=== PATIENT | female | born 1985 | race Caucasian/White ===

== ENCOUNTER → 2017-11-03 09:57 | Outpatient (CLI) | payer OTHER, SELFPAY ==
--- NOTE | 2017-11-03 09:59 | NM_ITS ---
CLINICAL: 32-year-old female with reported history of clinical hyperparathyroidism. 99m Tc SESTAMIBI DUAL PHASE PARATHYROID SCINTIGRAPHY COMPARISON: None available FINDINGS: Following the intravenous administration of 26.7 mCi of 99m Tc sestamibi, image acquisitions of the anterior neck at approximately 15 minutes and 2.0 hours post radiopharmaceutical provision reveal: 1. Immediate static blood pool acquisitions demonstrate distribution of the radiopharmaceutical in the right-left thyroid colloid. 2. Delayed images depict near complete washout of the radiotracer from the previously defined right-left thyroid parenchyma without evidence of focal retained radiopharmaceutical identified. NM/Parathyroid Scan IMPRESSION: 1. NEGATIVE 99m Tc SESTAMIBI PARATHYROID IMAGING DUAL PHASE EXAMINATION. 2. There is no current typical scintigraphic evidence of parathyroid adenoma on the present evaluation. Electronically Signed: Hitesh Garcia DO at 10:27 EST Tel , Service support ,
== END ==
PROVIDERS: Family Provider Nurse Practitioner; PCP Nurse Practitioner; Visit Provider Nurse Practitioner
DX: E34.9 Endocrine disorder, unspecified (principal); J45.909 Unspecified asthma, uncomplicated
CPT/HCPCS: 78070; A9500

== ENCOUNTER → 2017-11-16 16:00 | Outpatient (CLI) | payer OTHER, SELFPAY ==
[2017-11-19 14:28] LABS: HPV Reflexed? NOT INDICATED
== END ==
PROVIDERS: Family Provider Nurse Practitioner; PCP Nurse Practitioner; Visit Provider Obstetrics & Gynecology
DX: Z12.4 Encounter for screening for malignant neoplasm of cervix (principal)
CPT/HCPCS: 88175; G0145

== ENCOUNTER → 2017-11-19 14:38 | Outpatient (CLI) | payer OTHER, SELFPAY ==
[2017-11-22 18:44] LABS: Bacteria 0 SEEN /hpf (None Seen); Mucous, Urine 0 SEEN /hpf (<or=2+); Red Blood Cells-Urine 0 SEEN /hpf (0-5); Squamous Epithelial Cells - UA 0 SEEN /hpf (5-10); White Blood Cells 0 SEEN /hpf (0-5)
[2017-11-22 19:34] LABS: Color, Urine Straw (Yellow); Glucose, Dipstick Normal (Normal); Ketone-Dipstick Negative (Negative); Leukocyte Esterase-Dipstick Negative /ul (Negative); Nitrite-Dipstick Negative (Negative); Occult Blood-Urine 10 /ul (Negative); Protein-Dipstick Negative (Negative); Urine Bilirubin Dipstick Negative (Negative); Urine Clarity Clear (Clear); Urine Urobilinogen Normal (Normal)
== END ==
PROVIDERS: Family Provider Nurse Practitioner; PCP Nurse Practitioner; Visit Provider Physician Assistant Surgical
DX: R39.15 Urgency of urination (principal)
CPT/HCPCS: 81001; 87086; 87088

== ENCOUNTER → 2017-12-10 13:45 | Outpatient (CLI) | payer OTHER, SELFPAY ==
[2017-12-10 13:53] LABS: Mucous, Urine 0 SEEN /hpf (<or=2+)
[2017-12-10 14:26] LABS: Color, Urine Yellow (Yellow); Glucose, Dipstick Normal (Normal); Ketone-Dipstick Negative (Negative); Leukocyte Esterase-Dipstick Negative /ul (Negative); Nitrite-Dipstick Negative (Negative); Occult Blood-Urine 10 /ul (Negative); Protein-Dipstick Negative (Negative); Specific Gravity, Urine 1.015 (1.002-1.030); Urine Bilirubin Dipstick Negative (Negative); Urine Clarity Clear (Clear); Urine Urobilinogen Normal (Normal); Urine pH 6.5 (5.0 - 8.0)
[2017-12-10 14:32] LABS: Bacteria 1+ /hpf (None Seen); Red Blood Cells-Urine 0-5 SEEN /hpf (0-5); Squamous Epithelial Cells - UA 0-5 SEEN /hpf (5-10); White Blood Cells 0-5 SEEN /hpf (0-5)
== END ==
PROVIDERS: Family Provider Nurse Practitioner; PCP Nurse Practitioner; Visit Provider Nurse Practitioner
DX: N39.0 Urinary tract infection, site not specified (principal)
CPT/HCPCS: 81001

== ENCOUNTER → 2017-12-28 07:08 | Outpatient (CLI) | payer OTHER, SELFPAY ==
[2017-12-28 08:03] LABS: ALB/GLOB Ratio 0.9 RATIO (0.9-2.4); AST(SGOT) 15 U/L (15-37); Alanine Aminotransfer ALT/SGPT 19 U/L (13-56); Albumin, Serum 3.4 g/dL (3.2-5.0); Alkaline Phosphatase 59 U/L (45-117); Anion Gap 7 (5-15); BUN 10 mg/dL (7-18); BUN/Creat Ratio 12.2 RATIO (10-20); Chloride 107 mmol/L (98-107); Cholesterol 180 mg/dL (200); Creatinine, Serum 0.82 mg/dL (0.55-1.02); EST Glomerular Filtration Rate 87 mL/min (>60); Est Glom Filt Rate - Afr Amer 105 mL/min (>60); Globulin 3.8 g/dL (2.2-4.2); Glucose 88 mg/dL (74-106); High Density Lipoprotein 44 mg/dL; Protein, Total 7.2 g/dL (6.4-8.2); Sodium Level 141 mmol/L (136-145); Triglycerides 273 mg/dL; Very Low Density Lipoprotein 55 mg/dL (5-40)
== END ==
PROVIDERS: Family Provider Nurse Practitioner; PCP Nurse Practitioner; Visit Provider Nurse Practitioner
DX: L70.9 Acne, unspecified (principal); E78.5 Hyperlipidemia, unspecified
CPT/HCPCS: 36415; 80053; 80061

== ENCOUNTER 2018-03-03 10:56 | Emergency (ER) | payer OTHER, SELFPAY ==
[2018-03-03 10:57] VITALS: BP 131/95; PULSE 82; RESP 18; TEMP 36; O2SAT 96; BMI 36.7
--- NOTE | 2018-03-03 11:17 | CT_ITS ---
STUDY: CT ABDOMEN AND PELVIS WITHOUT CONTRAST REASON FOR EXAM: Female, 32 years old. Right flank pain. History of kidney stones. RADIATION DOSAGE (If Supplied By Facility): CTDIvol = ( 21.88 ) mGy, DLP = ( 1126.13 ) mGycm TECHNIQUE: Transaxial images were obtained from the dome of the diaphragm to the symphysis pubis without oral contrast, and without intravenous contrast. Sagittal and coronal images were reconstructed. Individualized dose optimization techniques were used for this CT. COMPARISON: Comparison is made with prior study dated May 07, 2017. FINDINGS: Mild degree of increased markings at the lung bases suggestive of bibasilar atelectasis. The visualized portions of the heart are within normal limits. Normal liver. Normal gallbladder and extrahepatic biliary system. Normal spleen. Normal pancreas. Normal bilateral adrenal glands. 2 mm calculus in the upper pole of the right kidney. 2 mm calculus in the lower pole of the left kidney. Normal visualized stomach. Normal small intestine. Normal colon. The appendix is visualized and appears normal. Normal abdominal aorta. Normal inferior vena cava. Normal retroperitoneum. Mildly enlarged lymph nodes in the right lower quadrant suggestive of a possible mesenteric adenitis. Normal urinary bladder. I suspect a 5.3 cm x 3.5 cm cyst in the right ovary. Normal abdominal wall. Normal osseous structures. CT/Abdomen/Pelvis without Cont IMPRESSION: Findings suggestive of a right ovarian cyst. Enlarged lymph nodes in the right lower quadrant suggestive of mesenteric adenitis. Nonobstructive bilateral nephrolithiasis. Electronically Signed: Nicho Diaz MD at 12:57 EDT Tel [phone], Service support ,
[2018-03-03 11:38] LABS: Color, Urine Yellow (Yellow); Glucose, Dipstick Normal (Normal); Ketone-Dipstick Negative (Negative); Leukocyte Esterase-Dipstick 25 /ul (Negative); Nitrite-Dipstick Negative (Negative); Occult Blood-Urine 150 /ul (Negative); Protein-Dipstick 30 mg/dl (Negative); Urine Bilirubin Dipstick Negative (Negative); Urine Clarity Sl. Cloudy (Clear); Urine Urobilinogen Normal (Normal)
[2018-03-03 11:39] LABS: Absolute Lymphocyte Count 1.26 X10^3/ul (0.83-4.51); Absolute Neutrophil Count 4.4 X10^3/uL (2.0-7.7); Basophil# 0.01 X10^3/uL; Basophil% 0.2 % (0-1); Eosinophil# 0.12 X10^3/uL; Hematocrit 44.2 % (37-47); Hemoglobin 14.9 g/dl (12.0-15.0); Lymphocyte # 1.26 X10^3/ul (4.0); Lymphocyte % 20.6 % (19-41); Mean Corp Hgb Conc 33.7 g/gl (32-36); Mean Corpuscular Hgb 29.7 pg (27.0-32.0); Mean Corpuscular Volume 88.2 fL (81-99); Mean Platelet Vol. 9.8 fl (6.2-12.0); Monocyte# 0.34 X10^3/uL; Monocyte% 5.5 % (0-10); Neutrophil % 71.7 % (47-70); Platelet Count 194 K/mm3 (150-450); RBC Distribution Width CV 13.6 % (11.6-14.6); RBC Distribution Width SD 43.7 fl (35.1-43.9); Red Blood Count 5.01 M/mm3 (4.2-5.4); White Blood Count 6.1 K/mm3 (4.4-11.0)
[2018-03-03 11:40] LABS: POSITIVE COUNT NO; POSITIVE DIFFERENTIAL NO; POSITIVE MORPHOLOGY NO
[2018-03-03] MEDS: 0.9% Normal Saline 1,000 ML 125 ML IV (11:40)
[2018-03-03 11:45] LABS: Bacteria 1+ /hpf (None Seen); Mucous, Urine 2+ /hpf (<or=2+); Red Blood Cells-Urine 5-10 SEEN /hpf (0-5); Squamous Epithelial Cells - UA 0-5 SEEN /hpf (5-10); White Blood Cells 0-5 SEEN /hpf (0-5)
[2018-03-03 11:51] LABS: Anion Gap 6 (5-15); BUN 11 mg/dL (7-18); BUN/Creat Ratio 12.2 RATIO (10-20); Calcium,Total 9.4 mg/dL (8.5-10.1); Chloride 105 mmol/L (98-107); EST Glomerular Filtration Rate 78 mL/min (>60); Est Glom Filt Rate - Afr Amer 94 mL/min (>60); Estimated Creatinine Clearance 85.56 ml/min; Glucose 95 mg/dL (74-106); Potassium 3.8 mmol/L (3.5-5.1); Sodium Level 137 mmol/L (136-145)
[2018-03-03 12:00] LABS: Pregnancy, Serum, hCG Quali. NEGATIVE Negative (0-9 Nonpreg)
--- NOTE | 2018-03-03 13:03 | ED.VISSUMM ---
- ER Visit Summary Date of Service: 03/03/18 Chief Complaint: [Right-sided flank pain] History of Present Illness: The patient is a 32 F [presents the emergency department with right-sided flank pain ?2 days. Patient has had intermittent pain over the last 2 days well and has a history of kidney stones. Patient states that the pain was more severe around 3:30 AM today and then began to improve however around 9:30 AM she again had increasing in the amount of pain and took a [place] at home. Patient denies urinary symptoms. Patient denies any fever. Her last menstrual period was about a month ago. Patient does not believe that she is and she is on control. Currently her pain is a 3 out of 10.] Physical Examination: [HEENT-PERRLA, EOMI. Cranial nerves II through XII grossly intact. TMs clear. Mucous membranes moist. No adenopathy. Cardiovascular-regular rate and rhythm without murmur or ectopy Lungs-clear to auscultation, chest wall stable without crepitus or subcu emphysema Abdomen-normoactive bowel sounds, soft. Patient has some mild right lower quadrant tenderness on palpation and some mild CVA tenderness on the right. There is no rebound, rigidity, or perineal signs. Extremities-intact ?4, normal range of motion, normal pulses, atraumatic] Test Results: [CBC with differential obtained showed a normal white count of 6.1, hemoglobin 15, hematocrit 44, platelets 194. Chemistries unremarkable. Urinalysis showed 5-10 RBCs without signs of infection. HCG was negative. CT flank showed a right ovarian cyst and some increased lymph nodes in the right lower quadrant consistent with mesenteric adenitis.] Emergency Department Course and Treatment: [Patient refused pain medication in the emergency department.] Treatment Plan: [At this time patient is relatively pain-free. Patient advised to follow-up with her CARBONATING STONE CLEANER within next 3-5 days. Patient advised to use ibuprofen and then the [place] that she has for breakthrough pain. At this point I do not feel patient's history and exam consistent with torsion. Disposition: Discharged to home in stable condition Impression: [Abdominal pain Ovarian cyst Mesenteric adenitis] This note was generated with Earthmillation software. It may contain incorrect words, spelling, and punctuation that were not noted in review of the chart prior to signing ED Disposition - Plan for ED Patient: Chief Complaint: Flank Pain Referrals: Socorro Hernandez [Primary Care Provider] -
--- NOTE | 2018-03-03 13:07 | ED.DCSUM_ITS ---
- ER Visit Summary Date of Service: 03/03/18 Chief Complaint: [Right-sided flank pain] History of Present Illness: The patient is a 32 F [presents the emergency department with right-sided flank pain ?2 days. Patient has had intermittent pain over the last 2 days well and has a history of kidney stones. Patient states that the pain was more severe around 3:30 AM today and then began to improve however around 9:30 AM she again had increasing in the amount of pain and took a [place] at home. Patient denies urinary symptoms. Patient denies any fever. Her last menstrual period was about a month ago. Patient does not believe that she is and she is on control. Currently her pain is a 3 out of 10.] Physical Examination: [HEENT-PERRLA, EOMI. Cranial nerves II through XII grossly intact. TMs clear. Mucous membranes moist. No adenopathy. Cardiovascular-regular rate and rhythm without murmur or ectopy Lungs-clear to auscultation, chest wall stable without crepitus or subcu emphysema Abdomen-normoactive bowel sounds, soft. Patient has some mild right lower quadrant tenderness on palpation and some mild CVA tenderness on the right. There is no rebound, rigidity, or perineal signs. Extremities-intact ?4, normal range of motion, normal pulses, atraumatic] Test Results: [CBC with differential obtained showed a normal white count of 6.1 , hemoglobin 15, hematocrit 44, platelets 194. Chemistries unremarkable. Urinalysis showed 5-10 RBCs without signs of infection. HCG was negative. CT flank showed a right ovarian cyst and some increased lymph nodes in the right lower quadrant consistent with mesenteric adenitis.] Emergency Department Course and Treatment: [Patient refused pain medication in the emergency department.] Treatment Plan: [At this time patient is relatively pain-free. Patient advised to follow-up with her MANUFACTURING PLANT CONTROLLER within next 3-5 days. Patient advised to use ibuprofen and then the [place] that she has for breakthrough pain. At this point I do not feel patient's history and exam consistent with torsion. Disposition: Discharged to home in stable condition Impression: [Abdominal pain Ovarian cyst Mesenteric adenitis] This note was generated with Ed4Uation software. It may contain incorrect words, spelling, and punctuation that were not noted in review of the chart prior to signing ED Disposition - Plan for ED Patient: Chief Complaint: Flank Pain Referrals: Socorro Hernandez [Primary Care Provider] -
--- NOTE | 2018-03-03 13:08 | ED.DEP ---
ED Disposition - Plan for ED Patient: Chief Complaint: Flank Pain Instructions: ED Cyst Ovarian, ED Adenitis Mesenteric Prescriptions: Naproxen [Naprosyn] 500 mg PO BID PRN #20 tab Referrals: Socorro Hernandez [Primary Care Provider] - Jack Donohue MD [STAFF PHYSICIAN] - 3-5 Days
[2018-03-03 13:19] VITALS: BP 119/83; PULSE 72; RESP 16; O2SAT 96
== END 2018-03-03 13:21 | disposition home or self-care (01) ==
LOC: ED 11:40
PROVIDERS: Emergency Provider Emergency Medicine; Family Provider Nurse Practitioner; PCP Nurse Practitioner
DX: N83.201 Unspecified ovarian cyst, right side (principal); I88.0 Nonspecific mesenteric lymphadenitis; E78.00 Pure hypercholesterolemia, unspecified; Z79.899 Other long term (current) drug therapy
CPT/HCPCS: 74176; 80048; 81001; 84703; 85025; 96360; 96361; 99283; J7030

== ENCOUNTER → 2018-03-22 10:51 | Outpatient (CLI) | payer OTHER, SELFPAY ==
--- NOTE | 2018-03-22 14:32 | PFTCOMP ---
COMPLETE PULMONARY FUNCTION TEST INTERPRETATION Brief HPI: Patient is a 32 year old female, currently under the care of Socorro David, who presents to [facility] for complete pulmonary function tests secondary to diagnosis of dyspnea. Respiratory therapist reports good effort and reproducible results. Interpretation: Forced expiration spirometry shows no large airways obstructive ventilatory defect with an FEV1 of 103% predicted. There is no significant bronchodilator response by ATS criteria. Spirograms are of good quality and plateau normally. The respiratory flow volume loop shows a normal pattern. Lung volumes by body plethysmography show a normal total lung capacity at 5.86 L, 106% predicted. All other lung volumes are within normal limits. Diffusion capacity by carbon monoxide is normal at 86% predicted. The airway resistance is normal. Compared to previous pulmonary function tests from 04/08/2017, there has been normalization of DLCO. Impression: These pulmonary function tests are within normal limits and show significant improvement compared to previous.
== END ==
PROVIDERS: Family Provider Nurse Practitioner; PCP Nurse Practitioner; Visit Provider Nurse Practitioner
DX: E34.9 Endocrine disorder, unspecified (principal); J45.909 Unspecified asthma, uncomplicated
CPT/HCPCS: 94060; 94726; 94729

== ENCOUNTER 2018-03-26 12:00 | Observation (INO) | payer OTHER, SELFPAY ==
[2018-03-26 12:01] VITALS: BP 145/68; PULSE 84; RESP 16; TEMP 37.2; O2SAT 96; BMI 36.7
--- NOTE | 2018-03-26 12:15 | US_ITS ---
STUDY: ULTRASOUND OF THE FEMALE PELVIS REASON FOR EXAM: Female, 32 years old. Right pelvic pain LMP: March 01, 2018. TECHNIQUE: Transvaginal. TECHNICAL QUALITY: Adequate. COMPARISON: CT March 03, 2018.. FINDINGS: The uterus is anteverted and is in a midline position. The uterus measures 8.1 x 5.3 x 3.9 cm. There is a Nabothian cyst of the cervix. The endometrium measures 7 mm in thickness, and is hyperechoic. There is no demonstrated endometrial mass. There is no demonstrated myometrial mass. I.U.D. - The patient does not have an I.U.D. The right ovary is visualized. The right ovary measures 7.2 x 6.7 x 4.8 cm. There is no right ovarian cyst or ovarian mass. There is no visualized right adnexal mass or complex lesion. There is normal arterial and normal venous vascularity. The left ovary is visualized. The left ovary measures 3.3 x 2.7 x 1.8 cm. There are multiple follicles of the left ovary without a dominant cyst. There is no visualized left adnexal mass or complex lesion. There is normal arterial and normal venous vascularity. There is minimal fluid in the cul-de-sac. The volume of the bladder was 22 ml. US/Pelvic (Non ) IMPRESSION: Enlarged right ovary. No dominant mass seen. Mild free fluid. Electronically Signed: Ravin Lopez MD at 14:45 EDT , Service support ,
--- NOTE | 2018-03-26 12:27 | ED.RN ---
PT refused Dilaudid for now, we will hold dose. New order for toradol received from Dr. Valladares. Pt provided urine sample.
[2018-03-26] MEDS: Ketorolac 30 MG/ML Syringe IV (12:45)
[2018-03-26] MEDS: 0.9% Normal Saline 1,000 ML 125 ML IV (12:45)
[2018-03-26 12:46] LABS: Color, Urine Yellow (Yellow); Glucose, Dipstick Normal (Normal); Ketone-Dipstick Negative (Negative); Leukocyte Esterase-Dipstick Negative /ul (Negative); Nitrite-Dipstick Negative (Negative); Occult Blood-Urine 25 /ul (Negative); Protein-Dipstick Negative (Negative); Urine Bilirubin Dipstick Negative (Negative); Urine Clarity Sl. Cloudy (Clear); Urine Urobilinogen Normal (Normal)
[2018-03-26 12:57] LABS: Bacteria 2+ /hpf (None Seen); Mucous, Urine RARE /hpf (<or=2+); Red Blood Cells-Urine 0-5 SEEN /hpf (0-5); Squamous Epithelial Cells - UA 0-5 SEEN /hpf (5-10); White Blood Cells 0-5 SEEN /hpf (0-5)
[2018-03-26 13:03] LABS: Absolute Lymphocyte Count 1.87 X10^3/ul (0.83-4.51); Absolute Neutrophil Count 4.9 X10^3/uL (2.0-7.7); Basophil# 0.02 X10^3/uL; Basophil% 0.3 % (0-1); Eosinophil# 0.25 X10^3/uL; Eosinophils% 3.3 % (0-5); Hematocrit 41.9 % (37-47); Hemoglobin 14.4 g/dl (12.0-15.0); Lymphocyte # 1.87 X10^3/ul (4.0); Lymphocyte % 24.8 % (19-41); Mean Corp Hgb Conc 34.4 g/gl (32-36); Mean Corpuscular Hgb 30.3 pg (27.0-32.0); Mean Platelet Vol. 9.8 fl (6.2-12.0); Monocyte# 0.52 X10^3/uL; Monocyte% 6.9 % (0-10); Neutrophil # 4.88 X10^3/uL (2.7-7.7); Neutrophil % 64.7 % (47-70); POSITIVE COUNT NO; POSITIVE DIFFERENTIAL NO; POSITIVE MORPHOLOGY NO; Platelet Count 220 K/mm3 (150-450); RBC Distribution Width CV 13.7 % (11.6-14.6); RBC Distribution Width SD 44.1 fl (35.1-43.9); Red Blood Count 4.76 M/mm3 (4.2-5.4); White Blood Count 7.5 K/mm3 (4.4-11.0)
[2018-03-26 13:12] LABS: Anion Gap 9 (5-15); BUN 7 mg/dL (7-18); BUN/Creat Ratio 8.4 RATIO (10-20); Calcium,Total 9.2 mg/dL (8.5-10.1); Chloride 109 mmol/L (98-107); Creatinine, Serum 0.83 mg/dL (0.55-1.02); EST Glomerular Filtration Rate 85 mL/min (>60); Est Glom Filt Rate - Afr Amer 103 mL/min (>60); Estimated Creatinine Clearance 92.78 ml/min; Glucose 97 mg/dL (74-106); Potassium 3.9 mmol/L (3.5-5.1); Sodium Level 141 mmol/L (136-145)
[2018-03-26 13:22] LABS: Pregnancy, Serum, hCG Quali. NEGATIVE Negative (0-9 Nonpreg)
[2018-03-26] MEDS: HYDROmorphone 1 MG/ML Syringe IV ×4 (14:08→22:12)
[2018-03-26 14:28] VITALS: BP 132/78; PULSE 79; RESP 16; O2SAT 98
--- NOTE | 2018-03-26 15:09 | ED.VISSUMM ---
- ER Visit Summary Date of Service: 03/26/18 Chief Complaint: [Pelvic pain] History of Present Illness: The patient is a 32 F [presents to the emergency department with complaint of right lower pelvic pain. Patient states that the pain started this morning around 10:15 AM. Patient describes the pain as severe. Patient had a similar episode earlier in the week that only lasted about 15 minutes then resolved. Patient states that she was in the emergency department about a month ago for the same type pain and at that time had a workup that included a CAT scan of her abdomen and pelvis that showed possibly a right ovarian cyst and some enlarged lymph nodes in the right lower quadrant. Patient subsequently followed up with her COMIC ILLUSTRATOR and had an ultrasound that showed what patient states they felt was an endometrioma however they cannot rule out intermittent torsion as the etiology of her pain as well. Patient was advised that if her pain return either to go see her COMIC ILLUSTRATOR in the office or come to the emergency department. Patient has not had any fevers. Denies any blood in her urine or urinary symptoms. Last menstrual period was 3 weeks ago.] Physical Examination: [HEENT-PERRLA, EOMI. Cranial nerves II through XII grossly intact. TMs clear. Mucous membranes moist. No adenopathy. Cardiovascular-regular rate and rhythm without murmur or ectopy Lungs-clear to auscultation, chest wall stable without crepitus or subcu emphysema Abdomen-normoactive bowel sounds, soft. Patient has tenderness to palpation over the right pelvic abdomen. No rebound, rigidity, or perineal signs. No significant CVA tenderness. Extremities-intact ?4, normal range of motion, normal pulses, atraumatic] Test Results: CBC with differential obtained showed a white count of 7.5, hemoglobin 14, hematocrit 42, platelets 220. Chemistries unremarkable. Urinalysis unremarkable. HCG was negative. Ultrasound of the pelvis was obtained which showed enlarged right ovary no dominant mass seen. The right ovary measured 7.2 x 6.7 x 4.8 cm. Minimal free fluid in the cul-de-sac. [] Emergency Department Course and Treatment: [Patient was medicated with Dilaudid and Zofran as well as Toradol. Patient's pain returned and she had to be remedicated with Dilaudid. Patient continues to be very painful. I discussed case with Dr. Eileen Ramon who was covering for Dr. Donohue and will admit patient for pain control. Patient will likely require diagnostic laparoscopy at some point.] Treatment Plan: [Admit for pain control] Disposition: [Admit] Impression: [Intractable pelvic pain Enlarged right ovary] This note was generated with lensgen dictation software. It may contain incorrect words, spelling, and punctuation that were not noted in review of the chart prior to signing ED Disposition - Plan for ED Patient: Chief Complaint: Abd Pain Referrals: Socorro Hernandez [Primary Care Provider] -
--- NOTE | 2018-03-26 15:13 | ED.DCSUM_ITS ---
- ER Visit Summary Date of Service: 03/26/18 Chief Complaint: [Pelvic pain] History of Present Illness: The patient is a 32 F [presents to the emergency department with complaint of right lower pelvic pain. Patient states that the pain started this morning around 10:15 AM. Patient describes the pain as severe. Patient had a similar episode earlier in the week that only lasted about 15 minutes then resolved. Patient states that she was in the emergency department about a month ago for the same type pain and at that time had a workup that included a CAT scan of her abdomen and pelvis that showed possibly a right ovarian cyst and some enlarged lymph nodes in the right lower quadrant. Patient subsequently followed up with her CEO NA and had an ultrasound that showed what patient states they felt was an endometrioma however they cannot rule out intermittent torsion as the etiology of her pain as well. Patient was advised that if her pain return either to go see her CEO NA in the office or come to the emergency department. Patient has not had any fevers. Denies any blood in her urine or urinary symptoms. Last menstrual period was 3 weeks ago.] Physical Examination: [HEENT-PERRLA, EOMI. Cranial nerves II through XII grossly intact. TMs clear. Mucous membranes moist. No adenopathy. Cardiovascular-regular rate and rhythm without murmur or ectopy Lungs-clear to auscultation, chest wall stable without crepitus or subcu emphysema Abdomen-normoactive bowel sounds, soft. Patient has tenderness to palpation over the right pelvic abdomen. No rebound, rigidity, or perineal signs. No significant CVA tenderness. Extremities-intact ?4, normal range of motion, normal pulses, atraumatic] Test Results: CBC with differential obtained showed a white count of 7.5, hemoglobin 14, hematocrit 42, platelets 220. Chemistries unremarkable. Urinalysis unremarkable. HCG was negative. Ultrasound of the pelvis was obtained which showed enlarged right ovary no dominant mass seen. The right ovary measured 7.2 x 6.7 x 4.8 cm. Minimal free fluid in the cul-de-sac. [] Emergency Department Course and Treatment: [Patient was medicated with Dilaudid and Zofran as well as Toradol. Patient's pain returned and she had to be remedicated with Dilaudid. Patient continues to be very painful. I discussed case with Dr. Eileen Ramon who was covering for Dr. Donohue and will admit patient for pain control. Patient will likely require diagnostic laparoscopy at some point.] Treatment Plan: [Admit for pain control] Disposition: [Admit] Impression: [Intractable pelvic pain Enlarged right ovary] This note was generated with Chrysallis dictation software. It may contain incorrect words, spelling, and punctuation that were not noted in review of the chart prior to signing ED Disposition - Plan for ED Patient: Chief Complaint: Abd Pain Referrals: Socorro Hernandez [Primary Care Provider] -
[2018-03-26 15:19] VITALS: BP 132/78; PULSE 84; RESP 16; TEMP 36.4; O2SAT 100
[2018-03-26 15:55] VITALS: BMI 36.7; BMI 36.8
[2018-03-26 16:21] VITALS: BP 147/97; PULSE 67; RESP 18; TEMP 36.4; O2SAT 97
--- NOTE | 2018-03-26 16:28 | NURSING ---
Dr Ramon talking to pt now in pt's room.
--- NOTE | 2018-03-26 17:03 | PCM.HPOB.BLA ---
History and Physical Date of Admission: 03/26/18 HISTORY OF PRESENT ILLNESS: Steffen Ulloa, a 32 year old female 1 0 1 0 1, presented for: Steffen presents to [facility] Emergency Dept with h/o severe RLQ pain. States a h/o pain intermittently starting on 03/01/18 at the R flank and RLQ. She has h/o kidney stones and had prior ESWL procedure. This pain is different. She went to the ED then and had a CT scan 03-03-18 and found a 5.6 x 3.5 right ovarian cyst as well as two small, nonobstructing stones. She was given Naproxen for pain, and her pain has continued intermittently since then. She had an ultrasound in our office on 03/09/18 which showed: Uterus 9 x 4.5 x 3.5 cm with Endometrial stripe of 3 mm R ovary 6.9 x 5.7 x c cm and complex appearing L ovary 5 x 2.8 x 2.3 cm with multiple small follicles (dx of PCOS prior) She reports she had a 20 minute episode of pain 03/21/18 but the pain went away. 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 Pelvic sono at [facility] today: Uterus 8.1 x 5.3 x 3.9 cm with Endometrial stripe of 7 mm R ovary 7.2 x 6.7 x 4.8 cm with normal arterial and venous blood flow L ovary 3.3 x 2.7 x 1.8 cm Minimal fluid in cul de sac. Reviewed all finding with Steffen and her S.O. Advised will likely need to have laparoscopy to remove the enlarged right ovary due to pain , possible intermittent torsion. Her pain is currently a little better after Toradol and several doses of Dilaudid. But she is now nauseated after the pain medication. ALLERGIES: Morphine, Rash, Demerol, Rash, Biaxin, Rash, Cipro, Rash, Bactrim, Rash, MEDICATIONS HISTORY: Current medications prescribed by our practice are: 1. Tri-Previfem (28) 0.18 mg(7)/0.215 mg(7)/0.25 mg(7)-35 mcg tablet, One pill by mouth once a day Patient is also takin. Relpax 40 mg tablet, As Directed 2. Crestor 5 mg tablet, One pill by mouth once a day 3. naproxen 500 mg tablet, bid as needed REVIEW OF SYSTEMS: GENERAL - Denies fever, or chills SKIN - Denies skin changes EYES - Denies visual changes EARS - Denies difficulty hearing NOSE - Denies nasal congestion or bleeding MOUTH - Denies sore throat or difficulty swallowing NECK - Denies pain or swelling RESPIRATORY - Denies shortness of breath or wheezing CARDIOVASCULAR - Denies palpitations or chest pain GASTROINTESTINAL - Denies nausea, vomiting, diarrhea, constipation GENITOURINARY - Denies dysuria, frequency of urination, incontinence of urine. 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 Lithotripsy June 2017 2. Dx Lap @ 17 yrs of age 3. 05/06/2015 Suction D jennifer C Jack Donohue M.D. 4. 05/[address] Rodríguez MENSTRUAL HISTORY: LMP Known?- Yes Amount/Duration - 3 days, Regularity - Regular, Frequency - monthly days, LMP - 03/04/18, Age Onset Menarche - 14 PAST PREGNANCIES: Total Pregnancies - 2; Full Term Pregnancies - 1; Premature - 0; Abortions, Induced - 0; Abortions, Spontaneous - 1; Ectopics - 0; Multiple Births - 0; Living Children - 1 FAMILY HISTORY: Father - FH: Hyperthyroidism; Mother - FH: Hypertension; Mother - Osteoporosis; Maternal Grandparent - FH: Diabetes mellitus type 2; Maternal Grandparent - Cardiac disorder; Paternal Grandparent - FH: Cancer of colon; SOCIAL HISTORY: Alcohol Use - RARELY Smoking - denies smoking Diet - moderate, balanced diet Lifestyle - moderate stress lifestyle and Exercise - minimal Seat Belt Use - always Employer - 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 Illicit Drug Use - denies use of street drugs Sexual Activity - Hours Worked - 36 Spouse-Sig Other Name - Obed Spouse-Sig Other Occupation - Construction Children Name(s) - Elvin Control - Control Pills PHYSICAL EXAMINATION BP- 132/78 Weight- 229.20 lbs Height- 66.00 inch BMI:37.07 CONSTITUTIONAL - NAD, well nourished, and well developed SKIN - No rash, lesions, or ulcers HEENT - Normocephalic, PERRLA, EOMI NECK - No nuchal rigidity EXTREMITIES - No edema or calf tenderness NEUROLOGICAL - Cranial nerves II-XII grossly intact PSYCHIATRIC - A and O to time, place, person, mood and affect LABS: CBC wnl Hgb 14.4 g/dl. WBC normal. Plts normal. BMP WNL. UPT negative. ASSESSMENT: 1. Enlarged Right ovary 2. Abdominal Pain,RLQ PLAN BY DIAGNOSIS: 1. Abdominal Pain,RLQ and Enlarged Right ovary. Intermittent right lower quadrant pain. Enlarged Right ovary, complex appearing. Although Steffen has a history of kidney stones, no obstructing stones at present on CT and no hematuria. UPT negative. Likely pain due to enlarged right ovary with intermittent torsion. Admit for pain management to [facility]. Plan for laparoscopy with possible minilaparotomy to remove the enlarged Right ovary. Surgery TBS depending on persistence vs resolution of symptoms.
--- NOTE | 2018-03-26 17:20 | HP.PCM_ITS ---
History and Physical Date of Admission: 03/26/18 HISTORY OF PRESENT ILLNESS: Steffen Ulloa, a 32 year old female 1 0 1 0 1, presented for: Steffen presents to [facility] Emergency Dept with h/o severe RLQ pain. States a h/o pain intermittently starting on 03/01/18 at the R flank and RLQ. She has h/o kidney stones and had prior ESWL procedure. This pain is different. She went to the ED then and had a CT scan 03-03-18 and found a 5.6 x 3.5 right ovarian cyst as well as two small, nonobstructing stones. She was given Naproxen for pain, and her pain has continued intermittently since then. She had an ultrasound in our office on 03/09/18 which showed: Uterus 9 x 4.5 x 3.5 cm with Endometrial stripe of 3 mm R ovary 6.9 x 5.7 x c cm and complex appearing L ovary 5 x 2.8 x 2.3 cm with multiple small follicles (dx of PCOS prior) She reports she had a 20 minute episode of pain 03/21/18 but the pain went away. 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 Pelvic sono at [facility] today: Uterus 8.1 x 5.3 x 3.9 cm with Endometrial stripe of 7 mm R ovary 7.2 x 6.7 x 4.8 cm with normal arterial and venous blood flow L ovary 3.3 x 2.7 x 1.8 cm Minimal fluid in cul de sac. Reviewed all finding with Steffen and her S.O. Advised will likely need to have laparoscopy to remove the enlarged right ovary due to pain , possible intermittent torsion. Her pain is currently a little better after Toradol and several doses of Dilaudid. But she is now nauseated after the pain medication. ALLERGIES: Morphine, Rash, Demerol, Rash, Biaxin, Rash, Cipro, Rash, Bactrim, Rash, MEDICATIONS HISTORY: Current medications prescribed by our practice are: 1. Tri-Previfem (28) 0.18 mg(7)/0.215 mg(7)/0.25 mg(7)-35 mcg tablet, One pill by mouth once a day Patient is also takin. Relpax 40 mg tablet, As Directed 2. Crestor 5 mg tablet, One pill by mouth once a day 3. naproxen 500 mg tablet, bid as needed REVIEW OF SYSTEMS: GENERAL - Denies fever, or chills SKIN - Denies skin changes EYES - Denies visual changes EARS - Denies difficulty hearing NOSE - Denies nasal congestion or bleeding MOUTH - Denies sore throat or difficulty swallowing NECK - Denies pain or swelling RESPIRATORY - Denies shortness of breath or wheezing CARDIOVASCULAR - Denies palpitations or chest pain GASTROINTESTINAL - Denies nausea, vomiting, diarrhea, constipation GENITOURINARY - Denies dysuria, frequency of urination, incontinence of urine. 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 Lithotripsy June 2017 2. Dx Lap @ 17 yrs of age 3. 05/06/2015 Suction D jennifer C Jack Donohue M.D. 4. 05/[address] Rodríguez MENSTRUAL HISTORY: LMP Known?- Yes Amount/Duration - 3 days, Regularity - Regular, Frequency - monthly days, LMP - 03/04/18, Age Onset Menarche - 14 PAST PREGNANCIES: Total Pregnancies - 2; Full Term Pregnancies - 1; Premature - 0; Abortions, Induced - 0; Abortions, Spontaneous - 1; Ectopics - 0; Multiple Births - 0; Living Children - 1 FAMILY HISTORY: Father - FH: Hyperthyroidism; Mother - FH: Hypertension; Mother - Osteoporosis; Maternal Grandparent - FH: Diabetes mellitus type 2; Maternal Grandparent - Cardiac disorder; Paternal Grandparent - FH: Cancer of colon; SOCIAL HISTORY: Alcohol Use - RARELY Smoking - denies smoking Diet - moderate, balanced diet Lifestyle - moderate stress lifestyle and Exercise - minimal Seat Belt Use - always Employer - 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 Illicit Drug Use - denies use of street drugs Sexual Activity - Hours Worked - 36 Spouse-Sig Other Name - Obed Spouse-Sig Other Occupation - Construction Children Name(s) - Elvin Control - Control Pills PHYSICAL EXAMINATION BP- 132/78 Weight- 229.20 lbs Height- 66.00 inch BMI:37.07 CONSTITUTIONAL - NAD, well nourished, and well developed SKIN - No rash, lesions, or ulcers HEENT - Normocephalic, PERRLA, EOMI NECK - No nuchal rigidity EXTREMITIES - No edema or calf tenderness NEUROLOGICAL - Cranial nerves II-XII grossly intact PSYCHIATRIC - A and O to time, place, person, mood and affect LABS: CBC wnl Hgb 14.4 g/dl. WBC normal. Plts normal. BMP WNL. UPT negative. ASSESSMENT: 1. Enlarged Right ovary 2. Abdominal Pain,RLQ PLAN BY DIAGNOSIS: 1. Abdominal Pain,RLQ and Enlarged Right ovary. Intermittent right lower quadrant pain. Enlarged Right ovary, complex appearing. Although Steffen has a history of kidney stones, no obstructing stones at present on CT and no hematuria. UPT negative. Likely pain due to enlarged right ovary with intermittent torsion. Admit for [facility]. Plan for laparoscopy with possible minilaparotomy to remove the enlarged Right ovary. Surgery TBS depending on persistence vs resolution of symptoms.
[2018-03-26] MEDS: Lactated Ringers 1,000 ML 150 ML IV (17:59)
[2018-03-26] MEDS: 0.9% NaCl Peripheral Flush Adult/Peds IV ×2 (19:14→22:12)
[2018-03-26] MEDS: Ondansetron 4 MG/2 ML Vial IV (19:14)
[2018-03-26 22:10] VITALS: BP 140/91; PULSE 72; RESP 16; TEMP 36.6; O2SAT 100
[2018-03-27] MEDS: Lactated Ringers 1,000 ML 150 ML IV ×4 (00:13→22:22)
[2018-03-27] MEDS: Naproxen 250 MG Tablet 500 MG PO ×2 (00:13→22:22)
[2018-03-27] MEDS: HYDROcodone Bitartrate/Apap 5/325 Tablet PO ×2 (04:16→10:04)
[2018-03-27 04:21] VITALS: BP 126/88; PULSE 85; RESP 16; TEMP 36.6; O2SAT 99
[2018-03-27 05:56] LABS: Absolute Lymphocyte Count 2.07 X10^3/ul (0.83-4.51); Absolute Neutrophil Count 3.5 X10^3/uL (2.0-7.7); Basophil# 0.02 X10^3/uL; Basophil% 0.3 % (0-1); Eosinophils% 3.2 % (0-5); Hematocrit 39.2 % (37-47); Hemoglobin 13.2 g/dl (12.0-15.0); Lymphocyte # 2.07 X10^3/ul (4.0); Mean Corp Hgb Conc 33.7 g/gl (32-36); Mean Corpuscular Hgb 29.8 pg (27.0-32.0); Mean Corpuscular Volume 88.5 fL (81-99); Mean Platelet Vol. 9.7 fl (6.2-12.0); Monocyte# 0.47 X10^3/uL; Monocyte% 7.5 % (0-10); Neutrophil % 55.7 % (47-70); Platelet Count 204 K/mm3 (150-450); RBC Distribution Width CV 13.8 % (11.6-14.6); RBC Distribution Width SD 44.2 fl (35.1-43.9); Red Blood Count 4.43 M/mm3 (4.2-5.4); White Blood Count 6.3 K/mm3 (4.4-11.0)
[2018-03-27 06:01] LABS: POSITIVE COUNT NO; POSITIVE DIFFERENTIAL NO; POSITIVE MORPHOLOGY NO
--- NOTE | 2018-03-27 08:00 | PCM.PROGNOTE ---
Subjective: HD#2 RLQ pain. R adnexal mass, enlarged ovary States pain manageable overnight and hasn't required IV dilaudid since prior to MN. Aleorlin and Ligonier prn for pain and thinks she would be able to manage pain at home ok. Objective: Lying on L side in bed, moves easily to back. - Physical Exam General: Alert, Oriented x3, Cooperative, No apparent distress HEENT: Atraumatic Neck: Supple Neurological: Cranial nerves II-XII grossly intact Psych/Mental Status: Normal Affect Vital Signs Temp Pulse Resp BP Pulse Ox 98 F 85 16 126/88 H 99 03/27/18 04:21 03/27/18 04:21 03/27/18 04:21 03/27/18 04:21 03/27/18 04:21 Oxygen Delivery Method Room Air Weight: 103.3 kg Body Mass Index (BMI) 36.7 Intake and Output for Last 24 Hours 03/25/18 03/26/18 03/27/18 23:59 23:59 23:59 Intake Total 504 / 504 1963 / 1963 Output Total 900 / 900 Balance 504 / 504 1063 / 1063 Laboratory Tests Past 24 Hrs 03/27/18 05:00 WBC 6.3 RBC 4.43 Hgb 13.2 Hct 39.2 MCV 88.5 MCH 29.8 MCHC 33.7 RDW 13.8 RDW Differential 44.2 H Plt Count 204 MPV 9.7 Immature Gran % (Auto) 0.300 Neut % (Auto) 55.7 Lymph % (Auto) 33.0 Esmeralda % (Auto) 7.5 Eos % (Auto) 3.2 Baso % (Auto) 0.3 Absolute Neuts (auto) 3.5 Absolute Lymphs (auto) 2.07 Total Counted Not Reportable Medical Necessity - Tobacco Use Smoking Status: Never smoker Assessment/Plan All Active Problems (Last Updated 11/19/17 @ 17:16 by Rajwinder Irby) Hematuria (Acute) RLQ pain. Enlarged R ovary, complex appearing Possible intermittent torsion Plan home today but to schedule surgery for removal of the R ovary recommend rest at home until surgery. Ligonier prn pain.
--- NOTE | 2018-03-27 08:04 | PCM.DC ---
You will use the following diet at home:: Regular Return to work on:: 04/04/18 Additional Activity Instructions:: rest, off work until after surgery. Then to resume activity per postoperative instructions given. (lifting restrictions and activity will depend on type of incision needed) Call your doctor if you observe: Uncontrolled pain Allergies/Adverse Reactions: Allergies ciprofloxacin [From Cipro] Allergy (Verified 03/26/18 12:03) Hives ciprofloxacin HCl [From Cipro] Allergy (Verified 03/26/18 12:03) Hives clarithromycin [From Biaxin] Allergy (Verified 03/26/18 12:03) Hives meperidine HCl [From Demerol] Allergy (Verified 03/26/18 12:03) Rash morphine Allergy (Verified 03/26/18 12:03) Rash sulfamethoxazole [From Bactrim] Allergy (Verified 03/26/18 12:03) Hives trimethoprim [From Bactrim] Allergy (Verified 03/26/18 12:03) Hives Medications to take at Discharge [place]-3 Fatty Acids/Fish Oil [Fish Oil 1,000 mg Capsule] 1 ea PO DAILY 05/07/17 Rosuvastatin Calcium [Crestor] 5 mg PO DAILY 05/07/17 cholecalciferol (vitamin D3) 1,000 unit capsule 1,000 unit PO DAILY 11/19/17 norgestimate-ethinyl estradiol 0.18 mg/0.215mg/0.25mg-35 mcg(28)tablet 1 tab PO DAILY tab 11/19/17 Hydrocodone/Acetaminophen [Page 5-325 Tablet] 1 each PO Q6H PRN PRN 03/03/18 Naproxen [Naprosyn] 500 mg PO BID PRN #20 tab 03/03/18 Hydrocodone Bitart/Apap 5-325 [Page 5/325] 1 - 2 tablet PO Q6H PRN PRN 3 Days #20 tablet 03/27/18 The following prescriptions were given: Hydrocodone Bitart/Apap 5-325 [Page 5/325] 1 - 2 tablet PO Q6H PRN PRN 3 Days #20 tablet PRN Reason: Mod-Severe Pain (4-10/10) Primary Care Physician: Socorro Hernandez [Primary Care Provider] - Test Results: Test results from this visit will be discussed in further detail at your follow-up appointment, if applicable. Please Follow Up With: Jack Donohue MD - [phone] When: 2 wks for postop appointment Proposed Discharge Date: 03/27/18
--- NOTE | 2018-03-27 08:10 | DCINST_ITS ---
You will use the following diet at home:: Regular Return to work on:: 04/04/18 Additional Activity Instructions:: rest, off work until after surgery. Then to resume activity per postoperative instructions given. (lifting restrictions and activity will depend on type of incision needed) Call your doctor if you observe: Uncontrolled pain Allergies/Adverse Reactions: Allergies ciprofloxacin [From Cipro] Allergy (Verified 03/26/18 12:03) Hives ciprofloxacin HCl [From Cipro] Allergy (Verified 03/26/18 12:03) Hives clarithromycin [From Biaxin] Allergy (Verified 03/26/18 12:03) Hives meperidine HCl [From Demerol] Allergy (Verified 03/26/18 12:03) Rash morphine Allergy (Verified 03/26/18 12:03) Rash sulfamethoxazole [From Bactrim] Allergy (Verified 03/26/18 12:03) Hives trimethoprim [From Bactrim] Allergy (Verified 03/26/18 12:03) Hives Medications to take at Discharge [place]-3 Fatty Acids/Fish Oil [Fish Oil 1,000 mg Capsule] 1 ea PO DAILY 05/07/17 Rosuvastatin Calcium [Crestor] 5 mg PO DAILY 05/07/17 cholecalciferol (vitamin D3) 1,000 unit capsule 1,000 unit PO DAILY 11/19/17 norgestimate-ethinyl estradiol 0.18 mg/0.215mg/0.25mg-35 mcg(28)tablet 1 tab PO DAILY tab 11/19/17 Hydrocodone/Acetaminophen [[place] 5-325 Tablet] 1 each PO Q6H PRN PRN 03/03/18 Naproxen [Naprosyn] 500 mg PO BID PRN #20 tab 03/03/18 Hydrocodone Bitart/Apap 5-325 [[place] 5/325] 1 - 2 tablet PO Q6H PRN PRN 3 Days # 20 tablet 03/27/18 The following prescriptions were given: Hydrocodone Bitart/Apap 5-325 [[place] 5/325] 1 - 2 tablet PO Q6H PRN PRN 3 Days # 20 tablet PRN Reason: Mod-Severe Pain (4-10/10) Primary Care Physician: Socorro Hernandez [Primary Care Provider] - Test Results: Test results from this visit will be discussed in further detail at your follow- up appointment, if applicable. Please Follow Up With: Jack Donohue MD - [phone] When: 2 wks for postop appointment Proposed Discharge Date: 03/27/18
[2018-03-27 08:55] VITALS: BP 133/95; PULSE 82; RESP 16; TEMP 36.7; O2SAT 97
[2018-03-27 14:45] VITALS: BP 139/91; PULSE 79; RESP 18; TEMP 36.8; O2SAT 95
[2018-03-27] MEDS: HYDROmorphone 1 MG/ML Syringe IV ×3 (14:46→23:34)
[2018-03-27] MEDS: Ondansetron 4 MG/2 ML Vial IV ×2 (14:46→23:35)
[2018-03-27] MEDS: 0.9% NaCl Peripheral Flush Adult/Peds IV ×2 (14:53→23:34)
[2018-03-27 20:41] VITALS: BP 129/84; PULSE 72; RESP 16; TEMP 36.6; O2SAT 98
[2018-03-28] VITALS (12 sets, daily range): BP systolic 121–144; BP diastolic 77–87; PULSE 70–102; RESP 16–18; TEMP 36.3–37.2; O2SAT 93–99; BMI 36.7; BMI 36.6
[2018-03-28] MEDS: HYDROmorphone 1 MG/ML Syringe IV ×2 (03:25→08:53)
[2018-03-28] MEDS: 0.9% NaCl Peripheral Flush Adult/Peds IV ×2 (03:25→08:53)
[2018-03-28] MEDS: Lactated Ringers 1,000 ML 150 ML IV ×2 (05:02→20:21)
[2018-03-28] MEDS: Ondansetron 4 MG/2 ML Vial IV (08:53)
--- NOTE | 2018-03-28 11:51 | NURSING ---
Patient transported off unit at this time. Report called to Isabelle in [place]- notified that patient's mother and are waiting in surgical waiting area.
--- NOTE | 2018-03-28 12:25 | OV_PTH ---
PATIENT: DARYN BYRD LOC: MS3 U#:[id number] AGE/SX: 32/F ROOM: [facility] [place]: Dr. Eileen Ramon MD : [id number] BED: 1 DIS: 03/29/2018 SPEC #: [id number] RECD: 03/29/18 10:51 STATUS: ALYSSA VIGNESH #: [id number] SUSAN: 03/28/18 12:[address]: Eileen Ramon DEPT: SURGICAL PATHOLOGY RECD BY: Tan Drake ENTERED: 03/29/18 13:48 SP TYPE: OVARY OTHR DR: Socorro Hernandez, CADD TECHNICIAN-C Tissues: A - Right ovary B - Left fallopian tube Procedures: Surgery Specimen Level IV HEADER OPERATION: Laparoscopic right salpingo-oophorectomy, left salpingectomy PRE-OP DIAGNOSIS: Enlarged right ovary, right lower quadrant pain TISSUE SUBMITTED: A ? Right ovary and fallopian tube, B ? Left fallopian tube MICROSCOPIC DIAGNOSIS A. Right ovary and fallopian tube, salpingo-oophorectomy: Massive ovarian edema. Follicular and corpus luteal cysts. Fallopian tube with no pathologic change. B. Left fallopian tube, salpingectomy: Benign paratubal cysts. AM:yarelis 03/30/18 COMMENT Case has been reviewed in consultation with Dr. Garibay who concurs with the above diagnosis. IDC:RAJ MICROSCOPIC DESCRIPTION Slides are reviewed. GROSS DESCRIPTION A - Received in fixative is one container labeled with the patient's name and designated right ovary and fallopian tube. The specimen consists of a cystic, martinez-abbott ovary measuring 8.5 x 5.8 x 3.2 cm. Adjacent to this is a fallopian tube measuring 6 cm in length and 0.8 cm in average diameter and containing a normal fimbriated end. No tubo-ovarian adhesions are seen. The ovary weighs 90 gm. The external surface of the ovary is inked. The external surface of the ovary does not contain papillary projections or excrescences and has a smooth, shiny appearance. Sections reveal a martinez, edematous appearance with multiple cysts ranging in size from 0.2 to 0.6 cm present at the edge. Sample Color Maker sections are submitted in six cassettes as follows: 1 ? fallopian tube, 2-5 ? ovary. B - Received in fixative is one container labeled with the patient's name and designated left fallopian tube. The specimen consists of a fallopian tube measuring 6 cm in length and 0.5 cm in average diameter. A normal fimbriated end is present. No mass lesions are identified. Sample Color Maker sections are submitted in one cassette. / AM:yarelis 03/29/18 TC:5 CPT: 32311 x2
[2018-03-28 13:35] LABS: Prothrombin Time (Protime)PT. 13.4 SECONDS (11.7-14.9)
[2018-03-28 13:36] LABS: Partial Thromboplast Time 27.7 Seconds (24.1-36.2)
--- NOTE | 2018-03-28 15:20 | PCM.OP.BLANK ---
Operative Report Date of Procedure: 03/28/18 Surgeon: Jack Donohue MD, FACOG Head Waitress: SAMANTHA Jones Anesthesia: Corry Hale CRNA Type of Anesthesia: General Endotracheal Pre-Op Diagnosis: Right Ovarian Cyst and Pain; Desires Permanent Sterilization Postoperative Diagnosis: Right Ovarian Cyst and Pain; Desires Permanent Sterilization; Right Tubo-Ovarian Torsion Procedure: Diagnostic Laparoscopy, Right Salpingoophrectomy, Left Tubal Occlusion with Left Salpingectomy Findings: 8-9 cm uterus with normal appearing left fallopian tube and ovary; 8 cm right ovary in cul-de-sac with blackened and indurated areas suggestive of chronic torsion; right tube black from partial torsion; normal pelvic otherwise; right ureter movement noted after removal of tubes and ovary. Indications: This is a 32 year old patient who has the above diagnosis. She has also considered sterilization for quite some time. She is aware of the permanent nature of the procedure, the failure rate of 1-2%, and the availability of other nonpermanent control options. All questions were answered to consider the patient well-informed. Procedure: The patient was taken to the operating room where after induction of general anesthesia, she was placed in the dorsolithotomy position and prepped and draped in the usual sterile fashion. The bladder was drained of approximately 50 cc of clear yellow urine with a catheter. Anterior cervix was grasped with the tenaculum. Conn cannula was placed and attention was turned toward the laparoscopic portion of the procedure. Approximately 6 cc of half percent ropivacaine was injected subumbilically, suprapubically and midway between. A 5 mm bladeless trocar was placed subumbilically and intraperitoneal placement confirmed. After CO2 insufflation was complete, a 5 mm bladeless trocar was introduced suprapubically. This was eventulally converted to a 10/12 cm trochar. The above findings were noted. An 5 mm bladeless trochar port was then placed midway between these 2 ports. Enseal device was used to divide the infundibulopelvic ligament freeing the torsed right tube and ovary. Enseal device was then used to divide the mesosalpinx of the left fallopian tube to the uterus. The left fallopian tube was removed via the 10/12 mm port and after confirming hemostasis and Endobag was placed through the 10/12 mm port and right fallopian tube and ovary placed in this bag. The 10/12 mm port was removed and fascia extended to allow bringing the right fallopian tube and ovary through the small mini laparotomy incision site. Fascia was closed with running #1 Vicryl suture and subcutaneous tissue was copiously irrigated with saline before closing with running 3-0 Vicryl suture. Abdomen was reinsufflated and irrigated and hemostasis was noted. Laparoscopic instruments with as much CO2 gas as possible was removed and incisions were closed with running 4-0 Monocryl suture. Steri-Strip and OpSite were placed across the incisions. Steri-Strips placed across the incision. Vaginal instruments were removed. Patient tolerated procedure well was taken to recovery room in satisfactory condition sponge instrument and needle counts were all reportedly correct. Estimated blood loss for the case was minimal. Specimens to pathology was bilateral tubes and right ovary.
--- NOTE | 2018-03-28 15:23 | OP.PCM_ITS ---
Operative Report Date of Procedure: 03/28/18 Surgeon: Jack Donohue MD, FACOG [employer] Consultant: SAMANTHA Jones Anesthesia: Corry Hale CRNA Type of Anesthesia: General Endotracheal Pre-Op Diagnosis: Right Ovarian Cyst and Pain; Desires Permanent Sterilization Postoperative Diagnosis: Right Ovarian Cyst and Pain; Desires Permanent Sterilization; Right Tubo-Ovarian Torsion Procedure: Diagnostic Laparoscopy, Right Salpingoophrectomy, Left Tubal Occlusion with Left Salpingectomy Findings: 8-9 cm uterus with normal appearing left fallopian tube and ovary; 8 cm right ovary in cul-de-sac with blackened and indurated areas suggestive of chronic torsion; right tube black from partial torsion; normal pelvic otherwise ; right ureter movement noted after removal of tubes and ovary. Indications: This is a 32 year old patient who has the above diagnosis. She has also considered sterilization for quite some time. She is aware of the permanent nature of the procedure, the failure rate of 1-2%, and the availability of other nonpermanent control options. All questions were answered to consider the patient well-informed. Procedure: The patient was taken to the operating room where after induction of general anesthesia, she was placed in the dorsolithotomy position and prepped and draped in the usual sterile fashion. The bladder was drained of approximately 50 cc of clear yellow urine with a catheter. Anterior cervix was grasped with the tenaculum. Conn cannula was placed and attention was turned toward the laparoscopic portion of the procedure. Approximately 6 cc of half percent ropivacaine was injected subumbilically, suprapubically and midway between. A 5 mm bladeless trocar was placed subumbilically and intraperitoneal placement confirmed. After CO2 insufflation was complete, a 5 mm bladeless trocar was introduced suprapubically. This was eventulally converted to a 10/12 cm trochar. The above findings were noted. An 5 mm bladeless trochar port was then placed midway between these 2 ports. Enseal device was used to divide the infundibulopelvic ligament freeing the torsed right tube and ovary. Enseal device was then used to divide the mesosalpinx of the left fallopian tube to the uterus. The left fallopian tube was removed via the 10/12 mm port and after confirming hemostasis and Endobag was placed through the 10/12 mm port and right fallopian tube and ovary placed in this bag. The 10/12 mm port was removed and fascia extended to allow bringing the right fallopian tube and ovary through the small mini laparotomy incision site. Fascia was closed with running #1 Vicryl suture and subcutaneous tissue was copiously irrigated with saline before closing with running 3-0 Vicryl suture. Abdomen was reinsufflated and irrigated and hemostasis was noted. Laparoscopic instruments with as much CO2 gas as possible was removed and incisions were closed with running 4-0 Monocryl suture. Steri-Strip and OpSite were placed across the incisions. Steri- Strips placed across the incision. Vaginal instruments were removed. Patient tolerated procedure well was taken to recovery room in satisfactory condition sponge instrument and needle counts were all reportedly correct. Estimated blood loss for the case was minimal. Specimens to pathology was bilateral tubes and right ovary.
[2018-03-28] MEDS: Ropivacaine 0.5% 30 ML Vial (16:00)
--- NOTE | 2018-03-28 17:41 | PCM.DC.TUB ---
Discharge Diet: No Restrictions - Increase fluid intake for the next 48 hours. Discharge Activity: Return to Normal Activity, May Drive - when you are no longer taking pain/narcotic medicines., May Shower, May Take a Tub Bath Return to work on:: 04/04/18 May resume sexual activity in: 2 weeks Additional Activity Instructions:: No lifting more than 25 lbs for 2 weeks Call your doctor if your incision/area has: Continuous Slow Oozing, Sudden Increased Bleeding, Increased Pain/ Swelling, Increased Redness, Foul Smelling Discharge Call your doctor if you observe: Fever of 101 or Higher, Inability to urinate, Inability to have a bowel movement, Using more than one pad per hour, Uncontrolled pain Allergies/Adverse Reactions: Allergies ciprofloxacin [From Cipro] Allergy (Verified 03/26/18 12:03) Hives ciprofloxacin HCl [From Cipro] Allergy (Verified 03/26/18 12:03) Hives clarithromycin [From Biaxin] Allergy (Verified 03/26/18 12:03) Hives meperidine HCl [From Demerol] Allergy (Verified 03/26/18 12:03) Rash morphine Allergy (Verified 03/26/18 12:03) Rash sulfamethoxazole [From Bactrim] Allergy (Verified 03/26/18 12:03) Hives trimethoprim [From Bactrim] Allergy (Verified 03/26/18 12:03) Hives Medications to take at Discharge [place]-3 Fatty Acids/Fish Oil [Fish Oil 1,000 mg Capsule] 1 ea PO DAILY 05/07/17 Rosuvastatin Calcium [Crestor] 5 mg PO DAILY 05/07/17 cholecalciferol (vitamin D3) 1,000 unit capsule 1,000 unit PO DAILY 11/19/17 norgestimate-ethinyl estradiol 0.18 mg/0.215mg/0.25mg-35 mcg(28)tablet 1 tab PO DAILY tab 11/19/17 Hydrocodone/Acetaminophen [[place] 5-325 Tablet] 1 each PO Q6H PRN PRN 03/03/18 RX: Naproxen [Naprosyn] 500 mg PO BID PRN #20 tab 03/03/18 RX: Hydrocodone Bitart/Apap 5-325 [[place] 5/325] 1 - 2 tablet PO Q6H PRN PRN 3 Days #20 tablet 03/27/18 The following prescriptions were given: RX: Hydrocodone Bitart/Apap 5-325 [[place] 5/325] 1 - 2 tablet PO Q6H PRN PRN 3 Days #20 tablet PRN Reason: Mod-Severe Pain (-06/22) Primary Care Physician: Socorro Hernandez [Primary Care Provider] - Test Results: Test results from this visit will be discussed in further detail at your follow-up appointment, if applicable. Please Follow Up With: Jack Donohue MD - [phone] When: 2-3 weeks Proposed Discharge Date: 03/27/18
[2018-03-28] MEDS: HYDROcodone Bitartrate/Apap 5/325 Tablet PO (22:06)
--- NOTE | 2018-03-28 22:18 | NURSING ---
Notified Dr. Donohue that pt was not yet discharged. Drowsy after surgery. Pt was given clears and will see if she tolerates diet and pain medication. OK to stay until morning if needed, per Dr. Donohue.
[2018-03-29] MEDS: Lactated Ringers 1,000 ML 150 ML IV (03:03)
[2018-03-29 04:11] VITALS: BP 115/76; PULSE 86; RESP 18; TEMP 36.8; O2SAT 94
--- NOTE | 2018-03-29 07:13 | PCM.PN.OB ---
Subjective: Patient without complaints. Nausea has cleared. Feeling much better than before surgery. - Physical Exam Vital Signs Temp Pulse Resp BP Pulse Ox 98.2 F 86 18 115/76 94 03/29/18 04:11 03/29/18 04:11 03/29/18 04:11 03/29/18 04:11 03/29/18 04:11 Oxygen Flow Rate (L/min) 2 Oxygen Delivery Method Room Air Weight: 227 lb 11.8 oz Body Mass Index (BMI) 36.6 Intake and Output for Last 24 Hours 03/27/18 03/28/18 03/29/18 23:59 23:59 23:59 Intake Total 4730 / 4730 2595 / 2595 2228 / 2228 Output Total 5300 / 5300 2950 / 2950 1200 / 1200 Balance -570 / -570 -355 / -355 1028 / 1028 Laboratory Tests Past 24 Hrs 03/28/18 03/28/18 13:10 13:10 PT 13.4 INR 1.0 APTT 27.7 Blood Type A POSITIVE Antibody Screen NEGATIVE Medical Necessity - Tobacco Use Smoking Status: Never smoker Assessment/Plan All Active Problems (Last Updated 11/19/17 @ 17:16 by Rajwinder Irby) Hematuria (Acute) Doing well postoperative day #1 status post right salpingo-oophorectomy and left salpingectomy for tubal ovarian torsion. Plan release home this morning.
[2018-03-29] MEDS: HYDROcodone Bitartrate/Apap 5/325 Tablet PO (07:56)
[2018-03-29 08:11] VITALS: BP 121/83; PULSE 83; RESP 18; TEMP 37; O2SAT 96
== END 2018-03-29 08:41 | disposition home or self-care (01) ==
LOC: ED 12:21 → MS3 15:35
PROVIDERS: Obstetrics & Gynecology; Admitting Provider Obstetrics & Gynecology; Emergency Provider Emergency Medicine; Family Provider Nurse Practitioner; PCP Nurse Practitioner; Visit Provider Obstetrics & Gynecology
PROC: (CPT 58720; principal; 2018-03-28 12:10)
DX: Z30.2 Encounter for sterilization (principal); N83.11 Corpus luteum cyst of right ovary; N83.8 Other noninflammatory disorders of ovary, fallopian tube and broad ligament; N83.01 Follicular cyst of right ovary; N83.53 Torsion of ovary, ovarian pedicle and fallopian tube; E78.00 Pure hypercholesterolemia, unspecified; Z79.899 Other long term (current) drug therapy; E66.01 Morbid (severe) obesity due to excess calories; Z68.37 Body mass index [BMI] 37.0-37.9, adult; Z71.3 Dietary counseling and surveillance
CPT/HCPCS: 00840; 58661; 36415; 76856; 80048; 81001; 84703; 85025; 85610; 85730; 86850; 86900; 88302; 88305; 96361; 96374; 96375; 96376; 99218; 99282; J7030; J7120; A4216; C1760; G0378; J2405

== ENCOUNTER → 2018-05-30 11:14 | Outpatient (CLI) | payer OTHER, SELFPAY ==
--- NOTE | 2018-05-30 11:18 | US_ITS ---
STUDY: RENAL ULTRASOUND - COMPLETE REASON FOR EXAM: Female, 33 years old. Hematuria. TECHNIQUE: Ultrasound evaluation of the kidneys was performed with real-time and static abarca-scale imaging. COMPARISON: CT dated March 03, 2018 FINDINGS: RIGHT KIDNEY: Normal location of the right kidney, which is normal in size. Right kidney measures 13.0 cm in length. There is a normal cortex of the right kidney. There is no right renal mass or cyst. There are no right renal calculi. There is no right hydronephrosis. DISTAL RIGHT URETER: There is no demonstrated right ureteral jet. LEFT KIDNEY: Normal location of the left kidney, which is normal in size. The left kidney measures 12.8 cm in length. There is a normal cortex of the left kidney. There is no left renal mass or cyst. There is a nonobstructing 3.8 mm calculus. There is no left hydronephrosis. DISTAL LEFT URETER: There is no demonstrated left ureteral jet. BLADDER: The distended urinary bladder has a volume of 44.7 ml. There is a normal wall thickness of the distended urinary bladder. There is no demonstrated mass within the urinary bladder. There are no demonstrated bladder calculi. There is a gallstone incidentally visualized. US/Kidney and Bladder IMPRESSION: Nonobstructing 3.8 mm left renal calculus. Electronically Signed: Marleni Moore MD at 17:08 EDT Tel , Service support ,
[2018-05-30 12:53] LABS: Thyroid Stim Hormone (TSH) 1.21 uIU/mL (0.358-3.74); Vitamin D,25 Hydroxy 26.4 ng/mL (29.95-100.01)
== END ==
PROVIDERS: Family Provider Nurse Practitioner; PCP Nurse Practitioner; Visit Provider Nurse Practitioner
DX: N20.0 Calculus of kidney (principal); E55.9 Vitamin D deficiency, unspecified; E78.1 Pure hyperglyceridemia; E78.5 Hyperlipidemia, unspecified
CPT/HCPCS: 36415; 76770; 82306; 84443

== ENCOUNTER → 2018-08-29 07:58 | Outpatient (CLI) | payer OTHER, SELFPAY ==
[2018-03-28 10:59] VITALS: BMI 36.6
[2018-08-29 09:29] LABS: ALB/GLOB Ratio 1.1 RATIO (0.9-2.4); AST(SGOT) 21 U/L (15-37); Alanine Aminotransfer ALT/SGPT 38 U/L (13-56); Albumin, Serum 3.8 g/dL (3.2-5.0); Alkaline Phosphatase 75 U/L (45-117); Anion Gap 6 (5-15); BUN 11 mg/dL (7-18); BUN/Creat Ratio 14.6 RATIO (10-20); Calcium,Total 9.3 mg/dL (8.5-10.1); Chloride 107 mmol/L (98-107); Creatinine, Serum 0.75 mg/dL (0.55-1.02); EST Glomerular Filtration Rate 95 mL/min (>60); Est Glom Filt Rate - Afr Amer 115 mL/min (>60); Globulin 3.6 g/dL (2.2-4.2); Glucose 82 mg/dL (74-106); Potassium 3.9 mmol/L (3.5-5.1); Protein, Total 7.4 g/dL (6.4-8.2); Sodium Level 141 mmol/L (136-145)
[2018-08-30 09:17] LABS: Cholesterol 190 mg/dL (200); High Density Lipoprotein 41 mg/dL; Triglycerides 235 mg/dL; Very Low Density Lipoprotein 47 mg/dL (5-40)
--- OUTSIDE RECORDS SUMMARY | 2018-11-30 18:17 | XMS RPT_ITS | Continuity of Care Document ---
:1985 Author Organization [facility] Address [address] [facility] [address] [place] [address] Phone Care Team Providers Name Role Phone Socorro Goncalves CNP Unavailable Anne VALENCIA , Dr. Eddi Van Unavailable Anne VALENCIA, Dr. Eddi Van Unavailable Jamar VALENCIA, Risa Heard Unavailable Raúl VALENCIA, Dante Castillo Unavailable Saul VALENCIA, Lyndon Unavailable Kianna VALENCIA, Casey Unavailable Erwin Ferrera Unavailable Mansoor Jones Unavailable Jyotsna Wheeler Unavailable Unavailable Slarb FINISHING MACHINE OPERATOR, Natalie Unavailable Unavailable Long FINISHING MACHINE OPERATOR, Diana Coon Unavailable Unavailable Unavailable Unavailable Problems Name Dates Details Abdominal pain, chronic, left upper quadrant (R10.12, 789.02) Comments: comes and goes, not today tho told to come in if in pain to evaluate at that timehistory of kidney stones Status: Active Abnormal breast exam (N64.59, 611.79) Status: Active Abnormal mammogram (R92.8, 793.80) Status: Active Abnormal Pap smear of cervix (R87.619, 795.00) Status: Active Acne (L70.9, 706.1) Comments: has seen Derm, thinking of accutane vs spirolactone Status: Active Allergic rhinitis (J30.9, 477.9) Status: Active Asthma (J45.909, 493.90) Status: Active BMI 36.0-36.9,adult (Z68.36, V85.36) Status: Active BMI 37.0-37.9, adult (Z68.37, V85.37) Status: Active Breast pain (N64.4, 611.71) Status: Active Calcium kidney stone (N20.0, 592.0) Status: Active Currently (Renamed from Status): Currently Status: Active Dysuria (R30.0, 788.1) Comments: does not feel like UTI more uncomfortable. at this point cannot do pelvic with menses and affrim. willsend culutre, since not like uti just treat with diflucan. 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 history of stones still with hematuria, check renal uS consider referral Status: Active History of kidney stones (Z87.442, V13.01) Status: Active Hives (L50.9, 708.9) Comments: xyzal prn To ER with extreme hives with hand edema this resolved saw Hadoop Application Developer Dr. Hughes tested slight pos for scleroderma then sent to Retail Client Solutions Analyst Status: Active Hyperlipidemia, unspecified (E78.5, 272.4) Comments: know genetic had when young . 10 year CVD risk low. will be aggressive with diet, triglycerides down with Fish oil with D continue repeat in 3 months Status: Active Hypertriglyceridemia (E78.1, 272.1) Comments: on crestor daily, profile good, will try fish oil Status: Active Inflamed skin tag (L91.8, 701.9) Comments: around neck. get caught on necklace. removed 15 Status: Active Kidney stones (N20.0, 592.0) Status: Active Nonsmoker (Z78.9, V49.89) Status: Active Obesity, unspecified (E66.9, 278.00) Comments: talk about lifestyle change. need add exercise tellhow to do and what to expect. long talk about maintenacne too. weight self daily and routine. Status: Active Plantar fasciitis (M72.2, 728.71) Comments: uses orthotics, sees Horn Status: Active Sore throat (J02.9, 462) Comments: family members with strep Status: Active Sore throat (J02.9, 462) Status: Active Sore throat (J02.9, 462) Status: Active Stress reaction (F43.0, 308.9) Comments: life stress going on. not think needs med at this time. ativan prn will use sparingly Status: Active Unspecified Diagnosis Status: Active Unspecified Diagnosis Status: Active UTI (urinary tract infection) (N39.0, 599.0) Status: Active Vaginal Delivery Comments: 02/09/13 Status: Active Vitamin D deficiency (E55.9, 268.9) Status: Active Medications Name Dates Details Crestor 5 MG Oral Tablet 1 (one) Tablet daily for 0 days Quantity: 90 {Tablet} Refills: 3 Ordered:29-Sep-2017 David ALVAREZ Socorro Thor ALVAREZ Socorro Cevallos Start : 29-Sep-2017 Active RELPAX, 40MG (Oral Tablet) 1 (one) Tablet prn for 0 days Quantity: 20 {Tablet} Refills: 0 Ordered:31-May-2015 David ALVAREZ Socorro Thor ALVAREZ Socorro Cevallos Start : 31-May-2015 Active Comments:1 tab po onset of jacobson and then may repeat 2h after if no relief not to exceed 80mg daily. Acyclovir 400 MG Oral Tablet 1 (one) Tablet tid for 5 days Quantity: 15 {QS} Refills: 0 Ordered:05-May-2016 David ALVAREZ, Socorro Mcrae CNP, Socorro Cevallos Start : 05-May-2016 End : 10-May-2016 Inactive Jossy Allergy 180 MG Oral Tablet 1 (one) Tablet qd in evening for 30 days Quantity: 30 {Tablet} Refills: 0 Ordered:19-Apr-2017 David ALVAREZ, Socorro Mcrae CNP, Socorro Cevallos Start : 25-Feb-2017 End : 27-Mar-2017 Inactive Augmentin 875-125 MG Oral Tablet 1 Tablet bid for 14 days Quantity: 28 {Tablet} Refills: 0 Ordered:04-Jan-2017 David ALVAREZ, Socorro Mcrae CNP, Socorro Cevallos Start : 04-Jan-2017 End : 18-Jan-2017 Inactive BACTRIM DS, 800-160MG (Oral Tablet) 1 Tablet bid for 0 days Quantity: 20 {Tablet} Refills: 0 Ordered:03-Jul-2011 Diana Loepz LPN Start : 02-Jan-2011 End : 03-Jul-2011 Inactive Benadryl Allergy 25 MG Oral Capsule 1 (one) Capsule as needed for 0 days Quantity: 30 {Capsule} Refills: 0 Ordered:29-Sep-2017 SlaNatalie mays LPN Start : 20-Jan-2017 End : 29-Sep-2017 Inactive Comments:Medication taken as needed. Clarithromycin 250 MG Oral Tablet 1 (one) Tablet bid for 10 days Quantity: 20 {Tablet} Refills: 0 Ordered:05-May-2016 Socorro Goncalves CNP, CNP, Socorro Cevallos Start : 05-May-2016 End : 15-May-2016 Inactive CLARITIN, 10MG (Oral Tablet) 1 Tablet qd for 3 days Refills: 0 Ordered:13-Jan-2011 Sari Christian DO Start : 02-Jan-2011 End : 05-Jan-2011 Inactive DIFLUCAN, 150MG (Oral Tablet) 1 Tablet daily for 0 days Quantity: 1 {Tablet} Refills: 0 Ordered:10-Jun-2012 Maria Luisa Carreon LPN Start : 31-Mar-2012 End : 10-Jun-2012 Inactive HYDROCHLOROTHIAZIDE, 50MG (Oral Tablet) 1 prn as directed for 0 days Refills: 0 Ordered:24-Jan-2010 Sirl, PattiInactive LIPITOR, 10MG (Oral Tablet) 1 qd for 0 days Refills: 0 Ordered:18-Jun-2009 Risa Roldan MD End : 18-Jun-2009 Inactive MACROBID, 100MG (Oral Capsule) 1 Capsule bid for 0 days Quantity: 14 {Capsule} Refills: 0 Ordered:10-Jun-2012 Lauri OLIVER Maria Luisa Start : 01-Apr-2012 End : 10-Jun-2012 Inactive METFORMIN HCL, 500MG (Oral Tablet) 1 daily (500 MG) Inactive Mobic 15 MG Oral Tablet 1 (one) Tablet Tablet daily for 0 days Quantity: 30 {Tablet} Refills: 0 Ordered:29-Sep-2017 Slarb OLIVER Natalie Start : 08-Jan-2015 End : 29-Sep-2017 Inactive ORTHO TRI-CYCLEN (28), 0.18/0.215/0.25MG-35 MCG (Oral Tablet) uad qd (0.18/0.215/0.25 MG-35 MCG) Inactive Pepcid 20 MG Oral Tablet 1 (one) Tablet bid for 30 days Quantity: 60 {Tablet} Refills: 0 Ordered:25-Feb-2017 Sari Christian DO Start : 25-Feb-2017 End : 27-Mar-2017 Inactive PEPCID AC, 10MG (Oral Tablet) 2 (two) Tablet bid for 5 days Refills: 0 Ordered:13-Jan-2011 Sari Christian DO Start : 02-Jan-2011 End : 07-Jan-2011 Inactive PredniSONE 20 MG Oral Tablet 3 (three) Tablet daily for 5 days Quantity: 15 {Tablet} Refills: 0 Ordered:29-Jan-2017 Socorro Goncalves CNP, CNP, Lillie Start : 20-Jan-2017 End : 25-Jan-2017 Inactive PREDNISONE, 20MG (Oral Tablet) tad Tablet 1 tab bid for 2 days then 1 tab daily for 3 days for 0 days Quantity: 7 {Tablet} Refills: 0 Ordered:03-Jul-2011 Diana Lopez LPN Start : 02-Jan-2011 End : 03-Jul-2011 Inactive MULTIVITAMIN-ULTRA (Oral Tablet) 1 Tablet qd for 30 days Quantity: 30 {Tablet} Refills: 0 Ordered:07-Jun-2013 Sari Christian DO Start : 07-Jun-2013 End : 07-Jul-2013 Inactive PYRIDIUM, 100MG (Oral Tablet) 1 Tablet tid for 2 days Quantity: 6 {Tablet} Refills: 0 Ordered:12-Jun-2010 David ALVAREZ, Socorro Mcrae CNP, Socorro Cevallos Start : 09-Jun-2010 End : 11-Jun-2010 Inactive SPRINTEC 28, 0.25-35MG-MCG (Oral Tablet) 1 Tablet qd for 0 days Quantity: 30 {Tablet} Refills: 11 Ordered:03-Jul-2011 Long FINISHING MACHINE OPERATOR, Diana L End : 03-Jul-2011 Inactive Tri-Sprintec 0.18/0.215/0.25 MG-35 MCG Oral Tablet 1 (one) Tablet qd for 30 days Quantity: 30 {Tablet} Refills: 0 Ordered:19-Apr-2017 Sari Christian DO Start : 25-Feb-2017 End : 27-Mar-2017 Inactive Xyzal 5 MG Oral Tablet 1 (one) Tablet Tablet daily for 0 days Quantity: 30 {Tablet} Refills: 0 Ordered:29-Sep-2017 Slarb Malcolm BOYDa Start : 04-Jan-2017 End : 29-Sep-2017 Inactive Ativan 0.5 MG Oral Tablet 1 (one) Tablet Tablet every 6 hours prn for 0 days Quantity: 20 {Tablet} Refills: 0 Ordered:05-May-2016 Slarb OLIVER, Natalie Start : 29-May-2014 End : 05-May-2016 Discontinued Comments:twenty CIPRO, 500MG (Oral Tablet) 1 Tablet bid for 14 days Quantity: 28 {Tablet} Refills: 0 Ordered:02-Jan-2011 Sari Christian DO Start : 02-Jan-2011 End : 02-Jan-2011 Discontinued Comments:hives Tri-Previfem 0.18/0.215/0.25 MG-35 MCG Oral Tablet 1 (one) Tablet uad for 0 days Quantity: 30 {Tablet} Refills: 0 Ordered:25-May-2018 Jyotsna Wheeler Start : 29-Sep-2017 End : 25-May-2018 Discontinued Allergies and Adverse Reactions Name Dates Details bactrim (Renamed from Benzodiazepines) Status: Active (Allergy) Biaxin (Allergy) Status: Active Comments: rash Cipro *FLUOROQUINOLONES* (Allergy) Reaction: Rash Status: Active Demerol localized redness (Allergy) Status: Active Morphine Derivatives (Allergy) Status: Active Comments: localized redness Trees (Allergy) Status: Active Comments: thinks Issa tree Past Medical History Name Dates Details Acute cystitis (N30.00, 595.0) Status: Inactive as of 22-Jun-2014 Adult general medical exam (Z00.00, V70.9) Status: Inactive as of 22-Jun-2014 BMI 33.0-33.9,adult (Z68.33, V85.33) Status: Inactive as of 29-Sep-2017 BMI 34.0-34.9,adult (Z68.34, V85.34) Status: Inactive as of 29-Sep-2017 Cough (R05, 786.2) Status: Inactive as of 22-Jun-2014 Encounter for pre-employment examination (Z02.1, V70.5) Status: Inactive as of 22-Jun-2014 Flu-like symptoms (R68.89, 780.99) Status: Inactive as of 29-Sep-2017 Headache (R51, 784.0) Status: Inactive as of 29-Sep-2017 Hematuria (R31.9, 599.7) Status: Inactive as of 22-Jun-2014 Hemorrhoids (K64.9, 455.6) Status: Inactive as of 22-Jun-2014 Hive (708.9) Comments: medication side effect Status: Inactive as of 22-Jun-2014 Other specified viral infection, in conditions classified elsewhere and of unspecified site (B97.89, 079.89) Status: Inactive as of 22-Jun-2014 ovarian cyst 236.3 (Renamed from Neoplasm of uncertain behavior of other and unspecified female genital organs) (D49.5, 236.3) Status: Inactive as of 22-Jun-2014 Palpitations (R00.2, 785.1) Comments: with anxiety and work up in past negative saw cardio. . Status: Inactive as of 29-Sep-2017 Pharyngitis, acute (J02.9, 462) Status: Inactive as of 22-Jun-2014 state, incidental (Z33.1, V22.2) Status: Inactive as of 22-Jun-2014 Rash (R21, 782.1) Status: Inactive as of 29-Sep-2017 Tonsillitis (J03.90, 463) Comments: rt tonsilar ? abcess vs tonsil stone on augment x 7 days and was on amoxicillin x 3 days Status: Inactive as of 29-Sep-2017 Unspecified Diagnosis Status: Inactive as of 22-Jun-2014 Urinary tract infection, site not specified (N39.0, 599.0) Status: Inactive as of 22-Jun-2014 Well female exam with routine gynecological exam (Z01.419, V72.31) Status: Inactive as of 22-Jun-2014 Procedures Procedure Dates Details Dilation and Curettage of Uterus Completed Comments: Laproscopic surgery to check for Completed endometriosis approx. 7 years ago was Comments: Dr. Faustin/Sapphire Quinones negative has hx. ovarian cysts Date Value Details 30-May-2018 Kidney and Bladder Result: Comments: See Note; NOTES: [facility] Imaging Services [address] [place] [address] Kidney and Bladder MR#: [id number] Acct: [id number] Name: STEFFEN BYRD Rep #: [id number] : 1985 F 33 From: Marleni Moore MD PCP: Socorro Goncalves NP Status: REG CLI Study: Kidney and Bladder Date of Exam: 05/30/18 Exam# [id number] Ordering Dr: Socorro Goncalves STUDY: RENAL ULTRASOUND - COMPLETE REASON FOR EXAM: Female, 33 years old. Hematuria. TECHNIQUE: Ultrasound evaluation of the kidneys was performed with real-time and static abarca-scale imaging. COMPARISON: CT dated March 03, 2018 FINDINGS: RIGHT KIDNEY: Normal location of the right kidney, which is normal in size. Right kidney measures 13.0 cm in length. There is a normal cortex of the right kidney. There is no right renal mass or cyst. There are no right renal calculi. There is no right hydronephrosis. DISTAL RIGHT URETER: There is no demonstrated right ureteral jet. LEFT KIDNEY: Normal location of the left kidney, which is normal in size. The left kidney measures 12.8 cm in length. There is a normal cortex of the left kidney. There is no left renal mass or cyst. There is a nono bstructing 3.8 mm calculus. There is no left hydronephrosis. DISTAL LEFT URETER: There is no demonstrated left ureteral jet. BLADDER: The distended urinary bladder has a volume of 44.7 ml. There is a normal wall thickness of the distended urinary bladder. There is no demonstrated mass within the urinary bladder. There are no demonstrated bladder calculi. There is a gallstone incidentally visualized . US/Kidney and Bladder IMPRESSION: Nonobstructing 3.8 mm left renal calculus. Electronically Signed: Marleni Moore MD at 17:08 EDT Tel , Service support , CC: Socorro Goncalves NP Looping Machine Operator: Signed 26-Mar-2018 Emergency Department Summary Result: Comments: See Note; NOTES: [facility] Medical Records Department [address] [place] [address] Emergency Department Summary 03/26/18 1509 MR#: [id number] Acct: [id number] Name: STEFFEN BYRD Rep #: [id number] : 1985 32 From: Nick Valladares DO PCP: Socorro Goncalves NP Status: REG ER - ER Visit Summary Date of Service: 03/26/18 Chief Complaint: [Pelvic pain] History o f Present Illness: The patient is a 32 F [presents to the emergency department with complaint of right lower pelvic pain. Patient states that the pain started this morning around 10:15 AM. Patient descr ibes the pain as severe. Patient had a similar episode earlier in the week that only lasted about 15 minutes then resolved. Patient states that she was in the emergency department about a month ago for the same type pain and at that time had a workup that included a CAT scan of her abdomen and pelvis that showed possibly a right ovarian cyst and some enlarged lymph nodes in the right lower quadrant. P atient subsequently followed up with her FORMING PROCESS WORKER and had an ultrasound that showed what patient states they felt was an endometrioma however they cannot rule out intermittent torsion as the etiology of h er pain as well. Patient was advised that if her pain return either to go see her FORMING PROCESS WORKER in the office or come to the emergency department. Patient has not had any fevers. Denies any blood in her urine or urinary symptoms. Last menstrual period was 3 weeks ago.] Physical Examination: [HEENT-PERRLA, EOMI. Cranial nerves II through XII grossly intact. TMs clear. Mucous membranes moist. No adenopathy. Cardiovascular-regular rate and rhythm without murmur or ectopy Lungs-clear to auscultation, chest wall stable without crepitus or subcu emphysema Abdomen- normoactive bowel sounds, soft. Patient has t enderness to palpation over the right pelvic abdomen. No rebound, rigidity, or perineal signs. No significant CVA tenderness. Extremities-intact 4, normal range of motion, normal pulses, atraumatic] T est Results: CBC with differential obtained showed a white count of 7.5, hemoglobin 14, hematocrit 42, platelets 220. Chemistries unremarkable. Urinalysis unremarkable. HCG was negative. Ultrasound of t he pelvis was obtained which showed enlarged right ovary no dominant mass seen. The right ovary measured 7.2 x 6.7 x 4.8 cm. Minimal free fluid in the cul-de-sac. [] Emergency Department Course and Von atment: [Patient was medicated with Dilaudid and Zofran as well as Toradol. Patient's pain returned and she had to be remedicated with Dilaudid. Patient continues to be very painful. I discussed case wi th Dr. Eileen Ramon who was covering for Dr. Donohue and will admit patient for pain control. Patient will likely require diagnostic laparoscopy at some point.] Treatment Plan: [Admit for pain control] Disposition: [Admit] Impression: [Intractable pelvic pain Enlarged right ovary] This note was generated with appAttach dictation software. It may contain incorrect words, spelling, and punctuation t hat were not noted in review of the chart prior to signing ED Disposition - Plan for ED Patient: Chief Complaint: Abd Pain Referrals: Socorro Goncalves [Primary Care Provider] - What to do if you have Pr oblems For any increased pain, shortness of breath, bleeding, nausea or vomiting, chest pain, or any unexpected problems, contact your Primary Care Provider. Call [facility] ([phone]) or rep ort to the closest Emergency Room. Call 911 if necessary. 03/26/18 3263 <Electronically signed by Remus Ungur DO> Date Nick Valladares DO Cosigner Signature (If Indicated): Date CC: Socorro Goncalves NP 26-Mar-2018 Pelvic (Non ) Result: Comments: See Note; NOTES: [facility] Imaging Services [address] [place] [address] Pelvic (Non ) MR#: [id number] Acct: [id number] Name: STEFFEN BYRD Rep #: [id number] : 1985 F 32 From: Ravin Lopez MD PCP: Socorro Goncalves NP Status: REG ER Study: Pelvic (Non ) Date of Exam: 03/26/18 Exam# [id number] Ordering Dr: Nick Valladares DO STUDY: ULTRASO UND OF THE FEMALE PELVIS REASON FOR EXAM: Female, 32 years old. Right pelvic pain LMP: March 01, 2018. TECHNIQUE: Transvaginal. TECHNICAL QUALITY: Adequate. COMPARISON: CT March 03, 2018.. FINDINGS: The uterus is anteverted and is in a midline position. The uterus measures 8.1 x 5.3 x 3.9 cm. There is a Nabothian cyst of the cervix. The endometrium measures 7 mm in thickness, and is hyperechoic. There is no demonstrated endometrial mass. There is no demonstrated myometrial mass. I.U.D. - The patient does not have an I.U.D. The right ovary is visualized. The ri ght ovary measures 7.2 x 6.7 x 4.8 cm. There is no right ovarian cyst or ovarian mass. There is no visualized right adnexal mass or complex lesion. There is normal arterial and normal venous vascularity . The left ovary is visualized. The left ovary measures 3.3 x 2.7 x 1.8 cm. There are multiple follicles of the left ovary without a dominant cyst. There is no visualized left adnexal mass or complex l esion. There is normal arterial and normal venous vascularity. There is minimal fluid in the cul-de-sac. The volume of the bladder was 22 ml. U S/Pelvic (Non ) IMPRESSION: Enlarged right ovary. No dominant mass seen. Mild free fluid. Electronically Signed: Ravin Lopez MD at 14:45 EDT , Service support 1- [phone], CC: Scoorro Goncalves NP; Nick Valladares DO Looping Machine Operator: Signed 22-Mar-2018 Pulmonary Function Report Comp Result: Comments: See Note; NOTES: [facility] Pulmonary Services/Neurology [address] [place] [address] MR#: [id number] Acct: [id number] Name: STEFFEN BYRD Rep #: [id number] DO B: 1985 32 From: Erwin Ferrera MD Referring Dr: oScorro Goncalves NP Status: REG I Ordering Dr: Date: Location: [facility] Sex: F C COMPLETE PULMONARY FUNCTION TEST INTERPRETATION Brief HPI: Patient is a 32 year old female, currently under the care of Socorro Goncalves, who presents to [facility] for complete pulmonary function tests secondary to diagnosis of dyspnea. Respiratory th erapist reports good effort and reproducible results. Interpretation: Forced expiration spirometry shows no large airways obstructive ventilatory defect with an FEV1 of 103% predicted. There is no sig nificant bronchodilator response by ATS criteria. Spirograms are of good quality and plateau normally. The respiratory flow volume loop shows a normal pattern. Lung volumes by body plethysmography show a normal total lung capacity at 5.86 L, 106% predicted. All other lung volumes are within normal limits. Diffusion capacity by carbon monoxide is normal at 86% predicted. The airway resistance is norm al. Compared to previous pulmonary function tests from 04/08/2017, there has been normalization of DLCO. Impression: These pulmonary function tests are within normal limits and show significant improv ement compared to previous. 03/22/18 1434 <Electronically signed by Erwin Ferrera MD> Date Erwin Ferrera MD CC: Socorro Goncalves HORSE DOCTOR; Erwin almanza MD Date Dictated: 03/22/181431 Date Transcribed: 03/22/181431 Looping Machine Operator: ELSA Signed 03-Mar-2018 Discharge Instruction Result: Comments: See Note; NOTES: [facility] Medical Records Department [address] [place] [address] Discharge Instruction 03/03/18 1308 MR#: [id number] Acct: [id number] Name: STEFFEN WAGNER Rep #: [id number] : 1985 32 From: Nick Valladares DO PCP: Socorro Goncalves NP Status: REG ER ED Disposition - Plan for ED Patient: Chief Complaint: Flank Pain Instructions: ED Cyst Ovari an, ED Adenitis Mesenteric Prescriptions: Naproxen [Naprosyn] 500 mg PO BID PRN #20 tab Referrals: Socorro Goncalves [Primary Care Provider] - Jack Donohue MD [STAFF PHYSICIAN] - 3-5 Days What to do if you have Problems For any increased pain, shortness of breath, bleeding, nausea or vomiting, chest pain, or any unexpected problems, contact your Primary Care Provider. Call [facility] ([phone]) or report to the closest Emergency Room. Call 911 if necessary. 03/03/18 1310 <Electronically signed by Nick Valladares DO> Date Nick almanza DO Cosigner Signature (If Indicated): Date CC: Socorro Goncalves NP 03-Mar-2018 Emergency Department Summary Result: Comments: See Note; NOTES: [facility] Medical Records Department [address] [place] [address] Emergency Department Summary 03/03/18 1303 MR#: [id number] Acct: [id number] Name: STEFFEN BYRD Rep #: [id number] : 1985 32 From: Nick Valladares DO PCP: Socorro Goncalves NP Status: REG ER - ER Visit Summary Date of Service: 03/03/18 Chief Complaint: [Right-sided flank pain] History of Present Illness: The patient is a 32 F [presents the emergency department with right-sided flank pain 2 days. Patient has had intermittent pain over the last 2 days well and has a history o f kidney stones. Patient states that the pain was more severe around 3:30 AM today and then began to improve however around 9:30 AM she again had increasing in the amount of pain and took a Viola at [facility]. Patient denies urinary symptoms. Patient denies any fever. Her last menstrual period was about a month ago. Patient does not believe that she is and she is on control. Currently her pa in is a 3 out of 10.] Physical Examination: [HEENT-PERRLA, EOMI. Cranial nerves II through XII grossly intact. TMs clear. Mucous membranes moist. No adenopathy. Cardiovascular-regular rate and rhythm without murmur or ectopy Lungs-clear to auscultation, chest wall stable without crepitus or subcu emphysema Abdomen-normoactive bowel sounds, soft. Patient has some mild right lower quadrant tendernes s on palpation and some mild CVA tenderness on the right. There is no rebound, rigidity, or perineal signs. Extremities-intact 4, normal range of motion, normal pulses, atraumatic] Test Results: [CBC with differential obtained showed a normal white count of 6.1, hemoglobin 15, hematocrit 44, platelets 194. Chemistries unremarkable. Urinalysis showed 5-10 RBCs without signs of infection. HCG was nega tive. CT flank showed a right ovarian cyst and some increased lymph nodes in the right lower quadrant consistent with mesenteric adenitis.] Emergency Department Course and Treatment: [Patient refused p ain medication in the emergency department.] Treatment Plan: [At this time patient is relatively pain-free. 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 Patient advised to use ibu profen and then the Viola that she has for breakthrough pain. At this point I do not feel patient's history and exam consistent with torsion. Disposition: Discharged to home in stable condition Impres madonna: [Abdominal pain Ovarian cyst Mesenteric adenitis] This note was generated with appAttach dictation software. It may contain incorrect words, spelling, and punctuation that were not noted in revi ew of the chart prior to signing ED Disposition - Plan for ED Patient: Chief Complaint: Flank Pain Referrals: Socorro Goncalves [Primary Care Provider] - What to do if you have Problems For any increase d pain, shortness of breath, bleeding, nausea or vomiting, chest pain, or any unexpected problems, contact your Primary Care Provider. Call [facility] ([phone]) or report to the closest [facility] ency Room. Call 911 if necessary. 03/03/18 1307 <Electronically signed by Nick Valladares DO> Date Nick Valladares DO Cosigner Signature (I f Indicated): Date CC: Socorro Goncalves NP 03-Mar-2018 Abdomen/Pelvis without Cont Result: Comments: See Note; NOTES: [facility] Imaging Services [address] [place] [address] Abdomen/Pelvis without Cont MR#: [id number] Acct: [id number] Name: STEFFEN BYRD Rep #: [id number] : 1985 F 32 From: Nicho Diaz MD PCP: Socorro Goncalves NP Status: REG ER Study: Abdomen/Pelvis without Cont Date of Exam: 03/03/18 Exam# [id number] Ordering Dr: Nick Valladares DO STUDY: CT ABDOMEN AND PELVIS WITHOUT CONTRAST REASON FOR EXAM: Female, 32 years old. Right flank pain. History of kidney stones. RADIATION DOSAGE (If Supplied By Facility): CTDIvol = ( 21.88 ) mGy, DLP = ( 1126.13 ) mGycm TECHNIQUE: Transaxial images were obtained from the dome of the diaphragm to the symphysis pubis without oral contrast, and without intravenous contrast. Sagittal and coronal im ages were reconstructed. Individualized dose optimization techniques were used for this CT. COMPARISON: Comparison is made with prior study dated May 07, 2017. FINDINGS: Mild degree of increased markings at the lung bases suggestive of bibasilar atelectasis. The visualized portions of the heart are within normal limits. Normal liver. Normal gallbladder and ex trahepatic biliary system. Normal spleen. Normal pancreas. Normal bilateral adrenal glands. 2 mm calculus in the upper pole of the right kidney. 2 mm calculus in the lower pole of the left kidney. No rmal visualized stomach. Normal small intestine. Normal colon. The appendix is visualized and appears normal. Normal abdominal aorta. Normal inferior vena cava. Normal retroperitoneum. Mildly enlarged lymph nodes in the right lower quadrant suggestive of a possible mesenteric adenitis. Normal urinary bladder. I suspect a 5.3 cm x 3.5 cm cyst in the right ovary. Normal abdominal wall. Normal osseous structures. CT/Abdomen/Pelvis without Cont IMPRESSION: Findings suggestive of a right ovarian cyst. Enlarged lymph nodes in the right lower quad rant suggestive of mesenteric adenitis. Nonobstructive bilateral nephrolithiasis. Electronically Signed: Nicho Diaz MD at 12:57 EDT Tel [phone], Service support , F ax [phone] CC: Socorro Goncalves NP; Nick Valladares DO Looping Machine Operator: Signed 29-Dec-2017 Massage Therapy Evaluation Result: Comments: See Note; NOTES: [facility] [address] [place] [address]. [address] [place] [address] Fax REHABILITATION SERVICES INITIAL EVALUATION MR#: [id number] Acct: [id number] Name: STEFFEN BYRD Rep #: [id number] : 1985 32 From: Brielle Saldaña Referring Dr.: Socorro Goncalves HORSE DOCTOR Status: REG RCR Insurance: [facility] SEL[employer] INSURANCE Massage Therapy Evaluation: Initial Evaluation Date: 12/06/2017 SUBJECTIVE: Steffen is a 32 year old female who was referred to the [facility] facility for a mass otherapy evaluation by Dr. goncalves with the diagnosis of headaches, low back pain and thoracic pain. She presents today with the symptoms of low back pain with muscle tension in her low back and hips. She also complains of tension and pain in her neck shoulders and having headaches. She reports having a medical history of neck and back pain. She reports having minimal limitations during her daily activi ties currently. OBJECTIVE: Upon observation Steffen has poor posture with her head forward and shoulders forward from the neutral position in sitting and standing. After examination and palpation I foun d Steffen to have very high muscle tension and myofascial restrictions in her sub occipitals, trapezius, rhomboids, scalenes, thoracic paraspinals and pectoral muscles. Her hips and lumbar region were al so tight. The first treatment consisted of a one hour massage to her upper body with myofascial release, muscle stripping, trigger point compression techniques, and cervical manual traction. ASSESSMEN T: I feel that Steffen is a good candidate for massotherapy at this time. She had a favorable response to the first treatment with reduction in her muscle aches, pain and tension. She also had improvemen t in her cervical flexibility. Massage has been known to help Steffen in the past. PLAN: The plan of care was reviewed with the patient. The patient is to be seen on as needed basis for a total of ten s essions with the recommendation of once every four weeks for a one hour treatment. <Electronically signed by Brielle Saldaña > 12/29/17 1606 CC: Socorro Goncalves NP DT: SAMEER Signed For Medicare only, by signing this I certify the plan of care. Physicians Signature Date 24-Nov-2017 Urgent Care Visit Report Result: Comments: See Note; NOTES: [facility] [address] [place] [address] [place] [address] OFFICE VISIT Date of Service: 11/19/17 MR#: [id number] Acct: [id number] Name: STEFFEN BYRD Rep #: [id number] : 1985 Provider: Praveen WHATLEY Age/Sex: 32/F Location: [facility] [place] [facility] Status: Signed with Addenda ADDENDUM by Jose A WHATLEY on 11/24/17 at 1531 Addendum entered and electronic ally signed by PHYLICIA Alba 11/24/17 15:31: VM left for pt to return our call; when she calls back please inform pt of updated urine results and that Macrobid was prescribed/ sent to her pharmacy of choice. HPI Details: STEFFEN BYRD, is a 32 F who presents to the office today for 11/24/17 1531 <Electronically signed by Jose A WHATLEY> Date Jose A Carrasco cc: * Signed Intake Vital Signs11/19/17 Height 5 ft 6 in Intake Visit Reasons: Urinary tract infection Is patient in pain?: No Allergies ciprofloxacin [From Cipro] Allergy (Verified 11/19/17 17:14) Hives ciprofloxacin HCl [From Cipro] Allergy (Verified 11/19/17 17:14) Hives clarithromycin [From Biaxin] Allergy (Verified 11/19/17 17:14) Hives meperidine HCl [From Demerol] Allergy (Verified 11/19/17 17:14) Rash morphine Allergy (Verified 11/19/17 17:14) Rash sulfamethoxazole [From Bactrim] Allergy (Verified 11/19/17 17:14) Hives trimethoprim [From Bactrim] Allergy (Verified 11/19/17 17:14) Hives Medications Aurora-3 Fatty Acids/Fish Oil [Fish Oil 1,000 mg Capsule] 1 ea PO DAILY 05/07/17 [History Confirmed 11/19/17] Rosuvastatin Calcium [Crestor] 5 mg PO QODAY 05/07/17 [History Confirmed 11/19/17] cholecalciferol (vitamin D3) 1,000 unit capsule 1,000 unit PO ONCE 11/19/17 [History Confirmed 11/19/17] norgestimate-ethinyl estradiol 0.18 mg/0.215mg/0.25m g-35 mcg(28)tablet 1 tab PO DAILY tab 11/19/17 [History Confirmed 11/19/17] PFSH Medical History Asthma (Acute) Surgical History D AND C (Acute) H/O cystoscopy (Acute) Family History Father Thy roid disorder Mother Hypertension Osteoarthritis Social History Smoking Status: Never smoker alcohol intake: never HPI HPI Details: STEFFEN BYRD, is a 32 F who presents to the office today for pelvic pressure. Patient does report a history of both UTIs as well as nephrolithiasis. She states that approximately 6 months ago she had a lithotripsy for ongoing nephrolithiasis. She states that the feeling is similar to when she typically gets a stone however wanted to make sure she did not have a UTI. She denies any dysuria, hematuria or increased urinary frequency. No fever, chills, sweats. No nausea, vomiting, diarrhea. No other associated symptoms or alleviating/aggravating factors. ROS Const Constitutional: No chills, fever(s), fatigue or abnormal sleep pattern Resp Respiratory: No sh ortness of breath or chest congestion Cardio Cardiology: No chest pain at rest, chest pain with exertion or shortness of breath Gastro GI: No vomiting, nausea/dyspepsia or diarrhea Genitourinary-Fema le: Positive for suprapubic fullness and pelvic pain; no difficulty urinating, burning urination, painful urination, urinary frequency, blood in urine, side pain, painful periods or painful intercourse Skin Skin: No wounds or lesions Neuro Neurology: No behavioral changes or confusion Psych Psychiatric: No behavioral changes, No confusion, No abnormal sleep pattern Endo Endocrine: No fatigue Exam Co nst General: cooperative, healthy appearing [facility] Head: normocephalic, atraumatic Ears: hearing grossly normal bilaterally Nose: external nose normal Face and sinus: face symmetric, normal facial exam M outh: oral mucosae normal Throat: posterior oropharynx normal Eyes General: appearance normal, both eyes and all related structures Pupils: PERRL Resp Effort AND Inspection: normal respiratory effort Au scultation: Bilateral: Clear to Auscultation Cardio Palpation: normal PMI Rate: regular rate Rhythm: regular rhythm GI Inspection: normal to inspection Auscultation: normal bowel sounds Percussion: norm al to percussion Palpation: soft, no hepatosplenomegaly General: bimanual renal exam normal bilaterally, No CVA tenderness Skin General: no rashes or lesions noted Neuro General: alert, CN's II-XI in tact bilaterally Psych Appearance: grossly normal Mental Status: mental status grossly normal Results [facility] Office Urine Color Yellow Last Edit by Rajwinder Irby on 11/19/17 17:24 Office Urine Cla rity Clear Last Edit by Rajwinder Irby on 11/19/17 17:24 [facility] Office , Urine Negative Last Edit by Rajwinder Irby on 11/19/17 17:25 Assessment AND Plan 1. 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 Advised to follow-up with her urologist should her symptoms not improve the nex t 5-7 days. Advised of potential red flags when appropriate report to the ED. Patient verbalized understanding of all the above. This note was generated with appAttach dictation software. It may contain i ncorrect words, spelling, and punctuation that were not noted in checking the note before signing. Plan Detail Other Orders Orders: Other Medications Discontinued: hydrocodone-acetaminophen 5-325 mg D isco1 - 2 ea PO Q6H PRN PRN Pain Rajwinder Irby ntinued Reason: Pt no longer taking Coding Level of Care Code Off vis,new,level 3 Diagnoses Benign essential microscopic hematuria R31.1 Hematuria t ype: benign essential microscopic 11/19/17 1750 <Electronically signed by Praveen WHATLEY> Date Praveen WHATLEY [facility] Signature: Date (if applicable) CC: 19-Nov-2017 Urgent Care Visit Report Result: Comments: See Note; NOTES: [facility] [address] [place] [address] OFFICE VISIT Date of Service: 11/19/17 MR#: [id number] Acct: [id number] Name: STEFFEN BYRD Rep #: [id number] : 1985 Provider: Praveen WHATLEY Age/Sex: 32/F Location: [facility] [place] Status: Signed Intake Vital Signs11/19/17 Height 5 ft 6 in Intake Visit Reasons: Urinary tract infection Is patient in pain?: No Allergies ciprofloxacin [From Cipro] Allergy (Verified 11/19/17 17:14) Hives ciprofloxacin HCl [From Cipro] Allergy (Verified 11/19/17 17:14) Hives clarithromycin [From Biaxin] Al lergy (Verified 11/19/17 17:14) Hives meperidine HCl [From Demerol] Allergy (Verified 11/19/17 17:14) Rash morphine Allergy (Verified 11/19/17 17:14) Rash sulfamethoxazole [From Bactrim] Allergy (Verifi ed 11/19/17 17:14) Hives trimethoprim [From Bactrim] Allergy (Verified 11/19/17 17:14) Hives Medications Aurora-3 Fatty Acids/Fish Oil [Fish Oil 1,000 mg Capsule] 1 ea PO DAILY 05/07/17 [History Confi rmed 11/19/17] Rosuvastatin Calcium [Crestor] 5 mg PO QODAY 05/07/17 [History Confirmed 11/19/17] cholecalciferol (vitamin D3) 1,000 unit capsule 1,000 unit PO ONCE 11/19/17 [History Confirmed 11/19/17] norgestimate-ethinyl estradiol 0.18 mg/0.215mg/0.25mg-35 mcg(28)tablet 1 tab PO DAILY tab 11/19/17 [History Confirmed 11/19/17] PFSH Medical History Asthma (Acute) Surgical History D AND C (Acut e) H/O cystoscopy (Acute) Family History Father Thyroid disorder Mother Hypertension Osteoarthritis Social History Smoking Status: Never smoker alcohol intake: never HPI HPI Details: STEFFEN MACIAS, is a 32 F who presents to the office today for pelvic pressure. Patient does report a history of both UTIs as well as nephrolithiasis. She states that approximately 6 months ago she had a lith otripsy for ongoing nephrolithiasis. She states that the feeling is similar to when she typically gets a stone however wanted to make sure she did not have a UTI. She denies any dysuria, hematuria or in creased urinary frequency. No fever, chills, sweats. No nausea, vomiting, diarrhea. No other associated symptoms or alleviating/aggravating factors. ROS Const Constitutional: No chills, fever(s), fati dionicio or abnormal sleep pattern Resp Respiratory: No shortness of breath or chest congestion Cardio Cardiology: No chest pain at rest, chest pain with exertion or shortness of breath Gastro GI: No vomitin g, nausea/dyspepsia or diarrhea Genitourinary-Female: Positive for suprapubic fullness and pelvic pain; no difficulty urinating, burning urination, painful urination, urinary frequency, blood in urin e, side pain, painful periods or painful intercourse Skin Skin: No wounds or lesions Neuro Neurology: No behavioral changes or confusion Psych Psychiatric: No behavioral changes, No confusion, No abnorm al sleep pattern Endo Endocrine: No fatigue Exam Const General: cooperative, healthy appearing [facility] Head: normocephalic, atraumatic Ears: hearing grossly normal bilaterally Nose: external nose normal Face and sinus: face symmetric, normal facial exam Mouth: oral mucosae normal Throat: posterior oropharynx normal Eyes General: appearance normal, both eyes and all related structures Pupils: PERRL Res p Effort AND Inspection: normal respiratory effort Auscultation: Bilateral: Clear to Auscultation Cardio Palpation: normal PMI Rate: regular rate Rhythm: regular rhythm GI Inspection: normal to inspecti on Auscultation: normal bowel sounds Percussion: normal to percussion Palpation: soft, no hepatosplenomegaly General: bimanual renal exam normal bilaterally, No CVA tenderness Skin General: no rashes or lesions noted Neuro General: alert, CN's II-XI intact bilaterally Psych Appearance: grossly normal Mental Status: mental status grossly normal Results [facility] Office Urine Color Yellow Last Edit by Rajwinder Irby on 11/19/17 17:24 Office Urine Clarity Clear Last Edit by Rajwinder Irby on 11/19/17 17:24 [facility] Office , Urine Negative Last Edit by Rajwinder Irby on 11/19/17 1 7:25 Assessment AND Plan 1. 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 Advised to follow-up with her urologist should her symptoms not improve the next 5-7 days. Advised of potential red flags when appropriate report to the ED. Patient verbalized understanding of all the above. This note was gener ated with appAttach dictation software. It may contain incorrect words, spelling, and punctuation that were not noted in checking the note before signing. Plan Detail Other Orders Orders: Other Medicatio ns Discontinued: hydrocodone-acetaminophen 5-325 mg Disco1 - 2 ea PO Q6H PRN PRN Pain Rajwinder Irby ntinued Reason: Pt no longer taking Coding Level of Care Code Off vis,new,level 3 Diagnoses Tyree ign essential microscopic hematuria R31.1 Hematuria type: benign essential microscopic 11/19/17 1750 <Electronically signed by Praveen WHATLEY> Date Praveen WHATLEY Cosigner Signature: Date (if applicable) CC: 03-Nov-2017 Parathyroid Scan Result: Comments: See Note; NOTES: [facility] Imaging Services [address] [place] [address] Parathyroid Scan MR#: [id number] Acct: [id number] Name: STEFFEN BYRD Rep #: [id number] : 1985 F 32 From: Hitesh Garcia DO PCP: Socorro Goncalves NP Status: REG CLI Study: Parathyroid Scan Date of Exam: 11/03/17 Exam# [id number] Ordering Dr: Socorro Goncalves CLINICAL: 32-year-old female with reported history of clinical hyperparathyroidism. 99m Tc SESTAMIBI DUAL PHASE PARATHYROID SCINTIGRAPHY COMPARISON: None available FINDINGS: Following the intravenous administration of 26.7 mCi of 99m Tc sestamibi, image acquisitions of the anterior neck at approximately 15 minutes and 2.0 hours post radiopharmaceutical provision reveal: 1. Immediate static blood pool acquisitions demonstrate distribution of the radiopharmaceutical in the right-left thyroid colloid. 2. Delayed images depict near complete washout of the radiotracer from the previously defined right-left thyroid parenchyma wi thout evidence of focal retained radiopharmaceutical identified. 0006 NM/Parathyroid Scan IMPRESSION: 1. NEGATIVE 99m Tc SESTAMIBI PARATHYROID IMAGING DUAL PHASE EXAMINATION. 2. There i s no current typical scintigraphic evidence of parathyroid adenoma on the present evaluation. Electronically Signed: Hitesh Garcia DO at 10:27 EST Tel , Service support [phone], CC: Socorro Goncalves NP Looping Machine Operator: Signed 10-Sep-2017 Discharge Summary Result: Comments: See Note; NOTES: [facility] Medical Records Department [address] [place] [address] Discharge Summary 09/10/17 1452 MR#: [id number] Acct: [id number] Name: STEFFEN BYRD Rep #: [id number] : 1985 32 From: Brielle Saldaña PCP: Socorro Goncalves NP Status: REG RCR Y Location: [facility] Discharge Summary: This patient was seen for massotherapy eval uation on: 11/12/16 Diagnosis: Back and Neck Pain The patient had 4 sessions of massotherapy. The goals for treatment were met as she reported massage helped manage her neck and back pain. Last DOS: 1 At this time I am discharging the patient from our care at the [facility]. Brielle Saldaña, LISSETTT 09/10/17 1506 <Electronically signed by Brielle Saldaña > Irwin e Brielle Saldaña Cosigner Signature (if applicable): Date CC: Brielle Saldaña; Socorro Goncalves HORSE DOCTOR Signed 23-Jun-2017 Operative Report Result: Comments: See Note; NOTES: [facility] Medical Records Department [address] [place] [address] Operative Report 06/23/17 1024 MR#: [id number] Acct: [id number] Name: CARSONRehan MARCIO Rep #: [id number] : 1985 32 From: Eddi Rodríguez MD PCP: Socorro Goncalves Status: REG [facility] Y Location: [place] [address] Operative Report Date of Procedure: 06/23/17 23 June 2017 ESWL bilateral I ndication 5-year-old female has had recent obstruction ureteroscopy with laser. She has been found to have a stones in both kidneys and is brought this time for surgical correction, ESWL His previous a ntibiotics had SCUDs in place was taken to the operative she was placed on the table. She was positioned over the 3 stones in the right reason visible in estimate was performed patient had a total of 30 00 shocks to the right kidney and the stones were absent at this point attention was turned to the left and is only 1 or 2 small stone and subsequent study was performed to those for a total of thousand shocks melanosis of room level 5 patient tolerated procedure well there is no arrhythmias. She is awake and comes stable condition is on this dictation This note was generated with [employer]. It may contain incorrect words, spelling, and punctuation that were not noted in checking the note before signing. 06/23/17 1026 <Electronically signed by Eddi Rodríguez MD> D ate Eddi Rodríguez MD CC: Socorro Goncalves; Eddi Rodríguez MD Signed 23-Jun-2017 Discharge Instruction Result: Comments: See Note; NOTES: [facility] Medical Records Department [address] [place] [address] Instructions for Home/Discharge Instructions 06/23/17 1014 MR#: [id number] Acct: [id number] Name: STEFFEN BYRD Rep #: [id number] : 1985 32 From: Eddi Rodríguez MD PCP: Socorro Goncalves Status: REG [facility] Discharge Diet: No Restrictions - ENCOURAGE FLUIDS Discharge Activity: Re turn to Normal Activity, May Not Drive - UNTIL TOMORROW, May Shower, - - EXPECT BLOOD IN URINE Return to work on:: 06/26/17 Additional Activity Instructions:: EXPECT BLOOD IN URINE Call your doctor if y ou observe: Fever of 101 or Higher, Inability to urinate Allergies/Adverse Reactions: Allergies ciprofloxacin [From Cipro] Allergy (Verified 05/07/17 10:11) Hives ciprofloxacin HCl [From Cipro] Allergy (Verified 05/07/17 10:11) Hives clarithromycin [From Biaxin] Allergy (Verified 05/07/17 10:11) Hives meperidine HCl [From Demerol] Allergy (Verified 05/07/17 10:11) Rash morphine Allergy (Verified 04/14 01/27 10:11) Rash sulfamethoxazole [From Bactrim] Allergy (Verified 05/07/17 10:11) Hives trimethoprim [From Bactrim] Allergy (Verified 05/07/17 10:11) Hives Medications to take at Discharge Norgestim ate-Ethinyl Estradiol [Tri-Previfem Tablet] 1 each PO DAILY 10/04/15 Aurora-3 Fatty Acids/Fish Oil [Fish Oil 1,000 mg Capsule] 1 each PO DAILY 05/07/17 Rosuvastatin Calcium [Crestor] 5 mg PO QODAY Hydrocodone/Acetaminophen [Viola 5-325 Tablet] 1 - 2 each PO Q6H PRN PRN #10 tablet 06/23/17 The following prescriptions were given: Hydrocodone/Acetaminophen [Viola 5-325 Tablet] 1 - 2 each PO Q6H PRN PRN #10 tablet PRN Reason: Pain Primary Care Physician: Socorro Goncalves [Primary Care Provider] - Please Follow Up With: Eddi Rodríguez - [phone] When: CALL SOON FOR AN APPT IN FEW WEEKS 06/23 1021 <Electronically signed by Eddi Rodríguez MD> Date Eddi Rodríguez MD CC: Socorro David 07-Jun-2017 Abdomen Single View Result: Comments: See Note; NOTES: [facility] Imaging Services [address] [place] [address] Abdomen Single View MR#: [id number] Acct: [id number] Name: STEFFEN BYRD Rep #: [id number] : 1985 F 32 From: Nicho Diaz MD PCP: Socorro Goncalves Status: REG CLI Study: Abdomen Single View Date of Exam: 06/07/17 Exam# [id number] Ordering Dr: Sophie Tang HORSE DOCTOR-C STUDY: X-RA Y - ABDOMEN/PELVIS REASON FOR EXAM: Female, 32 years old. History of bilateral renal calculi. TECHNIQUE: Two AP supine views of the abdomen and pelvis. COMPARISON: None. FINDINGS: There is a moderate amount of colonic fecal material. There are several small right intrarenal calculi. The largest is in the mid pole and measures 3.8 mm. A tiny calculus is seen in the upper midportion of the left kidney. Normal soft tissue structures. Normal visualized osseous structures. RAD/Abdomen Single View IMPRESSIO N: Bilateral intrarenal calculi slightly more prominent on the right side. Electronically Signed: Nicho Diaz MD at 10:02 EDT Tel [phone], Service support , Fax CC: ANTONIO Tang; Socorro Goncalves Looping Machine Operator: Signed 21-May-2017 Operative Report Result: Comments: See Note; NOTES: [facility] Medical Records Department [address] [place] [address] Operative Report 05/21/17 1207 MR#: [id number] Acct: [id number] Name: Rehan BYRD Rep #: [id number] : 1985 32 From: Eddi Rodríguez MD PCP: Socorro Goncalves Status: REG ORC Y Location: [place] [address] Operative Report Date of Procedure: 05/21/17 This is a 32-year-old female has been struggling trying to pass a left ureteral stone for almost 2 weeks. It is in the distal left ureterovesical junction. She is brought this time for surgical removal. She is known to have some stone s in the upper tract on the right about 3. Procedure patient had SCUDs in place and was preloaded with antibiotics. She is taken the operative she is placed under general anesthesia per LMA by Dr. Ricci anthony and Meir boogie. Placed lithotomy position prepped with sterile technique. Cystoscopic exam was performed showing a moderate cystocele and the rest the bladder is unremarkable except for the stone visible at the ureterovesical junction. Attempts to remove this in the biopsy forceps (unsuccessful. Subsequently using a Noble Grimes basket 15 mm was able to encounter the first pass and removed en tirely. On fluoroscopy document there is no swelling ureters and the bladder. Cava size and vascular attempts to remove this with a biopsy forceps performed. However upon removed from the bladder was lo st the stone. Extensive look inside the bladder amenable to visualize a stone check the perineal area the bed the drapes drainage system floor etc. all this was unable to find the stone since patient wa s waking up the lens was placed and visually was able to see the stone inside the bladder at that time. At this point will have patient strain urine to catch the stone. His weight comes stable condition This note was generated with [employer]oe[employer]Meation software. It may contain incorrect words, spelling, and punctuation that were not noted in checking the note before signing. 05/21/17 1209 <Denisa ctronically signed by Eddi Rodríguez MD> Date Eddi Rodríguez MD CC: Socorro Goncalves; Eddi Rodríguez MD Signed 21-May-2017 Discharge Instruction Result: Comments: See Note; NOTES: [facility] Medical Records Department [address] [place] [address] Instructions for Home/Discharge Instructions 05/21/17 1204 MR#: [id number] Acct: [id number] Name: STEFFEN BYRD Rep #: [id number] : 1985 32 From: Eddi Rodríguez MD PCP: Socorro Goncalves Status: REG SDC Discharge Diet: No Restrictions Discharge Activity: Return to Normal Acti vity, May Not Drive - UNTIL TOMORROW, May Shower, - - STRAIN URINE FOR STONE Return to work on:: 05/24/17 Additional Activity Instructions:: EXPECT SOME BLOOD IN URINE Call your doctor if you observe: F ever of 101 or Higher, Inability to urinate, Uncontrolled pain Allergies/Adverse Reactions: Allergies ciprofloxacin [From Cipro] Allergy (Verified 05/07/17 10:11) Hives ciprofloxacin HCl [From Cipro] A llergy (Verified 05/07/17 10:11) Hives clarithromycin [From Biaxin] Allergy (Verified 05/07/17 10:11) Hives meperidine HCl [From Demerol] Allergy (Verified 05/07/17 10:11) Rash morphine Allergy (Verifie d 05/07/17 10:11) Rash sulfamethoxazole [From Bactrim] Allergy (Verified 05/07/17 10:11) Hives trimethoprim [From Bactrim] Allergy (Verified 05/07/17 10:11) Hives Medications to take at Discharge Nor gestimate-Ethinyl Estradiol [Tri-Previfem Tablet] 1 each PO DAILY 10/04/15 Hydrocodone Bitart/Apap 5-325 [Viola 5/325] 1 tablet PO Q4H PRN PRN #12 tablet 05/07/17 Aurora-3 Fatty Acids/Fish Oil [Fish Oil 1,000 mg Capsule] 1 each PO DAILY 05/07/17 Ondansetron [Zofran Odt] 4 mg PO Q8H PRN PRN #10 tablet 05/07/17 Rosuvastatin Calcium [Crestor] 5 mg PO QODAY 05/07/17 Primary Care Physician: Socorro Goncalves [[facility] Care Provider] - Please Follow Up With: Eddi Rodríguez - [phone] When: CALL SOON FOR AN APPT IN FEW WKS 05/21/17 1207 <Electronically signed by Eddi Rodríguez MD> Date _ Eddi Rodríguez MD CC: Socorro Goncalves 07-May-2017 Emergency Department Summary Result: Comments: See Note; NOTES: [facility] Medical Records Department [address] [place] [address] Emergency Department Summary 05/07/17 1017 MR#: [id number] Acct: [id number] Name: STEFFEN BYRD Rep #: [id number] : 1985 31 From: Mansoor Seals MD PCP: Socorro Goncalves Status: DEP ER - ER Visit Summary Date of Service: 05/07/17 Chief Complaint: Left flank pain History o f Present Illness: The patient is a 31 F who presents to the emergency department with acute left-sided flank pain. Patient has a history of kidney stone. She has had multiple stones since the age of 17 . She states at approximately 845 this morning, she had sudden onset sharp stabbing pain in her left flank with nausea. The pain was migratory in her left lower quadrant. Patient states she was diaphore tic and nauseated. She denies any urinary symptoms. By the time the patient got here, her pain has completely abated. She has never required lithotripsy or stenting. She has no history of prior abdomina l surgery. Physical Examination: Exam relatively unremarkable. Mild left CVA tenderness. Skin intact. Abdomen benign. Test Results: Urine does show evidence of blood consistent with stone. CT shows 7 mm stone at the UPJ on the left. Emergency Department Course and Treatment: Patient initially declined any analgesics that she was resting comfortably. However, pain returned. She was given Toradol wit h only minimal improvement. The patient did agree for CT. CT does show a distal obstructing stone at the UPJ of 7 mm. Patient was then given Nubain and had complete resolution of her pain. She is restin g comfortably. At this time, I do for the patient is safe for outpatient therapy. I will give her urology follow-up. She will be placed on analgesics and Flomax. She is counseled on concerning symptoms and will be discharged home. Treatment Plan: [] Disposition: Discharge Impression: 1. 7 mm left sided urolithiasis at the UPJ ED Disposition - Plan for ED Patient: Disposition: Home or Assisted Rissa miranda Chief Complaint: Flank Pain Instructions: ED Stone Renal W Colic Prescriptions: Hydrocodone Bitart/Apap 5-325 [Viola 5/325] 1 tablet PO Q4H PRN PRN #12 tablet PRN Reason: Pain Ondansetron [Zofran O dt] 4 mg PO Q8H PRN PRN #10 tablet PRN Reason: Nausea Tamsulosin HCl [Flomax] 0.4 mg PO DAILY 14 Days Referrals: Eddi Rodríguez MD [STAFF PHYSICIAN] - What to do if you have Problems For any increa sed pain, shortness of breath, bleeding, nausea or vomiting, chest pain, or any unexpected problems, contact your Primary Care Provider. Call [facility] ([phone]) or report to the closest [facility] Room. Call 911 if necessary. 05/07/17 1329 <Electronically signed by Mansoor Seals MD> Date Mansoor Ramiresigner Sign ature (If Indicated): Date CC: Socorro Goncalves 07-May-2017 Abdomen/Pelvis without Cont Result: Comments: See Note; NOTES: [facility] Imaging Services [address] [place] [address] Abdomen/Pelvis without Cont MR#: [id number] Acct: [id number] Name: STEFFEN BYRD Rep # : [id number] : 1985 F 31 From: Cory Waite DO PCP: Socorro Goncalves Status: REG ER Study: Abdomen/Pelvis without Cont Date of Exam: 05/07/17 Exam# [id number] Ordering Dr: Mansoor Seals MD STUDY: CT ABDOMEN AND PELVIS WITHOUT CONTRAST REASON FOR EXAM: Female, 31 years old. Left flank pain RADIATION DOSAGE (If Supplied By Facility): CTDIvol = ( 19.22 ) mGy, DLP = ( 1022.89 ) mGycm TECHNIQUE: T ransaxial images were obtained from the dome of the diaphragm to the symphysis pubis without oral contrast, and without intravenous contrast. Sagittal and coronal images were reconstructed. [place]d dose optimization techniques were used for this CT. COMPARISON: None. FINDINGS: The visualized lung bases are unremarkable. The visualized portions of the heart are within normal limits. Normal liver. Normal gallbladder and extrahepatic biliary system. Normal spleen. Normal pancreas. Normal bilateral adrenal glands. Mild left perinephric fat straining edema with mild to moderate left hydronephrosis and left-sided ureter. There is a stone in the distal left ureter measuring 7 mm. Bilateral nephrolithiasis is also noted. Normal visualized stomach. Normal s mall intestine. Normal colon. The appendix is visualized and appears normal. Normal abdominal aorta. Normal inferior vena cava. Normal retroperitoneum. Normal urinary bladder. Normal visualized uterus . Normal abdominal wall. Normal osseous structures. CT/Abdomen/Pelvis without Cont IMPRESSION: Bilateral nephrolithiasis. Left hydronephrosis an d hydroureter with a large stone in the distal left ureter as above Electronically Signed: Cory Waite DO at 12:04 EDT Tel , Service support , CC: Socorro Goncalves; Mansoor Seals MD Looping Machine Operator: Signed 08-Apr-2017 Echocardiogram Complete Result: Comments: See Note; NOTES: [facility] Cardiovascular Services [address] [place] [address] Echo Complete 04/08/17 1107 MR#: [id number] Acct: [id number] Name: SAUNDRA BYRD Rep #: [id number] : 1985 31 From: Meir Ortega MD Attending Dr: Sudheer Juarez Status: REG CLI Ordering Dr: Sudheer Juarez Date: 04/08/17 Location: [facility] Sex: F C Admitted: Reason For Study: SO B Procedure This was a 2D Doppler, Color Flow transthoracic echocardiogram. Exam performed in department. Left Ventricle Normal size and thickness. The estimated ejection fraction is 65 %. Normal jean tology for age. No regional wall motion abnormalities noted. Right Ventricle Normal size and thickness. Normal systolic function. Atria Normal left atrium. Normal right atrium. Normal atrial septum. Mitral Valve The mitral valve is structurally normal. No prolapse or stenosis seen. Tricuspid Valve Normal tricuspid valve. Trivial tricuspid valve insufficiency. Right ventricular systolic pressure es timated to be 17 mmHg. Aortic Valve Trisinus/trileaflet aortic valve. Normal aortic valve. Pulmonic Valve Normal pulmonic valve. Trivial pulmonic valve insufficiency. Great Vessels Normal aortic root. Normal arch. Normal inferior vena cava. Inferior vena cava collapse with sniff. Pericardium/Pleural No pericardial effusion. MMode/2D Measurements AND Calculations LVIDd: 5.1 cm IVSd: 1.1 cm Ao root diam: 3.3 cm LVIDs: 3.1 cm LVPWd: 1.1 cm LA dimension: 3.0 cm FS: 38.4 % LAV(MOD-bp): 45.6 ml LA A4 area: 17.4 cm2 LAV(M OD-bp) Indexed: 21.9 ml/m2 LAV(MOD-sp2): 36.3 ml LAV(MOD-sp4): 49.1 ml Doppler Measurements AND Calculations MV E max mari: 73.8 cm/sec Lat Peak E' Mari: 11.7 cm/sec Med Peak E' Mari: 7.6 cm/sec MV A max mari: 53.1 cm/sec E/E' lat: 6.3 E/E' med: 9.8 MV E/A: 1.4 PA V2 max: 96.1 cm/sec PI end-d mari: 114.6 cm/sec TR max mari: 1 72.4 cm/sec TR max P.9 mmHg Interpretation Summary The estimated ejection fraction is 65 %. Normal diastology for age. Right ventricular systolic pressure estimated to be 17 mmHg. Compared to echo report dated 07/10/2011, no appreciable changes noted. Ordering Physician: Sudheer Juarez Physician: Socorro Goncalves Performed By: Andria Bills RDCS, RVT 04/08/17 1646 Date _ Meir Ortega MD CC: Socorro Goncalves; Sudheer Juarez Date Dictated: 04/08/17 1107 Date Transcribed: 04/08/17 1646 Looping Machine Operator: Signed 08-Apr-2017 Pulmonary Function Report Comp Result: Comments: See Note; NOTES: [facility] Pulmonary Services/Neurology [address] [address] Pulmonary Function Report Comp MR#: [id number] Acct: [id number] Name: STEFFEN SOUZA Rep #: [id number] : 1985 31 From: Erwin Ferrera MD PCP: Socorro Goncalves DOS: 04/08/17 Pulmonary Function Report Comp Pulmonary Function Report Comp: COMPLETE PULMONARY FUNCTION TEST INT ERPRETATION Brief HPI: Patient is a 31 year old female, currently under the care of Dr. Juarez, who presents to [facility] for complete pulmonary function tests secondary to d iagnosis of shortness of breath. Respiratory therapist reports good effort and reproducible results. Interpretation: Forced expiration spirometry shows no large airways obstructive ventilatory defect with an FEV1 of 97 % predicted. There is no significant bronchodilator response by ATS criteria. Spirograms are of good quality and plateau normally. The respiratory flow volume loop shows a normal pia rita. Lung volumes by body plethysmography show a normal total lung capacity at 6.35 L, 115 % predicted. All other lung volumes are within normal limits. Diffusion capacity by carbon monoxide is normal , but at the lower limit at 74 % predicted. The airway resistance is normal. No previous pulmonary function tests were available for review. Impression: These pulmonary function tests are grossly at the lower limit of normal. Early pulmonary vascular disorder cannot be excluded as DLCO is at the lower limit of normal. Clinical correlation is advised. There is no findings suggestive of restrictive l zahraa disease on this testing. 04/08/17 1335 <Electronically signed by Erwin Ferrera MD> Date Erwin Ferrera MD Outcome assessment reviewed. Exercise plan approved as documented. Treatment plan and goals support patient needs/abilities. Continue with current plan. I certify the patient demonstrates improvement and remains willing and capab le of participation. the patient continues to benefit from cardiac rehab services/training. The patient may continue at current intensity, endurance and modality and progress per protocol. Keylasonia Margaret ignature: Date CC: Socorro Goncalves; Erwin Ferrera MD Signed 04-Mar-2017 Breast Limited Unilateral Result: Comments: See Note; NOTES: [facility] Imaging Services [address] [place] [address] Verdana 4d Breast Limited Unilateral MR#: [id number] Acct: [id number] Name: ISAURA BYRD Rep #: [id number] : 1985 F 31 From: Nicho Diaz MD PCP: Socorro Goncalves Status: REG CLI Study: Breast Limited Unilateral Date of Exam: 03/04/17 Exam# [id number] Ordering Dr: Shanell Christian DO STUDY: ULTRASOUND BREAST - RIGHT REASON FOR EXAM: Female, 31 years old. Pain in the right breast. TECHNIQUE: Axial and longitudinal images of the RIGHT breast were performed with a high resol ution ultrasound transducer. COMPARISON: Comparison is made with prior mammogram done earlier in the day. FINDINGS: RIGHT Breast: The entire medial half of the rig ht breast was examined by ultrasound. No sonographic abnormality is seen. US/Breast Limited Unilateral IMPRESSION: Unremarkable examination. ____ ASSESSMENT CATEGORY: BIRADS Category 1: Negative. A letter regarding these results will be sent to the patient by the facility within 30 days. Electronically Signed: Jonathon Diaz MD at 10:01 EDT Tel [phone], Service support , CC: Socorro Goncalves; Sari Christian DO Looping Machine Operator: Signed 04-Mar-2017 DIAG MAMM W/CAD, BILAT Result: Comments: See Note; NOTES: [facility] Imaging Services [address] [address] Verdana 4d DIAG MAMM W/CAD, BILAT MR#: [id number] Acct: [id number] Name: STEFFEN BYRD Rep #: [id number] : 1985 F 31 From: Nicho Diaz MD PCP: Socorro Goncalves Status: REG CLI Study: DIAG MAMM W/CAD, BILAT Date of Exam: 03/04/17 Exam# [id number] Ordering Dr: Sari Christian DO MAMMOGRAPHY - BILATERAL DIAGNOSTIC REASON FOR EXAM: Female, 31 years old. 1 1/2 week history of right breast pain. PERTINENT HISTORY: TECHNIQUE: Digital bilateral breast karel (3D mammographic acqu isition) in the CC and MLO projections. 2-D mediolateral oblique (MLO) and craniocaudad (CC) views of both breasts were obtained. CAD: Full Field Digital Mammography with Computer Added Detection was pe rformed. COMPARISON: None. Baseline examination. FINDINGS: Breast Composition: There are scattered areas of fibroglandular density. There are no dominant masses or suspicious calcifications. No other significant abnormalities are identified. HPBI/DIAG MAMM W/CAD, BILAT IMPRESSION: Negative diagnostic mammo gram. With the patient's history of right breast pain, correlation with breast ultrasound is recommended. ASSESSMENT CATEGORY: BIRADS Category 0: Incomplete. Need a dditional imaging evaluation. A letter regarding these results will be sent to the patient by the facility within 30 days. Approximately 10% of breast cancers are not detected by mammography. A normal mammogram should not delay biopsy of a clinically suspicious abnormality. Electronically Signed: Nicho Diaz MD at 10:25 EDT Tel [phone], Service support , Fax CC: Socorro Goncalves; Sari Christian DO Looping Machine Operator: Signed 03-Mar-2017 Chest PA and Lateral Result: Comments: See Note; NOTES: [facility] Imaging Services [address] [place] [address] Verdana 4d Chest PA and Lateral MR#: [id number] Acct: [id number] Name: STEFFEN BYRD #: [id number] : 1985 F 31 From: Brielle Adam MD PCP: Socorro Goncalves Status: REG CLI Study: Chest PA and Lateral Date of Exam: 03/03/17 Exam# [id number] Ordering Dr: Sudheer Juarez STUDY: X-RA Y CHEST REASON FOR EXAM: Female, 31 years old. Cough TECHNIQUE: Frontal and lateral views of the chest. COMPARISON: None. FINDINGS: The lungs are clear and expan ded. There is no demonstrated pleural abnormality. Normal size heart. Normal mediastinum and josh. Normal visualized pulmonary arteries. Normal visualized aortic arch and descending thoracic aorta. No rmal visualized thoracic spine. Normal visualized ribs, clavicles, and shoulders. There is no demonstrated abnormality of the visualized soft tissue structures of the upper abdomen. RAD/Chest PA and Lateral IMPRESSION: No evidence of focal consolidation or effusion. Electronically Signed: Brilele Adam MD at 18:21 EDT Tel [phone], Service support , CC: Socorro Goncalves; Sudheer Juarez Looping Machine Operator: Signed 22-Jan-2017 Emergency Department Summary Result: Comments: See Note; NOTES: [facility] Medical Records Department [address] [place] [address] Emergency Department Summary MR#: [id number] Acct: [id number] Name: Rehan BYRD Rep #: [id number] : 1985 31 From: Mansoor Cedillo MD PCP: Socorro Goncalves Status: DEP ER DATE OF SERVICE: 01/18/2017 METHOD OF ARRIVAL: By private car. CHIEF COMPLAINT: Hives. PRIMARY CARE: Félix Goncalves. DAILEY HISTORY: A 31-year-old female with history of high cholesterol, kidney stones. The patient comes in with hives that started today about 8:00 p.m. She states basically her skin was red an d rash with hives and itchy. She did take an antihistamine that was prescribed to her and this was about 8:10 tonight. She states the hives do seem to be a little bit better. She also complains of some hand swelling, which made her more concerned and she came in. She denies feeling short of breath or any airway edema or difficulty swallowing. She does not feel short of breath. She has been having a hi ve type rashes over the last 3-1/2 weeks, is unaware of any new exposures. The only thing she seems to have in common was that she has had strawberries what sounds like with each occasion. However, she has had history of eating strawberries in her past with no prior problems until about the last 3-1/2 weeks. PHYSICAL EXAMINATION: VITAL SIGNS: Stable. Afebrile. She is not hypoxic. HEENT: Unremarkable, no airway edema. NECK: Supple. HEART: Regular. LUNGS: Clear with no wheezing. ABDOMEN: Soft, nontender. SKIN: She does have some slight edema to her hands. There is some redness with some pink hives as well with the remainder of the exam unremarkable. EMERGENCY DEPARTMENT COURSE: The patient has no signs of systemic response. She was given IV steroids, Benadryl and Pepcid and observed here. On repea t evaluation, she is feeling much better. Her symptoms have ____ completely resolved. She wishes to go home. We will recommend continuing steroids, Benadryl and Pepcid at home. I am recommending that sh e may need to see an industrial designer for testing. CLINICAL IMPRESSION: Allergic reaction. DISPOSITION: Home. Please note, I did recommend she not eat strawberries. Mansoor Cedillo MD C C: Socorro Norahmichel T: NTS JOB: [id number] 01/22/17 0833 <Electronically signed by Mansoor Cedillo MD> Date Mansoor Cedillo MD Cosigner Signature (If Indicated): Date _ CC: Socorro Goncalves Date Dictated: 01/18/172320 Date Transcribed: 01/18/172320 Looping Machine Operator: Signed 18-Jan-2017 Discharge Instruction Result: Comments: See Note; NOTES: [facility] Medical Records Department [address] [place] [address] Discharge Instruction 01/18/172316 MR#: [id number] Acct: [id number] Name: STEFFEN WAGNER Rep #: [id number] : 1985 31 From: Mansoor Cedillo MD PCP: Socorro Goncalves Status: REG ER ED Disposition - Plan for ED Patient: Disposition: Home or Assisted Living Chief Complaint: Allerg ic Reaction Instructions: ED Allergic Reaction General Other Prescriptions: PredniSONE 60 mg PO DAILY #15 tablet Referrals: Socorro Goncalves [Primary Care Provider] - 3-5 Days Additional Instructions: follow up with your doctor office. recommend taking benadryl and pepcid or zantac for allergy symptoms. return with problems. recommend avoiding strawberries What to do if you have Problems For any increas ed pain, shortness of breath, bleeding, nausea or vomiting, chest pain, or any unexpected problems, contact your Primary Care Provider. Call [facility] ([phone]) or report to the closest [facility] Room. Call 911 if necessary. 01/18/172318 <Electronically signed by Mansoor Cedillo MD> Date Mansoor Ramiresignsharon Signature ( If Indicated): Date CC: Socorro Goncalves 17-Nov-2016 Inital Evaluation - PT Result: Comments: See Note; NOTES: [facility] Physical Therapy [facility] [address] [place], [place] [id number] Fax REHABILITATION SERVICES INITIAL EVALUATION MR#: [id number] Acct: [id number] Name: STEFFEN BYRD Rep #: [id number] : 1985 31 From: Brielle Saldaña Referring Dr.: Socorro Goncalves Status: REG RCR Insurance: [facility] Eval Date: DATE OF SERVICE: 11/12/2016 REFERRING PHYSICIAN: Dr. Goncalves. 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 She was referred to the [facility] facility for massotherapy evaluation by Dr. Goncalves with a diagnosis of having back pain. She presents today with the symptoms of having back pa in due to moving and pulling on the patients throughout her workday as well as her regular neck and shoulder pain that causes headaches occasionally. She reports that the headaches have been under contr ol, but have been flaring up frequently in the last 2 weeks, but massage is the only thing that helps. OBJECTIVE: The first treatment consisted of a 1-hour massage to the upper body using deep pressure . Upon observation, I found that she had high tension to her neck and shoulder area including her upper trapezius muscles that had knots in the medial borders of her scapulas and also had knots within b ilaterally. Her cervical through lumbar paraspinals were very tight and ropey. ASSESSMENT: The patient easily relaxed and tolerated the deep pressure. I feel that she is a good candidate for massothera py at this time due to the fact that massage has helped her greatly in the past. PLAN: The plan of care is reviewed with the patient. The patient is to be seen on an as needed basis throughout the year 2016 for a total of 10 one-hour sessions. Brielle Saldaña LMT T: ANIBAL JOB: [id number] <Electronically signed by Brielle Saldaña > 11/17/16 0854 CC: Signed For Medicare only, by signing this I certify the plan of care. Physicians Signature Date 15-Sep-2016 PT Discharge Summary Result: Comments: See Note; NOTES: [facility] Physical Therapy [address] [place] [address] Fax REHABILITATION SERVICES DISCHAR GE SUMMARY MR#: [id number] Acct: [id number] Name: STEFFEN BYRD Rep #: [id number] : 1985 31 From: Brielle Saldaña Referring Dr.: Socorro Goncalves Status: DIS RCR Eval Date: Discharge Date: 09/04/16 DATE OF SERVICE: 09/11/2016 REFERRING PHYSICIAN: Dr. Socorro Goncalves. The patient was seen for massotherapy evaluation on July 06, 2016 with a diagnosis of having back pain. The patient was t reated with 3 sessions of massage consisting of 1-hour treatment to the upper body focusing on the low back and neck area. She reports that massage helped her greatly and at this time, I am discharging the patient from our care at the [facility] facility. Brielle Saldaña LMT T: ANIBAL JOB: [id number] <Electronically signed by Brielle Saldaña > 09/15/16 0643 CC: Socorro Goncalves Signed 10-Sep-2016 Inital Evaluation - PT Result: Comments: See Note; NOTES: [facility] Physical Therapy [address] [place], [place] [id number] Fax REHABILITATION SERVICES INITIA L EVALUATION MR#: [id number] Acct: [id number] Name: STEFFEN BYRD Rep #: [id number] : 1985 31 From: Brielle Saldaña Referring DrMelissa: Socorro Goncalves Status: REG RCR Insurance: [facility] Eval Date: DATE OF SERVICE: 07/06/2016 REFERRING PHYSICIAN: Dr. 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 Goncalves with a diagnosis of having back pain. She reports that the pain has been commenced due to helping her grandmother who h as a broken hip and transferring her. She also reports that she gets headaches constantly, but massage has helped her greatly in the past. OBJECTIVE: The first treatment consisted of a 1-hour massage t o the upper body using moderate to deep pressure. Upon observation, I found that she had high tension throughout her cervical through lumbar paraspinals. I found that she had tension throughout her uppe r trapezius, middle trapezius, rhomboid muscles, scalene muscles and levator scapula muscles. ASSESSMENT: The patient easily relaxed and was able to tolerate deep pressure when needed. I feel that she is a good candidate for massotherapy at this time due to the fact that massage helped her greatly in the past. PLAN: The plan of care is reviewed with the patient. The patient is to be seen on an as ne eded basis throughout the 2015 for a total of 10 one-hour sessions. Brielle Saldaña LMT T: ANIBAL JOB: [id number] <Electronically signed by Brielle Saldaña > 09/10/16 1658 C C: Signed For Medicare only, by signing this I certify the plan of care. Physicians Signature Date 04-Jun-2016 Wrist min 3 Views Result: Comments: See Note; NOTES: [facility] Imaging Services [address] [place] [address] Verdana 4d Wrist min 3 Views MR#: [id number] Acct: [id number] Name: STEFFEN BYRD Rep #: [id number] : 1985 F 31 From: Nicho Diaz MD PCP: Socorro Goncalves Status: REG CLI Study: Wrist min 3 Views Date of Exam: 06/04/16 Exam# [id number] Ordering Dr: Mansoor Jones DO STUDY: X -RAY - RIGHT WRIST REASON FOR EXAM: Female, 31 years old. Pain. No known injury. TECHNIQUE: 3 view(s) of the wrist were obtained. COMPARISON: None. FINDINGS: Norm al visualized distal radius and ulna. Normal radiocarpal articulation. Normal distal radioulnar articulation. Normal carpal bones. Normal carpal articulations. Normal carpometacarpal articulation of th e thumb. Normal second through fifth carpometacarpal articulations. Normal visualized metacarpal bones. The soft tissue structures are unremarkable. ORDER #: [id number] RAD/Wrist min 3 Views IMPRESSION: Normal x-ray examination of the wrist. Electronically Signed: Nicho Diaz MD at 13:32 EDT Tel [phone], Service support [phone], Fax CC: Socorro Goncalves; Mansoor Jones Looping Machine Operator: Signed 15-Oct-2015 Emergency Department Summary Result: Comments: See Note; NOTES: [facility] Medical Records Department [address] [place] [address] Emergency Department Summary MR#: [id number] Acct: [id number] Name: STEFFEN BYRD Rep #: [id number] : 1985 30 From: Mansoor Cedillo MD PCP: Risa Roldan MD Status: REG REF DATE OF SERVICE: 10/04/2015 METHOD OF ARRIVAL: By private car. CHIEF COMPLAINT : Needle stick. PRIMARY CARE: Dr. Roldan DAILEY HISTORY: A 30-year-old female with history of high cholesterol, kidney stones. The patient comes in with needlestick. This occurred just 20 minutes prior to arrival. 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 At the hospital was given a Lovenox injection on the patient and after using it she had a small stick to her right index finger. Her shots are up-to-date including she believes hepatitis, tetanus, etc. The patient is here for protocol. She denies any other complaints. PHYSICAL EXAMINATION: VITAL SIGNS: Stable. Afebrile. EXTREMITIES: Dailey physical e xam right hand, the patient does have an appearance with small needle stick superficial to the side of the index finger at the PIP joint area. There are no signs of infection, no foreign body with rem ainder of her exam unremarkable. EMERGENCY DEPARTMENT COURSE: The patient declined prophylactic medication. I did discuss with her that the risk would be low for transmission. She will have the bloo d drawn and plan will be to home. CLINICAL IMPRESSION: Needle stick, right index finger. DISPOSITION: Home. Mansoor Cedillo MD C C: [facility] Risa Roldan MD T: NTS JOB: [id number] 10/15/15 0729 <Electronically signed by Mansoor Cedillo MD> Date Mansoor Cedillo MD Cosigner Signature (If Indicated): Date ___ CC: Risa Roldan MD Date Dictated: 10/04/155 Date Transcribed: 10/04/151034 Looping Machine Operator: Signed 04-Oct-2015 Discharge Instruction Result: Comments: See Note; NOTES: [facility] Medical Records Department [address] [place] [address] Discharge Instruction 10/04/15 103 MR#: [id number] Acct: [id number] Name: STEFFEN BYRD Rep #: [id number] : 1985 30 From: Mansoor Cedillo MD PCP: Risa Roldan MD Status: PRE ER ED Disposition - Plan for ED Patient: Disposition: Home or Assisted Ciaran simon Chief Complaint: Occup Expose Instructions: ED NEEDLE STICK, 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 Call [facility] ([phone]) or report to the closest Emergency Room. Call 911 if necessary. 10/04/15 1034 <Electronically signed by Mansoor Cedillo MD> Date Mansoor Cedillo MD Cosigner Signature (If Indicated): Date CC: Risa Rodlan MD 06-Jun-2015 PT Discharge Summary Result: Comments: See Note; NOTES: [facility] Physical Therapy [address] [place] [address] Fax REHABILITATION SERVICES DISCHARGE SUMMARY MR#: [id number] Acct: [id number] Name: STEFFEN BYRD Rep #: [id number] : 1985 30 From: Leandro Albright Referring DrMelissa: Yennifer Gomez DPM Status: DIS RCR Eval Date: D ischarge Date: 05/29/15 DATE OF SERVICE: REFERRING PHYSICIAN: Dr. Gomez. This patient by the name of Steffen Maysdonn, who was born on 1985, was referred to physical therapy with diagnosis of plantar fasciitis of the left foot. The patient received her fabricator orthotics, full length, SPF with a heel cushion. Also recommended the patient to get new shoes order as well. Nitin sesay made sure that orthotics fits the patient appropriately. She did have a little bit more tension in the midfoot of her arch on the left foot. At this time, the patient is discharged from my care a fter the patient was provided with orthotics. Once again, thank you for this referral. Leandro Albright, PT T: ANIBAL JOB: [id number] <Electronically signed by Leandro Albright > 1906 CC: Risa Roldan MD Signed 06-May-2015 Operative Report Result: Comments: See Note; NOTES: [facility] Medical Records Department [address] [place] [address] Operative Report MR#: [id number] Acct: [id number] Name: STEFFEN BYRD Rep #: [id number] : 1985 From: Jack Donohue MD PCP: Risa Roldan MD Status: DEP [facility] DATE OF SERVICE: 05/06/2015 DATE OF SERVICE: May 06, 2015 SURGEON: Jack Donohue M.D., FACOG ANESTHESIA: [place] Dumont CRNA TYPE OF ANESTHESIA: MAC local. PREOPERATIVE DIAGNOSIS: Blighted ovum. POSTOPERATIVE DIAGNOSIS: Blighted ovum. PROCEDURE: Suction D and E. FINDINGS: An 8 cm endometrial cavity with products of conception present. INDICATIONS: This is a 29-year-old white female, 2, para 1, who was noted last week to have a blighted ovum on ultrasound. This w as repeated and confirmed. The patient desired that we proceed with the above surgery. She has been counseled regarding the risks and indications of this procedure including the possibility of bleedin g, infection, and injury to surrounding structures such as bowel and bladder and desired that we proceed. All questions were answered. DESCRIPTION OF PROCEDURE: The patient was taken to the operati ng room where after induction of IV sedation, she was prepped and draped in the usual sterile fashion. The cervix was noted to protrude to within about 1 cm of the vaginal introitus. It was dilated to about 8-9 mm, and an 8-mm suction curette was placed in the uterus and virtually all contents were removed. Uterus was then gently curetted removing remaining contents with a possible 1 cm submucous fibroid noted at the patient's right anterior portion of the uterus. Suction curette was again placed in the uterus and remaining contents were removed. Tenaculum was removed. The patient tolerated t he procedure well and was taken to recovery room in satisfactory condition. Sponge, instrument, and needle counts were all reported correct. Estimated blood loss for the case was minimal. There were n o apparent complications of the surgery. SPECIMENS TO PATHOLOGY: Products of conception. Jack Donohue MD, FACOG T: NTS JOB: [id number] 05/06/15 2153 <Electronically signed by Jack rios MD> Date Jack Donohue MD Cosigner Signature (If Indicated): Date CC: Risa george MD; Jack Donohue MD Date Dictated: 05/06/151107 Date Transcribed: 05/06/151107 Looping Machine Operator: Signed 06-May-2015 Discharge Instruction Result: Comments: See Note; NOTES: [facility] Medical Records Department [address] [place] [address] Instructions for Home/Discharge Instructions 05/06/15 1050 MR#: [id number] ct: [id number] Name: STEFFEN BYRD Rep #: [id number] : 1985 From: Jack Donohue MD PCP: Risa Roldan MD Status: REG [facility] Discharge Diet: No Restrictions Discharge Activity: Return to Normal Activity, May Shower, May Take a Tub Bath Call your doctor if you observe: Fever of 101 or Higher, Inability to urinate, Inability to have a bowel movement Allergies/Adverse Reactions: Al lergies ciprofloxacin [From Cipro] Allergy (Verified 05/06/15 09:53) Hives ciprofloxacin HCl [From Cipro] Allergy (Verified 05/06/15 09:53) Hives clarithromycin [From Biaxin] Allergy (Verified 09:53) Hives meperidine HCl [From Demerol] Allergy (Verified 05/06/15 09:53) Rash morphine Allergy (Verified 05/06/15 09:53) Rash sulfamethoxazole [From Bactrim] Allergy (Verified 05/06/15 0 9:53) Hives trimethoprim [From Bactrim] Allergy (Verified 05/06/15 09:53) Hives Medications to take at Discharge Vit No.124/Iron/FA [ Vitamin Tablet] 1 each PO DAILY 05/03/15 H ydrocodone Bitart/Apap 5-325 [Viola 5MG-325MG] 1 - 2 tablet PO Q4H PRN PRN #10 tablet 05/06/15 The following prescriptions were given: Hydrocodone Bitart/Apap 5-325 [Viola 5MG-325MG] 1 - 2 tablet PO Q4H PRN PRN #10 tablet PRN Reason: Pain Please Follow Up With: Jack Donohue When: 2-3 weeks 05/06/15 1051 <Electronically signed by Jack Donohue MD> Date Jack Donohue MD CC: Risa Roldan MD 25-Apr-2015 Init OB < 14Wks US Result: Comments: See Note; NOTES: [facility] Imaging Services [address] [place] [address] Ultrasound Report MR#: [id number] Acct: [id number] Name: STEFFEN BYRD Rep #: [id number] : 1985 F 29 From: Dmitriy Arguelles MD PCP: Risa Roldan MD Status: REG CLI Study: Init OB < 14Wks US Date of Exam: 04/25/15 Exam# [id number] Ordering Dr: Jack Donohue MD STUDY: FIRST TRIMESTER OBSTETRICAL ULTRASOUND REASON FOR EXAM: Female, 29 years old. Unsure dating. LMP: Approximately 02/20/15. TECHNIQUE: Transvaginal PRIOR ULTRASOUND: None. FINDINGS: There is visualization of a gestational sac in a normal intrauterine position. The mean sac diameter (MSD) measures 2.19 cm, indicating an estimated gestational age ( EGA) of 7 weeks, 2 days. The gestational sac shape is within normal limits. There is a small subchorionic hemorrhage inferior to the gestational sac. There is also a 7.3 mm cystic structure inferior to the gestational sac, of uncertain significance and possibly representing a twin gestation. There is no demonstrated yolk sac. . The placenta is non- visualized. There is no demonstrated embryo (f etal pole). The estimated gestation age (EGA) by LMP is 9 weeks, 1 days. The estimated date of delivery (HETAL) by LMP is 11/27/15.. The estimated gestation age (EGA) by US is 7 weeks, 2 days. The est imated date of delivery (HETAL) by US is 12/10/15. The uterus measures 9.4 x 6.5 x 5.3 cm. There is no demonstrated uterine fibroid. The cervix is closed. The right ovary measures 3.3 x 2.9 x 2.2 cm. There is a 1.9 cm hypoechoic solid nodule with a small central cyst and with increased surrounding vascular flow, consistent with a corpus luteum. The left ovary measures 4.5 x 2.3 x 1.8 cm. There is no left ovarian cyst. There is no visualized left adnexal mass or complex lesion. There is no fluid in the cul de sac. IMPRESSION: Intrauterine gestational sac of 2.19 cm, corresponding in size with gestational age of 7 weeks, 2 days. There is no visualized yolk sac or pole, which is very atypical for gestational sac of this size. Findings are hig hly suspicious for blighted ovum. Followup is advised. 7.3 mm cystic structure adjacent to the above gestational sac is of uncertain significance, possibly representing a nonviable twin gestation. S mall subchorionic hemorrhage. Electronically Signed: Dmitriy Arguelles MD at 7:24 EDT , Service support [phone], CC: Risa Roldan MD; Parisa Donohue MD Looping Machine Operator: Signed 05-Apr-2015 Inital Evaluation - PT Result: Comments: See Note; NOTES: [facility] Physical Therapy [facility] [address] [place], [place] [address] Fax REHABILITATION SERVICES INITIAL EVALUATION MR#: [id number] Acct: [id number] Name: STEFFEN BYRD Rep #: [id number] : 1985 29 From: Leandro Albright Referring Dr.: Yennifer Gomez DPM Status: REG RCR Insurance: [facility] [employer] Eval Date: DATE OF SERVICE: SUBJECTIVE: This 29-year-old female by the name of Steffen Byrd who was born on 1985, was referred to physical therapy w ith diagnosis of plantar fasciitis, left foot. This patient has complained of plantar fasciitis for almost about a year, which affected her left side. 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 She states that now she wears some type of shoe throughout the day when she is at home as well as in the morning it is worse as well. She was not given any medication. She has been doing some stret ches. Her symptoms today are about 2/10 on pain scale. She had x-rays today, which seen by Dr. Yennifer Gomez. PAST MEDICAL HISTORY: Her goals are to have less pain when she wears the orthotics. PAST MEDICAL HISTORY: She has good health otherwise elevated cholesterol, kidneys. SOCIAL HISTORY: . 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 OBJECTIVE: OBSERVA TION OF POSTURE: Frontal plane mechanics, this patient does have mild pes planus with a slight valgus of the ankle, varus valgus of the great toe slightly. GAIT ASSESSMENT: The patient ambulates with toes out. Normal bird. Proprioception intact. RANGE OF MOTION: Symmetrically dorsiflexion 10 degrees, plantar flexion 75, inversion 40, eversion 10 degrees. STRENGTH: Ankle stabilizers 5/5, anter ior tibialis, posterior tibialis, gastroc soleus flexibility with functional limits. Pretests are not appropriate. ASSESSMENT: This patient has left plantar fasciitis will benefit from fabricated or thotics. PROBLEM LIST: 1. Decreased orthotics. 2. Increased heel pain. GOALS: 1. The patient will be provided orthotics. 2. The patient to ensure proper fitting of orthotics to decrease heel michele n by at least 80% to 100%. PLAN: Plan of care was reviewed with the patient. We discussed with the patient benefits from the orthotics. Discussed with the patient frontal plane mechanics of her fee t. We discussed with the patient stretching exercises, utilization of ice massage, etc. Today, we made our fabricated orthotics using multiple reinforcement with heel cushion, we recommend this to be sent out to [employer]. Today, we made imprints, which will be sent out to [employer] and when the orthotics return we will ensure the patient to have proper fitting for followup visit. Rehan Albright PT T: NTS JOB: [id number] <Electronically signed by Leandro Albright > 04/05/15 1654 CC: Signed For Medicare only, by signing this I certify the plan of care. Physicians Signature Date 03-Apr-2015 Foot 2 Views Result: Comments: See Note; NOTES: [facility] Imaging Services [address] [place] [address] Radiology Report MR#: [id number] Acct: [id number] Name: STEFFEN BYRD Rep #: [id number] : 1985 F 29 From: Shon Vazquez DO PCP: Risa Roldan MD Status: REG CLI Study: Foot 2 Views Date of Exam: 04/03/15 Exam# [id number] Ordering Dr: Yennifer Gomez STUDY: X-RAY - LEFT F OOT CLINICAL: Female, 29 years old. Plantar fibromatosis. Heel pain. TECHNIQUE: 2 weight-bearing view(s) of the foot. COMPARISON: None. FINDINGS: Normal uyen us and tarsal bones. There is a minimal plantar spur on the under side but otherwise normal calcaneus. Normal visualized subtalar, talonavicular, calcaneocuboid, tarsal and tarsometatarsal articulat ions.. Mild flattening of the normal plantar arch. There is a fracture through the base of the fifth metatarsal which appears old and suggests nonunion. The remainder of the metatarsals are unremark able. Normal metatarsophalangeal joint of the great toe. Normal tibial and fibular sesamoid bones. Normal interphalangeal joint of the great toe. Normal phalanges of the great toe. Normal second t hrough fifth metatarsophalangeal joints. Normal interphalangeal joints and phalanges of the lesser toes. The soft tissue structures are unremarkable. IMPRESSION : 1. Small plantar spur. 2. 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 Electronically Signed: Shon Vazquez DO at 13:02 EDT Tel [phone], Service support , RAD/Foot 2 Views IMPRESSION: 1. Small plantar spur. 2. 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 Electronically Signed: Shon augustin DO at 13:02 EDT Tel [phone], Service support [phone], CC: Risa Roldan MD; Yennifer Gomez DPM Looping Machine Operator: Signed 29-Aug-2014 Emergency Department Summary Result: Comments: See Note; NOTES: [facility] Medical Records Department [address] [place] [address] Emergency Department Summary MR#: [id number] Acct: [id number] Name: STEFFEN ANTONIO Rep #: [id number] : 1985 29 From: Leandro Enrique MD PCP: Risa Roldan MD Status: [facility] DATE OF SERVICE: 08/26/2014 CHIEF COMPLAINT: Rash. HISTORY OF PRESENT ILLNESS: The p atcorey has hives across her chest, back and face and a little bit of eyelid swelling for the last 2 days and little bit the night before. Occasionally, she has had trouble like this. She cannot think of anything other than a [place] tree that is new in the house, but she will try to think of anything she is allergic to. She tried some Benadryl today, only helped slightly. PHYSICAL EXAMINATI ON: VITAL SIGNS: Stable. HEENT: She has a bilateral upper eyelid pink swelling, worse this morning. She said getting better. Sclerae are without injection or drainage. Nasal, oral passages clear. No uvula or lip edema. NECK: Supple. No adenopathy. CHEST: Clear. HEART: Regular S1, S2. ABDOMEN: Soft. No pain on palpation. EXTREMITIES: Without cyanosis or edema. SKIN: She does have blotchy re d, slightly raised areas, some are just flat plaque-like areas across her chest, abdomen, upper extremities, by history lower extremities and face. NEUROLOGIC: She is alert and oriented x3. TREATM ENT: The patient had Solu-Medrol 120 mg IV with Benadryl 25 mg IV, Pepcid 20 mg IV piggyback and was checked about an hour or so later and she started to defervesce, feels better. She wants go home . I gave her a 7-day prednisone taper. She will follow up in 3 days if not better with Dr. Roldan or the Emergency Room. Try to think of anything she is allergic to, avoid hot showers or baths and s he can still use an antihistamine either nondrowsy types or Benadryl, but watch for drowsiness. DIAGNOSIS: Acute urticaria. Leandro Enrique MD C C: Risa Roldan MD T: [facility] JOB: [id number] 0911 <Electronically signed by Leandro Enrique MD> Date Leandro Enrique MD CC: Risa Roldan MD Date Dictated: 12/14/14 1355 Date Transcribed: 08/26/141354 Looping Machine Operator: Signed 26-Aug-2014 Discharge Instruction Result: Comments: See Note; NOTES: [facility] Medical Records Department [address] [place] [address] Discharge Instruction 08/26/14 1138 MR#: [id number] Acct: [id number] Name: STEFFEN BYRD Rep #: [id number] : 1985 29 From: Leandro Enrique MD PCP: Risa Roldan MD Status: REG ER ED Disposition - Plan for ED Patient: Chief Complaint: Rash Instructions: ED Hi ves (Adult) Prescriptions: PredniSONE 10 mg PO DAILY #48 tablet Referrals: Risa Roldan MD [Primary Care Provider] - 3-5 Days if not improving What to do if you have Problems For any increase d pain, shortness of breath, bleeding, nausea or vomiting, chest pain, or any unexpected problems, contact your doctor. Call [facility] ( [phone]) or report to the closest Emergency Room. [facility] 91 if necessary. 08/26/14 1139 <Electronically signed by Leandro Enrique MD> Date Leandro Enrique MD Cosigner Signature (If Jada cated): Date CC: Risa Roldan MD 02-Sep-2013 PT Discharge Summary Result: Comments: See Note; NOTES: [facility] [place] [address] [place] [address] Fax REHABILITATION SERVICES DISCHARGE SUMMARY MR#: [id number] Acct: [id number] Name: STEFFEN BYRD Rep #: [id number] : 1985 28 From: Brielle Powell Referring Dr.: Risa Roldan MD Status: PRE RCR Eval Date: Discharge Date: DATE OF SERVICE: 09/01/2013 CLINICAL COURSE: The patient was seen for a massotherapy evaluation on October 12, 2012 with a diagnosis of having headaches and being . T he patient was treated 4 sessions of massage consisting of 1 hour treatments to the upper body. Her goals of treatment were met. She actually reported that massage helped her greatly with the deliv sandeep of her baby and to decrease her neck tension that was causing headaches. At this time, I am discharging the patient from our care at the [facility]. 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 Status: Active No Drug Use Status: Active Tobacco Use Comments: remote quit Status: Active Vital Signs Date Test Result Details :39 Temperature 98.2 f Comments: Method: Temporal Pulse 83 /min Comments: Pattern: Regular Respiration Rate 16 /min Comments: Pattern: Unlabored O2 SAT 97 % Comments: Room air BP Systolic 110 mm[Hg] Comments: Patient Position: Sitting; Cuff Location: Left Arm; Cuff Size: Standard BP Diastolic 78 mm[Hg] Comments: Patient Position: Sitting; Cuff Location: Left Arm; Cuff Size: Standard Weight 227.5 lb Height 66 in Body Mass Index Calculated 36.72 kg/m2 Body Surface Area Calculated 2.11 m2 [id number] Temperature 98.6 f Pulse 85 /min Comments: Pattern: Regular Respiration Rate 17 /min Comments: Pattern: Unlabored O2 SAT 98 % Comments: Room air BP Systolic 124 mm[Hg] Comments: Patient Position: Sitting; Cuff Location: Left Arm; Cuff Size: Standard BP Diastolic 76 mm[Hg] Comments: Patient Position: Sitting; Cuff Location: Left Arm; Cuff Size: Standard Weight 234 lb Height 66 in Body Mass Index Calculated 37.77 kg/m2 Body Surface Area Calculated 2.14 m2 :59 Temperature 98.8 f Comments: Method: Tympanic Pulse 95 /min Comments: Pattern: Regular Respiration Rate 18 /min Comments: Pattern: Unlabored O2 SAT 98 % Comments: Room air BP Systolic 124 mm[Hg] Comments: Patient Position: Sitting; Cuff Location: Left Arm; Cuff Size: Standard BP Diastolic 76 mm[Hg] Comments: Patient Position: Sitting; Cuff Location: Left Arm; Cuff Size: Standard Weight 214.375 lb Height 66 in Body Mass Index Calculated 34.6 kg/m2 Body Surface Area Calculated 2.06 m2 :45 Temperature 98.2 f Pulse 86 /min Comments: Pattern: Regular Respiration Rate 16 /min Comments: Pattern: Unlabored O2 SAT 98 % Comments: Room air BP Systolic 124 mm[Hg] Comments: Patient Position: Sitting; Cuff Location: Left Arm; Cuff Size: Standard BP Diastolic 82 mm[Hg] Comments: Patient Position: Sitting; Cuff Location: Left Arm; Cuff Size: Standard Weight 214.375 lb Height 66 in Body Mass Index Calculated 34.6 kg/m2 Body Surface Area Calculated 2.06 m2 :39 Temperature 98.5 f Pulse 105 /min Comments: Pattern: Regular Respiration Rate 17 /min Comments: Pattern: Unlabored O2 SAT 98 % Comments: Room air BP Systolic 124 mm[Hg] Comments: Patient Position: Sitting; Cuff Location: Left Arm; Cuff Size: Standard BP Diastolic 82 mm[Hg] Comments: Patient Position: Sitting; Cuff Location: Left Arm; Cuff Size: Standard Weight 213.25 lb Height 66 in Body Mass Index Calculated 34.42 kg/m2 Body Surface Area Calculated 2.06 m2 :27 Temperature 97.4 f Pulse 106 /min Comments: Pattern: Regular Respiration Rate 16 /min Comments: Pattern: Unlabored O2 SAT 97 % Comments: Room air BP Systolic 122 mm[Hg] Comments: Patient Position: Sitting; Cuff Location: Left Arm; Cuff Size: Standard BP Diastolic 78 mm[Hg] Comments: Patient Position: Sitting; Cuff Location: Left Arm; Cuff Size: Standard Weight 206.25 lb Height 66 in Body Mass Index Calculated 33.29 kg/m2 Body Surface Area Calculated 2.03 m2 :24 Temperature 98 f Pulse 86 /min Comments: Pattern: Regular Respiration Rate 17 /min Comments: Pattern: Unlabored O2 SAT 98 % Comments: Room air BP Systolic 120 mm[Hg] Comments: Patient Position: Sitting; Cuff Location: Left Arm; Cuff Size: Standard BP Diastolic 80 mm[Hg] Comments: Patient Position: Sitting; Cuff Location: Left Arm; Cuff Size: Standard Weight 218.375 lb Height 66 in Body Mass Index Calculated 35.25 kg/m2 Body Surface Area Calculated 2.08 m2 :11 Temperature 98.3 f Pulse 81 /min Comments: Pattern: Regular Respiration Rate 17 /min Comments: Pattern: Unlabored O2 SAT 97 % Comments: Room air BP Systolic 118 mm[Hg] Comments: Patient Position: Sitting; Cuff Location: Left Arm; Cuff Size: Standard BP Diastolic 72 mm[Hg] Comments: Patient Position: Sitting; Cuff Location: Left Arm; Cuff Size: Standard Weight 219 lb Height 66 in Body Mass Index Calculated 35.35 kg/m2 Body Surface Area Calculated 2.08 m2 :35 Temperature 98.4 f Pulse 120 /min Comments: Pattern: Regular Respiration Rate 18 /min Comments: Pattern: Unlabored O2 SAT 97 % Comments: Room air BP Systolic 130 mm[Hg] Comments: Patient Position: Sitting; Cuff Location: Left Arm; Cuff Size: Standard BP Diastolic 72 mm[Hg] Comments: Patient Position: Sitting; Cuff Location: Left Arm; Cuff Size: Standard Weight 217.5 lb Height 66 in Body Mass Index Calculated 35.11 kg/m2 Body Surface Area Calculated 2.07 m2 :17 Temperature 97.5 f Pulse 86 /min Comments: Pattern: Regular Respiration Rate 17 /min Comments: Pattern: Unlabored O2 SAT 98 % Comments: Room air BP Systolic 122 mm[Hg] Comments: Patient Position: Sitting; Cuff Location: Left Arm; Cuff Size: Standard BP Diastolic 76 mm[Hg] Comments: Patient Position: Sitting; Cuff Location: Left Arm; Cuff Size: Standard Weight 212 lb Height 66 in Body Mass Index Calculated 34.22 kg/m2 Body Surface Area Calculated 2.05 m2 :52 Temperature 97.7 f Comments: Method: Temporal Pulse 67 /min Comments: Pattern: Regular Respiration Rate 18 /min Comments: Pattern: Unlabored O2 SAT 98 % Comments: Room air BP Systolic 120 mm[Hg] Comments: Patient Position: Sitting; Cuff Location: Left Arm; Cuff Size: Standard BP Diastolic 62 mm[Hg] Comments: Patient Position: Sitting; Cuff Location: Left Arm; Cuff Size: Standard Weight 218 lb Height 66 in Body Mass Index Calculated 35.19 kg/m2 Body Surface Area Calculated 2.07 m2 :24 Temperature 97.5 f Comments: Method: Temporal Pulse 82 /min Comments: Pattern: Regular Respiration Rate 17 /min Comments: Pattern: Unlabored O2 SAT 97 % Comments: Room air BP Systolic 130 mm[Hg] Comments: Patient Position: Sitting; Cuff Location: Left Arm; Cuff Size: Standard BP Diastolic 72 mm[Hg] Comments: Patient Position: Sitting; Cuff Location: Left Arm; Cuff Size: Standard Weight 218 lb Height 66 in Body Mass Index Calculated 35.19 kg/m2 Body Surface Area Calculated 2.07 m2 :49 Temperature 97.6 f Comments: Method: Oral Pulse 76 /min Comments: Pattern: Regular Respiration Rate 20 /min Comments: Pattern: Unlabored BP Systolic 122 mm[Hg] Comments: Patient Position: Sitting; Cuff Location: Left Arm; Cuff Size: Large BP Diastolic 76 mm[Hg] Comments: Patient Position: Sitting; Cuff Location: Left Arm; Cuff Size: Large Weight 218 lb Height 66 in Body Mass Index Calculated 35.19 kg/m2 Body Surface Area Calculated 2.07 m2 :58 Temperature 98.1 f Comments: Method: Temporal Pulse 86 /min Comments: Pattern: Regular Respiration Rate 17 /min Comments: Pattern: Unlabored O2 SAT 98 % Comments: Room air BP Systolic 122 mm[Hg] Comments: Patient Position: Sitting; Cuff Location: Left Arm; Cuff Size: Standard BP Diastolic 76 mm[Hg] Comments: Patient Position: Sitting; Cuff Location: Left Arm; Cuff Size: Standard Weight 218.125 lb Height 66 in Body Mass Index Calculated 35.21 kg/m2 Body Surface Area Calculated 2.08 m2 :26 Temperature 98.6 f Comments: Method: Oral Pulse 82 /min Comments: Pattern: Regular Respiration Rate 20 /min Comments: Pattern: Unlabored O2 SAT 98 % Comments: Room air BP Systolic 122 mm[Hg] Comments: Patient Position: Sitting; Cuff Location: Left Arm; Cuff Size: Large BP Diastolic 80 mm[Hg] Comments: Patient Position: Sitting; Cuff Location: Left Arm; Cuff Size: Large Weight 199.125 lb Height 66 in Body Mass Index Calculated 32.14 kg/m2 Body Surface Area Calculated 2 m2 :06 Temperature 97.8 f Comments: Method: Oral Pulse 84 /min Comments: Pattern: Regular Respiration Rate 18 /min BP Systolic 122 mm[Hg] Comments: Patient Position: Sitting; Cuff Location: Left Arm; Cuff Size: Standard BP Diastolic 70 mm[Hg] Comments: Patient Position: Sitting; Cuff Location: Left Arm; Cuff Size: Standard Weight 208.1875 lb Height 66 in Body Mass Index Calculated 33.6 kg/m2 Body Surface Area Calculated 2.03 m2 :04 Temperature 98.6 f Comments: Method: Oral Pulse 89 /min Comments: Pattern: Regular O2 SAT 98 % Comments: Room air BP Systolic 120 mm[Hg] Comments: Patient Position: Sitting; Cuff Location: Left Arm; Cuff Size: Standard BP Diastolic 78 mm[Hg] Comments: Patient Position: Sitting; Cuff Location: Left Arm; Cuff Size: Standard Weight 208.1875 lb Height 66 in Body Mass Index Calculated 33.6 kg/m2 Body Surface Area Calculated 2.03 m2 :43 Temperature 98 f Comments: Method: Oral Pulse 74 /min Comments: Pattern: Regular Respiration Rate 20 /min Comments: Pattern: Unlabored BP Systolic 118 mm[Hg] Comments: Patient Position: Sitting; Cuff Location: Left Arm; Cuff Size: Standard BP Diastolic 78 mm[Hg] Comments: Patient Position: Sitting; Cuff Location: Left Arm; Cuff Size: Standard Weight 214 lb Height 67 in Body Mass Index Calculated 33.52 kg/m2 Body Surface Area Calculated 2.08 m2 :54 Temperature 98.2 f Comments: Method: Oral Pulse 90 /min Comments: Pattern: Regular O2 SAT 97 % Comments: Room air BP Systolic 126 mm[Hg] Comments: Patient Position: Sitting; Cuff Location: Left Arm; Cuff Size: Standard BP Diastolic 78 mm[Hg] Comments: Patient Position: Sitting; Cuff Location: Left Arm; Cuff Size: Standard Weight 210 lb Height 67 in Body Mass Index Calculated 32.89 kg/m2 Body Surface Area Calculated 2.06 m2 :56 Temperature 98 f Comments: Method: Oral Pulse 74 /min Comments: Pattern: Regular Respiration Rate 18 /min Comments: Pattern: Unlabored BP Systolic 118 mm[Hg] Comments: Patient Position: Sitting; Cuff Location: Left Arm; Cuff Size: Large BP Diastolic 78 mm[Hg] Comments: Patient Position: Sitting; Cuff Location: Left Arm; Cuff Size: Large Weight 191 lb Height 67 in Body Mass Index Calculated 29.91 kg/m2 Body Surface Area Calculated 1.98 m2 :55 Pulse 80 /min Comments: Pattern: Regular Respiration Rate 20 /min Comments: Pattern: Unlabored BP Systolic 122 mm[Hg] Comments: Patient Position: Sitting; Cuff Location: Left Arm; Cuff Size: Standard BP Diastolic 82 mm[Hg] Comments: Patient Position: Sitting; Cuff Location: Left Arm; Cuff Size: Standard Weight 191 lb :09 Pulse 100 /min Comments: Pattern: Regular Respiration Rate 20 /min Comments: Pattern: Unlabored BP Systolic 122 mm[Hg] Comments: Patient Position: Sitting; Cuff Location: Left Arm; Cuff Size: Large BP Diastolic 78 mm[Hg] Comments: Patient Position: Sitting; Cuff Location: Left Arm; Cuff Size: Large Weight 191 lb :20 Temperature 97.7 f Comments: Method: Oral Pulse 74 /min Comments: Pattern: Regular BP Systolic 112 mm[Hg] Comments: Patient Position: Sitting; Cuff Location: Left Arm; Cuff Size: Standard BP Diastolic 74 mm[Hg] Comments: Patient Position: Sitting; Cuff Location: Left Arm; Cuff Size: Standard Weight 191 lb :30 Temperature 98.2 f Comments: Method: Oral Pulse 70 /min Comments: Pattern: Regular Respiration Rate 18 /min Comments: Pattern: Unlabored BP Systolic 110 mm[Hg] Comments: Patient Position: Sitting; Cuff Location: Left Arm; Cuff Size: Standard BP Diastolic 70 mm[Hg] Comments: Patient Position: Sitting; Cuff Location: Left Arm; Cuff Size: Standard :21 Pulse 64 /min Comments: Pattern: Regular Respiration Rate 16 /min Comments: Pattern: Unlabored BP Systolic 112 mm[Hg] Comments: Patient Position: Sitting; Cuff Location: Left Arm; Cuff Size: Standard BP Diastolic 70 mm[Hg] Comments: Patient Position: Sitting; Cuff Location: Left Arm; Cuff Size: Standard Weight 191 lb :40 Pulse 74 /min Comments: Pattern: Regular Respiration Rate 16 /min Comments: Pattern: Unlabored BP Systolic 110 mm[Hg] Comments: Patient Position: Sitting; Cuff Location: Left Arm; Cuff Size: Standard BP Diastolic 74 mm[Hg] Comments: Patient Position: Sitting; Cuff Location: Left Arm; Cuff Size: Standard Weight 0 lb Height 0 in Head Circumference 0.00 cm :45 Pulse 74 /min Comments: Pattern: Regular Respiration Rate 16 /min Comments: Pattern: Unlabored BP Systolic 118 mm[Hg] Comments: Patient Position: Sitting; Cuff Location: Left Arm; Cuff Size: Standard BP Diastolic 74 mm[Hg] Comments: Patient Position: Sitting; Cuff Location: Left Arm; Cuff Size: Standard Weight 196 lb Height 0 in Head Circumference 0.00 cm :56 Pulse 72 /min Comments: Pattern: Regular Respiration Rate 16 /min Comments: Pattern: Unlabored BP Systolic 114 mm[Hg] Comments: Patient Position: Sitting; Cuff Location: Left Arm; Cuff Size: Standard BP Diastolic 70 mm[Hg] Comments: Patient Position: Sitting; Cuff Location: Left Arm; Cuff Size: Standard Weight 193.0125 lb Height 67 in Body Mass Index Calculated 30.23 kg/m2 Body Surface Area Calculated 1.99 m2 Head Circumference 0.00 cm Results Date Description Value Details :05 Comprehensive Metabolic Profil Comments: [facility] [id number] [place] [place], [address] GAP 6 (Normal) Range: 5-15 CO2 28.0 mmol/L (Normal) Range: 21.0-32.0 CL 107 mmol/L (Normal) Range: 98-107 K 3.9 mmol/L (Normal) Range: 3.5-5.1 NA 141 mmol/L (Normal) Range: 136-145 T BILI 0.30 mg/dL (Normal) Range: 0.20-1.00 ALT 38 U/L (Normal) Range: 13-56 ALK P 75 U/L (Normal) Range: 45-117 AST 21 U/L (Normal) Range: 15-37 CA 9.3 mg/dL (Normal) Range: 8.5-10.1 A/G 1.1 {RATIO} (Normal) Range: 0.9-2.4 GLOB 3.6 g/dL (Normal) Range: 2.2-4.2 ALB 3.8 g/dL (Normal) Range: 3.2-5.0 T PROT 7.4 g/dL (Normal) Range: 6.4-8.2 BUN/CRE 14.6 {RATIO} (Normal) Range: 10-20 EST GFR - AA 115 mL/min (Normal) Comments: GFR Calc EST GFR 95 mL/min (Normal) Comments: Non- GFR Calc CREAT,SERUM 0.75 mg/dL (Normal) Range: 0.55-1.02 Comments: The validity of the calculated GFR AND GFRAA in patients over70 years has not been determined. Clinical correlation isessential. BUN 11 mg/dL (Normal) Range: 7-18 GLU 82 mg/dL (Normal) Range: 74-106 Comments: Please note revised GLUCOSE reference range [id number]/02/2018. [id number] Thyroid Stim Hormone (TSH) Comments: [facility] [address] [place], [place], [id number] TSH 1.21 {uIU/mL} (Normal) Range: 0.358-3.74 [id number] Vitamin D,25 Hydroxy Comments: [facility] [id number] [place], [id number] Vitamin D 25-OH 26.4 ng/mL (Abnormal) Range: 29.95-100.01 Comments: Vitamin D 25(OH) Status Range Deficiency <20 ng/mL (50nmol/L) Insuffciency 20 - 30 ng/mL (50 - 75 nmol/L) Sufficiency 30 - 100 ng/mL (75 - 250 nmol/L) Toxicity >100 ng/mL (>250 nmol/L) [id number] CBC, Employee Comments: [facility] [address] [place], [id number] Absolute Lymph 2.88 {X10_3/ul} (Normal) Range: 0.83-4.51 Absolute Neut 4.7 {X10_3/uL} (Normal) Range: 2.0-7.7 BASO% 0.2 % (Normal) Range: 0-1 EO% 3.8 % (Normal) Range: 0-5 MONO% 6.8 % (Normal) Range: 0-10 LY% 33.9 % (Normal) Range: 19-41 NEUT% 55.1 % (Normal) Range: 47-70 MPV 10.6 fL (Normal) Range: 6.2-12.0 PLT 285 K/mm3 (Normal) Range: 150-450 RDW SD 45.6 fL (Abnormal) Range: 35.1-43.9 RDW CV 14.1 % (Normal) Range: 11.6-14.6 MCHC 33.3 {g/gl} (Normal) Range: 32-36 MCH 29.6 pg (Normal) Range: 27.0-32.0 MCV 89.1 fL (Normal) Range: 81-99 HCT 42.7 % (Normal) Range: 37-47 HGB 14.2 g/dL (Normal) Range: 12.0-15.0 RBC 4.79 {M/mm3} (Normal) Range: 4.2-5.4 WBC 8.5 K/mm3 (Normal) Range: 4.4-11.0 [id number] Employee Profile Comments: [facility] [id number] [place], [place], [id number] LDH 178 U/L (Normal) Range: 84-246 VLDL 78 mg/dL (Abnormal) Range: 5-40 LDL 60 mg/dL (Normal) Range: 0-130 CHOL:HDL 4.40 (Normal) HDL 41 mg/dL (Normal) Comments: The drugs N-Acetylcysteine and Metamizole may falselydepress this assay. Reference Range HDL <40 mg/dL Low HDL Cholesterol HDL >or= 60 mg/dL High HDL Cholesterol GAP 11 (Normal) Range: 5-15 CO2 25.0 mmol/L (Normal) Range: 21.0-32.0 CL 106 mmol/L (Normal) Range: 98-107 K 4.0 mmol/L (Normal) Range: 3.5-5.1 NA 142 mmol/L (Normal) Range: 136-145 TRIG 391 mg/dL (Abnormal) Comments: The drugs N-Acetylcysteine and Metamizole may falselydepress this assay.Serum Triglycerides Reference Interval Normal <150 mg/dL Borderline high 150 - 199 mg/dL High 200 - 499 mg/dL Very High > or = 500 mg/dL CHOL 179 mg/dL (Normal) Comments: <200 mg/dL Desirable 200-240 mg/dL Borderline >240 mg/dL High Risk D BILI 0.07 mg/dL (Normal) Range: 0.00-0.30 T BILI 0.20 mg/dL (Normal) Range: 0.20-1.00 ALT 39 U/L (Normal) Range: 13-56 ALK P 77 U/L (Normal) Range: 45-117 AST 17 U/L (Normal) Range: 15-37 PHOS 3.2 mg/dL (Normal) Range: 2.5-4.9 CA 9.1 mg/dL (Normal) Range: 8.5-10.1 A/G 1.0 {RATIO} (Normal) Range: 0.9-2.4 GLOB 3.7 g/dL (Normal) Range: 2.2-4.2 ALB 3.6 g/dL (Normal) Range: 3.2-5.0 T PROT 7.3 g/dL (Normal) Range: 6.4-8.2 URIC 4.0 mg/dL (Normal) Range: 2.6-6.0 Comments: The drugs N-Acetylcysteine and Metamizole may falselydepress this assay. BUN/CRE 13.2 {RATIO} (Normal) Range: 10-20 EST GFR - AA 114 mL/min (Normal) Comments: GFR Calc EST GFR 94 mL/min (Normal) Comments: Non- GFR Calc CREAT,SERUM 0.76 mg/dL (Normal) Range: 0.55-1.02 Comments: The validity of the calculated GFR AND GFRAA in patients over70 years has not been determined. Clinical correlation isessential. BUN 10 mg/dL (Normal) Range: 7-18 GLU 89 mg/dL (Normal) Range: 74-106 Comments: Please note revised GLUCOSE reference range [id number]/02/2018. [id number] Nicotine Urine Drug Screen Comments: [facility] [id number] [place], [address] COT DRG SCREEN Negative (Normal) Comments: Cotinine is the first-stage metabolite of Nicotine. TO BE CONFIRMED (Normal) Comments: CONFIRMATORY TESTING FOR ALL POSITIVE URINE DRUG SCREENRESULTS WILL ONLY BE SENT OUT UPON PHYSICIAN ORDER.The results of Urine Drug Screen methods provide onlypreliminary analytical test results. A more specificalternate chemical method must be used in order to obtain aconfirmed analytical result. Gas chromatography/massspectrometery (GC/MS) is the preferred confirmatory method.Clinical consideration and professional judgement should beapplied to any drug of abuse test result, particularly whenpreliminary positive results are used. [id number] Urinalysis, Employee Comments: [facility] [address] [facility] [place], [place], [id number] LEUK ESTERASE Negative /ul (Normal) OCCULT BLOOD-UR 10 /ul (Abnormal) NITRITE UR Negative (Normal) UROBILI Normal mg/dL (Normal) PROT DIPSTX Negative mg/dL (Normal) pH UR 6.0 (Normal) Range: 5.0 - 8.0 SP.GR. DIPSTX 1.020 (Normal) Range: 1.002-1.030 KETONE UR Negative mg/dL (Normal) BILIRUBIN URINE Negative mg/dL (Normal) GLUCOSE, UR Normal mg/dL (Normal) CLARITY Clear (Normal) COLOR Yellow (Normal) [id number] Urinalysis, Complete Comments: Order Date: 03/26/18How was Urine Obtained? CLEAN [facility] [id number] [facility] [place], [place], [id number] MUCUS, URINE RARE {/hpf} (Normal) BACTERIA 2+ {/hpf} (Normal) SQUAM EPI 0-5 SEEN {/hpf} (Normal) Range: 5-10 RBC-UA 0-5 SEEN {/hpf} (Normal) Range: 0-5 WBC 0-5 SEEN {/hpf} (Normal) Range: 0-5 LEUK ESTERASE Negative /ul (Normal) OCCULT BLOOD-UR 25 /ul (Abnormal) NITRITE UR Negative (Normal) UROBILI Normal mg/dL (Normal) PROT DIPSTX Negative mg/dL (Normal) pH UR 7.0 (Normal) Range: 5.0 - 8.0 SP.GR. DIPSTX 1.010 (Normal) Range: 1.002-1.030 KETONE UR Negative mg/dL (Normal) BILIRUBIN URINE Negative mg/dL (Normal) GLUCOSE, UR Normal mg/dL (Normal) CLARITY Sl. Cloudy (Normal) COLOR Yellow (Normal) [id number] Basic Metabolic Profile (BMP) Comments: [facility] [address] [place], [place], [id number] GAP 9 (Normal) Range: 5-15 CO2 23.0 mmol/L (Normal) Range: 21.0-32.0 CL 109 mmol/L (Abnormal) Range: 98-107 K 3.9 mmol/L (Normal) Range: 3.5-5.1 NA 141 mmol/L (Normal) Range: 136-145 CA 9.2 mg/dL (Normal) Range: 8.5-10.1 BUN/CRE 8.4 {RATIO} (Abnormal) Range: 10-20 Estimated CRCL 92.78 ml/min (Normal) EST GFR - AA 103 mL/min (Normal) Comments: GFR Calc EST GFR 85 mL/min (Normal) Comments: Non- GFR Calc CREAT,SERUM 0.83 mg/dL (Normal) Range: 0.55-1.02 Comments: The validity of the calculated GFR AND GFRAA in patients over70 years has not been determined. Clinical correlation isessential. BUN 7 mg/dL (Normal) Range: 7-18 GLU 97 mg/dL (Normal) Range: 74-106 Comments: Please note revised GLUCOSE reference range [id number]/02/2018. [id number] CBC W/Diff, Automated Comments: [facility] [id number] [place], [place], [id number] Absolute Lymph 1.87 {X10_3/ul} (Normal) Range: 0.83-4.51 Absolute Neut 4.9 {X10_3/uL} (Normal) Range: 2.0-7.7 IM GRAN % 0.000 % (Normal) Range: 0.0-0.9 Comments: IG% - Immature Granulocytes (promyelocytes, myelocytes andmetamyelocytes) > 1% indicates that a LEFT SHIFT is Present. BASO% 0.3 % (Normal) Range: 0-1 EO% 3.3 % (Normal) Range: 0-5 MONO% 6.9 % (Normal) Range: 0-10 LY% 24.8 % (Normal) Range: 19-41 NEUT% 64.7 % (Normal) Range: 47-70 MPV 9.8 fL (Normal) Range: 6.2-12.0 PLT 220 K/mm3 (Normal) Range: 150-450 RDW SD 44.1 fL (Abnormal) Range: 35.1-43.9 RDW CV 13.7 % (Normal) Range: 11.6-14.6 MCHC 34.4 {g/gl} (Normal) Range: 32-36 MCH 30.3 pg (Normal) Range: 27.0-32.0 MCV 88.0 fL (Normal) Range: 81-99 HCT 41.9 % (Normal) Range: 37-47 HGB 14.4 g/dL (Normal) Range: 12.0-15.0 RBC 4.76 {M/mm3} (Normal) Range: 4.2-5.4 WBC 7.5 K/mm3 (Normal) Range: 4.4-11.0 [id number] ,Serum,hCG Quali. Comments: [facility] [address] [facility]. [place], [place], [id number] HCGSQUAL NEGATIVE {Negative} (Normal) Range: 0-9 Nonpreg HCG Qual triggr < 1 m[iU]/mL (Normal) [id number] Basic Metabolic Profile (BMP) Comments: [facility] [address] [facility]. [place], [place], [address] GAP 6 (Normal) Range: 5-15 CO2 26.0 mmol/L (Normal) Range: 21.0-32.0 CL 105 mmol/L (Normal) Range: 98-107 K 3.8 mmol/L (Normal) Range: 3.5-5.1 NA 137 mmol/L (Normal) Range: 136-145 CA 9.4 mg/dL (Normal) Range: 8.5-10.1 BUN/CRE 12.2 {RATIO} (Normal) Range: 10-20 Estimated CRCL 85.56 ml/min (Normal) EST GFR - AA 94 mL/min (Normal) Comments: GFR Calc EST GFR 78 mL/min (Normal) Comments: Non- GFR Calc CREAT,SERUM 0.90 mg/dL (Normal) Range: 0.55-1.02 Comments: The validity of the calculated GFR AND GFRAA in patients over70 years has not been determined. Clinical correlation isessential. BUN 11 mg/dL (Normal) Range: 7-18 GLU 95 mg/dL (Normal) Range: 74-106 Comments: Please note revised GLUCOSE reference range /02/2018. [id number] CBC W/Diff, Automated Comments: [facility] [address] [place], [address] Absolute Lymph 1.26 {X10_3/ul} (Normal) Range: 0.83-4.51 Absolute Neut 4.4 {X10_3/uL} (Normal) Range: 2.0-7.7 IM GRAN % 0.000 % (Normal) Range: 0.0-0.9 Comments: IG% - Immature Granulocytes (promyelocytes, myelocytes andmetamyelocytes) > 1% indicates that a LEFT SHIFT is Present. BASO% 0.2 % (Normal) Range: 0-1 EO% 2.0 % (Normal) Range: 0-5 MONO% 5.5 % (Normal) Range: 0-10 LY% 20.6 % (Normal) Range: 19-41 NEUT% 71.7 % (Abnormal) Range: 47-70 MPV 9.8 fL (Normal) Range: 6.2-12.0 PLT 194 K/mm3 (Normal) Range: 150-450 RDW SD 43.7 fL (Normal) Range: 35.1-43.9 RDW CV 13.6 % (Normal) Range: 11.6-14.6 MCHC 33.7 {g/gl} (Normal) Range: 32-36 MCH 29.7 pg (Normal) Range: 27.0-32.0 MCV 88.2 fL (Normal) Range: 81-99 HCT 44.2 % (Normal) Range: 37-47 HGB 14.9 g/dL (Normal) Range: 12.0-15.0 RBC 5.01 {M/mm3} (Normal) Range: 4.2-5.4 WBC 6.1 K/mm3 (Normal) Range: 4.4-11.0 [id number] ,Serum,hCG Quali. Comments: [facility] [address] [place], [address] HCGSQUAL NEGATIVE {Negative} (Normal) Range: 0-9 Nonpreg HCG Qual triggr < 1 m[iU]/mL (Normal) [id number] Urinalysis, Complete Comments: [facility] [id number] [place], [address] MUCUS, URINE 2+ {/hpf} (Normal) BACTERIA 1+ {/hpf} (Normal) SQUAM EPI 0-5 SEEN {/hpf} (Normal) Range: 5-10 RBC-UA 5-10 SEEN {/hpf} (Normal) Range: 0-5 WBC 0-5 SEEN {/hpf} (Normal) Range: 0-5 LEUK ESTERASE 25 /ul (Abnormal) OCCULT BLOOD-UR 150 /ul (Abnormal) NITRITE UR Negative (Normal) UROBILI Normal mg/dL (Normal) PROT DIPSTX 30 mg/dL (Abnormal) pH UR 6.0 (Normal) Range: 5.0 - 8.0 SP.GR. DIPSTX 1.020 (Normal) Range: 1.002-1.030 KETONE UR Negative mg/dL (Normal) BILIRUBIN URINE Negative mg/dL (Normal) GLUCOSE, UR Normal mg/dL (Normal) CLARITY Sl. Cloudy (Normal) COLOR Yellow (Normal) :12 Comprehensive Metabolic Profil Comments: [facility] [address] [place], [id number] GAP 7 (Normal) Range: 5-15 CO2 27.0 mmol/L (Normal) Range: 21.0-32.0 CL 107 mmol/L (Normal) Range: 98-107 K 4.0 mmol/L (Normal) Range: 3.5-5.1 NA 141 mmol/L (Normal) Range: 136-145 T BILI 0.10 mg/dL (Abnormal) Range: 0.20-1.00 ALT 19 U/L (Normal) Range: 13-56 ALK P 59 U/L (Normal) Range: 45-117 AST 15 U/L (Normal) Range: 15-37 CA 9.0 mg/dL (Normal) Range: 8.5-10.1 A/G 0.9 {RATIO} (Normal) Range: 0.9-2.4 GLOB 3.8 g/dL (Normal) Range: 2.2-4.2 ALB 3.4 g/dL (Normal) Range: 3.2-5.0 T PROT 7.2 g/dL (Normal) Range: 6.4-8.2 BUN/CRE 12.2 {RATIO} (Normal) Range: 10-20 EST GFR - AA 105 mL/min (Normal) Comments: GFR Calc EST GFR 87 mL/min (Normal) Comments: Non- GFR Calc CREAT,SERUM 0.82 mg/dL (Normal) Range: 0.55-1.02 Comments: The validity of the calculated GFR AND GFRAA in patients over70 years has not been determined. Clinical correlation isessential. BUN 10 mg/dL (Normal) Range: 7-18 GLU 88 mg/dL (Normal) Range: 74-106 Comments: Please note revised GLUCOSE reference range okcdtjdhj85/02/2018. [id number]:12 Lipid Profile Comments: [facility] [address] [facility] [place], [place], [id number] VLDL 55 mg/dL (Abnormal) Range: 5-40 LDL 81 mg/dL (Normal) Range: 0-130 HDL 44 mg/dL (Normal) Comments: The drugs N-Acetylcysteine and Metamizole may falselydepress this assay. Reference Range HDL <40 mg/dL Low HDL Cholesterol HDL >or= 60 mg/dL High HDL Cholesterol TRIG 273 mg/dL (Abnormal) Comments: The drugs N-Acetylcysteine and Metamizole may falselydepress this assay.Serum Triglycerides Reference Interval Normal <150 mg/dL Borderline high 150 - 199 mg/dL High 200 - 499 mg/dL Very High > or = 500 mg/dL CHOL 180 mg/dL (Normal) Comments: <200 mg/dL Desirable 200-240 mg/dL Borderline >240 mg/dL High Risk [id number] Urinalysis, Complete Comments: How was Urine Obtained? CLEAN [facility] [address] [facility] [address] [place], [place], [id number] MUCUS, URINE 0 SEEN {/hpf} (Normal) BACTERIA 1+ {/hpf} (Normal) SQUAM EPI 0-5 SEEN {/hpf} (Normal) Range: 5-10 RBC-UA 0-5 SEEN {/hpf} (Normal) Range: 0-5 WBC 0-5 SEEN {/hpf} (Normal) Range: 0-5 LEUK ESTERASE Negative /ul (Normal) OCCULT BLOOD-UR 10 /ul (Abnormal) NITRITE UR Negative (Normal) UROBILI Normal mg/dL (Normal) PROT DIPSTX Negative mg/dL (Normal) pH UR 6.5 (Normal) Range: 5.0 - 8.0 SP.GR. DIPSTX 1.015 (Normal) Range: 1.002-1.030 KETONE UR Negative mg/dL (Normal) BILIRUBIN URINE Negative mg/dL (Normal) GLUCOSE, UR Normal mg/dL (Normal) CLARITY Clear (Normal) COLOR Yellow (Normal) [id number] Culture, Urine Comments: [facility] [address] [place], [address] CUUR See Note (Normal) Comments: Urine CultureBelow infection level. ORGANISM 1: GPC Poss Enterococcus spColony Count <1000 [id number] Urinalysis, Complete Comments: How was Urine Obtained? CLEAN [facility] [address] [place], [address] MUCUS, URINE 0 SEEN {/hpf} (Normal) BACTERIA 0 SEEN {/hpf} (Normal) SQUAM EPI 0 SEEN {/hpf} (Normal) Range: 5-10 RBC-UA 0 SEEN {/hpf} (Normal) Range: 0-5 WBC 0 SEEN {/hpf} (Normal) Range: 0-5 LEUK ESTERASE Negative /ul (Normal) OCCULT BLOOD-UR 10 /ul (Abnormal) NITRITE UR Negative (Normal) UROBILI Normal mg/dL (Normal) PROT DIPSTX Negative mg/dL (Normal) pH UR 7.0 (Normal) Range: 5.0 - 8.0 SP.GR. DIPSTX 1.010 (Normal) Range: 1.002-1.030 KETONE UR Negative mg/dL (Normal) BILIRUBIN URINE Negative mg/dL (Normal) GLUCOSE, UR Normal mg/dL (Normal) CLARITY Clear (Normal) COLOR Straw (Normal) [id number]:00 PAP IG w/Reflex HR HPV Comments: CYTOLOGY INFORMATION:- CLINICAL INFORMATION:- DATE LMP/MENOPAUSE: 11/12/17 LMP- COLLECTION VIAL: Thin Prep Vial- HEALTH INFORMATICS SPECIALIST SOURCE: CERVICAL/ENDOCERVICAL- COLLECTION TECHNIQUE: BRUSH/SPATULASpecimen Comment: CO Aptima -[id number] Comment: No. of containers..01 [facility]ialLab[facility] (refer to report for specific site)refer to report for address and phone number HPV RFLX Comment (Normal) Comments: The HPV DNA reflex criteria were not met with this specimenresult therefore, no HPV testing was performed.Performed at: [address] [id number] Director: Shaylee Benítez MD, Phone: [phone] PAPSMR Comment (Normal) Comments: The Pap smear is a screening test designed to aid in thedetection of premalignant and malignant conditions of theuterine cervix. It is not a diagnostic procedure andshould not be used as the sole means of detecting cervicalcancer. Both false-positive and false-negative reports dooccur. COMM . (Normal) TEST METHOD Comment (Normal) Comments: This liquid based ThinPrep(R) pap test was screened withthe use of an image guided system. PERFORM Comment (Normal) Comments: Tatyana Davis, Finishing Range Operator (ASCP) ADEQ Comment (Normal) Comments: Satisfactory for evaluation. Endocervical and/or squamous metaplasticcells (endocervical component) are present. DIAGN Comment (Normal) Comments: NEGATIVE FOR INTRAEPITHELIAL LESION AND MALIGNANCY. 16-Sep-20176:44 Comprehensive Metabolic Profil Comments: [facility] [address] [place], [place], [address] GAP 9 (Normal) Range: 5-15 CO2 23.0 mmol/L (Normal) Range: 21.0-32.0 CL 107 mmol/L (Normal) Range: 98-107 K 3.9 mmol/L (Normal) Range: 3.5-5.1 NA 139 mmol/L (Normal) Range: 136-145 T BILI 0.20 mg/dL (Normal) Range: 0.20-1.00 ALT 28 U/L (Normal) Range: 12-78 ALK P 62 U/L (Normal) Range: 45-117 AST 19 U/L (Normal) Range: 15-37 CA 8.9 mg/dL (Normal) Range: 8.5-10.1 A/G 0.9 {RATIO} (Normal) Range: 0.9-2.4 GLOB 3.9 g/dL (Normal) Range: 2.2-4.2 ALB 3.5 g/dL (Normal) Range: 3.4-5.0 Comments: Please note revised Albumin AND Globulin reference rangeeffective 2017. T PROT 7.4 g/dL (Normal) Range: 6.4-8.2 BUN/CRE 13.2 {RATIO} (Normal) Range: 10-20 EST GFR - AA 115 mL/min (Normal) Comments: GFR Calc EST GFR 95 mL/min (Normal) Comments: Non- GFR Calc CREAT,SERUM 0.76 mg/dL (Normal) Range: 0.55-1.02 Comments: The validity of the calculated GFR AND GFRAA in patients over70 years has not been determined. Clinical correlation isessential. BUN 10 mg/dL (Normal) Range: 7-18 GLU 79 mg/dL (Normal) Range: 70-110 :44 Lipid Profile Comments: [facility] [address] [place], [address] VLDL 39 mg/dL (Normal) Range: 5-40 LDL 134 mg/dL (Abnormal) Range: 0-130 HDL 45 mg/dL (Normal) Comments: The drugs N-Acetylcysteine and Metamizole may falselydepress this assay. Reference Range HDL <40 mg/dL Low HDL Cholesterol HDL >or= 60 mg/dL High HDL Cholesterol TRIG 193 mg/dL (Normal) Comments: The drugs N-Acetylcysteine and Metamizole may falselydepress this assay.Serum Triglycerides Reference Interval Normal <150 mg/dL Borderline high 150 - 199 mg/dL High 200 - 499 mg/dL Very High > or = 500 mg/dL CHOL 218 mg/dL (Abnormal) Comments: <200 mg/dL Desirable 200-240 mg/dL Borderline >240 mg/dL High Risk :44 PTHIN 88.3 pg/mL (Abnormal) Comments: [facility] [address] [place], [id number] Range: 18.4-80.1 Comments: Please Note: PTH INTACT METHOD AND REFERENCE RANGE CHANGEEffective 09/01/2017. :44 Thyroid Stim Hormone (TSH) Comments: [facility] [address] [place], [id number] TSH 2.58 {uIU/mL} (Normal) Range: 0.358-3.74 :44 Vitamin D,25 Hydroxy Comments: [facility] [address] [place], [id number] Vitamin D 25-OH 14.8 ng/mL (Normal) Comments: Vitamin D 25(OH) Status Range Deficiency <20 ng/mL (50nmol/L) Insuffciency 20 - 30 ng/mL (50 - 75 nmol/L) Sufficiency 30 - 100 ng/mL (75 - 250 nmol/L) Toxicity >100 ng/mL (>250 nmol/L) :57 ,Urine Comments: [facility] [address] [place], [id number] HCGUQUAL Negative {Negative} (Normal) Comments: Very dilute urine specimens, as indicated by a low specificgravity, may not contain brand representative levels of hCG.If is still suspected, a first morning urinespecimen should be collected 48 hours later and tested. [id number]-Qud-[id number]:20 ,Urine Comments: [facility] [address] [place], [address] HCGUQUAL Negative {Negative} (Normal) Comments: Very dilute urine specimens, as indicated by a low specificgravity, may not contain brand representative levels of hCG.If is still suspected, a first morning urinespecimen should be collected 48 hours later and tested. :30 ,Urine Comments: [facility]: [facility] [address] [place], [address] HCGUQUAL Negative {Negative} (Normal) Comments: Very dilute urine specimens, as indicated by a low specificgravity, may not contain brand representative levels of hCG.If is still suspected, a first morning urinespecimen should be collected 48 hours later and tested. 72-Lot-[id number]:30 Urinalysis, Complete Comments: Order Date: 05/07/17How was Urine Obtained? [facility] [address] [place], [address] MUCUS, URINE 0 SEEN {/hpf} (Normal) BACTERIA 1+ {/hpf} (Normal) SQUAM EPI 0-5 SEEN {/hpf} (Normal) Range: 5-10 RBC-UA 25-50 SEEN {/hpf} (Normal) Range: 0-5 WBC 0-5 SEEN {/hpf} (Normal) Range: 0-5 LEUK ESTERASE 25 /ul (Abnormal) OCCULT BLOOD-UR 250 /ul (Abnormal) NITRITE UR Negative (Normal) UROBILI Normal mg/dL (Normal) PROT DIPSTX 30 mg/dL (Abnormal) pH UR 6.0 (Normal) Range: 5.0 - 8.0 SP.GR. DIPSTX 1.020 (Normal) Range: 1.002-1.030 KETONE UR Negative mg/dL (Normal) BILIRUBIN URINE Negative mg/dL (Normal) GLUCOSE, UR Normal mg/dL (Normal) CLARITY Sl. Cloudy (Normal) COLOR Yellow (Normal) 23-Cid-80895:47 KAREY w/ Reflex Mult Confirm Comments: [facility] (refer to report for specific site)refer to report for address and phone number COMMENT Comment Comments: Autoantibody Disease Association Condition Frequency ----- ---- (Normal) ---------Antinuclear Antibody, SLE, mixed connectiveDirect (KAREY-D) tissue diseases ---------dsDNA SLE 40 - 60% ---------Chromatin Drug induced SLE 90% SLE 48 - 97% ---------SSA (Ro) SLE 25 - 35% Sjogren's Syndrome 40 - 70% Lupus 100% ---------SSB (La) SLE 10% Sjogr en's Syndrome 30% ---------Sm (anti-Molina) SLE 15 - 30% - --------BIBLICAL STUDIES PROFESSOR Mixed Connective Tissue Disease 95%(U1 nRNP, SLE 30 - 50%anti-ribonucleoprotein) P olymyositis and/or Dermatomyositis 20% ---------Scl-70 (antiDNA Scleroderma (diffuse) 20 - 35%cruz isomerase) Crest 13% ---------Parisa-1 Polymyositis and/or Dermatomyositis 20 - 40% ---------Centromere B Scleroderma - Crest variant 80%Performed at: [facility] [id number] Director: Tyler Galarza PhD, Phone: [phone] ANTI-DREA <0.2 Range: 0.0-0.9 T B {AI} (Normal) MOLINA Ab <0.2 Range: 0.0-0.9 {AI} (Normal) BIBLICAL STUDIES PROFESSOR Ab 0.2 {AI} Range: 0.0-0.9 (Normal) ANTISCLE 1.2 {AI} Range: 0.0-0.9 R (Abnormal ) ANTI-PARISA <0.2 Range: 0.0-0.9 {AI} (Normal) ANTICHRO <0.2 Range: 0.0-0.9 HENNY {AI} (Normal) Anti-SS- < 0.2 Range: 0.0-0.9 B {AI} (Normal) Anti-SS- < 0.2 Range: 0.0-0.9 A {AI} (Normal) dsDNA AB <1 Range: 0-9 {IU/mL} Comments: Negative <5 Equivocal 5 - 9 Positive >9 (Normal) KAREY-DIRE Positive CT (Abnormal ) :47 CBC-Complete Blood Cnt No Diff Comments: [facility] [address] [place], [address] ; another doc MPV 9.8 fL (Normal) Range: 6.2-12.0 PLT 216 K/mm3 (Normal) Range: 150-450 RDW SD 46.5 fL (Abnormal) Range: 35.1-43.9 RDW CV 14.5 % (Normal) Range: 11.6-14.6 MCHC 33.2 {g/gl} (Normal) Range: 32-36 MCH 29.5 pg (Normal) Range: 27.0-32.0 MCV 89.0 fL (Normal) Range: 81-99 HCT 42.2 % (Normal) Range: 37-47 HGB 14.0 g/dL (Normal) Range: 12.0-15.0 RBC 4.74 {M/mm3} (Normal) Range: 4.2-5.4 WBC 9.5 K/mm3 (Normal) Range: 4.4-11.0 51-Blz-55220:47 Comprehensive Metabolic Profil Comments: [facility] [address] [place], [place], [address] GAP 8 (Normal) Range: 5-15 CO2 27.0 mmol/L (Normal) Range: 21.0-32.0 CL 103 mmol/L (Normal) Range: 98-107 K 3.9 mmol/L (Normal) Range: 3.5-5.1 NA 138 mmol/L (Normal) Range: 136-145 T BILI 0.20 mg/dL (Normal) Range: 0.20-1.00 ALT 15 U/L (Normal) Range: 12-78 ALK P 48 U/L (Normal) Range: 45-117 AST 9 U/L (Abnormal) Range: 15-37 CA 8.8 mg/dL (Normal) Range: 8.5-10.1 A/G 0.8 {RATIO} (Abnormal) Range: 0.9-2.4 GLOB 3.9 g/dL (Abnormal) Range: 2.3-3.5 ALB 3.2 g/dL (Abnormal) Range: 3.4-5.0 T PROT 7.1 g/dL (Normal) Range: 6.4-8.2 BUN/CRE 14.2 {RATIO} (Normal) Range: 10-20 EST GFR - AA 102 mL/min (Normal) Comments: GFR Calc EST GFR 84 mL/min (Normal) Comments: Non- GFR Calc CREAT,SERUM 0.85 mg/dL (Normal) Range: 0.55-1.02 Comments: The validity of the calculated GFR AND GFRAA in patients over70 years has not been determined. Clinical correlation isessential. BUN 12 mg/dL (Normal) Range: 7-18 GLU 84 mg/dL (Normal) Range: 70-110 :47 Protein Electroph, S Comments: [facility] (refer to report for specific site)refer to report for address and phone number; another doc NOTE: Comment (Normal) Comments: The SPE pattern appears essentially unremarkable. Evidenceof monoclonal protein is not apparent. INTERPRETATION Comment (Normal) Comments: Protein electrophoresis scan will follow via computer,mail, or global president delivery. A/G RATIO 1.3 (Normal) Range: 0.7-1.7 GLOBULIN, TOTAL 2.8 g/dL (Normal) Range: 2.2-3.9 M-SPIKE g/dL (Normal) Comments: Not Observed GAMMA GLOBULIN 0.9 g/dL (Normal) Range: 0.4-1.8 BETA GLOBULIN 1.0 g/dL (Normal) Range: 0.7-1.3 ALPHA-2 GLOBUL 0.6 g/dL (Normal) Range: 0.4-1.0 ALPHA-1 GLOBUL 0.3 g/dL (Normal) Range: 0.0-0.4 ALBUMIN 3.6 g/dL (Normal) Range: 2.9-4.4 PROTEIN,TOTAL 6.4 g/dL (Normal) Range: 6.0-8.5 :47 Thyroid Stim Hormone (TSH) Comments: [facility] [address] [place], [address] TSH 1.40 {uIU/mL} (Normal) Range: 0.358-3.74 :47 Tryptase Comments: [facility] (refer to report for specific site)refer to report for address and phone number TRYPTASE 3.4 ug/L (Normal) Range: 2.2-13.2 Comments: Performed at: [facility] [address] [id number] Director: Tyler Galarza PhD, Phone: [phone] at: [facility] [place] [id number] Director: Dante Hatfield MD, Phone: [phone] [id number]:46 Allergen, Rast Food [facility]er [facility] for specific [facility]refer to report for address and phone number RAST COMMENT Comment (Normal) Comments: Levels of Specific IgE Class Description of Class ----- < 0.10 0 Negative 0.10 - 0.31 0/I Equivocal/Low 0.32 - 0.55 I Low 0.56 - 1.40 II Moderate 1.41 - 3.90 III High 3.91 - 19.00 IV Very High 19.01 - 100.00 V Very High >100.00 Very High FISH/SHELL MIX Negative (Normal) Comments: Allergens in this mix are: Blue mussel Fish [place] Shrimp Tuna EGG, WHOLE <0.10 kU/L (Normal) CHOCOLATE <0.10 kU/L (Normal) Comments: Performed at: [address] [id number] Director: Dante Hatfield MD, Phone: [phone] BEEF <0.10 kU/L (Normal) PORK <0.10 kU/L (Normal) SOYBEAN <0.10 kU/L (Normal) PEANUT <0.10 kU/L (Normal) CORN <0.10 kU/L (Normal) WHEAT <0.10 kU/L (Normal) MILK (COW) 0.18 kU/L (Abnormal) :10 PEREZ CULTURE-OTHER ([id number]) Comments: PATIENT NOT FASTINGPERFORMED BY: [facility] [id number] [facility] [id number] Information: SRC: Result 1 RRF (Normal) Comments: Routine respiratory richard Upper Respiratory Culture Final report (Normal) 22-Dbk-[id number]:40 Lipid Profile Comments: [facility] [address] [place], [address] VLDL 50 mg/dL (Abnormal) Range: 5-40 LDL 95 mg/dL (Normal) Range: 0-130 HDL 48 mg/dL (Normal) Comments: The drugs N-Acetylcysteine and Metamizole may falsely deressthis assay. Reference Range HDL <40 mg/dL Low HDL Cholesterol HDL >or= 60 mg/dL High HDL Cholesterol TRIG 250 mg/dL (Abnormal) Comments: The drugs N-Acetylcysteine and Metamizole may falsely deressthis assay.Serum Triglycerides Reference Interval Normal <150 mg/dL Borderline high 150 - 199 mg/dL High 200 - 499 mg/dL Very High > or = 500 mg/dL CHOL 193 mg/dL (Normal) Comments: <200 mg/dL Desirable 200-240 mg/dL Borderline >240 mg/dL High Risk 77-Bmo-92842:40 Liver Profile Comments: [facility] [address] [place], [place], [id number] D BILI < 0.05 mg/dL (Normal) Range: 0.00-0.30 T BILI 0.40 mg/dL (Normal) Range: 0.20-1.00 ALT 20 U/L (Normal) Range: 12-78 ALK P 56 U/L (Normal) Range: 45-117 AST 13 U/L (Abnormal) Range: 15-37 Comments: ADDENDA: ov next week GLOB 4.2 g/dL (Abnormal) Range: 2.3-3.5 ALB 3.4 g/dL (Normal) Range: 3.4-5.0 T PROT 7.6 g/dL (Normal) Range: 6.4-8.2 13-Gan-59620:45 Lipid Profile Comments: [facility] [address] [place], [place], [id number] VLDL 52 mg/dL (Abnormal) Range: 5-40 LDL 94 mg/dL (Normal) Range: 0-130 HDL 41 mg/dL (Normal) Comments: The drugs N-Acetylcysteine and Metamizole may falsely deressthis assay. Reference Range HDL <40 mg/dL Low HDL Cholesterol HDL >or= 60 mg/dL High HDL Cholesterol TRIG 259 mg/dL (Abnormal) Comments: The drugs N-Acetylcysteine and Metamizole may falsely deressthis assay.Serum Triglycerides Reference Interval Normal <150 mg/dL Borderline high 150 - 199 mg/dL High 200 - 499 mg/dL Very High > or = 500 mg/dL CHOL 187 mg/dL (Normal) Comments: <200 mg/dL Desirable 200-240 mg/dL Borderline >240 mg/dL High Risk :33 CBC, Employee Comments: [facility] [address] [place], [address] Absolute Lymph 2.45 {X10_3/ul} (Normal) Range: 0.83-4.51 Absolute Neut 4.3 {X10_3/uL} (Normal) Range: 2.0-7.7 BASO% 0.3 % (Normal) Range: 0-1 EO% 3.3 % (Normal) Range: 0-5 MONO% 5.9 % (Normal) Range: 0-10 LY% 32.6 % (Normal) Range: 19-41 NEUT% 57.6 % (Normal) Range: 47-70 MPV 10.1 fL (Normal) Range: 6.2-12.0 PLT 229 K/mm3 (Normal) Range: 150-450 RDW SD 46.2 fL (Abnormal) Range: 35.1-43.9 RDW CV 14.2 % (Normal) Range: 11.6-14.6 MCHC 32.8 {g/gl} (Normal) Range: 32-36 MCH 29.3 pg (Normal) Range: 27.0-32.0 MCV 89.3 fL (Normal) Range: 81-99 HCT 42.4 % (Normal) Range: 37-47 HGB 13.9 g/dL (Normal) Range: 12.0-15.0 RBC 4.75 {M/mm3} (Normal) Range: 4.2-5.4 WBC 7.5 K/mm3 (Normal) Range: 4.4-11.0 :33 Employee Profile Comments: [facility] [address] [place], [address] LDH 145 U/L (Normal) Range: 84-246 VLDL 58 mg/dL (Abnormal) Range: 5-40 LDL 151 mg/dL (Abnormal) Range: 0-130 CHOL:HDL 5.40 (Normal) HDL 48 mg/dL (Normal) Comments: The drugs N-Acetylcysteine and Metamizole may falsely deressthis assay. Reference Range HDL <40 mg/dL Low HDL Cholesterol HDL >or= 60 mg/dL High HDL Cholesterol GAP 7 (Normal) Range: 5-15 CO2 27.0 mmol/L (Normal) Range: 21.0-32.0 CL 103 mmol/L (Normal) Range: 98-107 K 4.0 mmol/L (Normal) Range: 3.5-5.1 NA 137 mmol/L (Normal) Range: 136-145 TRIG 289 mg/dL (Abnormal) Comments: The drugs N-Acetylcysteine and Metamizole may falsely deressthis assay.Serum Triglycerides Reference Interval Normal <150 mg/dL Borderline high 150 - 199 mg/dL High 200 - 499 mg/dL Very High > or = 500 mg/dL CHOL 257 mg/dL (Abnormal) Comments: <200 mg/dL Desirable 200-240 mg/dL Borderline >240 mg/dL High Risk D BILI 0.08 mg/dL (Normal) Range: 0.00-0.30 T BILI 0.30 mg/dL (Normal) Range: 0.20-1.00 ALT 16 U/L (Normal) Range: 12-78 ALK P 50 U/L (Normal) Range: 50-136 AST 13 U/L (Abnormal) Range: 15-37 PHOS 2.7 mg/dL (Normal) Range: 2.5-4.9 CA 8.8 mg/dL (Normal) Range: 8.5-10.1 A/G 0.9 {RATIO} (Normal) Range: 0.9-2.4 GLOB 4.0 g/dL (Abnormal) Range: 2.3-3.5 ALB 3.5 g/dL (Normal) Range: 3.4-5.0 T PROT 7.5 g/dL (Normal) Range: 6.4-8.2 URIC 4.0 mg/dL (Normal) Range: 2.6-6.0 Comments: The drugs N-Acetylcysteine and Metamizole may falsely deressthis assay. BUN/CRE 13.0 {RATIO} (Normal) Range: 10-20 EST GFR - AA 129 mL/min (Normal) Comments: GFR Calc EST GFR 106 mL/min (Normal) Comments: Non- GFR Calc CREAT,SERUM 0.69 mg/dL (Normal) Range: 0.55-1.20 Comments: The validity of the calculated GFR AND GFRAA in patients over70 years has not been determined. Clinical correlation isessential. BUN 9 mg/dL (Normal) Range: 7-18 GLU 89 mg/dL (Normal) Range: 70-110 :33 Nicotine Urine Drug Screen Comments: [facility] [address] [place], [place], [id number] COT DRG SCREEN Negative (Normal) Comments: Cotinine is the first-stage metabolite of Nicotine. TO BE CONFIRMED (Normal) Comments: CONFIRMATORY TESTING FOR ALL POSITIVE URINE DRUG SCREENRESULTS WILL ONLY BE SENT OUT UPON PHYSICIAN ORDER.The results of Urine Drug Screen methods provide onlypreliminary analytical test results. A more specificalternate chemical method must be used in order to obtain aconfirmed analytical result. Gas chromatography/massspectrometery (GC/MS) is the preferred confirmatory method.Clinical consideration and professional judgement should beapplied to any drug of abuse test result, particularly whenpreliminary positive results are used. :33 Urinalysis, Employee Comments: How was Urine Obtained? CLEAN [facility] [address] [facility] [place], [place], [id number] LEUK ESTERASE Negative /ul (Normal) OCCULT BLOOD-UR 25 /ul (Abnormal) NITRITE UR Negative (Normal) UROBILI Normal mg/dL (Normal) PROT DIPSTX 15 mg/dL (Abnormal) pH UR 6.0 (Normal) Range: 5.0 - 8.0 SP.GR. DIPSTX 1.020 (Normal) Range: 1.002-1.030 KETONE UR Negative mg/dL (Normal) BILIRUBIN URINE Negative mg/dL (Normal) GLUCOSE, UR Normal mg/dL (Normal) CLARITY Clear (Normal) COLOR Yellow (Normal) 47-Dng-373931:38 PEREZ CULTURE-OTHER (55368) Comments: PATIENT NOT FASTINGPERFORMED BY: [facility] [id number] [facility] [id number] Information: SRC:THRT [id number] Result 1 RRF (Normal) Comments: Routine respiratory richard Upper Respiratory Culture Final report (Normal) [id number]:13 Rapid Strep Test, Office (10505) Rapid Strep Test, Office Negative (Normal) :49 Hepatitis C Antibodies Comments: [facility] (refer to report for specific site)refer to report for address and phone number HEP C AB <0.1 {s/co_ratio} (Normal) Range: 0.0-0.9 Comments: Negative: < 0.8 Indeterminate: 0.8 - 0.9 Positive: > 0.9 The CDC recommends that a positive HCV antibody result be followed up with a HCV Nucleic Acid Amplification test (334476).Performed at: [address] [id number] Director: Tyler Galarza PhD, Phone: [phone] :[phone] HIV Screen 4TH GEN W/Confirm Comments: [facility] (refer to report for specific site)refer to report for address and phone number HIV1/0/2 SCREEN Non Reactive (Normal) 33-[id number]:15 Hepatitis C Antibodies Comments: [facility] (refer to report for specific site)refer to report for address and phone number HEP C AB <0.1 {s/co_ratio} (Normal) Range: 0.0-0.9 Comments: Negative: < 0.8 Indeterminate: 0.8 - 0.9 Positive: > 0.9 The CDC recommends that a positive HCV antibody result be followed up with a HCV Nucleic Acid Amplification test (458700).Performed at: [address] [id number] Director: Tyler Galarza PhD, Phone: [phone] [id number]-[id number]:15 HIV Screen 4TH GEN W/Confirm Comments: [facility] (refer to report for specific site)refer to report for address and phone number HIV1/0/2 SCREEN Non Reactive (Normal) :34 Rapid Flu (23708 x 2) Influenza A Ag negative a/b (Normal) :34 Rapid Strep Test, Office (28789) Rapid Strep Test, Office Positive (Normal) [id number] PAP I-G HPV Hi Risk Comments: CYTOLOGY INFORMATION:- CLINICAL INFORMATION:- DATE LMP/MENOPAUSE: [id number]- COLLECTION VIAL: Thin Prep Vial- HEALTH INFORMATICS SPECIALIST SOURCE: CERVICAL/ENDOCERVICAL- COLLECTION TECHNIQUE: BRUSH/SPATULASpecimen Comment: CO-CW [id number] Comment: No. of containers..01 [facility] (refer to report for specific site)refer to report for address and phone number HPV HC,HGH RISK Negative Comments: This high-risk HPV test detects thirteen high-risk types(16/18/31/33/35/39/45/51/52/56/58/59/68) withoutdifferentiation.Performed at: [facility] [id number] (Normal) b Director: Shaylee Benítez MD, Phone: [phone] at: =G - [facility] [address] [id number] Director: Shaylee Benítez MD, Phone: [phone] PAPSMR Comment Comments: The Pap smear is a screening test designed to aid in thedetection of premalignant and malignant conditions of theuterine cervix. It is not a diagnostic procedure andshould not be used as the sole means (Normal) of detecting cervicalcancer. Both false-positive and false-negative reports dooccur. COMM . (Normal) TEST METHOD Comment Comments: This liquid based ThinPrep(R) pap test was screened withthe use of an image guided system. (Normal) QC REV Comment Comments: Arabella Lazo, Supervisory Finishing Range Operator (ASCP) (Normal) PERFORM Comment Comments: Kayleigh Tee, Finishing Range Operator (ASCP) (Normal) ADEQ Comment Comments: Satisfactory for evaluation. Endocervical and/or squamous metaplasticcells (endocervical component) are present. (Normal) DIAGN Comment Comments: NEGATIVE FOR INTRAEPITHELIAL LESION AND MALIGNANCY.THIS SPECIMEN WAS RESCREENED PART OF OUR RESTAURANT EXPEDITOR PROGRAM. (Normal) 26-Pcm-706112:05 Hep B Surface Antibodies EMP Comments: [facility] (refer to report for specific site)refer to report for address and phone number Hep B Adiel AB Reactive (Normal) Comments: Non Reactive: Inconsistent with immunity, less than 10 mIU/mL Reactive: Consistent with immunity, greater than 9.9 mIU/mL 87-Nbl-272501:05 Hepatitis B Surface Ag Comments: [facility] (refer to report for specific site)refer to report for address and phone number HB SURF AG Negative (Normal) Comments: Performed at: - [facility] [id number] Director: Tyler Galarza PhD, Phone: [phone] 18-Tnc-450564:05 Hepatitis C Antibodies Comments: [facility] (refer to report for specific site)refer to report for address and phone number HEP C AB <0.1 {s/co_ratio} (Normal) Range: 0.0-0.9 Comments: Negative: < 0.8 Indeterminate: 0.8 - 0.9 Positive: > 0.9 The CDC recommends that a positive HCV antibody result be followed up with a HCV Nucleic Acid Amplification test (787313). 15-Kjt-159296:05 HIV 1/O/2 EXP w/ Conf Comments: [facility] (refer to report for specific site)refer to report for address and phone number HIV1/0/2Ab Qual Non Reactive (Normal) HIV Ab INDEX V < 1.00 (Normal) Comments: Index Value: Specimen reactivity relative to the negativecutoff. [id number]-[id number]: PRODUCTS OF CONCEPTION See Note (Normal) Comments: Test performed at:[facility] [address] [place], [place] [address] 55 Comments: Patient: STEFFEN BYRD : 1985 (29/F) Acct Num: [id number] Phys: Charanjit VALENCIA,Jack Unit Num: [id number] Loc: [facility] Specimen: [id number] Received: 05/06/15 1135 Spec Type: AZ OD CONC TISSUES TISSUES: GROSS DESCRIPTION Received is one container labeled with the patient name and designated productsof conception. The specimen consists of multiple pieces of hemorrhagic soft tissue measuring in aggregate 6 x 6 x 2 cm. tissue is not identified. Quality Improvement Coordinator (Rn) tissue is submitted in two cassettes. / Erik 05/06/15 TC:5 CPT: 16832 HEADER OPER ATION: D AND C, suction PRE-OP DIAGNOSIS: Blighted ovum TISSUE SUBMITTED: Products of conception MICROSCOPIC DESCRIPTION Slides are reviewed. MICROSCOPIC DIAGNOSIS Products of concep tion: [place], gestational endometrium and immature chorionic villi (products of conception). RAJ:theresa 05/07/15 Signed Armani Garibay 05/07/15 <signature on file> 29-Twx-63590:40 CBC-Complete Blood Cnt No Diff Comments: Test performed at:[facility] [address] [place] [address] MPV 9.9 fL (Normal) Range: 6.2-12.0 PLT 230 K/mm3 (Normal) Range: 150-450 RDW SD 46.3 fL (Abnormal) Range: 35.1-43.9 RDW CV 14.0 % (Normal) Range: 11.6-14.6 MCHC 33.3 {g/gl} (Normal) Range: 32-36 MCH 29.8 pg (Normal) Range: 27.0-32.0 MCV 89.5 fL (Normal) Range: 81-99 HCT 41.1 % (Normal) Range: 37-47 HGB 13.7 g/dL (Normal) Range: 12.0-15.0 RBC 4.59 {M/mm3} (Normal) Range: 4.2-5.4 WBC 7.4 K/mm3 (Normal) Range: 4.4-11.0 78-Tml-18222:40 Type AND Screen Comments: Has pt arrived? YReason for Type AND Screen/Red Cells: SURGERYType of Surgery: D AND CTest performed at:[facility] [address] [place] [address] Antibody Screen NEGATIVE (Normal) BLOOD TYPE GEL A POSITIVE (Normal) 67-Ley-295059:20 CT/NG WCH BY PCR Comments: Test performed at:[facility] [address] [place] [address] NG by PCR Negative (Normal) Chlam Trac PCR Negative (Normal) 16-Apr-20157:15 CBC, Employee Comments: Test performed at:[facility] [address] [place] [address] Absolute Lymph 2.11 {X10_3/ul} (Normal) Range: 0.83-4.51 Absolute Neut 3.9 {X10_3/uL} (Normal) Range: 2.0-7.7 BASO% 0.5 % (Normal) Range: 0-1 EO% 2.4 % (Normal) Range: 0-5 MONO% 6.2 % (Normal) Range: 0-10 LY% 31.9 % (Normal) Range: 19-41 NEUT% 58.8 % (Normal) Range: 47-70 MPV 10.5 fL (Normal) Range: 6.2-12.0 PLT 205 K/mm3 (Normal) Range: 150-450 RDW SD 46.5 fL (Abnormal) Range: 35.1-43.9 RDW CV 14.4 % (Normal) Range: 11.6-14.6 MCHC 34.6 {g/gl} (Normal) Range: 32-36 MCH 30.9 pg (Normal) Range: 27.0-32.0 MCV 89.1 fL (Normal) Range: 81-99 HCT 43.3 % (Normal) Range: 37-47 HGB 15.0 g/dL (Normal) Range: 12.0-15.0 RBC 4.86 {M/mm3} (Normal) Range: 4.2-5.4 WBC 6.6 K/mm3 (Normal) Range: 4.4-11.0 16-Apr-20157:15 Employee Profile Comments: Test performed at:[facility] [address] [place], [place] [address] LDH 171 U/L (Normal) Range: 84-246 VLDL 29 mg/dL (Normal) Range: 5-40 LDL 130 mg/dL (Normal) Range: 0-130 HDLEMP 54 mg/dL (Normal) Comments: Reference Range HDL <40 mg/dL Low HDL Cholesterol HDL >or= 60 mg/dL High HDL Cholesterol HDL 54 mg/dL (Normal) Comments: Reference Range HDL <40 mg/dL Low HDL Cholesterol HDL >or= 60 mg/dL High HDL Cholesterol GAP 8 (Normal) Range: 5-15 CO2 23.0 mmol/L (Normal) Range: 21.0-32.0 CL 103 mmol/L (Normal) Range: 98-107 K 3.7 mmol/L (Normal) Range: 3.5-5.1 NA 134 mmol/L (Abnormal) Range: 136-145 TRIG 143 mg/dL (Normal) Comments: Serum Triglycerides Reference Interval Normal <150 mg/dL Borderline high 150 - 199 mg/dL High 200 - 499 mg/dL Very High > or = 500 mg/dL CHOL 213 mg/dL (Abnormal) Comments: <200 mg/dL Desirable 200-240 mg/dL Borderline >240 mg/dL High Risk D BILI 0.06 mg/dL (Normal) Range: 0.00-0.30 T BILI 0.30 mg/dL (Normal) Range: 0.20-1.00 ALT 20 U/L (Normal) Range: 12-78 ALK P 59 U/L (Normal) Range: 50-136 AST 14 U/L (Abnormal) Range: 15-37 PHOS 2.7 mg/dL (Normal) Range: 2.5-4.9 CA 8.8 mg/dL (Normal) Range: 8.5-10.1 A/G 1.1 {RATIO} (Normal) Range: 0.9-2.4 GLOB 3.6 g/dL (Abnormal) Range: 2.3-3.5 ALB 3.9 g/dL (Normal) Range: 3.4-5.0 T PROT 7.5 g/dL (Normal) Range: 6.4-8.2 URIC 3.7 mg/dL (Normal) Range: 2.6-6.0 BUN/CRE 7.5 {RATIO} (Abnormal) Range: 10-20 EST GFR - AA 136 mL/min (Normal) EST GFR 112 mL/min (Normal) CREAT,SERUM 0.67 mg/dL (Normal) Range: 0.55-1.20 Comments: Please note revised CREATININE reference range vpgrywqes89/22/2015. BUN 5 mg/dL (Abnormal) Range: 7-18 GLU 82 mg/dL (Normal) Range: 70-110 16-Apr-20157:15 Urinalysis, Employee Comments: Test performed at:[facility] [address] [place] [address] LEUK ESTERASE Negative /ul (Normal) OCCULT BLOOD-UR 10 /ul (Abnormal) NITRITE UR Negative (Normal) UROBILI Normal mg/dL (Normal) PROT DIPSTX 15 mg/dL (Abnormal) pH UR 6.0 (Normal) Range: 5.0 - 8.0 SP.GR. DIPSTX 1.025 (Normal) Range: 1.002-1.030 KETONE UR Negative mg/dL (Normal) BILIRUBIN URINE Negative mg/dL (Normal) GLUCOSE, UR Normal mg/dL (Normal) CLARITY Sl. Cloudy (Normal) COLOR Yellow (Normal) :14 hCG Titer Quant., Serum Comments: Test performed at:[facility] [address] [place] [address] HCG QUANT. 11946 m[iU]/mL (Abnormal) 13-Ngd-75124:41 Lipid Profile Comments: Test performed at:[facility] [address] [place] [address] VLDL 44 mg/dL (Abnormal) Range: 5-40 LDL 187 mg/dL (Abnormal) Range: 0-130 HDL 44 mg/dL (Normal) Comments: Reference Range HDL <40 mg/dL Low HDL Cholesterol HDL >or= 60 mg/dL High HDL Cholesterol TRIG 219 mg/dL (Abnormal) Range: 0-199 Comments: Serum Triglycerides Reference Interval Normal <150 mg/dL Borderline high 150 - 199 mg/dL High 200 - 499 mg/dL Very High > or = 500 mg/dL CHOL 275 mg/dL (Abnormal) Comments: <200 mg/dL Desirable 200-240 mg/dL Borderline >240 mg/dL High Risk 2-Llt-047563:30 PAP I-G HPV Hi Risk Comments: CYTOLOGY INFORMATION:- CLINICAL INFORMATION: 09/03/14- DATE LMP/MENOPAUSE: LMP- COLLECTION VIAL: Thin Prep Vial- HEALTH INFORMATICS SPECIALIST SOURCE: CERVICAL/ENDOCERVICAL- COLLECTION TECHNIQUE: BRUSH/SPATULASpecimen Comment: [id number] Comment: No. of containers..01 CYTYC Thin Prep VialTest performed at:[facility] [address] [place] [address] HPV HC,HGH RISK Negative Comments: This high-risk HPV test detects thirteen high-risk types(16/18/31/33/35/39/45/51/52/56/58/59/68) withoutdifferentiation.Performed at: - [facility] [address] [facility], [place] [id number] (Normal) b Director: Michel Castaneda MD, Phone: [phone] at: =G - [facility] [address] [facility] [place], [place] [id number] Director: Mick Castaneda MD, Phone: [phone] PAPSMR Comment Comments: The Pap smear is a screening test designed to aid in thedetection of premalignant and malignant conditions of theuterine cervix. It is not a diagnostic procedure andshould not be used as the sole means (Normal) of detecting cervicalcancer. Both false-positive and false-negative reports dooccur. COMM . (Normal) TEST METHOD Comment Comments: This liquid based ThinPrep(R) pap test was screened withthe use of an image guided system. (Normal) PERFORM Comment Comments: Milvia Jimenez, Finishing Range Operator (ASCP) (Normal) ADEQ Comment Comments: Satisfactory for evaluation. Endocervical and/or squamous metaplasticcells (endocervical component) are present. (Normal) DIAGN Comment Comments: NEGATIVE FOR INTRAEPITHELIAL LESION AND MALIGNANCY. (Normal) 17-May-20146:37 CBCEM ALC 2.28 {X10_3/ul} (Normal) Range: 0.83-4.51 ANC 3.4 {X10_3/uL} (Normal) Range: 2.0-7.7 tB% 0.5 % (Normal) Range: 0-1 tE% 3.6 % (Normal) Range: 0-5 tM% 7.1 % (Normal) Range: 0-10 tL% 35.9 % (Normal) Range: 19-41 tN% 52.7 % (Normal) Range: 47-70 MPV 10.8 fL (Normal) Range: 6.2-12.0 PLT 243 K/mm3 (Normal) Range: 150-450 RDWSD 43.4 fL (Normal) Range: 35.1-43.9 RDWCV 13.6 % (Normal) Range: 11.6-14.6 MCHC 33.4 {g/gl} (Normal) Range: 32-36 MCH 29.4 pg (Normal) Range: 27.0-32.0 MCV 87.9 fL (Normal) Range: 81-99 HCT 42.8 % (Normal) Range: 37-47 HGB 14.3 g/dL (Normal) Range: 12.0-15.0 RBC 4.87 {M/mm3} (Normal) Range: 4.2-5.4 WBC 6.4 K/mm3 (Normal) Range: 4.4-11.0 :37 EMP LDH 182 U/L (Normal) Range: 87-241 VLDL 46 mg/dL (Abnormal) Range: 5-40 LDL 194 mg/dL (Abnormal) Range: 0-130 HDLEMP 41 mg/dL (Normal) Comments: Reference RangeHDL <40 mg/dL Low HDL CholesterolHDL >or= 60 mg/dL High HDL Cholesterol HDL 41 mg/dL (Normal) Comments: Reference RangeHDL <40 mg/dL Low HDL CholesterolHDL >or= 60 mg/dL High HDL Cholesterol GAP 7 (Normal) Range: 5-15 CO2 25.0 mmol/L (Normal) Range: 21.0-32.0 CL 105 mmol/L (Normal) Range: 98-107 K 4.1 mmol/L (Normal) Range: 3.5-5.1 NA 137 mmol/L (Normal) Range: 136-145 CHOL 281 mg/dL (Abnormal) Comments: <200 mg/dL Msbazzxob468-057 mg/dL Borderline>240 mg/dL High Risk TRIG 229 mg/dL (Abnormal) Range: 0-199 Comments: Serum Triglycerides Reference IntervalNormal <150 mg/dLBorderline high 150 - 199 mg/dLHigh 200 - 499 mg/ dLVery High > or = 500 mg/dL BID 0.05 mg/dL (Normal) Range: 0.00-0.30 BIT 0.20 mg/dL (Normal) Range: 0.00-1.00 ALT 32 U/L (Normal) Range: 12-78 ALK 62 U/L (Normal) Range: 45-117 AST 18 U/L (Normal) Range: 15-37 PHOS 2.5 mg/dL (Normal) Range: 2.5-4.9 CA 8.9 mg/dL (Normal) Range: 8.5-10.1 AG 0.9 {RATIO} (Normal) Range: 0.9-2.4 GLOB 3.9 g/dL (Normal) Range: 2.7-4.2 ALB 3.7 g/dL (Normal) Range: 3.4-5.0 TPROT 7.6 g/dL (Normal) Range: 6.4-8.2 URIC 3.8 mg/dL (Normal) Range: 2.6-6.0 BC 13.8 {RATIO} (Normal) Range: 10-20 GFRAA 110 mL/min (Normal) GFR 91 mL/min (Normal) CREAT 0.8 mg/dL (Normal) Range: 0.6-1.0 BUN 11 mg/dL (Normal) Range: 7-18 GLU 81 mg/dL (Normal) Range: 70-110 17-May-20146:37 UAEM Comments: COLOR OF URINE MAY AFFECT DIPSTICK RESULTS. MARTINEZ 25 /ul (Abnormal) UOB 250 /ul (Abnormal) ANUP Negative (Normal) UROBU Normal mg/dL (Normal) BLANCA 6.0 (Normal) Range: 5.0 - 8.0 uPROTU 30 mg/dL (Abnormal) KETU Negative mg/dL (Normal) SGU 1.015 (Normal) Range: 1.002-1.030 BILIU Negative mg/dL (Normal) GLUR Normal mg/dL (Normal) UCLAR Sl. Cloudy (Normal) UCOL Vivian (Normal) 60-Zbe-308672:08 URINE PEREZ CULTURE-KIMBERLEY COL Comments: PATIENT NOT FASTINGPERFORMED BY: [facility] [id number] [facility] [id number] Information: SRC:UR [id number] COUNT (11216) Result 1 ECV (Normal) Comments: Escherichia coli, identified by an automated biochemical system.Greater than 100,000 colony forming units per mL S = Susceptible; I = Intermediate; R = Resistant P = Posi tive; N = Negative MICS are expressed in micrograms per mL Antibiotic RSLT#1 RSLT#2 RSLT#3 RSLT#4Amoxicillin/Clavulanic Acid SAmpicillin SCef azolin SCefepime SCeftriaxone SCefuroxime SCephalothin SCiprofloxacin SESBL NErtapenem SGentamicin SImipenem SLevofloxacin SNitrofurantoin SPiperacillin STetracycline STobramycin STrimethoprim/Sulfa S Urine Final report (Normal) Culture,Comprehensiv e 91-Fpi-858154:43 Urinalysis, Office (80614) UA - BILIRUBIN Negative (Normal) UA - BLOOD Hemolyzed Moderate (Normal) UA - GLUCOSE Negative (Normal) UA - KETONES Negative mg/dL (Normal) UA - LEUKOCYTE ESTERASE Small (Normal) UA - NITRITE Negative (Normal) UA - PH 7.0 (Normal) UA - PROTEIN Negative mg/dL (Normal) UA - SPECIFIC GRAVITY 1.015 (Normal) URINE UROBILINGN KIMBERLEY TIMED 2 mg/dL (Normal) 58-Jfp-901480:30 Rapid Strep Test, Office (64102) Comments: done km Rapid Strep Test, Office Negative (Normal) 90-Npj-115593:37 PEREZ CULTURE-OTHER (76069) Comments: PATIENT NOT FASTINGPERFORMED BY: [facility] [id number] [facility] [id number] Information: SRC:THRT [id number] Result 1 BETAGC (Normal) Comments: Beta hemolytic Streptococcus, group CHeavy growthPenicillin and ampicillin are drugs of choice for treatment ofbeta- hemolytic streptococcal infections. Susceptibility testing ofpenicillins and other bet a-lactam agents approved by the FDA fortreatment of beta-hemolytic streptococcal infections need not beperformed routinely because nonsusceptible isolates are extremelyrare in any beta-hemolytic strepto coccus and have not been reportedfor Streptococcus pyogenes (group A). (CLSI 2010) Upper Respiratory Culture Final report (Normal) 05-Fsl-054488:50 CBCD,SMEAR DIFF RED CELL MORPH SeeNote {NORMAL} (Normal) Comments: Result: NORM C+C PLT EST SeeNote (Normal) Comments: Result: ADEQUATE EOS 1 % (Normal) Range: 0-5 MONOCYTE 9 % (Normal) Range: 0-10 LYMPH 22 % (Normal) Range: 19-41 SEGS 68 % (Normal) Range: 47-70 CELLS COUNTED 100 (Normal) ABSOLUTE NEUT 5.3 3/uL (Normal) Range: 2.0-7.7 PLT 244 K/mm3 (Normal) Range: 150-450 RDW 13.5 % (Normal) Range: 11.6-14.6 MCHC 34.5 g/dL (Normal) Range: 32-36 MCH 30.9 pg (Normal) Range: 27.0-32.0 MCV 89.4 fL (Normal) Range: 81-99 HCT 39.8 % (Normal) Range: 37-47 HGB 13.7 g/dL (Normal) Range: 12.0-16.0 RBC 4.45 {M/mm3} (Normal) Range: 4.2-5.4 WBC 8.3 K/mm3 (Normal) Range: 4.4-11.0 :50 COMP METABOLIC GAP 10 (Normal) Range: 5-15 CO2 26.0 mmol/L (Normal) Range: 21.0-32.0 CL 103 mmol/L (Normal) Range: 98-107 K 3.7 mmol/L (Normal) Range: 3.5-5.1 NA 139 mmol/L (Normal) Range: 136-145 T BILI 0.20 mg/dL (Normal) Range: 0.00-1.00 ALT 48 U/L (Normal) Range: 12-78 ALK P 54 U/L (Normal) Range: 50-136 AST 27 U/L (Normal) Range: 15-37 CA 8.9 mg/dL (Normal) Range: 8.5-10.1 A/G 1.0 {RATIO} (Normal) Range: 0.9-2.4 GLOB 3.9 g/dL (Normal) Range: 2.7-4.2 ALB 3.9 g/dL (Normal) Range: 3.4-5.0 T PROT 7.8 g/dL (Normal) Range: 6.4-8.2 BUN/CRE 10.0 {RATIO} (Normal) Range: 10-20 EST GFR - AA 99 mL/min (Normal) EST GFR 82 mL/min (Normal) CREAT,SERUM 0.9 mg/dL (Normal) Range: 0.6-1.0 BUN 9 mg/dL (Normal) Range: 7-18 GLU 92 mg/dL (Normal) Range: 70-110 :50 D-DIMER QUANT 0.27 {FEUug/mL} (Normal) Range: 0.22-0.48 Comments: NORMAL D-Dimer level indicates no DVT or PE. :50 ,SERUM HCGSQUAL SeeNote {Negative} (Normal) Range: 0-9 Nonpreg Comments: Result: NEGATIVE :50 T4 THYROXIN 7.7 ug/dL (Normal) Range: 4.8-13.9 :50 TSH 1.83 {uIU/mL} (Normal) Range: 0.358-3.74 33-Dol-337099:40 ABDOMEN/PELVIS WITHOUT CONT Radiology Report See Note (Normal) Comments: CLINICAL:Female, 25 years old. The patient presents with a history of frequentUTIsand hematuria. CT ABDOMEN AND PELVIS WITHOUT CONTRAST TECHNIQUE:Transaxial images were obtained from the dome of the di aphragm to thesymphysis pubis without oral contrast, and without intravenous contrast.Multiplanar coronal and sagittal images were reformatted. COMPARISON:None. FINDINGS:There is a minimal degree of at electasis at the left base. Normal unenhanced liver. Normal gallbladder and extrahepatic biliarysystem. Normal unenhanced spleen. Normal pancreas. Normal bilateral adrenal glands. Normal size of the right kidney. There is no right renal mass. Therearetwo tiny right intrarenal calculi. There is no right hydronephrosis.Normal visualized right ureter. Normal size of the left kidney. There is no le ft renal mass. There are2-4 tiny left renal calculi. There is no left hydronephrosis. Normalvisualized left ureter. Normal visualized stomach. Normal small intestine. Normal colon. Theappendix is visualized and appears normal. There is no demonstrated peritoneal fluid. Normal abdominal aorta. Normal inferior vena cava. Normalretroperitoneum. Normal urinary bladder. There is no pelvic mass les ion orlymphadenopathy.There is no pelvic fluid. Normal abdominal wall. Normal osseous structures. IMPRESSION:Tiny bilateral renal stones.There is no evidence of urinary tract obstruction. Dictated o n 12/25/10 1055 by Andrew Diaz MDranscribed on 12/25/10 120 by ITS IMPORTSign by Nicho Diaz MD on 12/25/101204 Sign by: Nicho Diaz MD 31-Ylg-298023:08 Urine Test, Office (57297) Urine Test, Office Negative (Normal) 42-Xgv-104079:53 URINE PEREZ CULTURE (KIMBERLEY Comments: PATIENT NOT FASTINGPERFORMED BY: BJORN [facility] [id number] [facility] [id number] Information: SRC:URC COL COUNT) (06643) Result 1 STASAP (Normal) Comments: Staphylococcus saprophyticusGreater than 100,000 colony forming units per mLThe CLSI does not advise routine susceptibility testing of urinarytract isolates of Staphylococcus saprophyticus, because acut e,uncomplicated urinary tract infections caused by this organism respondto concentrations achieved in urine of antimicrobial agents commonlyused to treat these infections, such as nitrofurantoin, afluor oquinolone, or trimethoprim with or without sulfamethoxazole.CLSI, H317-H83, 2005. Urine Final report (Normal) Culture,Comprehensive :11 Urinalysis, Office (38640) UA - BILIRUBIN Negative (Normal) UA - BLOOD Non Hemolyzed Moderate (Normal) UA - GLUCOSE Negative (Normal) UA - KETONES Negative mg/dL (Normal) UA - LEUKOCYTE ESTERASE Small (Normal) UA - NITRITE Positive (Normal) UA - PH 5.0 (Normal) UA - PROTEIN Negative mg/dL (Normal) UA - SPECIFIC GRAVITY 1.005 (Normal) URINE UROBILINGN KIMBERLEY TIMED Normal mg/dL (Normal) :00 CULTURE, URINE URINE CULTURE See Note {CFU/mL} (Normal) Comments: COLONY COUNT 25,000-50,000 ORGANISM 1: MIXED GRAM POSITIVE ORGANISMS :00 ROUTINE UA LEUK ESTERASE TRACE (Abnormal) NITRITE UR SeeNote (Abnormal) Comments: Result: POSITIVE OCCULT BLOOD-UR SeeNote (Normal) Comments: Result: NEGATIVE pH UR 6.0 (Normal) Range: 5.0-8.0 PROT DIPSTX SeeNote (Normal) Comments: Result: NEGATIVE UROBILI 0.2 EU/dl (Normal) Range: 0.2 - 1.0 KETONE UR SeeNote mg/dL (Normal) Comments: Result: NEGATIVE SP.GR. DIPSTX <=1.005 (Normal) Range: 1.002-1.030 BILIRUBIN URINE SeeNote (Normal) Comments: Result: NEGATIVE GLUCOSE, UR SeeNote (Normal) Comments: Result: NEGATIVE CLARITY CLEAR (Normal) COLOR YELLOW (Normal) 5-Rpj-280755:58 Urinalysis, Office (70551) UA - LEUKOCYTE ESTERASE Negative (Normal) UA - NITRITE Negative (Normal) URINE UROBILINGN KIMBERLEY TIMED Normal mg/dL (Normal) UA - PROTEIN Negative mg/dL (Normal) UA - PH 6.0 (Normal) UA - BLOOD Negative (Normal) UA - SPECIFIC GRAVITY 1.025 (Normal) UA - KETONES Negative mg/dL (Normal) UA - BILIRUBIN Negative (Normal) UA - GLUCOSE Negative (Normal) Comments: color--concentrated/dark yellow 65-Myc-907488:04 URINE PEREZ CULTURE-KIMBERLEY COL Comments: PATIENT NOT FASTINGPERFORMED BY: [facility] [address]pf[address] Vegas RoadDuECU Health Medical Center [id number] Information: SRC:UR [id number] COUNT (34264) Result 1 ECV (Normal) Comments: Escherichia coli, identified by an automated biochemical system.2,000 Colonies/mL S = Susceptible; I = Intermediate; R = Resistant P = Positive; N = NegativeMICS are expressed in micrograms pe r mLAntibiotic RSLT#1 RSLT#2 RSLT#3 RSLT#4Amoxicillin/Clavulanic Acid SAmpicillin SCefepime SCeftriaxone SCefurox dougie SCephalothin SCiprofloxacin SESBL NGentamicin SImipenem SLevofloxacin SNitrofurantoin SPiperacillin/Tazobactam STetracycline STobramycin STrimethoprim/Sulfa S Urine Final report (Normal) Culture,Comprehensiv e 68-Vmu-000398:16 Urinalysis, Office (17763) UA - LEUKOCYTE ESTERASE Trace (Normal) UA - NITRITE Positive (Normal) URINE UROBILINGN KIMBERLEY TIMED 2 mg/dL (Normal) UA - PROTEIN Negative mg/dL (Normal) UA - PH 6.0 (Normal) UA - BLOOD Negative (Normal) UA - SPECIFIC GRAVITY 1.005 (Normal) UA - KETONES Negative mg/dL (Normal) UA - BILIRUBIN Negative (Normal) UA - GLUCOSE Negative (Normal) 8-Kkz-144015:30 Urinalysis, Office (41281) UA - LEUKOCYTE Trace (Normal) ESTERASE UA - NITRITE Negative (Normal) URINE UROBILINGN KIMBERLEY 2 mg/dL (Normal) TIMED UA - PROTEIN Negative mg/dL (Normal) UA - PH 7.0 (Normal) UA - BLOOD Hemolyzed Trace (Normal) UA - SPECIFIC GRAVITY 1.015 (Normal) UA - KETONES Negative mg/dL (Normal) UA - BILIRUBIN Negative (Normal) UA - GLUCOSE Negative (Normal) HPV ASR Positive (Abnormal) Comments: Source.............Cervical;EndocervicalLMP / Prev Treat...VZY=[id number]. of containers..01 CYTYC Thin Prep VialPATIENT NOT FASTINGPERFORMED BY: [address] [id number] 4:55 Comments: This test detects fourteen high-risk HPV types (16/18/31/33/35/39/45/51/52/56/58/59/66/68) without differentiation. .This test was dev eloped and its performance characteristics determinedby [facility]. It has not been cleared or approved by the U.S. Food andDrug Administration. .The FDA has determined that such clearance or approval is notnecessary. This test is used for clinical purposes. It should not beregarded as investigational or for research. 52-Owt-827504:55 Thin prep Pap Comments: Source.............Cervical;EndocervicalLMP / Prev Treat...KLE=[id number]. of containers..01 CYTYC Thin Prep VialPATIENT NOT FASTINGClinical Information: [id number] PERFORMED BY: [facility] ([address]) (no STD rp [address] [id number] testing) . . (Normal) DIAGNOSIS: SPRCS (Abnormal) Comments: EPITHELIAL CELL ABNORMALITY.ATYPICAL SQUAMOUS CELLS OF UNDETERMINED SIGNIFICANCE.Satisfactory for evaluation. Endocervical and/or squamous metaplasticcells (endocervical component) are pres ent.V70.0 ; [facility] [place], Finishing Range Operator (ASCP)Elif Faustin MD, Pathologist Pathologist provided ICD9: SPRCS (Normal) Comments: 795.01The Pap smear is a screening test designed to aid in the detection ofpremalignant and malignant conditions of the uterine cervix. It is not adiagnostic procedure and should not be used as the samira e means of detectingcervical cancer. Both false-positive and false-negative reports do occur. .See below for HPV DNA testing results. . :38 CBCD ABSOLUTE NEUT 4.6 3/uL (Normal) Range: 2.0-7.7 BASO% 0.4 % (Normal) Range: 0-1 EO% 2.3 % (Normal) Range: 0-5 HCT 39.0 % (Normal) Range: 37-47 HGB 13.5 g/dL (Normal) Range: 12.0-16.0 LY% 27.4 % (Normal) Range: 19-41 MCH 29.5 pg (Normal) Range: 27.0-32.0 MCHC 34.6 g/dL (Normal) Range: 32-36 MCV 85.1 fL (Normal) Range: 81-99 MONO% 6.8 % (Normal) Range: 0-10 MPV 8.5 fL (Normal) Range: 6.5-12.0 NEUT% 63.1 % (Normal) Range: 47-70 PLT 230 K/mm3 (Normal) Range: 150-450 RBC 4.59 {M/mm3} (Normal) Range: 4.2-5.4 RDW 14.3 % (Normal) Range: 11.6-14.6 WBC 7.3 K/mm3 (Normal) Range: 4.4-11.0 :38 COMP METABOLIC A/G 0.9 {RATIO} (Normal) Range: 0.9-2.4 ALB 3.5 g/dL (Normal) Range: 3.4-5.0 ALK P 60 U/L (Normal) Range: 50-136 ALT 22 U/L (Abnormal) Range: 30-65 AST 13 U/L (Abnormal) Range: 15-37 BUN 11 mg/dL (Normal) Range: 7-18 BUN/CRE 13.8 {RATIO} (Normal) Range: 10-20 CA 8.8 mg/dL (Normal) Range: 8.5-10.1 CL 107 mmol/L (Normal) Range: 98-107 CO2 27.0 mmol/L (Normal) Range: 21.0-32.0 CREAT,SERUM 0.8 mg/dL (Normal) Range: 0.6-1.0 EST GFR 95 mL/min (Normal) EST GFR - AA 115 mL/min (Normal) GAP 6 (Normal) Range: 5-15 GLOB 4.0 g/dL (Normal) Range: 2.7-4.2 GLU 84 mg/dL (Normal) Range: 70-110 K 3.9 mmol/L (Normal) Range: 3.5-5.1 NA 140 mmol/L (Normal) Range: 136-145 T BILI 0.30 mg/dL (Normal) Range: 0.00-1.00 T PROT 7.5 g/dL (Normal) Range: 6.4-8.2 41-Dsv-696079:38 LIPID CHOL 217 mg/dL (Abnormal) Comments: <200 mg/dL Desirable 200-240 mg/dL Borderline >240 mg/dL High Risk HDL 48 mg/dL (Normal) Comments: Reference Range HDL <40 mg/dL Low HDL Cholesterol HDL >or= 60 mg/dL High HDL Cholesterol LDL 135 mg/dL (Abnormal) Range: 0-130 TRIG 171 mg/dL (Normal) Comments: Serum Triglycerides Reference Interval Normal <150 mg/dL Borderline high 150 - 199 mg/dL High 200 - 499 mg/dL Very High > or = 500 mg/dL VLDL 34 mg/dL (Normal) Range: 5-40 Plan of Care Name Dates Details Instructions BMI 36.0-36.9,adult : Follow up if no improvement or if symptoms worsen Indication: BMI 36.0-36.9,adult Nonsmoker : Eprescribed prescriptions (G8553) Indication: Nonsmoker Hives : Follow up in 6 months Indication: Hives Hyperlipidemia, unspecified : Eprescribed prescriptions (G8553) Indication: Hyperlipidemia, unspecified Abnormal breast exam : Eprescribed prescriptions (G8553) Indication: Abnormal breast exam Nonsmoker : Follow up if no improvement or if symptoms worsen Indication: Nonsmoker Hives : Eprescribed prescriptions (G8553) Indication: Hives BMI 34.0-34.9,adult : Follow up if no improvement or if symptoms worsen Indication: BMI 34.0-34.9,adult Sore throat : Eprescribed prescriptions (G8553) Indication: Sore throat Abdominal pain, chronic, left upper quadrant : Reviewed Diagnostic Tests Indication: Abdominal pain, chronic, left upper quadrant Hyperlipidemia, unspecified : Reviewed Lab Indication: Hyperlipidemia, unspecified Nonsmoker : Follow up in 6 months Indication: Nonsmoker Hyperlipidemia, unspecified : Triglycerides: fat Indication: Hyperlipidemia, unspecified Hyperlipidemia, unspecified : Metabolic Syndrome: trigylcerides Indication: Hyperlipidemia, unspecified Hyperlipidemia, unspecified : Eprescribed prescriptions (G8553) Indication: Hyperlipidemia, unspecified Ganglion, left hand : Follow up if no improvement or if symptoms worsen Indication: Ganglion, left hand Tonsillitis : Follow up if no improvement or if symptoms worsen Indication: Tonsillitis Tonsillitis : *URI Treatment Indication: Tonsillitis Tonsillitis : Sore throat: diagnosis and treatment Indication: Tonsillitis Sore throat : Eprescribed prescriptions (G8553) Indication: Sore throat Flu-like symptoms : Follow up if no improvement or if symptoms worsen Indication: Flu-like symptoms Sore throat : *Antibiotic Usage Education - Female Indication: Sore throat Encounter for pre-employment examination : Follow up if no improvement or if symptoms worsen Indication: Encounter for pre-employment examination Plantar fasciitis : Plantar Fasciitis *: heel pain Indication: Plantar fasciitis Plantar fasciitis : Eprescribed prescriptions (G8553) Indication: Plantar fasciitis Asthma : Eprescribed prescriptions (G8553) Indication: Asthma Inflamed skin tag : Skin Tags Indication: Inflamed skin tag Hyperlipidemia, unspecified : Eprescribed prescriptions (G8553) Indication: Hyperlipidemia, unspecified Adult general medical exam : Reviewed Lab Indication: Adult general medical exam state, incidental : Follow up if no improvement or if symptoms worsen Indication: state, incidental Other specified viral infection, in conditions classified elsewhere and of unspecified site : *URI Symptoms Indication: Other specified viral infection, in conditions classified elsewhere and of unspecified site Other specified viral infection, in conditions classified elsewhere and of unspecified site : *URI Treatment Indication: Other specified viral infection, in conditions classified elsewhere and of unspecified site Other specified viral infection, in conditions classified elsewhere and of unspecified site : *URI Symptoms Indication: Other specified viral infection, in conditions classified elsewhere and of unspecified site Other specified viral infection, in conditions classified elsewhere and of unspecified site : *URI Treatment Indication: Other specified viral infection, in conditions classified elsewhere and of unspecified site Palpitations : *palpitation discusssion Indication: Palpitations Dysuria : follow up for recheck urine 1 week after complete antibiotic Indication: Dysuria Urinary tract infection, site not specified : *UTI treatment Indication: Urinary tract infection, site not specified Urinary tract infection, site not specified : Water in diet, brief version Indication: Urinary tract infection, site not specified Inflamed skin tag : Cryotherapy Indication: Inflamed skin tag Well female exam with routine gynecological exam : Self Breast Exam Education Indication: Well female exam with routine gynecological exam Well female exam with routine gynecological exam : Well Female Maintenance ([facility]) Indication: Well female exam with routine gynecological exam Well female exam with routine gynecological exam : Pap/Pelvic/Bimanual/Breast Exam was done. Indication: Well female exam with routine gynecological exam Planned Observations LIPID PANEL ([id number])Indication: Hypertriglyceridemia On: 17-Qjz-337478:19 Request Metabolic Panel, Comprehensive (06083)Indication: Hyperlipidemia, unspecified On: 15-Aug-2018 Request TSH (THYROID STIMULATING HORMONE) ([id number])Indication: Hypertriglyceridemia On: 01-Csv-362841:46 Request CALCIFEDIOL (26655)Indication: Vitamin D deficiency On: 03-Uqx-204632:44 Request URINALYSIS, W/ MICRO (44091)Indication: UTI (urinary tract infection) On: 85-Ovf-355510:35 Request URINE PEREZ CULTURE-IDENTIFICATN ([id number])Indication: Dysuria On: 8-Oxj-083529:42 Request URINALYSIS ([id number])Indication: Dysuria On: 7-Iqz-736310:42 Request METABOLIC PANEL, COMPREHENSIVE ([id number])Indication: Elevated parathyroid hormone On: 64-Byu-44364:35 Request PARATHORMONE (16784)Indication: Kidney stones On: 8-Ftg-756304:01 Request TSH ([id number])Indication: Kidney stones On: 1-Nvx-509412:00 Request LIPID PANEL (90747)Indication: Hyperlipidemia, unspecified On: 6-Nko-375429:00 Request METABOLIC PANEL, COMPREHENSIVE ([id number])Indication: Hyperlipidemia, unspecified On: 8-Pug-775301:00 Request CALCIFEDIOL (50274)Indication: Vitamin D deficiency On: 0-Jtm-317706:00 Request Food Allergy Profile (10326)Indication: Hives On: 62-Apg-116257:28 Request Rapid Strep Test, Office (38361)Indication: Sore throat On: 40-Mrv-072290:38 Request LIPID PANEL ([id number])Indication: Hyperlipidemia, unspecified On: 63-Qeu-907354:53 Request LIPID PANEL (27215)Indication: Hyperlipidemia, unspecified On: 93-Lst-848786:19 Request LIPID PANEL ([id number])Indication: Hyperlipidemia, unspecified On: 89-Fwh-613601:11 Request LIPID PANEL ([id number])Indication: Hyperlipidemia, unspecified On: 62-Fxm-662529:34 Request URINE PEREZ CULTURE (KIMBERLEY COL COUNT) ([id number])Indication: Abnormal Pap smear of cervix On: 29-Nvu-660218:04 Request HCG (HUMAN CHORIONIC GONADOTROPIN) ([id number])Indication: Palpitations On: 68-Fkj-267609:12 Request D-Dimer (81043)Indication: Palpitations On: :11 Request T4, TOTAL (29631)Indication: Palpitations On: 36-Dom-025861:11 Request METABOLIC PANEL, COMPREHENSIVE (12737)Indication: Palpitations On: :03 Request CBC WITH MANUAL DIFF ([id number])Indication: Palpitations On: 40-Dap-066975:03 Request TSH ([id number])Indication: Palpitations On: 39-Sdm-567948:03 Request URINE PEREZ CULTURE-IDENTIFICATN ([id number])Indication: Dysuria On: :15 Request URINALYSIS ([id number])Indication: Dysuria On: :15 Request CBC (Auto) ([id number])Indication: Hyperlipidemia, unspecified On: 7-Kqp-346105:18 Request Lipid Panel ([id number])Indication: Hyperlipidemia, unspecified On: 2-Rwb-192712:18 Request Metabolic Panel, Comprehensive ([id number])Indication: Calcium kidney stone On: 1-Lyf-047444:18 Request Planned Encounters Medical; 3 Month FU - On: 31-Aug-2018 11:15 [facility] Socorro Goncalves CNP, CNP, Mary E Planned Procedures Ultrasound - RenalBy: David ALVAREZ, On: 25-May-2018 Intent Socorro Christine CNP PFT - CompleteBy: Socorro Goncalves CNP On: 29-Sep-2017 Intent Socorro Phelps CNP Comments: March 2018 PARATHYROID SCAN ([id number])By: David On: 29-Sep-2017 Intent Socorro ALVAREZ CNP, Mary E Comments: history of kidney stones and elevated intact PTH looking for hyperparathyroid MAMMOGRAM BREAST BILATERAL On: 04-Mar-2017 Intent DIAGNOSTIC ([id number])By: Socorro Goncalves CNP, CNP, Mary E DIAGNOSTIC BILATERAL MAMMOGRAM On: 02-Mar-2017 Intent ([id number])By: Sari Christian DO ULTRASOUND, RIGHT BREAST On: 25-Feb-2017 Intent ([id number])By: Sari Christian DO Echo CompleteBy: Risa Roldan MD On: 03-Jul-2011 Intent M Holter Moniter ([id number])By: On: 03-Jul-2011 Intent Risa Roldan MD Eprescribed prescriptions On: 02-Jan-2011 Intent (G8553)By: Sari Christian DO CT - Abdomen & Pelvis Stone On: 25-Dec-2010 Intent ProtocolBy: Sari Christian DO Instructions Name Dates Details Nonsmoker : How to access health information online Indication: Nonsmoker Nonsmoker : How to access health information online - Detail Indication: Nonsmoker Nonsmoker : Patient Instructions Indication: Nonsmoker Hyperlipidemia, unspecified : How to access health information online Indication: Hyperlipidemia, unspecified Hyperlipidemia, unspecified : How to access health information online - Detail Indication: Hyperlipidemia, unspecified Hyperlipidemia, unspecified : Patient Instructions Indication: Hyperlipidemia, unspecified Hyperlipidemia, unspecified : DISCONTINUED - HEPATIC FUNCTION PANEL (57434) Indication: Hyperlipidemia, unspecified Hyperlipidemia, unspecified : DISCONTINUED - LIPID PANEL (53032) Indication: Hyperlipidemia, unspecified Dysuria : DISCONTINUED - URINE PEREZ CULTURE-IDENTIFICATN ([id number]) Indication: Dysuria Abnormal breast exam : How to access health information online Indication: Abnormal breast exam Abnormal breast exam : How to access health information online - Detail Indication: Abnormal breast exam Abnormal breast exam : Patient Instructions Indication: Abnormal breast exam Hives : How to access health information online Indication: Hives Hives : How to access health information online - Detail Indication: Hives Hives : Patient Instructions Indication: Hives Sore throat : How to access health information online Indication: Sore throat Sore throat : How to access health information online - Detail Indication: Sore throat Sore throat : Patient Instructions Indication: Sore throat Hyperlipidemia, unspecified : How to access health information online Indication: Hyperlipidemia, unspecified Hyperlipidemia, unspecified : How to access health information online - Detail Indication: Hyperlipidemia, unspecified Hyperlipidemia, unspecified : Patient Instructions Indication: Hyperlipidemia, unspecified Encounter for routine adult medical exam with abnormal findings (Renamed from Encounter for routine adult physical exam with abnormal findings) : Patient Instructions Indication: Encounter for routine adult medical exam with abnormal findings (Renamed from Encounter for routine adult physical exam with abnormal findings) Sore throat : How to access health information online Indication: Sore throat Sore throat : How to access health information online - Detail Indication: Sore throat Sore throat : Patient Instructions Indication: Sore throat Plantar fasciitis : How to access health information online Indication: Plantar fasciitis Plantar fasciitis : How to access health information online - Detail Indication: Plantar fasciitis Plantar fasciitis : Patient Instructions Indication: Plantar fasciitis Asthma : How to access health information online Indication: Asthma Asthma : How to access health information online - Detail Indication: Asthma Asthma : Patient Instructions Indication: Asthma Hyperlipidemia, unspecified : How to access health information online Indication: Hyperlipidemia, unspecified Hyperlipidemia, unspecified : How to access health information online - Detail Indication: Hyperlipidemia, unspecified Hyperlipidemia, unspecified : Patient Instructions Indication: Hyperlipidemia, unspecified Encounters Office Visit On: 29-Aug-2018 16:18 Encounter Diagnosis: Hypertriglyceridemia End: 29-Aug-2018 16:20 [facility] Annotation/Addendum On: 30-May-2018 12:59 Encounter Diagnosis: Vitamin D deficiency End: 30-May-2018 13:08 [facility] Office Visit On: 25-May-2018 11:38 Encounter Reason: Physical female examEncounter Diagnosis: Nonsmoker, BMI 36.0-36.9,adult, Hypertriglyceridemia, Vitamin D deficiency, Hematuria, Encounter for routine adult medical exam with abnormal findings (Renamed from Encounter for routine a End: 25-May-2018 12:53 dult physical exam with abnormal findings) [facility] Annotation/Addendum On: 07-Dec-2017 13:32 Encounter Diagnosis: UTI (urinary tract infection) End: 07-Dec-2017 13:36 [facility] Lab Order On: 19-Nov-2017 14:41 Encounter Diagnosis: Dysuria (788.1) End: 19-Nov-2017 14:43 [facility] Annotation/Addendum On: 08-Nov-2017 9:34 Encounter Diagnosis: Elevated parathyroid hormone End: 08-Nov-2017 9:36 [facility] Office Visit On: 29-Sep-2017 15:23 Encounter Reason: Follow up tests, [ADDITIONAL REASON] Follow up for chronic medical issues - The patient feels well with no complaints, has decreased energy level and is sleeping well. Patient has been compliant with instructions. Curr End: 29-Sep-2017 16:28 ent medication use: no side effects. Patient sleeps 6 hours per night. The medical issues the patient is following up for include All identified problems below. Encounter Diagnosis: Nonsmoker, BMI 37.0-37.9, adult, Hyperlipidemia, unspecified, Elevated parathyroid hormone, History of kidney stones, Acne, Asthma, Elevated antinuclear antibody (KAREY) level, Hives [facility] Phone Encounter On: 14-Sep-2017 15:55 Encounter Diagnosis: Kidney stones, Hyperlipidemia, unspecified, Vitamin D deficiency End: 14-Sep-2017 16:21 [facility] Annotation/Addendum On: 19-May-2017 12:01 Encounter Diagnosis: Kidney stones End: 19-May-2017 12:02 [facility] Annotation/Addendum On: 19-May-2017 11:27 Encounter Diagnosis: History of kidney stones, Dysuria (788.1), Hyperlipidemia, unspecified End: 19-May-2017 11:29 [facility] Annotation/Addendum On: 07-May-2017 7:12 Encounter Diagnosis: Unspecified Diagnosis End: 07-May-2017 7:42 [facility] Phone Encounter On: 04-Mar-2017 8:36 Encounter Diagnosis: Breast pain End: 04-Mar-2017 8:43 [facility] Annotation/Addendum On: 02-Mar-2017 11:29 Encounter Diagnosis: Abnormal mammogram End: 02-Mar-2017 11:30 [facility] Office Visit On: 25-Feb-2017 11:52 Encounter Reason: Breast pain - The onset of the breast pain has been sudden and has been occurring for hours. The course has been increasing. The breast pain is described as mild. The location of the pain is in the righ End: 25-Feb-2017 12:17 t [place] and right upper inner quadrant. The pain is described as shooting.Encounter Diagnosis: Nonsmoker, BMI 34.0-34.9,adult, Abnormal breast exam [facility] Phone Encounter On: 03-Feb-2017 9:10 Encounter Diagnosis: Elevated antinuclear antibody (KAREY) level End: 03-Feb-2017 9:15 [facility] Office Visit On: 20-Jan-2017 10:41 Encounter Reason: Follow up ER - Reason for hospitalization note: (hvies). Patient has been compliant with instructions. Note for Follow up ER: third time with hives at Easter then WednesdayJanuary 18 started to itch , star End: 20-Jan-2017 11:33 lauryn hives left size took xyzal and showered cold, with hives everywhere, with hand swelling. Got IV solumedrol, 20mg pepcid and benadryl IV. Encounter Diagnosis: Hives, BMI 34.0-34.9,adult, Nonsmoker [facility] Office Visit On: 04-Jan-2017 14:35 Encounter Reason: Rash - Symptoms include pain and skin redness. The skin rash is located on the left truncal area and right truncal area. Onset was 1 day(s) ago. The patient describes this as unchanged. Previous present End: 04-Jan-2017 15:06 ation included rash and redness. Note for Rash: Last Wednesday with hives, face stomach arms legs then gone after 48 hrs, then last night, again fine red flat painful rash. , [ADDITIONAL REASON] Sore Throat - Symptoms include sore throat and chills. Presenting symptoms included sore throat and chills. Encounter Diagnosis: Sore throat, Rash, Nonsmoker, BMI 34.0-34.9,adult [facility] Office Visit On: 15-Dec-2016 10:14 Encounter Reason: Follow up for chronic medical issues - The patient feels well with minor complaints (LUQ sharp pains off and on) and is sleeping well. Patient has been compliant with instructions. Current medication End: 15-Dec-2016 10:56 e: no side effects. Patient sleeps 6 hours per night. The medical issues the patient is following up for include All identified problems below., [ADDITIONAL REASON] Follow up tests - Diagnostic tests include other (labs). Date: (12/09/16). Note f or Discuss procedure results: abdominal pain on left on and off History of hypertriglycerides, labs repeated remains on crestor Encounter Diagnosis: BMI 33.0-33.9,adult, Nonsmoker, Hyperlipidemia, unspecified, Obesity, unspecified, History of kidney stones, Plantar fasciitis, Abdominal pain, chronic, left upper quadrant [facility] Lab Order On: 04-Sep-2016 13:53 Encounter Diagnosis: Hyperlipidemia, unspecified End: 04-Sep-2016 13:54 [facility] Lab Order On: 11-Aug-2016 12:19 Encounter Diagnosis: Hyperlipidemia, unspecified End: 11-Aug-2016 12:20 [facility] Office Visit On: 27-May-2016 7:42 Encounter Reason: Physical female exam - Last seen between 3-6 months ago. General health: feels well with minor complaints, has good energy level and is sleeping well. The patient's appetite is normal. Nutrition: normal End: 27-May-2016 12:01 /adequate. Exercises 4 days per week. Sleeps on average 6 hours per night. Normal bowel and bladder habits. Safety measures include appropriate use of safety belts, appropriate use of helmets and home s moke detectors , but do not include counseling regarding safe sex/HIV or counseling regarding substance abuse. Current emotional problems include anxiety. screening, Pap smear (2014).Encounter Diagnosis: Encounter for routine adult medical exam with abnormal findings (Renamed from Encounter for routine adult physical exam with abnormal findings), Hyperlipidemia, unspecified, Ganglion, left hand [facility] Annotation/Addendum On: 05-May-2016 10:54 Encounter Diagnosis: Unspecified Diagnosis End: 05-May-2016 10:59 [facility] Office Visit On: 05-May-2016 9:34 Encounter Reason: Sore Throat - Symptoms include sore throat and dysphagia. The symptoms are symmetrical. There is no radiation. The patient describes the pain as sharp. Onset was 3 day(s) ago. The symptoms occur constan End: 05-May-2016 10:52 tly. The patient describes this as unchanged. Symptoms are exacerbated by swallowing liquids and swallowing solids. Presenting symptoms included sore throat and dysphagia. Note for Sore throat: mild fatigueEncounter Diagnosis: Sore throat, Tonsillitis [facility] Office Visit On: 19-Nov-2015 13:32 Encounter Reason: Sore Throat - Symptoms include sore throat and chills. The symptoms are symmetrical. There is no radiation. The patient describes the pain as sharp. Presenting symptoms included sore throat, headache and chills.Encounter Diagnosis: End: 19-Nov-2015 13:58 Sore throat, Flu-like symptoms [facility] Office Visit On: 31-May-2015 7:32 Encounter Reason: Physical female exam - Last seen between 3-6 months ago. General health: feels well with minor complaints, has good energy level and is sleeping well. The patient's appetite is normal. Nutrition: normal End: 31-May-2015 11:40 /adequate. Exercises 4 days per week. Sleeps on average 6 hours per night. Normal bowel and bladder habits. Safety measures include appropriate use of safety belts, appropriate use of helmets and home s moke detectors , but do not include counseling regarding safe sex/HIV or counseling regarding substance abuse. Current emotional problems include anxiety. screening, Pap smear (2014).Encounter Diagnosis: Work Physical (V70.5) [facility] Office Visit On: 08-Jan-2015 11:52 Encounter Reason: Foot Problem - The injury involved the left foot (heel).Encounter Diagnosis: Plantar fasciitis End: 08-Jan-2015 13:21 [facility] Office Visit On: 27-Nov-2014 10:21 Encounter Reason: Follow up for chronic medical issues - The patient feels well with no complaints. Current medication use: no side effects. Patient sleeps 6 hours per night. The medical issues the patient is following u End: 27-Nov-2014 11:13 p for include All identified problems below.Encounter Diagnosis: Asthma (493.11), Palpitations (785.1), Hyperlipidemia, Unspecified (272.4), Obesity,unspecified (278.00) [facility] Office Visit On: 22-Jun-2014 10:49 Encounter Diagnosis: Skin Tag, Irritated (701.9) End: 22-Jun-2014 14:55 [facility] Office Visit On: 29-May-2014 15:58 Encounter Reason: Physical female exam - General health: feels well with no complaints, has good energy level and is sleeping well. The patient's appetite is normal. Nutrition: eating a variety of foods. Sleeps on averag End: 29-May-2014 17:05 e 6 hours per night. Normal bowel and bladder habits. Safety measures include appropriate use of safety belts and home smoke detectors. There are no current emotional problems. Note for Physical female exam: i was on lipitor in past but now Encounter Diagnosis: Hyperlipidemia, Unspecified (272.4), Well Female (Younger Female) (V72.31), Stress Reaction (308.4) [facility] Office Visit On: 07-Jun-2013 14:26 Encounter Diagnosis: Adult general medical exam (V70.9) End: 07-Jun-2013 15:19 [facility] Office Visit On: 19-Aug-2012 15:02 Encounter Reason: Sinusitis/ - The duration of the symptoms are 1 week The course has been increasing. The sinusitis/ has no relieving factors. Associated features include The symptoms have been associated with cough, na End: 19-Aug-2012 15:33 mihir discharge/stuffy nose and sinus pain. No previous evaluations were reported.Encounter Diagnosis: Viral infection, unspecified (079.99), state, incidental (V22.2) [facility] Office Visit On: 10-Jun-2012 9:54 Encounter Reason: Physical female exam - General health: feels well with no complaints, has good energy level and is sleeping well. The patient's appetite is normal. Nutrition: eating a variety of foods. Sleeps on averag End: 10-Jun-2012 10:34 e 6 hours per night. Normal bowel and bladder habits. Safety measures include appropriate use of safety belts and home smoke detectors. There are no current emotional problems. Note for Physical female exam: i was on lipitor in past but now Encounter Diagnosis: Work Physical (V70.5), Well Female (Younger Female) (V72.31) [facility] Phone Encounter On: 01-Apr-2012 16:22 Encounter Diagnosis: Kidney stone (592.0) End: 01-Apr-2012 16:23 [facility] Phone Encounter On: 31-Mar-2012 12:03 Encounter Diagnosis: Abnormal Pap smear (795.00) End: 31-Mar-2012 12:05 [facility] Office Visit On: 31-Mar-2012 11:31 Encounter Diagnosis: Dysuria (788.1) End: 31-Mar-2012 12:02 [facility] Office Visit On: 10-Feb-2012 14:45 Encounter Reason: Cough - The onset of the cough has been sudden. The cough is characterized as dry. The amount of sputum produced is scanty. The cough occurs all the time. The symptoms have been associated with fever a End: 10-Feb-2012 15:57 nd sore throat (resolved?), while the symptoms have not been associated with headache, hoarseness, runny nose or wheezing.Encounter Diagnosis: Cough (786.2), Viral infection, unspecified (079.99), ACUTE PHARYNGITIS (462.) [facility] Office Visit On: 17-Jul-2011 7:55 Encounter Reason: Follow up tests - Diagnostic tests include ECHO and other (holter monitor). Date: (). Current symptoms include other (intermittent palpatations ).[facility] End: 17-Jul-2011 8:13 Office Visit On: 03-Jul-2011 14:45 Encounter Reason: Palpitations - Presentation included a forceful heartbeat and a rapid heartbeat. Symptoms include forceful heartbeat and rapid heartbeat (assoc with nausea and SOB). Onset was sudden.Encounter Diagnosis: Palpitations (785.1) End: 03-Jul-2011 15:16 [facility] Historical Summary On: 02-Jan-2011 9:31 [facility] End: 02-Jan-2011 9:31 Office Visit On: 02-Jan-2011 7:53 Encounter Reason: Rash - The onset of the rash has been sudden and has been occurring in a persistent pattern for 1 day. The course has been constant. The rash is characterized as red and raised above the skin. The rash End: 02-Jan-2011 8:08 was first seen on the upper extremity. It spread to the entire body. There has been associated itching.Encounter Diagnosis: Hive (708.9), Kidney stone (592.0), Acute cystitis (595.0) [facility] Office Visit On: 25-Dec-2010 9:07 Encounter Reason: UTI - The urinary symptoms are described as painful urination, frequency, urgency and burning. The symptoms have been occurring for 1 day and have been constant. The urine is described as clear. The sy End: 25-Dec-2010 11:19 mptoms have been associated with abdominal pain and low back pain, while the symptoms have not been associated with nausea or vomiting. There is a medical history of kidney stones and recurrent urinary tract infections, while there is no history of diabetes or current . The patient has been using oral contraceptives, while the patient denies the use of antibiotics, hormone replacement therapy or pyridium/uristat.Encounter Diagnosis: Dysuria (788.1), Acute cystitis (595.0), Hematuria (599.7) [facility] Phone Encounter On: 13-Nov-2010 7:14 Encounter Diagnosis: Dysuria (788.1) End: 13-Nov-2010 7:24 [facility] Office Visit On: 18-Jun-2010 11:57 Encounter Diagnosis: Urinary tract infection, site not specified (599.0) End: 18-Jun-2010 12:18 [facility] Office Visit On: 09-Jun-2010 15:15 Encounter Reason: Dysuria - The onset of the dysuria has been sudden and has been occurring in a persistent pattern for 1 days. The course has been constant. The dysuria is described as moderate. The quality of the pain End: 09-Jun-2010 15:44 is described as a burning sensation The dysuria radiates to the left flank and right flank. The symptoms have been associated with flank pain ,frequency ,history of passing a stone and past history of u rinary tract infections, while the symptoms have not been associated with diabetes ,fever ,hematuria ,incontinence ,nocturia or urgency. Encounter Diagnosis: Dysuria (788.1) [facility] Office Visit On: 18-Feb-2010 12:29 Encounter Reason: UTI - The urinary symptoms are described as painful urination ,frequency and burning. The symptoms have been occurring for 5 days and have been constant. Encounter Diagnosis: Dysuria (788.1), End: 18-Feb-2010 12:40 Urinary tract infection, site not specified (599.0) [facility] Office Visit On: 24-Jan-2010 14:10 Encounter Reason: Skin lesion - The skin lesion appeared gradually and has been occurring for months (unknown a long time). It has been unchanging in size. The skin lesion is characterized as raised above the skin (skin End: 24-Jan-2010 14:56 tags). The skin lesion is located on the neck (front left side). Encounter Diagnosis: Abnormal Pap smear (795.00), Skin Tag, Irritated (701.9) [facility] Office Visit On: 02-Aug-2009 13:39 Encounter Reason: Follow up, Diagnostic Procedure Results - Diagnostic tests include other (pap). Date: (07-09-09 ). Encounter Diagnosis: Abnormal Pap smear (795.00) End: 02-Aug-2009 14:03 [facility] Office Visit On: 09-Jul-2009 13:45 Encounter Reason: Well Women Exam - The patient feels well with no complaints ,has good energy level and is sleeping well. Pap smear: date of last pap: (2007). Contraceptive history: The current method of contraception i End: 09-Jul-2009 14:04 s oral contraceptives. Patient does not exercise. The patient's libido is normal. The patient reports that she performs monthly self breast exam. Calcium intake includes 1 serving milk daily. The patien t has been using oral contraceptives. Menstruation: Last menstrual period date: (06-11-09). Encounter Diagnosis: Hyperlipidemia, Unspecified (272.4), Well Female (Younger Female) (V72.31) [facility] Office Visit On: 18-Jun-2009 14:56 Encounter Reason: new patient female physical - Last seen between 6-12 months ago. General health: feels well with no complaints ,has good energy level and is sleeping well. The patient's appetite is normal. Nutrition: n End: 18-Jun-2009 15:23 ormal/adequate. Exercises 0 days per week. Sleeps on average 7 hours per night. Normal bowel and bladder habits. Safety measures include appropriate use of safety belts and home smoke detectors. There a re no current emotional problems. screening, Pap smear () and screening, visual acuity (April 2009 wears contacts and or glasses ). 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
--- OUTSIDE RECORDS SUMMARY | 2018-11-30 18:18 | XMS RPT_ITS ---
:1985 Author Organization [facility] Support Name Relationship Address Phone GUERA ULLOA [address] + [place] [address] TIERRAMARANDA ANN Mother [address] + [place] [address] [facility] Unknown [address] + [place] [address] GUERA ULLOA [address] + [place] [address] TIERRA, MARANDA Mother [address] + [place] [address] [facility] Unknown [address] + [place] [address] GUERA ULLOA [address] + [place] [address] TIERRA, MARANDA Mother [address] + [place] [address] [facility] Unknown [address] + [place] [address] GUERA ULLOA [address] + [place] [address] TIERRA, MARANDA Mother [address] + [place] [address] [facility] Unknown [address] + [place] [address] GUERA ULLOA [address] + [place] [address] TIERRA, MARANDA Mother [address] + [place] [address] [facility] Unknown [address] + [place] [address] KIRALUGGGRETCHEN, GUERA [address] + [place] [address] TIERRA, MARANDA Mother [address] + [place] [address] [facility] Unknown [address] + [place] [address] KIRALUGGGRETCHEN, GUERA [address] + [place] [address] TIERRA, MARANDA Mother [address] + [place] [address] [facility] Unknown [address] + [place] [address] KIRALUGGGRETCHEN, GUERA [address] + [place] [address] TIERRA, MARANDA Mother [address] + [place] [address] [facility] Unknown [address] + [place] [address] MCCLUGGGRETCHEN, GUERA [address] + [place] [address] TIERRA, MARANDA Mother [address] + [place] [address] [facility] Unknown [address] + [place] [address] MCCLUGGGRETCHEN, GUERA [address] + [place] [address] TIERRA, MARANDA Mother [address] + [place] [address] [facility] Unknown [address] + [place] [address] MCCLUGGAGE, GUERA [address] + [place] [address] TIERRA, MARANDA Mother [address] + [place] [address] [facility] Unknown [address] + [place] [address] MCCLUGGGRETCHEN, GUERA [address] + [place] [address] TIERRA, MARANDA Mother [address] + [facility] [place] [place] [address] [facility] Unknown [address] + [place] [address] GUERA ULLOA Unknown [address] + [facility] [place] [address] MCCBRITNEY, GUERA Spouse [address] [place] [address] NOT GIVEN Unknown Unavailable Unavailable CARSON, GUERA [address] + [facility] [place] [address] TIERRA, MARANDA Mother [address] + [facility] [place] [address] [facility] Unknown [address] + [place] [address] CARSON, GUERA [address] + [facility] [place] [address] TIERRA, MARANDA Mother [address] + [facility] [place] [address] [facility] Unknown [address] + [place] [address] CARSON, GUERA [address] + [facility] [place] [address] TIERRA, MARANDA Mother [address] + [facility] [place] [address] [facility] Unknown [address] + [place] [address] MCCLUGGGRETCHEN, GUERA [address] + [place] [address] TIERRA, MARANDA Mother [address] + [facility] [place] [address] [facility] Unknown [address] + [place] [address] ZULMAGGGRETCHEN, GUERA [address] + [place] [address] TIERRA, MARANDA Mother [address] + [facility] [place] [facility] [place] [address] [facility] Unknown [address] + [place] [address] Care Team Providers Name Role Phone RICHIEMichel SOCORRO PATIENT ACCOUNT ANALYST Admitting Unavailable CIJENNIFERSOCORRO PATIENT ACCOUNT ANALYST Attending Unavailable CISOCORRO RODRIGUEZ PATIENT ACCOUNT ANALYST Primary Care Unavailable CISOCORRO RODRIGUEZ PATIENT ACCOUNT ANALYST Consulting Unavailable PROVIDER, UNKNOWN Consulting Unavailable PROVIDER, UNKNOWN Consulting Unavailable Cimca, Socorro Attending Unavailable Risa Roldan MD Referring Unavailable Ciesa, Socorro Consulting Unavailable Ciesa, Socorro Attending Unavailable Ciesa, Socorro Referring Unavailable Ciesa, Socorro Primary Care Unavailable Ciesa, Socorro Attending Unavailable Ciesa, Socorro Primary Care Unavailable Ciesa, Socorro Attending Unavailable Ciesa, Socorro Primary Care Unavailable Erwin Ferrera Attending Unavailable Ciesa, Socorro Referring Unavailable Ciesa, Socorro Attending Unavailable Ciesa, Socorro Referring Unavailable Ciesa, Socorro Primary Care Unavailable ASSESSMENT, HEALTH RISK Attending Unavailable ASSESSMENT, HEALTH RISK Referring Unavailable Ciesa, Socorro Primary Care Unavailable Ciesa, Socorro Primary Care Unavailable Eileen Ramon Admitting Unavailable Eileen Ramon Attending Unavailable MarileeesaSocorro Attending Unavailable Ciesa, Socorro Referring Unavailable Ciesa, Socorro Primary Care Unavailable Ciesa, Socorro Primary Care Unavailable Nick Valladares Attending Unavailable Sophie Tang Attending Unavailable Sophie Tang Referring Unavailable Ciesa, Socorro Primary Care Unavailable Ciesa, Socorro Attending Unavailable Ciesa, Socorro Referring Unavailable Ciesa, Socorro Primary Care Unavailable Ciesa, Socorro Attending Unavailable Ciesa, Socorro Primary Care Unavailable Praveen Moser Attending Unavailable Praveen Moser Referring Unavailable Ciesa, Socorro Primary Care Unavailable Jack Donohue Attending Unavailable Jack Donohue Referring Unavailable Ciesa, Socorro Primary Care Unavailable Ciesa, Socorro Attending Unavailable Ciesa, Socorro Primary Care Unavailable Ciesa, Socorro Attending Unavailable Ciesa, Socorro Referring Unavailable Ciesa, Socorro Primary Care Unavailable Praveen Moser Attending Unavailable Ciesa, Socorro Referring Unavailable Ciesa, Socorro Primary Care Unavailable Purpose Purpose PROBLEMS PROBLEMS DATE TYPE CONDITION / CODE ATTENDING STATUS SOURCE 09/08/2018 Unknown M54.2 - Cervicalgia CiesSocorro carreno Active [place] / M54.2(ICD-10) [facility] Rep[facility] 08/29/2018 Unknown E78.5 - Ciesa, Socorro Active [place] Hyperlipidemia, Community unspecified / Hospital E78.5(ICD-10) Repository 03/29/2018 Unknown G89.18 - Other acute Eileen Ramon Active [place] postprocedural pain Community / G89.18(ICD-10) Hospital Repository 04/21/2018 Unknown J45.909 - IbanErwin calabrese Active [place] Unspecified asthma, Community uncomplicated / Hospital J45.909(ICD-10) Repository 03/02/2018 Unknown N20.0 - Calculus of ClydeSophie Active [place] kidney / M Community N20.0(ICD-10) Hospital Repository 12/28/2017 Unknown L70.9 - Acne, Socorro [place] Active [place] unspecified / Community L70.9(ICD-10) Hospital Repository 12/10/2017 Unknown N39.0 - Urinary Socorro [place] Active [place] tract infection, Community site not specified / Hospital N39.0(ICD-10) Repository 11/23/2017 Unknown R39.15 - Urgency of Praveen Moser Active [place] urination / Community R39.15(ICD-10) Hospital Repository 11/17/2017 Unknown Z12.4 - Encounter Jack Donohue Active [place] for screening for [facility] malignant neoplasm [facility] / Repository Z12.4(ICD-10) PROCEDURES PROCEDURES No Procedure Records FoundVITAL SIGNS VITAL SIGNS No Vital Signs Records FoundRESULTS RESULTS DISCHARGE SUMMARY Observed: 09/02/2018 Status: F Source: [place] 3:43 PM [facility] [place] [facility] Medical Records Department [address] [place] [address] Discharge Summary 09/02/18 1536 MR#: [id number] Acct: [id number] Name: STEFFEN ULLOA E Rep #: [id number] : 1985 33 From: Brielle Saldaña PCP: [place] NP Status: REG RCR Y Location: [facility] Discharge Summary: Discharge Date: 09/02/2018 Steffen was seen for a massotherapy evaluation on 12/06/2017 with the diagnosis of neck and back pain. She was treated with nine sessions of massage therapy consisting of moderate pressure soft tissue techniques, myofascial release and trigger point compression to her cervical, thoracic, and low back. Steffen responded well to the therapy by reporting decreased tension and pain throughout her neck, shoulders, and back. Her goals for therapy were met throughout her massage treatment. At this time this patient is being discharged from our care at [facility] facility. 09/02/18 1543 <Electronically signed by Brielle Saldaña > Date Brielle Saldaña Cosigner Signature (if applicable): Date CC: Brielle Saldaña; Socorro Hernandez PATIENT ACCOUNT ANALYST Signed COMPREHENSIVE METABOLIC Collected: 08/29/2018 Status: F Source: [facility] 8:05 AM [facility] [place] [facility] Order Comment: ADD ON LIPID TYPE CODE TESTS RESULT OUT OF RANGE REFERENCE UNITS LAB L501.0100 74-106 mg/dL Normal GLU 82 Result Comment: Please note revised GLUCOSE reference range effective 2017. LAB L501.1000 7-18 mg/dL Normal BUN 11 LAB L501.1100 0.55-1.02 mg/dL Normal CREAT,SERUM 0.75 Result Comment: The validity of the calculated GFR AND GFRAA in patients over 70 years has not been determined. Clinical correlation is essential. LAB L501.1110 >60 mL/min Normal EST GFR 95 Result Comment: Non- GFR Calc LAB L501.1115 >60 mL/min Normal EST GFR - AA 115 Result Comment: GFR Calc LAB L501.1300 10-20 RATIO Normal BUN/CRE 14.6 LAB L501.1500 6.4-8.2 g/dL T Normal PROT 7.4 LAB L501.1800 3.2-5.0 g/dL Normal ALB 3.8 LAB L501.1950 2.2-4.2 g/dL Normal GLOB 3.6 LAB L501.2000 0.9-2.4 RATIO Normal A/G 1.1 LAB L501.2200 8.5-10.1 mg/dL CA Normal 9.3 LAB L501.4100 15-37 U/L Normal AST 21 LAB L501.4305 45-117 U/L Normal ALK P 75 LAB L501.4405 13-56 U/L Normal ALT 38 LAB L501.4600 0.20-1.00 mg/dL T Normal BILI 0.30 LAB L501.5300 136-145 mmol/L NA Normal 141 LAB L501.5600 3.5-5.1 mmol/L K Normal 3.9 LAB L501.5900 98-107 mmol/L CL Normal 107 LAB L501.6100 21.0-32.0 mmol/L Normal CO2 28.0 LAB L501.6200 5-15 Normal GAP 6 Performed By: #### L500.4050, L500.4100 #### [facility] [address] [facility]. [place], [place], [address] LIPID PROFILE Collected: 08/29/2018 Status: F Source: [place] 8:05 AM [facility] [place] [facility] Order Comment: ADD ON LIPID TYPE CODE TESTS RESULT OUT OF RANGE REFERENCE UNITS LAB L501.4900 200 mg/dL Normal CHOL 190 Result Comment: <200 mg/dL Desirable 200-240 mg/dL Borderline >240 mg/dL High Risk LAB L501.5000 mg/dL High TRIG 235 Result Comment: The drugs N-Acetylcysteine and Metamizole may falsely depress this assay. Serum Triglycerides Reference Interval Normal <150 mg/dL Borderline high 150 - 199 mg/dL High 200 - 499 mg/dL Very High > or = 500 mg/dL LAB L501.6400 mg/dL Normal HDL 41 Result Comment: The drugs N-Acetylcysteine and Metamizole may falsely depress this assay. Reference Range HDL <40 mg/dL Low HDL Cholesterol HDL >or= 60 mg/dL High HDL Cholesterol LAB L501.6500 0-130 mg/dL Normal LDL 102 LAB L501.6600 5-40 mg/dL High VLDL 47 Performed By: #### L500.4050, L500.4100 #### [facility] [address] [place], [place], [address] VITAMIN D,25 HYDROXY Collected: 05/30/2018 Status: F Source: [place] 11:57 AM [facility] [place] [facility] TYPE CODE TESTS RESULT OUT OF REFERENCE UNITS RANGE LAB L506.1000 29.95-100.01 ng/mL Low Vitamin D 26.4 25-OH Result Comment: Vitamin D 25(OH) Status Range Deficiency <20 ng/mL (50nmol/L) Insuffciency 20 - 30 ng/mL (50 - 75 nmol/L) Sufficiency 30 - 100 ng/mL (75 - 250 nmol/L) Toxicity >100 ng/mL (>250 nmol/L) Performed By: #### L506.1000 #### [facility] [address] [place], [address] THYROID STIM HORMONE Collected: 05/30/2018 Status: F Source: [place] ([facility]) 11:57 AM [facility] [place] [facility] TYPE CODE TESTS RESULT OUT OF RANGE REFERENCE UNITS LAB L501.9520 0.358-3.74 uIU/mL Normal TSH 1.21 Performed By: #### L501.9520 #### [facility] [address] [place], [address] KIDNEY AND BLADDER Observed: 05/30/2018 Status: F Source: [place] 11:18 AM [facility] [place] [facility] Imaging Services [address] [place] [address] Kidney and Bladder MR#: [id number] Acct: [id number] Name: STEFFEN ULLOA Rep #: [id number] : 1985 F 33 From: Marleni Moore MD PCP: Socorro Hernandez NP Status: REG CLI Study: Kidney and Bladder Date of Exam: 05/30/18 Exam# [id number] Ordering Dr: Socorro Hernandez STUDY: RENAL ULTRASOUND - COMPLETE REASON FOR [...] renal mass or cyst. There is a nonobstructing 3.8 mm calculus. There is no left hydronephrosis. DISTAL LEFT URETER: There is no demonstrated left ureteral jet. BLADDER: The distended urinary bladder has a volume of 44.7 ml. There is a normal wall thickness of the distended urinary bladder. There is no demonstrated mass within the urinary bladder. There are no demonstrated bladder calculi. There is a gallstone incidentally visualized. US/Kidney and Bladder IMPRESSION: Nonobstructing 3.8 mm left renal calculus. Electronically Signed: Marleni Moore MD at 17:08 EDT Tel , Service support , CC: Socorro Hernandez NP Procedures Tech: Signed CBC, EMPLOYEE Collected: 05/13/2018 Status: F Source: [place] 6:29 AM [facility] [place] [facility] TYPE CODE TESTS RESULT OUT OF RANGE REFERENCE UNITS LAB L100.1000 4.4-11.0 K/mm3 Normal WBC 8.5 LAB L100.1200 4.2-5.4 M/mm3 Normal RBC 4.79 LAB L100.1300 12.0-15.0 g/dl Normal HGB 14.2 LAB L100.1400 37-47 % Normal HCT 42.7 LAB L100.1500 81-99 fL Normal MCV 89.1 LAB L100.1600 27.0-32.0 pg Normal MCH 29.6 LAB L100.1700 32-36 g/gl Normal MCHC 33.3 LAB L100.1810 11.6-14.6 % Normal RDW CV 14.1 LAB L100.1820 35.1-43.9 fl High RDW SD 45.6 LAB L100.1900 150-450 K/mm3 Normal PLT 285 LAB L100.2000 6.2-12.0 fl Normal MPV 10.6 LAB L100.2110 47-70 % Normal NEUT% 55.1 LAB L100.2210 19-41 % Normal LY% 33.9 LAB L100.2310 0-10 % Normal MONO% 6.8 LAB L100.2410 0-5 % Normal EO% 3.8 LAB L100.2510 0-1 % Normal BASO% 0.2 LAB L100.2620 2.0-7.7 X10 3/uL Normal Absolute Neut 4.7 LAB L100.2720 0.83-4.51 X10 3/ul Normal Absolute Lymph 2.88 Performed By: #### L100.0200 #### [facility] [address] [facility]. [place], [place], [address] NICOTINE URINE DRUG Collected: 05/13/2018 Status: F Source: [place] SCREEN 6:29 AM [facility] [place] [facility] TYPE CODE TESTS RESULT OUT OF RANGE REFERENCE UNITS LAB L505.6250 TO BE Normal CONFIRMED Result Comment: CONFIRMATORY TESTING FOR ALL POSITIVE URINE DRUG SCREEN RESULTS WILL ONLY BE SENT OUT UPON PHYSICIAN ORDER. The results of Urine Drug Screen methods provide only preliminary analytical test results. A more specific alternate chemical method must be used in order to obtain a confirmed analytical result. Gas chromatography/mass spectrometery (GC/MS) is the preferred confirmatory method. Clinical consideration and professional judgement should be applied to any drug of abuse test result, particularly when preliminary positive results are used. LAB L505.6270 <200 ng/mL Normal COT DRG Negative SCREEN Result Comment: Cotinine is the first-stage metabolite of Nicotine. Performed By: #### L505.6240 #### [facility] [address] [facility]. [place], [place], [address] EMPLOYEE PROFILE Collected: 05/13/2018 Status: F Source: [place] 6:29 AM [facility] [place] [facility] TYPE CODE TESTS RESULT OUT OF RANGE REFERENCE UNITS LAB L501.0100 74-106 mg/dL Normal GLU 89 Result Comment: Please note revised GLUCOSE reference range effective 2017. LAB L501.1000 7-18 mg/dL Normal BUN 10 LAB L501.1100 0.55-1.02 mg/dL Normal CREAT,SERUM 0.76 Result Comment: The validity of the calculated GFR AND GFRAA in patients over 70 years has not been determined. Clinical correlation is essential. LAB L501.1110 >60 mL/min Normal EST GFR 94 Result Comment: Non- GFR Calc LAB L501.1115 >60 mL/min Normal EST GFR - AA 114 Result Comment: GFR Calc LAB L501.1300 10-20 RATIO Normal BUN/CRE 13.2 LAB L501.1400 2.6-6.0 mg/dL Normal URIC 4.0 Result Comment: The drugs N-Acetylcysteine and Metamizole may falsely depress this assay. LAB L501.1500 6.4-8.2 g/dL Normal T PROT 7.3 LAB L501.1800 3.2-5.0 g/dL Normal ALB 3.6 LAB L501.1950 2.2-4.2 g/dL Normal GLOB 3.7 LAB L501.2000 0.9-2.4 RATIO Normal A/G 1.0 LAB L501.2200 8.5-10.1 mg/dL Normal CA 9.1 LAB L501.2300 2.5-4.9 mg/dL Normal PHOS 3.2 LAB L501.4100 15-37 U/L Normal AST 17 LAB L501.4305 45-117 U/L Normal ALK P 77 LAB L501.4405 13-56 U/L Normal ALT 39 LAB L501.4600 0.20-1.00 mg/dL Normal T BILI 0.20 LAB L501.4700 0.00-0.30 mg/dL Normal D BILI 0.07 LAB L501.4900 200 mg/dL Normal CHOL 179 Result Comment: <200 mg/dL Desirable 200-240 mg/dL Borderline >240 mg/dL High Risk LAB L501.5000 mg/dL High TRIG 391 Result Comment: The drugs N-Acetylcysteine and Metamizole may falsely depress this assay. Serum Triglycerides Reference Interval Normal <150 mg/dL Borderline high 150 - 199 mg/dL High 200 - 499 mg/dL Very High > or = 500 mg/dL LAB L501.5300 136-145 mmol/L Normal NA 142 LAB L501.5600 3.5-5.1 mmol/L Normal K 4.0 LAB L501.5900 98-107 mmol/L Normal CL 106 LAB L501.6100 21.0-32.0 mmol/L Normal CO2 25.0 LAB L501.6200 5-15 Normal GAP 11 LAB L501.6400 mg/dL Normal HDL 41 Result Comment: The drugs N-Acetylcysteine and Metamizole may falsely depress this assay. Reference Range HDL <40 mg/dL Low HDL Cholesterol HDL >or= 60 mg/dL High HDL Cholesterol LAB L501.6475 Normal CHOL:HDL 4.40 LAB L501.6500 0-130 mg/dL Normal LDL 60 LAB L501.6600 5-40 mg/dL High VLDL 78 LAB L504.2610 84-246 U/L Normal LDH 178 Performed By: #### L500.2900 #### [facility] [address] [facility] [place], [address] URINALYSIS, EMPLOYEE Collected: 05/13/2018 Status: F Source: [place] 6:29 AM [facility] [place] [facility] TYPE CODE TESTS RESULT OUT OF RANGE REFERENCE UNITS LAB L400.3000 Yellow COLOR Normal Yellow LAB L400.3050 Clear Normal CLARITY Clear LAB L400.3200 Normal mg/dl Normal GLUCOSE, UR Normal LAB L400.3300 Negative mg/dL Normal BILIRUBIN URINE Negative LAB L400.3400 Negative mg/dl Normal KETONE UR Negative LAB L400.3465 1.002-1.030 Normal SP.GR. DIPSTX 1.020 LAB L400.3550 5.0 - 8.0 pH UR Normal 6.0 LAB L400.3600 Negative mg/dl PROT Normal DIPSTX Negative LAB L400.3700 Normal mg/dl Normal UROBILI Normal LAB L400.3750 Negative Normal NITRITE UR Negative LAB L400.3780 Negative /ul High 10 OCCULT BLOOD-UR LAB L400.3800 Negative /ul LEUK Normal ESTERASE Negative Performed By: #### L400.0100 #### [facility] [address] [facility] [place], [address] DISCHARGE INSTRUCTION Observed: 03/28/2018 Status: F Source: [place] 5:48 PM [facility] [place] [facility] Medical Records Department [address] [place] [address] [place] [address] Instructions for Home/Discharge Instructions 03/28/18 1741 MR#: [id number] Acct: [id number] Name: STEFFEN ULLOA Rep #: [id number] : 1985 32 From: Jack Donohue MD PCP: Socorro Hernandez NP Status: ADM NAHUN Discharge Diet: No Restrictions - Increase fluid intake for the next 48 hours. Discharge Activity: Return to Normal Activity, May Drive - when you are no longer taking pain/narcotic medicines., May Shower, May Take a Tub Bath Return to work on:: 04/04/18 May resume sexual activity in: 2 weeks Additional Activity Instructions:: No lifting more than 25 lbs for 2 weeks Call your doctor if your incision/area has: Continuous Slow Oozing, Sudden Increased Bleeding, Increased Pain/ Swelling, Increased Redness, Foul Smelling Discharge Call your doctor if you observe: Fever of 101 or Higher, Inability to urinate, Inability to have a bowel movement, Using more than one pad per hour, Uncontrolled pain Allergies/Adverse Reactions: Allergies ciprofloxacin [From Cipro] Allergy (Verified 03/26/18 12:03) Hives ciprofloxacin HCl [From Cipro] Allergy (Verified 03/26/18 12:03) Hives clarithromycin [From Biaxin] Allergy (Verified 03/26/18 12:03) Hives meperidine HCl [From Demerol] Allergy (Verified 03/26/18 12:03) Rash morphine Allergy (Verified 03/26/18 12:03) Rash sulfamethoxazole [From Bactrim] Allergy (Verified 03/26/18 12:03) Hives trimethoprim [From Bactrim] Allergy (Verified 03/26/18 12:03) Hives Medications to take at Discharge Elsie-3 Fatty Acids/Fish Oil [Fish Oil 1,000 mg Capsule] 1 ea PO DAILY 05/07/17 Rosuvastatin Calcium [Crestor] 5 mg PO DAILY 05/07/17 cholecalciferol (vitamin D3) 1,000 unit capsule 1,000 unit PO DAILY 11/19/17 norgestimate-ethinyl estradiol 0.18 mg/0.215mg/0.25mg-35 mcg(28)tablet 1 tab PO DAILY tab 11/19/17 Hydrocodone/Acetaminophen [[place] 5-325 Tablet] 1 each PO Q6H PRN PRN 06/21/18 RX: Naproxen [Naprosyn] 500 mg PO BID PRN #20 tab 03/03/18 RX: Hydrocodone Bitart/Apap 5-325 [[place] 5/325] 1 - 2 tablet PO Q6H PRN PRN 3 Days #20 tablet 03/27/18 The following prescriptions were given: RX: Hydrocodone Bitart/Apap 5-325 [[place] 5/325] 1 - 2 tablet PO Q6H PRN PRN 3 Days #20 tablet PRN Reason: Mod-Severe Pain (-06/22) Primary Care Physician: Socorro Hernandez [Primary Care Provider] - Test Results: Test results from this visit will be discussed in further detail at your follow-up appointment, if applicable. Please Follow Up With: Jack Donohue MD - [phone] When: 2-3 weeks Proposed Discharge Date: 03/27/18 03/28/18 1748 <Electronically signed by Jack Donohue MD> Date Jack Donohue MD CC: Socorro Hernandez NP OPERATIVE REPORT Observed: 03/28/2018 Status: F Source: [place] 5:41 PM [facility] [place] [facility] Medical Records Department [address] [place] [address] Operative Report 03/28/18 1520 MR#: [id number] Acct: [id number] Name: STEFFEN ULLOA Rep #: [id number] : 1985 32 From: Jack Donohue MD PCP: Socorro Hernandez NP Status: ADM NAHUN Y Location: [place] [address] Operative Report Date of Procedure: 03/28/18 Surgeon: Jack Donohue MD, FACOG Salesperson [employer]razzo Tiles: SAMANTHA Jones Anesthesia: Corry CoteatMOHINDER Type of Anesthesia: General Endotracheal Pre-Op Diagnosis: Right Ovarian Cyst and Pain; Desires Permanent Sterilization Postoperative Diagnosis: Right Ovarian Cyst and Pain; Desires Permanent Sterilization; Right Tubo-Ovarian Torsion Procedure: Diagnostic Laparoscopy, Right Salpingoophrectomy, Left Tubal Occlusion with Left Salpingectomy Findings: 8-9 cm uterus with normal appearing left fallopian tube and ovary; 8 cm right ovary in cul-de-sac with blackened and indurated areas suggestive of chronic torsion; right tube black from partial torsion; normal pelvic otherwise; right ureter movement noted after removal of tubes and ovary. Indications: This is a 32 year old patient who has the above diagnosis. She has also considered sterilization for quite some time. She is aware of the permanent nature of the procedure, the failure rate of 1-2%, and the availability of other nonpermanent control options. All questions were answered to consider the patient well-informed. Procedure: The patient was taken to the operating room where after induction of general anesthesia, she was placed in the dorsolithotomy position and prepped and draped in the usual sterile fashion. The bladder was drained of approximately 50 cc of clear yellow urine with a catheter. Anterior cervix was grasped with the tenaculum. Conn cannula was placed and attention was turned toward the laparoscopic portion of the procedure. Approximately 6 cc of half percent ropivacaine was injected subumbilically, suprapubically and midway between. A 5 mm bladeless trocar was placed subumbilically and intraperitoneal placement confirmed. After CO2 insufflation was complete, a 5 mm bladeless trocar was introduced suprapubically. This was eventulally converted to a 10/12 cm trochar. The above findings were noted. An 5 mm bladeless trochar port was then placed midway between these 2 ports. Enseal device was used to divide the infundibulopelvic ligament freeing the torsed right tube and ovary. Enseal device was then used to divide the mesosalpinx of the left fallopian tube to the uterus. The left fallopian tube was removed via the 10/12 mm port and after confirming hemostasis and Endobag was placed through the 10/12 mm port and right fallopian tube and ovary placed in this bag. The 10/12 mm port was removed and fascia extended to allow bringing the right fallopian tube and ovary through the small mini laparotomy incision site. Fascia was closed with running #1 Vicryl suture and subcutaneous tissue was copiously irrigated with saline before closing with running 3-0 Vicryl suture. Abdomen was reinsufflated and irrigated and hemostasis was noted. Laparoscopic instruments with as much CO2 gas as possible was removed and incisions were closed with running 4-0 Monocryl suture. Steri-Strip and OpSite were placed across the incisions. Steri-Strips placed across the incision. Vaginal instruments were removed. Patient tolerated procedure well was taken to recovery room in satisfactory condition sponge instrument and needle counts were all reportedly correct. Estimated blood loss for the case was minimal. Specimens to pathology was bilateral tubes and right ovary. 03/28/18 1741 <Electronically signed by Jack Donohue MD> Date Jack Donohue MD CC: Socorro Hernandez PATIENT ACCOUNT ANALYST; Jack Donohue MD Signed PROTHROMBIN TIME W/INR Collected: 03/28/2018 Status: F Source: [place] 1:10 PM [facility] [place] TYPE CODE TESTS RESULT OUT OF RANGE REFERENCE UNITS LAB L300.4150 11.7-14.9 SECONDS Normal PROTIME 13.4 LAB L300.4200 Normal INR 1.0 Performed By: #### L300.3900, L300.4310 #### [facility] [address] [place], [place], [address] PARTIAL THROMBOPLAST Collected: 03/28/2018 Status: F Source: [place] TIME 1:10 PM [facility] [place] TYPE CODE TESTS RESULT OUT OF RANGE REFERENCE UNITS LAB L300.4310 24.1-36.2 Seconds Normal PTT 27.7 Performed By: #### L300.3900, L300.4310 #### [facility] [address] [place], [address] TYPE AND SCREEN Collected: 03/28/2018 Status: F Source: [place] 1:10 PM [facility] [place] Order Comment: Reason for Type AND Screen/Red Cells: SURGERY Type of Surgery: LAPAROSCOPY TYPE CODE TESTS RESULT OUT OF RANGE REFERENCE UNITS LAB B10.0800 A Normal BLOOD TYPE GEL POSITIVE LAB B100.4000 Normal Antibody NEGATIVE Screen Performed By: #### B101.7450 #### [facility] [address] [place], [address] OVARY (CHOOSE SIDE) Observed: 03/28/2018 Status: F Source: [place] 12:25 PM [facility] [place] Patient: STEFFEN ULLOA : 1985 () Acct Num: [id number] Phys: Tristen VALENCIA,Eileen Unit Num: [id number] Loc: MS3 ON102-7 Specimen: [id number] Received: 03/29/181050 Spec Type: OVARY TISSUES TISSUES: A. Right ovary - RIGHT OVARY AND FALLOPIAN TUBE B. Left fallopian tube - LEFT FALLOPIAN TUBE COMMENT Case has been reviewed in consultation with Dr. Garibay who concurs with the above diagnosis. IDC:[id number] [email or web address] DESCRIPTION A - Received in fixative is one container labeled with the patient's name and designated right ovary and fallopian tube. The specimen consists of a cystic, martinez-abbott ovary measuring 8.5 x 5.8 x 3.2 cm. Adjacent to this is a fallopian tube measuring 6 cm in length and 0.8 cm in average diameter and containing a normal fimbriated end. No tubo-ovarian adhesions are seen. The ovary weighs 90 gm. The external surface of the ovary is inked. The external surface of the ovary does not contain papillary projections or excrescences and has a smooth, shiny appearance. Sections reveal a martinez, edematous appearance with multiple cysts ranging in size from 0.2 to 0.6 cm present at the edge. Bottom Saw Operator sections are submitted in six cassettes as follows: 1 fallopian tube, 2-5 ovary. B - Received in fixative is one container labeled with the patient's name and designated left fallopian tube. The specimen consists of a fallopian tube measuring 6 cm in length and 0.5 cm in average diameter. A normal fimbriated end is present. No mass lesions are identified. Bottom Saw Operator sections are submitted in one cassette. / AM:yarelis 03/29/18 TC:5 CPT: 20074 x2 HEADER OPERATION: Laparoscopic right salpingo-oophorectomy, left salpingectomy PRE-OP DIAGNOSIS: Enlarged right ovary, right lower quadrant pain TISSUE SUBMITTED: A Right ovary and fallopian tube, B Left fallopian tube MICROSCOPIC DESCRIPTION Slides are reviewed. MICROSCOPIC DIAGNOSIS A. Right ovary and fallopian tube, salpingo-oophorectomy: Massive ovarian edema. Follicular and corpus luteal cysts. Fallopian tube with no pathologic change. B. Left fallopian tube, salpingectomy: Benign paratubal cysts. AM:yarelis 03/30/18 Signed Jarad Melendez 03/30/18 <signature on file> Performed By: #### POV #### [facility] [address] [place], [address] DISCHARGE INSTRUCTION Observed: 03/27/2018 Status: F Source: [place] 8:10 AM [facility] [place] [facility] Medical Records Department [address] [place] [address] Instructions for Home/Discharge Instructions 03/27/18 0804 MR#: [id number] Acct: [id number] Name: STEFFEN ULLOA Rep #: [id number] : 1985 32 From: Eileen Ramon MD PCP: Socorro Hernandez NP Status: ADM NAHUN You will use the following diet at home:: Regular Return to work on:: 04/04/18 Additional Activity Instructions:: rest, off work until after surgery. Then to resume activity per postoperative instructions given. (lifting restrictions and activity will depend on type of incision needed) Call your doctor if you observe: Uncontrolled pain Allergies/Adverse Reactions: Allergies ciprofloxacin [From Cipro] Allergy (Verified 03/26/18 12:03) Hives ciprofloxacin HCl [From Cipro] Allergy (Verified 03/26/18 12:03) Hives clarithromycin [From Biaxin] Allergy (Verified 03/26/18 12:03) Hives meperidine HCl [From Demerol] Allergy (Verified 03/26/18 12:03) Rash morphine Allergy (Verified 03/26/18 12:03) Rash sulfamethoxazole [From Bactrim] Allergy (Verified 03/26/18 12:03) Hives trimethoprim [From Bactrim] Allergy (Verified 03/26/18 12:03) Hives Medications to take at Discharge Elsie-3 Fatty Acids/Fish Oil [Fish Oil 1,000 mg Capsule] 1 ea PO DAILY 05/07/17 Rosuvastatin Calcium [Crestor] 5 mg PO DAILY 05/07/17 cholecalciferol (vitamin D3) 1,000 unit capsule 1,000 unit PO DAILY 11/19/17 norgestimate-ethinyl estradiol 0.18 mg/0.215mg/0.25mg-35 mcg(28)tablet 1 tab PO DAILY tab 11/19/17 Hydrocodone/Acetaminophen [[place] 5-325 Tablet] 1 each PO Q6H PRN PRN 03/03/18 Naproxen [Naprosyn] 500 mg PO BID PRN #20 tab 03/03/18 Hydrocodone Bitart/Apap 5-325 [[place] 5/325] 1 - 2 tablet PO Q6H PRN PRN 3 Days #20 tablet 03/27/18 The following prescriptions were given: Hydrocodone Bitart/Apap 5-325 [[place] 5/325] 1 - 2 tablet PO Q6H PRN PRN 3 Days #20 tablet PRN Reason: Mod-Severe Pain (4-06/22) Primary Care Physician: Socorro Hernandez [Primary Care Provider] - Test Results: Test results from this visit will be discussed in further detail at your follow-up appointment, if applicable. Please Follow Up With: Jack Donohue MD - [phone] When: 2 wks for postop appointment Proposed Discharge Date: 03/27/18 03/27/18809 <Electronically signed by Eileen Ramon MD> Date Eileen Ramon MD CC: Socorro Hernandez PATIENT ACCOUNT ANALYST CBC W/DIFF, AUTOMATED Collected: 03/27/2018 Status: F Source: [place] 5:00 AM [facility] [place] TYPE CODE TESTS RESULT OUT OF RANGE REFERENCE UNITS LAB L100.1000 4.4-11.0 K/mm3 Normal WBC 6.3 LAB L100.1200 4.2-5.4 M/mm3 Normal RBC 4.43 LAB L100.1300 12.0-15.0 g/dl Normal HGB 13.2 LAB L100.1400 37-47 % Normal HCT 39.2 LAB L100.1500 81-99 fL Normal MCV 88.5 LAB L100.1600 27.0-32.0 pg Normal MCH 29.8 LAB L100.1700 32-36 g/gl Normal MCHC 33.7 LAB L100.1810 11.6-14.6 % Normal RDW CV 13.8 LAB L100.1820 35.1-43.9 fl High RDW SD 44.2 LAB L100.1900 150-450 K/mm3 Normal PLT 204 LAB L100.2000 6.2-12.0 fl Normal MPV 9.7 LAB L100.2100 47-70 % Normal NEUT% 55.7 LAB L100.2200 19-41 % Normal LY% 33.0 LAB L100.2300 0-10 % Normal MONO% 7.5 LAB L100.2400 0-5 % Normal EO% 3.2 LAB L100.2500 0-1 % Normal BASO% 0.3 LAB L100.2550 0.0-0.9 % Normal IM GRAN % 0.300 Result Comment: IG% - Immature Granulocytes (promyelocytes, myelocytes and metamyelocytes) > 1% indicates that a LEFT SHIFT is Present. LAB L100.2620 2.0-7.7 X10 3/uL Normal Absolute Neut 3.5 LAB L100.2720 0.83-4.51 X10 3/ul Normal Absolute Lymph 2.07 Performed By: #### L100.0100 #### [facility] [address] [facility] [place], [address] HISTORY AND PHYSICAL Observed: 03/27/2018 Status: F Source: [place] EXAM 4:27 AM [facility] [place] [facility] Medical Records Department [address] [place] [address] History and Physical 03/26/18 1703 MR#: [id number] Acct: [id number] Name: STEFFEN ULLOA E Rep #: [id number] : 1985 32 From: Eileen Ramon MD PCP: Socorro Hernandez NP Status: ADM NAHUN Y [facility] History and Physical Date of Admission: 03/26/18 HISTORY OF PRESENT ILLNESS: Steffen Ulloa, a 32 year old female 1 0 1 0 1, presented for: Steffen presents to [facility] Emergency Dept with h/o severe RLQ pain. States a h/o pain intermittently starting on 03/01/18 at the R flank and RLQ. She has h/o kidney stones and had prior ESWL procedure. This pain is different. She went to the ED then and had a CT scan 03-03-18 and found a 5.6 x 3.5 right ovarian cyst as well as two small, nonobstructing stones. She was given Naproxen for pain, and her pain has continued intermittently since then. She had an ultrasound in our office on 03/09/18 which showed: Uterus 9 x 4.5 x 3.5 cm with Endometrial stripe of 3 mm R ovary 6.9 x 5.7 x c cm and complex appearing L ovary 5 x 2.8 x 2.3 cm with multiple small follicles (dx of PCOS prior) She reports she had a 20 minute episode of pain 03/21/18 but the pain went away. 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 Pelvic sono at [facility] today: Uterus 8.1 x 5.3 x 3.9 cm with Endometrial stripe of 7 mm R ovary 7.2 x 6.7 x 4.8 cm with normal arterial and venous blood flow L ovary 3.3 x 2.7 x 1.8 cm Minimal fluid in cul de sac. Reviewed all finding with Steffen and her S.O. Advised will likely need to have laparoscopy to remove the enlarged right ovary due to pain , possible intermittent torsion. Her pain is currently a little better after Toradol and several doses of Dilaudid. But she is now nauseated after the pain medication. ALLERGIES: Morphine, Rash, Demerol, Rash, Biaxin, Rash, Cipro, Rash, Bactrim, Rash, MEDICATIONS HISTORY: Current medications prescribed by our practice are: 1. Tri-Previfem (28) 0.18 mg(7)/0.215 mg(7)/0.25 mg(7)-35 mcg tablet, One pill by mouth once a day Patient is also takin. Relpax 40 mg tablet, As Directed 2. Crestor 5 mg tablet, One pill by mouth once a day 3. naproxen 500 mg tablet, bid as needed REVIEW OF SYSTEMS: GENERAL - Denies fever, or chills SKIN - Denies skin changes EYES - Denies visual changes EARS - Denies difficulty hearing NOSE - Denies nasal congestion or bleeding MOUTH - Denies sore throat or difficulty swallowing NECK - Denies pain or swelling RESPIRATORY - Denies shortness of breath or wheezing CARDIOVASCULAR - Denies palpitations or chest pain GASTROINTESTINAL - Denies nausea, vomiting, diarrhea, constipation GENITOURINARY - Denies dysuria, frequency of urination, incontinence of urine. 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 Lithotripsy June 2017 2. Dx Lap @ 17 yrs of age 3. 05/06/2015 Suction D jennifer C Jack Donohue M.D. 4. 05/[address] Rodríguez MENSTRUAL HISTORY: LMP Known?- Yes Amount/Duration - 3 days, Regularity - Regular, Frequency - monthly days, LMP - 03/04/18, Age Onset Menarche - 14 PAST PREGNANCIES: Total Pregnancies - 2; Full Term Pregnancies - 1; Premature - 0; Abortions, Induced - 0; Abortions, Spontaneous - 1; Ectopics - 0; Multiple Births - 0; Living Children - 1 FAMILY HISTORY: Father - FH: Hyperthyroidism; Mother - FH: Hypertension; Mother - Osteoporosis; Maternal Grandparent - FH: Diabetes mellitus type 2; Maternal Grandparent - Cardiac disorder; Paternal Grandparent - FH: Cancer of colon; SOCIAL HISTORY: Alcohol Use - RARELY Smoking - denies smoking Diet - moderate, balanced diet Lifestyle - moderate stress lifestyle and Exercise - minimal Seat Belt Use - always Employer - [facility] [employer] 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 Illicit Drug Use - denies use of street drugs Sexual Activity - Hours Worked - 36 Spouse-Sig Other Name - Guera Spouse-Sig Other Occupation - Construction Children Name(s) - Elvin Control - Control Pills PHYSICAL EXAMINATION BP- 132/78 Weight- 229.20 lbs Height- 66.00 inch BMI:37.07 CONSTITUTIONAL - NAD, well nourished, and well developed SKIN - No rash, lesions, or ulcers HEENT - Normocephalic, PERRLA, EOMI NECK - No nuchal rigidity EXTREMITIES - No edema or calf tenderness NEUROLOGICAL - Cranial nerves II-XII grossly intact PSYCHIATRIC - A and O to time, place, person, mood and affect LABS: CBC wnl Hgb 14.4 g/dl. WBC normal. Plts normal. BMP WNL. UPT negative. ASSESSMENT: 1. Enlarged Right ovary 2. Abdominal Pain,RLQ PLAN BY DIAGNOSIS: 1. Abdominal Pain,RLQ and Enlarged Right ovary. Intermittent right lower quadrant pain. Enlarged Right ovary, complex appearing. Although Steffen has a history of kidney stones, no obstructing stones at present on CT and no hematuria. UPT negative. Likely pain due to enlarged right ovary with intermittent torsion. Admit for pain management to [facility]. Plan for laparoscopy with possible minilaparotomy to remove the enlarged Right ovary. Surgery TBS depending on persistence vs resolution of symptoms. 03/27/18 0427 <Electronically signed by Eileen Ramon MD> Date Eileen Ramon MD Cosigner Signature: Date (if applicable) CC: Socorro Hernandez NP; Eileen Ramon MD Signed EMERGENCY DEPARTMENT Observed: 03/26/2018 Status: F Source: [place] SUMMARY 3:13 PM [facility] [place] [facility] Medical Records Department [address] [place] [address] Emergency Department Summary 03/26/18 1509 MR#: [id number] Acct: [id number] Name: STEFFEN ULLOA Rep #: [id number] : 1985 32 From: Nick Valladares DO PCP: Socorro Hernandez NP Status: REG ER - ER Visit Summary Date of Service: 03/26/18 Chief Complaint: [Pelvic pain] History of Present Illness: The patient is a 32 F [presents to the emergency department with complaint of right lower pelvic pain. Patient states that the pain started this morning around 10:15 AM. Patient describes the pain as severe. Patient had a [...] lymph nodes in the right lower quadrant. Patient subsequently followed up with her LENS CLEANER and had an ultrasound that showed what patient states they felt was an endometrioma however they cannot rule out intermittent torsion as the etiology of her pain as well. Patient was advised that if her pain return either to go see her LENS CLEANER in the office or come to the [...] emphysema Abdomen-normoactive bowel sounds, soft. Patient has tenderness to palpation over the right pelvic abdomen. No rebound, rigidity, or perineal signs. No significant CVA tenderness. Extremities-intact 4, normal range of motion, normal pulses, atraumatic] Test Results: CBC with differential obtained showed a white count of 7.5, hemoglobin 14, hematocrit 42, platelets 220. Chemistries unremarkable. Urinalysis unremarkable. HCG was negative. Ultrasound of the pelvis was obtained which showed enlarged right ovary no dominant mass seen. The right ovary measured 7.2 x 6.7 x 4.8 cm. Minimal free fluid in the cul-de-sac. [] Emergency Department Course and Treatment: [Patient was medicated with Dilaudid and Zofran as well as Toradol. Patient's pain returned and she had to be remedicated with Dilaudid. Patient continues to be very painful. I discussed case with Dr. Eileen Ramon who was covering for Dr. Donohue and will admit patient for pain control. Patient will likely require diagnostic laparoscopy at some point.] Treatment Plan: [Admit for pain control] Disposition: [Admit] Impression: [Intractable pelvic pain Enlarged right ovary] This note was generated with [employer] dictation software. It may contain incorrect words, spelling, and punctuation that were not noted in review of the chart prior to signing ED Disposition - Plan for ED Patient: Chief Complaint: Abd Pain Referrals: Socorro Hernandez [Primary Care Provider] - What to do if you have Problems For any increased pain, shortness of breath, bleeding, nausea or vomiting, chest pain, or any unexpected problems, contact your Primary Care Provider. Call [facility] ([phone]) or report to the closest Emergency Room. Call 911 if necessary. 03/26/18 1513 <Electronically signed by Nick Valladares DO> Date Nick Valladares DO Cosigner Signature (If Indicated): Date CC: Socorro Hernandez PATIENT ACCOUNT ANALYST URINALYSIS, COMPLETE Collected: 03/26/2018 Status: F Source: [place] 12:30 PM [facility] [place] Order Comment: Order Date: 03/26/18 How was Urine Obtained? CLEAN CATCH TYPE CODE TESTS RESULT OUT OF RANGE REFERENCE UNITS LAB L400.3000 Yellow COLOR Normal Yellow LAB L400.3050 Clear Normal CLARITY Sl. Cloudy LAB L400.3200 Normal mg/dl Normal GLUCOSE, UR Normal LAB L400.3300 Negative mg/dL Normal BILIRUBIN URINE Negative LAB L400.3400 Negative mg/dl Normal KETONE UR Negative LAB L400.3465 1.002-1.030 Normal SP.GR. DIPSTX 1.010 LAB L400.3550 5.0 - 8.0 pH UR Normal 7.0 LAB L400.3600 Negative mg/dl PROT Normal DIPSTX Negative LAB L400.3700 Normal mg/dl Normal UROBILI Normal LAB L400.3750 Negative Normal NITRITE UR Negative LAB L400.3780 Negative /ul High 25 OCCULT BLOOD-UR LAB L400.3800 Negative /ul LEUK Normal ESTERASE Negative LAB L400.4050 0-5 /hpf WBC Normal 0-5 SEEN LAB L400.4100 0-5 /hpf Normal RBC-UA 0-5 SEEN LAB L400.4150 5-10 /hpf SQUAM Normal EPI 0-5 SEEN LAB L400.4300 None Seen /hpf 2+ Normal BACTERIA LAB L400.4350 <or=2+ /hpf Normal MUCUS, URINE RARE Performed By: #### L400.0001 #### [facility] [address] [place], [address] CBC W/DIFF, AUTOMATED Collected: 03/26/2018 Status: F Source: [place] 12:25 PM [facility] [place] TYPE CODE TESTS RESULT OUT OF RANGE REFERENCE UNITS LAB L100.1000 4.4-11.0 K/mm3 Normal WBC 7.5 LAB L100.1200 4.2-5.4 M/mm3 Normal RBC 4.76 LAB L100.1300 12.0-15.0 g/dl Normal HGB 14.4 LAB L100.1400 37-47 % Normal HCT 41.9 LAB L100.1500 81-99 fL Normal MCV 88.0 LAB L100.1600 27.0-32.0 pg Normal MCH 30.3 LAB L100.1700 32-36 g/gl Normal MCHC 34.4 LAB L100.1810 11.6-14.6 % Normal RDW CV 13.7 LAB L100.1820 35.1-43.9 fl High RDW SD 44.1 LAB L100.1900 150-450 K/mm3 Normal PLT 220 LAB L100.2000 6.2-12.0 fl Normal MPV 9.8 LAB L100.2100 47-70 % Normal NEUT% 64.7 LAB L100.2200 19-41 % Normal LY% 24.8 LAB L100.2300 0-10 % Normal MONO% 6.9 LAB L100.2400 0-5 % Normal EO% 3.3 LAB L100.2500 0-1 % Normal BASO% 0.3 LAB L100.2550 0.0-0.9 % Normal IM GRAN % 0.000 Result Comment: IG% - Immature Granulocytes (promyelocytes, myelocytes and metamyelocytes) > 1% indicates that a LEFT SHIFT is Present. LAB L100.2620 2.0-7.7 X10 3/uL Normal Absolute Neut 4.9 LAB L100.2720 0.83-4.51 X10 3/ul Normal Absolute Lymph 1.87 Performed By: #### L100.0100 #### [facility] [address] [facility] [place], [place], [address] BASIC METABOLIC Collected: 03/26/2018 Status: F Source: [place] PROFILE (BMP) 12:25 PM [facility] [place] TYPE CODE TESTS RESULT OUT OF RANGE REFERENCE UNITS LAB L501.0100 74-106 mg/dL Normal GLU 97 Result Comment: Please note revised GLUCOSE reference range effective 2017. LAB L501.1000 7-18 mg/dL Normal BUN 7 LAB L501.1100 0.55-1.02 mg/dL Normal CREAT,SERUM 0.83 Result Comment: The validity of the calculated GFR AND GFRAA in patients over 70 years has not been determined. Clinical correlation is essential. LAB L501.1110 >60 mL/min Normal EST GFR 85 Result Comment: Non- GFR Calc LAB L501.1115 >60 mL/min Normal EST GFR - AA 103 Result Comment: GFR Calc LAB L501.1255 ml/min Normal Estimated CRCL 92.78 LAB L501.1300 10-20 RATIO Low BUN/CRE 8.4 LAB L501.2200 8.5-10 mg/dL Normal .1 CA 9.2 LAB L501.5300 136-14 mmol/L Normal 5 NA 141 LAB L501.5600 3.5-5. mmol/L Normal 1 K 3.9 LAB L501.5900 98-107 mmol/L High CL 109 LAB L501.6100 21.0-3 mmol/L Normal 2.0 CO2 23.0 LAB L501.6200 5-15 Normal GAP 9 Performed By: #### L500.2500 #### [facility] [address] [facility] [place], [place], [address] ,SERUM,HCG QUALI. Collected: Status: F Source: [place] 03/26/2018 12:25 PM [facility] [place] TYPE CODE TESTS RESULT OUT OF REFERENCE UNITS RANGE LAB L700.7000 0-9 Nonpreg Negative Normal HCGSQUAL NEGATIVE LAB L700.6700 =>Qualitative mIU/mL Normal HCG Qual < 1 triggr Performed By: #### L700.6800 #### [facility] [address] [place], [address] PELVIC (NON ) Observed: 03/26/2018 Status: F Source: [place] 12:16 PM [facility] [place] [facility] Imaging Services [address] [place] [address] Pelvic (Non ) MR#: [id number] Acct: [id number] Name: STEFFEN ULLOA Rep #: [id number] : 1985 F 32 From: Ravin Lopez MD PCP: Socorro Hernandez NP Status: REG ER Study: Pelvic (Non ) Date of Exam: 03/26/18 Exam# [id number] Ordering Dr: Nick Valladares DO STUDY: ULTRASOUND OF THE FEMALE PELVIS REASON FOR EXAM: [...] I.U.D. The right ovary is visualized. The right ovary measures 7.2 x 6.7 x 4.8 cm. There is no right ovarian cyst or ovarian mass. There is no visualized right adnexal mass or complex lesion. There is normal arterial and normal venous vascularity. The left ovary is visualized. The left ovary measures 3.3 x 2.7 x 1.8 cm. There are multiple follicles of the left ovary without a dominant cyst. There is no visualized left adnexal mass or complex lesion. There is normal arterial and normal venous vascularity. There is minimal fluid in the cul-de-sac. The volume of the bladder was 22 ml. US/Pelvic (Non ) IMPRESSION: Enlarged right ovary. No dominant mass seen. Mild free fluid. Electronically Signed: Ravin Lopez MD at 14:45 EDT , Service support , CC: Socorro Hernandez NP; Nick Valladares DO Procedures Tech: Signed PULMONARY FUNCTION Observed: 03/22/2018 Status: F Source: [place] REPORT COMP 2:34 PM [facility] [place] Pulmonary Services/Neurology [address] [place] [address] MR#: [id number] Acct: [id number] Name: STEFFEN ULLOA Rep #: [id number] : 1985 32 From: Erwin Ferrera MD Referring Dr: Socorro Hernandez NP Status: REG CLI Ordering Dr: Date: Location: [facility] Sex: F C COMPLETE PULMONARY FUNCTION TEST INTERPRETATION Brief HPI: Patient is a 32 year old female, currently under the care of Socorro Hernandez, who presents to [facility] for complete pulmonary function tests secondary to diagnosis of dyspnea. Respiratory therapist reports good effort and reproducible results. Interpretation: Forced expiration spirometry shows no large airways obstructive ventilatory defect with an FEV1 of 103% predicted. There is no significant bronchodilator response [...] at 86% predicted. The airway resistance is normal. Compared to previous pulmonary function tests from 04/08/2017, there has been normalization of DLCO. Impression: These pulmonary function tests are within normal limits and show significant improvement compared to previous. 03/22/18 9434 <Electronically signed by Erwin Ferrera MD> Date Erwin Ferrera MD CC: Socorro Hernandez PATIENT ACCOUNT ANALYST; Erwin Ferrera MD Date Dictated: 03/22/181431 Date Transcribed: 03/22/181431 Procedures Tech: ELSA Signed DISCHARGE INSTRUCTION Observed: 03/03/2018 Status: F Source: J[place] 1:10 PM [facility] [place] [facility] Medical Records Department [address] [place] [address] Discharge Instruction 03/03/18 1308 MR#: [id number] Acct: [id number] Name: STEFFEN ULLOA Rep #: [id number] : 1985 32 From: Nick Valladares DO PCP: Socorro Hernandez NP Status: REG ER ED Disposition - Plan for ED Patient: Chief Complaint: Flank Pain Instructions: ED Cyst Ovarian, ED Adenitis Mesenteric Prescriptions: Naproxen [Naprosyn] 500 mg PO BID PRN #20 tab Referrals: Socorro Hernandez [Primary Care Provider] - Jack Donohue MD [STAFF PHYSICIAN] - 3-5 Days What to do if you have Problems For any increased pain, shortness of breath, bleeding, nausea or vomiting, chest pain, or any unexpected problems, contact your Primary Care Provider. Call [facility] ([phone]) or report to the closest Emergency Room. Call 911 if necessary. 03/03/18 1310 <Electronically signed by Nick Valladares DO> Date Nick Valladares DO Cosigner Signature (If Indicated): Date CC: Socorro Hernandez NP EMERGENCY DEPARTMENT Observed: 03/03/2018 Status: F Source: JORGE SUMMARY 1:07 PM [facility] [place] [facility] Medical Records Department [address] [place] [address] Emergency Department Summary 03/03/18 1303 MR#: [id number] Acct: [id number] Name: STEFFEN ULLAO Rep #: [id number] : 1985 32 From: Nick Valladares DO PCP: Socorro Hernandez NP Status: REG ER - ER Visit Summary Date of Service: 03/03/18 Chief Complaint: [Right-sided flank pain] History of Present Illness: The patient is a 32 F [presents the emergency department with right-sided flank pain 2 days. Patient has had intermittent pain over the last 2 days well and has a history of kidney stones. Patient states that the pain was more severe around 3:30 AM today and then began to improve however around 9:30 AM she again had increasing in the amount of pain and took a [place] at home. Patient denies urinary symptoms. Patient denies any fever. Her last menstrual period was about a month ago. Patient does not believe that she is and she is on control. Currently her pain is a 3 out of 10.] Physical Examination: [HEENT-PERRLA, EOMI. Cranial nerves II through XII grossly intact. TMs clear. Mucous membranes moist. No adenopathy. Cardiovascular-regular rate and rhythm without murmur or ectopy Lungs-clear to auscultation, chest wall stable without crepitus or subcu emphysema Abdomen-normoactive bowel sounds, soft. Patient has some mild right lower quadrant tenderness on palpation and some mild CVA tenderness on the right. There is no rebound, rigidity, or perineal signs. Extremities-intact 4, normal range of motion, normal pulses, atraumatic] Test Results: [CBC with differential obtained showed a normal white count of 6.1, hemoglobin 15, hematocrit 44, platelets 194. Chemistries unremarkable. Urinalysis showed 5-10 RBCs without signs of infection. HCG was negative. CT flank showed a right ovarian cyst and some increased lymph nodes in the right lower quadrant consistent with mesenteric adenitis.] Emergency Department Course and Treatment: [Patient refused pain medication in the emergency department.] Treatment Plan: [At this time patient is relatively pain-free. Patient advised to follow-up with her LENS CLEANER within next 3-5 days. Patient advised to use ibuprofen and then the [place] that she has for breakthrough pain. At this point I do not feel patient's history and exam consistent with torsion. Disposition: Discharged to home in stable condition Impression: [Abdominal pain Ovarian cyst Mesenteric adenitis] This note was generated with [employer] dictation software. It may contain incorrect words, spelling, and punctuation that were not noted in review of the chart prior to signing ED Disposition - Plan for ED Patient: Chief Complaint: Flank Pain Referrals: Socorro Hernandez [Primary Care Provider] - What to do if you have Problems For any increased pain, shortness of breath, bleeding, nausea or vomiting, chest pain, or any unexpected problems, contact your Primary Care Provider. Call [facility] ([phone]) or report to the closest Emergency Room. Call 911 if necessary. 03/03/18 1307 <Electronically signed by Nick Valladares DO> Date Nick Valladares DO Cosigner Signature (If Indicated): Date CC: Socorro David PATIENT ACCOUNT ANALYST CBC W/DIFF, AUTOMATED Collected: 03/03/2018 Status: F Source: [place] 11:30 AM [facility] [place] [facility] TYPE CODE TESTS RESULT OUT OF RANGE REFERENCE UNITS LAB L100.1000 4.4-11.0 K/mm3 Normal WBC 6.1 LAB L100.1200 4.2-5.4 M/mm3 Normal RBC 5.01 LAB L100.1300 12.0-15.0 g/dl Normal HGB 14.9 LAB L100.1400 37-47 % Normal HCT 44.2 LAB L100.1500 81-99 fL Normal MCV 88.2 LAB L100.1600 27.0-32.0 pg Normal MCH 29.7 LAB L100.1700 32-36 g/gl Normal MCHC 33.7 LAB L100.1810 11.6-14.6 % Normal RDW CV 13.6 LAB L100.1820 35.1-43.9 fl Normal RDW SD 43.7 LAB L100.1900 150-450 K/mm3 Normal PLT 194 LAB L100.2000 6.2-12.0 fl Normal MPV 9.8 LAB L100.2100 47-70 % High NEUT% 71.7 LAB L100.2200 19-41 % Normal LY% 20.6 LAB L100.2300 0-10 % Normal MONO% 5.5 LAB L100.2400 0-5 % Normal EO% 2.0 LAB L100.2500 0-1 % Normal BASO% 0.2 LAB L100.2550 0.0-0.9 % Normal IM GRAN % 0.000 Result Comment: IG% - Immature Granulocytes (promyelocytes, myelocytes and metamyelocytes) > 1% indicates that a LEFT SHIFT is Present. LAB L100.2620 2.0-7.7 X10 3/uL Normal Absolute Neut 4.4 LAB L100.2720 0.83-4.51 X10 3/ul Normal Absolute Lymph 1.26 Performed By: #### L100.0100 #### [facility] [address] [place], [address] URINALYSIS, COMPLETE Collected: 03/03/2018 Status: F Source: [place] 11:30 AM [facility] [place] [facility] Order Comment: How was Urine Obtained? CLEAN CATCH TYPE CODE TESTS RESULT OUT OF RANGE REFERENCE UNITS LAB L400.3000 Yellow COLOR Normal Yellow LAB L400.3050 Clear Normal CLARITY Sl. Cloudy LAB L400.3200 Normal mg/dl Normal GLUCOSE, UR Normal LAB L400.3300 Negative mg/dL Normal BILIRUBIN URINE Negative LAB L400.3400 Negative mg/dl Normal KETONE UR Negative LAB L400.3465 1.002-1.030 Normal SP.GR. DIPSTX 1.020 LAB L400.3550 5.0 - 8.0 pH UR Normal 6.0 LAB L400.3600 Negative mg/dl High PROT 30 DIPSTX LAB L400.3700 Normal mg/dl Normal UROBILI Normal LAB L400.3750 Negative Normal NITRITE UR Negative LAB L400.3780 Negative /ul High OCCULT BLOOD-UR 150 LAB L400.3800 Negative /ul High LEUK 25 ESTERASE LAB L400.4050 0-5 /hpf WBC Normal 0-5 SEEN LAB L400.4100 0-5 /hpf Normal RBC-UA 5-10 SEEN LAB L400.4150 5-10 /hpf SQUAM Normal EPI 0-5 SEEN LAB L400.4300 None Seen /hpf 1+ Normal BACTERIA LAB L400.4350 <or=2+ /hpf 2+ Normal MUCUS, URINE Performed By: #### L400.0001 #### [facility] [address] [facility] [place], [address] BASIC METABOLIC Collected: 03/03/2018 Status: F Source: [place] PROFILE (BMP) 11:30 AM [facility] [place] [facility] TYPE CODE TESTS RESULT OUT OF RANGE REFERENCE UNITS LAB L501.0100 74-106 mg/dL Normal GLU 95 Result Comment: Please note revised GLUCOSE reference range effective 2017. LAB L501.1000 7-18 mg/dL Normal BUN 11 LAB L501.1100 0.55-1.02 mg/dL Normal CREAT,SERUM 0.90 Result Comment: The validity of the calculated GFR AND GFRAA in patients over 70 years has not been determined. Clinical correlation is essential. LAB L501.1110 >60 mL/min Normal EST GFR 78 Result Comment: Non- GFR Calc LAB L501.1115 >60 mL/min Normal EST GFR - AA 94 Result Comment: GFR Calc LAB L501.1255 ml/min Normal Estimated CRCL 85.56 LAB L501.1300 10-20 RATIO Normal BUN/CRE 12.2 LAB L501.2200 8.5-10 mg/dL Normal .1 CA 9.4 LAB L501.5300 136-14 mmol/L Normal 5 NA 137 LAB L501.5600 3.5-5. mmol/L Normal 1 K 3.8 LAB L501.5900 98-107 mmol/L Normal CL 105 LAB L501.6100 21.0-3 mmol/L Normal 2.0 CO2 26.0 LAB L501.6200 5-15 Normal GAP 6 Performed By: #### L500.2500 #### [facility] [address] [facility] [place], [address] ,SERUM,HCG QUALI. Collected: Status: F Source: [place] 03/03/2018 11:30 AM [facility] [place] [facility] TYPE CODE TESTS RESULT OUT OF REFERENCE UNITS RANGE LAB L700.6700 =>Qualitative mIU/mL Normal HCG Qual < 1 triggr LAB L700.7000 0-9 Nonpreg Negative Normal HCGSQUAL NEGATIVE Performed By: #### L700.6800 #### [facility] [address] [place], [address] ABDOMEN/PELVIS WITHOUT Observed: 03/03/2018 Status: F Source: JORGE CONT 11:18 AM [facility] [place] [facility] Imaging Services [address] [place] [address] Abdomen/Pelvis without Cont MR#: [id number] Acct: [id number] Name: STEFFEN ULLOA Rep #: [id number] : 1985 F 32 From: Nicho Diaz MD PCP: Socorro Hernandez NP Status: REG ER Study: Abdomen/Pelvis without Cont Date of Exam: 03/03/18 Exam# [id number] Ordering Dr: Nick Valladares DO STUDY: CT [...] contrast. Sagittal and coronal images were reconstructed. Individualized dose optimization techniques were [...] the lower pole of the left kidney. Normal visualized stomach. Normal small intestine. Normal [...] Enlarged lymph nodes in the right lower quadrant suggestive of mesenteric adenitis. Nonobstructive bilateral nephrolithiasis. Electronically Signed: Nicho Diaz MD at 12:57 EDT Tel [phone], Service support , CC: Socorro Hernandez NP; Nick Valladares DO Procedures Tech: Signed MASSAGE THERAPY Observed: 12/29/2017 Status: F Source: [place] EVALUATION 4:06 PM [facility] [place] [facility] [address] [place] [address] Fax REHABILITATION SERVICES INITIAL EVALUATION MR#: [id number] Acct: [id number] Name: STEFFEN ULLOA Rep #: [id number] : 1985 32 From: Brielle Saldaña Referring Dr.: Socorro Hernandez NP Status: REG RCR Insurance: [facility] SELF PAY INSURANCE Massage Therapy Evaluation: Initial Evaluation Date: 12/06/2017 SUBJECTIVE: Steffen is a 32 year old female who was referred to the [facility] facility for a massotherapy evaluation by Dr. hernandez with the diagnosis of headaches, low back pain and thoracic pain. She presents today with the symptoms of low back pain with muscle tension in her low back and hips. She also complains of tension and pain in her neck shoulders and having headaches. She reports having a medical history of neck and back pain. She reports having minimal limitations during her daily activities currently. OBJECTIVE: Upon observation Steffen has poor posture with her head forward and shoulders forward from the neutral position in sitting and standing. After examination and palpation I found Steffen to have very high muscle tension and myofascial restrictions in her sub occipitals, trapezius, rhomboids, scalenes, thoracic paraspinals and pectoral muscles. Her hips and lumbar region were also tight. The first treatment consisted of a one hour massage to her upper body with myofascial release, muscle stripping, trigger point compression techniques, and cervical manual traction. ASSESSMENT: I feel that Steffen is a good candidate for massotherapy at this time. She had a favorable response to the first treatment with reduction in her muscle aches, pain and tension. She also had improvement in her cervical flexibility. Massage has been known to help Steffen in the past. PLAN: The plan of care was reviewed with the patient. The patient is to be seen on as needed basis for a total of ten sessions with the recommendation of once every four weeks for a one hour treatment. <Electronically signed by Brielle Saldaña > 12/29/17 1606 CC: Socorro Hernandez NP SAMEER Signed For Medicare only, by signing this I certify the plan of care. Physicians Signature Date COMPREHENSIVE METABOLIC Collected: 12/28/2017 Status: F Source: JORGE BERNIE 7:12 AM [facility] [place] [facility] TYPE CODE TESTS RESULT OUT OF RANGE REFERENCE UNITS LAB L501.0100 74-106 mg/dL Normal GLU 88 Result Comment: Please note revised GLUCOSE reference range effective 2017. LAB L501.1000 7-18 mg/dL Normal BUN 10 LAB L501.1100 0.55-1.02 mg/dL Normal CREAT,SERUM 0.82 Result Comment: The validity of the calculated GFR AND GFRAA in patients over 70 years has not been determined. Clinical correlation is essential. LAB L501.1110 >60 mL/min Normal EST GFR 87 Result Comment: Non- GFR Calc LAB L501.1115 >60 mL/min Normal EST GFR - AA 105 Result Comment: GFR Calc LAB L501.1300 10-20 RATIO Normal BUN/CRE 12.2 LAB L501.1500 6.4-8.2 g/dL T Normal PROT 7.2 LAB L501.1800 3.2-5.0 g/dL Normal ALB 3.4 LAB L501.1950 2.2-4.2 g/dL Normal GLOB 3.8 LAB L501.2000 0.9-2.4 RATIO Normal A/G 0.9 LAB L501.2200 8.5-10.1 mg/dL CA Normal 9.0 LAB L501.4100 15-37 U/L Normal AST 15 LAB L501.4305 45-117 U/L Normal ALK P 59 LAB L501.4405 13-56 U/L Normal ALT 19 LAB L501.4600 0.20-1.00 mg/dL Low T BILI 0.10 LAB L501.5300 136-145 mmol/L NA Normal 141 LAB L501.5600 3.5-5.1 mmol/L K Normal 4.0 LAB L501.5900 98-107 mmol/L CL Normal 107 LAB L501.6100 21.0-32.0 mmol/L Normal CO2 27.0 LAB L501.6200 5-15 Normal GAP 7 Performed By: #### L500.4050, L500.4100 #### [facility] [address] [place], [address] LIPID PROFILE Collected: 12/28/2017 Status: F Source: [place] 7:12 AM [facility] [place] [facility] TYPE CODE TESTS RESULT OUT OF RANGE REFERENCE UNITS LAB L501.4900 200 mg/dL Normal CHOL 180 Result Comment: <200 mg/dL Desirable 200-240 mg/dL Borderline >240 mg/dL High Risk LAB L501.5000 mg/dL High TRIG 273 Result Comment: The drugs N-Acetylcysteine and Metamizole may falsely depress this assay. Serum Triglycerides Reference Interval Normal <150 mg/dL Borderline high 150 - 199 mg/dL High 200 - 499 mg/dL Very High > or = 500 mg/dL LAB L501.6400 mg/dL Normal HDL 44 Result Comment: The drugs N-Acetylcysteine and Metamizole may falsely depress this assay. Reference Range HDL <40 mg/dL Low HDL Cholesterol HDL >or= 60 mg/dL High HDL Cholesterol LAB L501.6500 0-130 mg/dL Normal LDL 81 LAB L501.6600 5-40 mg/dL High VLDL 55 Performed By: #### L500.4050, L500.4100 #### [facility] [address] [place], [place], [address] URINALYSIS, COMPLETE Collected: 12/10/2017 Status: F Source: JORGE 1:50 PM [facility] [place] [facility] Order Comment: How was Urine Obtained? CLEAN CATCH TYPE CODE TESTS RESULT OUT OF RANGE REFERENCE UNITS LAB L400.3000 Yellow COLOR Normal Yellow LAB L400.3050 Clear Normal CLARITY Clear LAB L400.3200 Normal mg/dl Normal GLUCOSE, UR Normal LAB L400.3300 Negative mg/dL Normal BILIRUBIN URINE Negative LAB L400.3400 Negative mg/dl Normal KETONE UR Negative LAB L400.3465 1.002-1.030 Normal SP.GR. DIPSTX 1.015 LAB L400.3550 5.0 - 8.0 pH UR Normal 6.5 LAB L400.3600 Negative mg/dl PROT Normal DIPSTX Negative LAB L400.3700 Normal mg/dl Normal UROBILI Normal LAB L400.3750 Negative Normal NITRITE UR Negative LAB L400.3780 Negative /ul High 10 OCCULT BLOOD-UR LAB L400.3800 Negative /ul LEUK Normal ESTERASE Negative LAB L400.4050 0-5 /hpf WBC Normal 0-5 SEEN LAB L400.4100 0-5 /hpf Normal RBC-UA 0-5 SEEN LAB L400.4150 5-10 /hpf SQUAM Normal EPI 0-5 SEEN LAB L400.4300 None Seen /hpf 1+ Normal BACTERIA LAB L400.4350 <or=2+ /hpf 0 Normal MUCUS, URINE SEEN Performed By: #### L400.0001 #### [facility] [address] [place], [address] URGENT CARE VISIT Observed: 11/24/2017 Status: F Source: [place]OR[place] REPORT 3:31 PM [facility] [place] [facility] Now [address] [place] [address] OFFICE VISIT Date of Service: 11/19/17 MR#: [id number] Acct: [id number] Name: STEFFEN ULLOA Rep #: [id number] : 1985 Provider: Praveen WHATLEY Age/Sex: 32/F [place] [facility] Status: Signed with Addenda ADDENDUM by Jose A WHATLEY on 11/24/17 at 1531 Addendum entered and electronically signed by PHYLICIA Alba 11/24/17 15:31: VM left for pt to return our call; when she calls back please inform pt of updated urine results and that Macrobid was prescribed/ sent to her pharmacy of choice. HPI Details: STEFFEN ULLOA, is a 32 F who presents to the office today for 11/24/17 1531 <Electronically signed by Jose A WHATELY> Date Jose A Carrasco cc: * Signed [...] Bactrim] Allergy (Verified 11/19/17 17:14) Hives Medications Elsie-3 Fatty Acids/Fish Oil [Fish Oil 1,000 mg [...] (Acute) H/O cystoscopy (Acute) Family History Father Thyroid disorder Mother Hypertension Osteoarthritis Social History Smoking Status: Never smoker alcohol intake: never HPI HPI Details: STEFFEN ULLOA, is a 32 F who presents to [...] Gastro GI: No vomiting, nausea/dyspepsia or diarrhea Genitourinary-Female: Positive for suprapubic [...] fatigue Exam Const General: cooperative, healthy appearing [facility] Head: normocephalic, atraumatic Ears: hearing grossly normal bilaterally Nose: external nose normal Face and sinus: face symmetric, normal facial exam Mouth: oral mucosae normal Throat: posterior oropharynx normal Eyes General: appearance normal, both eyes and all related structures Pupils: PERRL Resp Effort AND Inspection: normal respiratory effort Auscultation: Bilateral: Clear to Auscultation Cardio Palpation: normal PMI Rate: regular rate Rhythm: regular rhythm GI Inspection: normal to inspection Auscultation: normal bowel sounds Percussion: normal to [...] 17:25 Assessment AND Plan 1. Benign essential microscopic [...] the above. This note was generated with [employer] software. It may contain incorrect words, spelling, and punctuation that were not noted in checking the note before signing. Plan Detail Other Orders Orders: Other Medications Discontinued: hydrocodone-acetaminophen 5-325 mg Disco1 - 2 ea PO Q6H PRN PRN Pain Rajwinder Irby ntinued Reason: Pt no longer taking Coding Level of Care Code Off vis,new,level 3 Diagnoses Benign essential microscopic hematuria R31.1 Hematuria type: benign essential microscopic 11/19/17 1750 <Electronically signed by Praveen WHATLEY> Date Praveen WHATLEY Cosigner Signature: Date (if applicable) CC: URINALYSIS, COMPLETE Collected: 11/22/2017 Status: F Source: [place] 6:42 PM [facility] [place] [facility] Order Comment: How was Urine Obtained? CLEAN CATCH TYPE CODE TESTS RESULT OUT OF RANGE REFERENCE UNITS LAB L400.3000 Yellow COLOR Normal Straw LAB L400.3050 Clear Normal CLARITY Clear LAB L400.3200 Normal mg/dl Normal GLUCOSE, UR Normal LAB L400.3300 Negative mg/dL Normal BILIRUBIN URINE Negative LAB L400.3400 Negative mg/dl Normal KETONE UR Negative LAB L400.3465 1.002-1.030 Normal SP.GR. DIPSTX 1.010 LAB L400.3550 5.0 - 8.0 pH UR Normal 7.0 LAB L400.3600 Negative mg/dl PROT Normal DIPSTX Negative LAB L400.3700 Normal mg/dl Normal UROBILI Normal LAB L400.3750 Negative Normal NITRITE UR Negative LAB L400.3780 Negative /ul High 10 OCCULT BLOOD-UR LAB L400.3800 Negative /ul LEUK Normal ESTERASE Negative LAB L400.4050 0-5 /hpf WBC 0 Normal SEEN LAB L400.4100 0-5 /hpf 0 Normal RBC-UA SEEN LAB L400.4150 5-10 /hpf SQUAM 0 Normal EPI SEEN LAB L400.4300 None Seen /hpf 0 Normal BACTERIA SEEN LAB L400.4350 <or=2+ /hpf 0 Normal MUCUS, URINE SEEN Performed By: #### L400.0001, M100.0650 #### [facility] [address] [place], [address] Observed: 11/22/2017 Status: F Source: JORGE CULTURE, URINE 6:42 PM [facility] [place] Urine Culture Below infection level. ORGANISM 1: GPC Poss Enterococcus sp [place] Count <1000 Performed By: #### L400.0001, M100.0650 #### [facility] [address] [place], [address] PAP IG W/REFLEX HR Collected: 11/16/2017 Status: F Source: JORGE HPV APTIMA 4:00 PM [facility] [place] [facility] Order Comment: CYTOLOGY INFORMATION: - CLINICAL INFORMATION: - DATE LMP/MENOPAUSE: 11/12/17 LMP - COLLECTION VIAL: Thin Prep Vial - GREASER HELPER SOURCE: CERVICAL/ENDOCERVICAL - COLLECTION TECHNIQUE: BRUSH/SPATULA Specimen Comment: [id number] Specimen Comment: No. of containers..01 ThinPrep Vial TYPE CODE TESTS RESULT OUT OF RANGE REFERENCE UNITS LAB L7400.0800 . Normal DIAGN Comment Result Comment: NEGATIVE FOR INTRAEPITHELIAL LESION AND MALIGNANCY. LAB L7400.0900 . Normal ADEQ Comment Result Comment: Satisfactory for evaluation. Endocervical and/or squamous metaplastic cells (endocervical component) are present. LAB L7400.1400 . Normal PERFORM Comment Result Comment: Tatyana Davis, Apns (ASCP) LAB L7400.2575 . Normal TEST METHOD Comment Result Comment: This liquid based ThinPrep(R) pap test was screened with the use of an image guided system. LAB L7400.2600 . Normal . COMM LAB L7400.2700 . Normal PAPSMR Comment Result Comment: The Pap smear is a screening test designed to aid in the detection of premalignant and malignant conditions of the uterine cervix. It is not a diagnostic procedure and should not be used as the sole means of detecting cervical cancer. Both false-positive and false-negative reports do occur. LAB L7400.2800 . Normal HPV RFLX Comment Result Comment: The HPV DNA reflex criteria were not met with this specimen result therefore, no HPV testing was performed. Performed at: [facility] [id number] [employer] Mechan[employer] Apprentice: Shaylee Benítez MD, Phone: [phone] Performed By: #### L7400.0357 #### [facility] (refer to report for specific site) refer to report for address and phone number PARATHYROID SCAN Observed: 11/03/2017 Status: F Source: [place] 9:59 AM [facility] [place] [facility] Imaging Services [address] [place] [address] Parathyroid Scan MR#: [id number] Acct: [id number] Name: STEFFEN ULLOA Rep #: [id number] : 1985 F 32 From: Hitesh Garcia DO PCP: Socorro Hernandez NP Status: REG CLI Study: Parathyroid Scan Date of Exam: 11/03/17 Exam# [id number] Ordering Dr: Socorro Hernandez CLINICAL: 32-year-old female with reported history of [...] from the previously defined right-left thyroid parenchyma without evidence of focal retained radiopharmaceutical identified. NM/Parathyroid Scan IMPRESSION: 1. NEGATIVE 99m Tc SESTAMIBI PARATHYROID IMAGING DUAL PHASE EXAMINATION. 2. There is no current typical scintigraphic evidence of parathyroid adenoma on the present evaluation. Electronically Signed: Hitesh Garcia DO at 10:27 EST Tel , Service support , CC: Socorro Hernandez NP Procedures Tech: Signed ALLERGIES ALLERGIES DATE TYPE / CODE NAME / CODE REACTION SEVERITY SOURCE 03/26/2018 Drug meperidine Rash Unknown Jorge Allergy/416 HCl/[id number](RXNO [facility] 151981[facility] ED CT) Repository 03/26/2018 Drug ciprofloxacin Hives Unknown Jorge Allergy/416 HCl/[id number](RXNO [facility] 766021[facility] ED CT) Repository 03/26/2018 Drug morphine/[id number] Rash Unknown Jorge Allergy/416 (RXNORM) [facility] 019961([facility] ED CT) Repository 03/26/2018 Drug sulfamethoxazole/F0 Hives Unknown Jorge Allergy/416 [id number](RXNORM) [facility] 036101([facility] ED CT) Repository 03/26/2018 Drug trimethoprim/W39358 Hives Unknown Jorge Allergy/416 2873(RXNORM) [facility] 152746([facility] ED CT) Repository 03/26/2018 Drug ciprofloxacin/F0060 Hives Unknown Jorge Allergy/416 13816(RXNORM) [facility] 900704([facility] ED CT) Repository 03/26/2018 Drug clarithromycin/F006 Hives Unknown [place] Allergy/416 947792(RXNORM) [facility] 826810([facility] ED CT) Repository Drug MEPERIDINE/[id number] Moderate Blade Pomerene Allergy/416 (RXNORM) ([address]) (Qualifier Repository Value) Drug MORPHINE/[id number](R Moderate Blade [place] Allergy/416 XNORM) ([place] [address]([facility]) [facility] ED CT) (Qualifier Repository Value) Drug CLARITHROMYCIN/0000 [facility]416 1368(RXNORM) ([facility] 040187([facility] ED CT) (Qualifier Repository Value) ENCOUNTERS ENCOUNTERS ADMIT/DISCHARGE ACCOUNT ADMITTING ENCOUNTER LOCATION SOURCE NUMBER CLASS 10/03/2018 [id number] Ambulatory Building:[facility] OHIP Practices Repository 09/02/2018/ [id number] Ambulatory Slater Slater 8 6 [facility] ing:MASS Repository 08/29/2018 [id number] Ambulatory Jorge Jorge 1 [facility] ing:LAB Repository 05/30/2018 [id number] Ambulatory Jorge Slater 8 [facility] ing:US Repository 05/13/2018 [id number] Ambulatory Jorge Slater 0 [facility] ing:EMPH Repository 03/26/2018/ [id number] Tristen Ambulatory Slater Jorge 8 1 [facility] ing:WJ0Ovpj: Repository II930Zpr: 1 03/22/2018 [id number] Ambulatory BMSBuilding:W Jorge 8 [facility] Repository 03/22/2018 [id number] Ambulatory Jorge Slater 7 [facility] ing:PSN Repository 03/03/2018/ [id number] Emergency Slater Jorge 8 5 [facility] ing:ED Repository 03/02/2018 [id number] Ambulatory Slater Slater 4 [facility] ing:RAD.FUTUR Repository E 12/28/2017 [id number] Ambulatory Slater Jorge 3 [facility] ing:LAB Repository 12/10/2017 [id number] Ambulatory Slater Slater 5 [facility] ing:LAB Repository 12/08/2017 [id number] Ambulatory Jorge Slater 5 [facility] ing:LAB.FUTUR Repository E 11/19/2017 [id number] MARILEESOCORRO RODRIGUEZ Ambulatory [facility] Repository 11/19/2017/ [id number] Ambulatory BMSBuilding:B Jorge 8 1 [facility] Repository 11/19/2017 [id number] Ambulatory Jorge Slater 4 [facility] ing:LABSPEC Repository 11/16/2017 [id number] Ambulatory Slater Slater 7 [facility] ing:LABSPEC Repository 11/08/2017 [id number] Ambulatory Jorge Jorge 8 [facility] ing:LAB.FUTUR Repository E 11/03/2017 [id number] Ambulatory Slater Jorge 4 [facility] ing:NM Repository FUNCTIONAL STATUS FUNCTIONAL STATUS No Functional Status Records FoundEQUIPMENT EQUIPMENT No Equipment Records FoundPAYERS PAYERS ENCOUNTER GUARANTOR PAYER SUBSCRIBER SOURCE 10/03/2018 Steffen E Primary Steffen E OHIP Practices McCluggageDOB: Insurance:Medical McCluggageDOB: Repository [facility] [id number] Jordyn Number: Jordyn [place], [place] [id number] [place], [place] [address]Mdh: (330) Date:8681-05-81Xosb 22097Gwy: Name:[facility] [phone] (HP) (HP)Tel: (375) [phone], [place] [phone] (WP) [id number]: 10/03/2018 Secondary Steffen E OHIP Practices Insurance:Health McCluggageDOB: Repository [facility] [id number] Number: Jordyn [id number], [place] Date:2006-09-13 [address]17[address]Wcn: [id number] ~(3 Name:[facility] [address] (HP) NOT USE, [place]PIREDModesto, [place] [address]SP: 09/02/2018 STEFFEN E Primary Insurance:[facility] STEFFEN Patel [id number] [facility] Number: [id number], [place] [id number] Repository [address]Ddv: (330) Date:4159-15-10EE [phone] (HP) 18061BTPZQVXLL, [place] [address]PD: CHECK WEBSITE 09/02/2018 Secondary NOT GIVENUNK Slater Insurance:SELF PAY [facility] Number: Effective Repository Date:2017-11-15 08/29/2018 STEFFEN E Primary Insurance:[facility] STEFFEN E Jorge [id number] [facility] MCCLUGGAGEDOB: [facility] Number: [id number], [place] [id number] Repository [address]Fyx: (330) Date:9603-12-99LN [phone] (HP) [address]IGSHOQTGW, [place] [address]RY: CHECK WEBSITE 08/29/2018 Secondary NOT GIVENUNK Jorge Insurance:SELF PAY [facility] Number: Effective Repository Date:2018-08-29 05/30/2018 STEFFEN E Primary Insurance:[facility] STEFFEN Cevallos Jorge [id number] [facility] MCCLUGGAGEDOB: [facility] Number: [id number], [place] [id number] Repository [address]Xlx: (330) Date:4991-93-36VK [phone] () [address]GZUQZQPGR, [place] [address]SA: CHECK WEBSITE 05/30/2018 Secondary NOT GIVENUNK Slater Insurance:SELF PAY [facility] Number: Effective Repository Date:2018-05-26 05/13/2018 STEFFEN E Primary Insurance:SELF NOT GIVENUNK Jorge [id number] [facility] Number: Effective [place] Date:2018-05-13 Repository 132[address]Jul: (HP) 03/26/2018 STEFFEN E Primary Insurance:[facility] STEFFEN Sullivanoster [id number] [facility] MCCLUGGAGEDOB: [facility] Number: [id number], [place] [id number] Repository [address]Jgi: (330) Date:2310-10-49EZ [phone] (HP) 486[address]LILWNJTPB, [place] [address]IG: CHECK WEBSITE 03/26/2018 Secondary NOT GIVENUNK Slater Insurance:SELF PAY [facility] Number: Effective Repository Date:2018-03-26 03/22/2018 STEFFEN E Primary Insurance:[facility] STEFFEN Patel [id number] [facility] MCCLUGGAGEDOB: Community [facility] Number: [id number], [place] [id number] Repository [address]Sqc: (330) Date:4167-63-46HR [phone] () 41650MKXWVWBIA, [place] [address]FZ: CHECK WEBSITE 03/22/2018 Secondary NOT GIVENUNK Slater Insurance:SELF PAY [facility] Number: Effective Repository Date:2018-03-22 03/22/2018 STEFFEN E Primary Insurance:[facility] STEFFEN Patel [id number] [facility] MCCLUGGAGEDOB: [facility] Number: [id number], [place] [id number] Repository [address]Rju: (330) Date:6988-58-21YA [phone] () 56943MZLOHOVWH, [place] [address]XH: CHECK WEBSITE 03/22/2018 Secondary NOT GIVENUNK Jorge Insurance:SELF PAY [facility] Number: Effective Repository Date:2017-10-20 03/03/2018 STEFFEN E Primary Insurance:[facility] STEFFEN [id number] [facility] MCCLUGGAGEDOB: [facility]ORD[facility] Number: [id number], [place] [id number] Repository [address]Nww: (330) Date:8635-74-88FY [phone] () 27958WCPBBXEBG, [place] [address]IX: CHECK WEBSITE 03/03/2018 Secondary NOT GIVENUNK Jorge Insurance:SELF PAY [facility] Number: Effective Repository Date:2018-03-03 03/02/2018 STEFFEN E Primary Insurance:[facility] STEFFEN Patel [id number] [facility] MCCLUGGAGEDOB: [facility] Number: [id number], [place] [id number] Repository [address]Fhd: (330) Date:8655-13-82UW [phone] (HP) [address]VJCGXHLPQ, [place] [address]FY: CHECK WEBSITE 03/02/2018 Secondary NOT GIVENUNK Jorge Insurance:SELF PAY [facility] Number: Effective Repository Date:2018-03-02 12/28/2017 STEFFEN E Primary Insurance:[facility] STEFFEN Patel [id number] [facility] MCCLUGGAGEDOB: Community [facility]ORDYN [facility] Number: [id number], [place] [id number] Repository [address]Exl: Date:9347-22-40GA [phone]~33 84[address]VFHVWJUYS, [place] 0-2 (HP) [address]WJ: CHECK WEBSITE 12/28/2017 Secondary NOT GIVENUNK Jorge Insurance:SELF PAY [facility] Number: Effective Repository Date:2017-12-28 12/10/2017 STEFFEN E Primary Insurance:[facility] STEFFEN Patel [id number] [facility] MCCLUGGAGEDOB: [facility] Number: [id number], [place] [id number] Repository [address]Svy: Date:1310-51-00WW [phone]~33 [address]OWBHUFWUI, [place] 0-2 (HP) [address]WA: CHECK WEBSITE 12/10/2017 Secondary NOT GIVENUNK Slater Insurance:SELF PAY [facility] Number: Effective Repository Date:2017-12-10 12/08/2017 STEFFEN E Primary Insurance:[facility] STEFFEN Patel [id number] [facility] MCCLUGGAGEDOB: Community [facility] Number: [id number], [place] [id number] Repository [address]Rpu: Date:8976-92-91FS [phone]~33 [address]AQQWEJCQO, [place] 0-2 (HP) [address]VX: CHECK WEBSITE 12/08/2017 Secondary NOT GIVENUNK Jorge Insurance:SELF PAY [facility] Number: Effective Repository Date:2017-12-08 11/19/2017 BEULAH Primary BEULAH Blade Aguirre MCCLUGGAGEDOB: Insurance:MEDICAL MCCLUGGAGEDOB: [facility] [id number] [facility] [id number] [facility] Repository [place], [place] Number: Karan RUSSELL [address]Zbm: ([phone]) [id number] [phone] (HP) Date:Plan Name: 11/19/2017 STEFFEN E Primary Insurance:[facility] STEFFEN Patel [id number] [facility] MCCLUGGAGEDOB: [facility] Number: [id number], [place] [id number] Repository [address]Yze: Date:5920-14-01BO [phone]~33 00821LJRTVSTHP, [place] 0-2 (HP) [address]NZ: CHECK WEBSITE 11/19/2017 Secondary NOT GIVENUNK Jorge Insurance:SELF PAY [facility] Number: Effective Repository Date:2017-11-19 11/19/2017 STEFFEN E Primary Insurance:[facility] STEFFEN Patel [id number] [facility] PINE[facility]LELUGGAGEDOB: [facility] Number: [id number], [place] [id number] Repository [address]Xou: Date:4640-94-45GF [phone]~33 [address]TOGROIZNP, [place] 0-2 (HP) [address]BP: CHECK WEBSITE 11/19/2017 Secondary NOT GIVENUNK Jorge Insurance:SELF PAY [facility] Number: Effective Repository Date:2017-11-19 11/16/2017 STEFFEN E Primary Insurance:[facility] STEFFEN [id number] [facility] MCCLUGGAGEDOB: [facility] Number: [id number], [place] [id number] Repository [address]Ckw: Date:3502-69-02GK [phone] 70388FAJDPLQWJ, [place] 0-2 (HP) [address]NX: CHECK WEBSITE 11/16/2017 Secondary NOT GIVENUNK Slater Insurance:SELF PAY [facility] Number: Effective Repository Date:2017-11-16 11/08/2017 STEFFEN E Primary Insurance:[facility] STEFFEN Patel [id number] [facility] MCCLUGGAGEDOB: [facility] JORDYN [facility] Number: [id number], [place] [id number] Repository [address]Tty: Date:0986-34-43RA [phone]~33 [address]IJCRFQUDK, [place] 0-2 (HP) [address]BY: CHECK WEBSITE 11/08/2017 Secondary NOT GIVENUNK Slater Insurance:SELF PAY [facility] Number: Effective Repository Date:2017-11-08 11/03/2017 STEFFEN E Primary Insurance:[facility] STEFFEN Patel [id number] [facility] MCCLUGGAGEDOB: [facility] Number: [id number], [place] [id number] Repository [address]Rft: Date:9316-61-99LY [phone]~33 [address]HWMGEIDXU, [place] 0-2 (HP) [address]KI: CHECK WEBSITE 11/03/2017 Secondary NOT GIVENUNK Jorge Insurance:SELF PAY [facility] Number: Effective Repository Date:2017-10-20 SOCIAL HISTORY SOCIAL HISTORY No Social History Records FoundFAMILY HISTORY FAMILY HISTORY No Family History Records FoundADVANCE DIRECTIVES ADVANCE DIRECTIVES No Advanced Directives Records FoundINFORMATION SOURCE INFORMATION SOURCE DATE CREATED AUTHOR AUTHOR'S ORGANIZATION 10/05/2018 PHILIPP
== END ==
PROVIDERS: Family Provider Nurse Practitioner; PCP Nurse Practitioner; Referring Provider Nurse Practitioner; Visit Provider Nurse Practitioner
DX: E55.9 Vitamin D deficiency, unspecified (principal); E78.1 Pure hyperglyceridemia
CPT/HCPCS: 36415; 80053; 80061

== ENCOUNTER 2018-09-02 10:30 | Outpatient (RCR) | payer OTHER, SELFPAY ==
--- NOTE | 2017-12-10 12:52 | MASS.EVAL_ITS ---
Massage Therapy Evaluation: Initial Evaluation Date: 12/06/2017 SUBJECTIVE: Steffen is a 32 year old female who was referred to the [facility] facility for a massotherapy evaluation by Dr. goncalves with the diagnosis of headaches, low back pain and thoracic pain. She presents today with the symptoms of low back pain with muscle tension in her low back and hips. She also complains of tension and pain in her neck shoulders and having headaches. She reports having a medical history of neck and back pain. She reports having minimal limitations during her daily activities currently. OBJECTIVE: Upon observation Steffen has poor posture with her head forward and shoulders forward from the neutral position in sitting and standing. After examination and palpation I found Steffen to have very high muscle tension and myofascial restrictions in her sub occipitals, trapezius, rhomboids, scalenes, thoracic paraspinals and pectoral muscles. Her hips and lumbar region were also tight. The first treatment consisted of a one hour massage to her upper body with myofascial release, muscle stripping, trigger point compression techniques, and cervical manual traction. ASSESSMENT: I feel that Steffen is a good candidate for massotherapy at this time. She had a favorable response to the first treatment with reduction in her muscle aches, pain and tension. She also had improvement in her cervical flexibility. Massage has been known to help Steffen in the past. PLAN: The plan of care was reviewed with the patient. The patient is to be seen on as needed basis for a total of ten sessions with the recommendation of once every four weeks for a one hour treatment.
--- NOTE | 2018-09-02 15:38 | DS.PCM_ITS ---
Massage Therapy Discharge Summary: Discharge Date: 09/02/2018 Steffen was seen for a massotherapy evaluation on 12/06/2017 with the diagnosis of neck and back pain. She was treated with nine sessions of massage therapy consisting of moderate pressure soft tissue techniques, myofascial release and trigger point compression to her cervical, thoracic, and low back. Steffen responded well to the therapy by reporting decreased tension and pain throughout her neck, shoulders, and back. Her goals for therapy were met throughout her massage treatment. At this time this patient is being discharged from our care at [facility] facility.
== END 2018-09-02 19:00 | disposition home or self-care (01) ==
LOC: MASS 10:30
PROVIDERS: Family Provider Nurse Practitioner; PCP Nurse Practitioner; Visit Provider Nurse Practitioner
DX: M54.2 Cervicalgia (principal); G44.209 Tension-type headache, unspecified, not intractable; M54.9 Dorsalgia, unspecified
CPT/HCPCS: 97124

== ENCOUNTER → 2019-05-29 11:00 | Outpatient (CLI) | payer OTHER, SELFPAY ==
[2018-03-28 10:59] VITALS: BMI 36.6
[2019-05-29 11:39] LABS: Absolute Lymphocyte Count 2.16 X10^3/uL (0.83-4.51); Absolute Neutrophil Count 3.4 X10^3/uL (2.0-7.7); Basophil# 0.04 X10^3/uL; Basophil% 0.6 % (0-1); Eosinophil# 0.18 X10^3/uL; Eosinophils% 2.9 % (0-5); Hematocrit 43.8 % (37-47); Hemoglobin 14.8 g/dL (12.0-15.0); Lymphocyte # 2.16 X10^3/ul (4.0); Lymphocyte % 35.1 % (19-41); Mean Corp Hgb Conc 33.8 g/dL (32-36); Mean Corpuscular Hgb 30.1 pg (27.0-32.0); Mean Platelet Vol. 10.2 fl (6.2-12.0); Monocyte# 0.36 X10^3/uL; Monocyte% 5.8 % (0-10); NRBC Flagged by Analyzer 0 % (0-5); Neutrophil % 55.3 % (47-70); Platelet Count 224 K/mm3 (150-450); RBC Distribution Width CV 13.3 % (11.6-14.6); RBC Distribution Width SD 43.6 fl (35.1-43.9); Red Blood Count 4.92 M/mm3 (4.2-5.4); White Blood Count 6.2 K/mm3 (4.4-11.0)
[2019-05-29 12:18] LABS: Vitamin D,25 Hydroxy 31.1 ng/mL (29.95-100.01)
[2019-05-29 12:20] LABS: ALB/GLOB Ratio 1.1 RATIO (0.9-2.4); AST(SGOT) 20 U/L (15-37); Alanine Aminotransfer ALT/SGPT 35 U/L (13-56); Albumin, Serum 3.9 g/dL (3.2-5.0); Alkaline Phosphatase 79 U/L (45-117); Anion Gap 8 (5-15); BUN 10 mg/dL (7-18); BUN/Creat Ratio 11.4 RATIO (10-20); Calcium,Total 9.6 mg/dL (8.5-10.1); Chloride 105 mmol/L (98-107); Cholesterol 179 mg/dL (200); Creatinine, Serum 0.88 mg/dL (0.55-1.02); EST Glomerular Filtration Rate 79 mL/min (>60); Est Glom Filt Rate - Afr Amer 96 mL/min (>60); Globulin 3.6 g/dL (2.2-4.2); Glucose 84 mg/dL (74-106); High Density Lipoprotein 50 mg/dL; Potassium 4.4 mmol/L (3.5-5.1); Protein, Total 7.5 g/dL (6.4-8.2); Sodium Level 140 mmol/L (136-145); Thyroid Stim Hormone (TSH) 1.38 uIU/mL (0.358-3.74); Triglycerides 152 mg/dL; Very Low Density Lipoprotein 30 mg/dL (5-40)
== END ==
PROVIDERS: Family Provider Nurse Practitioner; PCP Nurse Practitioner; Referring Provider Nurse Practitioner; Visit Provider Nurse Practitioner
DX: E55.9 Vitamin D deficiency, unspecified (principal); E78.1 Pure hyperglyceridemia; M25.531 Pain in right wrist; M25.532 Pain in left wrist
CPT/HCPCS: 36415; 80053; 80061; 82306; 84443; 85025

== ENCOUNTER → 2019-08-02 07:45 | Outpatient (CLI) | payer OTHER, SELFPAY ==
[2018-03-28 10:59] VITALS: BMI 36.6
[2019-08-02 08:26] LABS: Internal QC Validated? YES +Cl - CLEAR BKGD; Pregnancy, Serum, hCG Quali. NEGATIVE Negative
[2019-08-02 08:32] LABS: AST(SGOT) 22 U/L (15-37); Alanine Aminotransfer ALT/SGPT 40 U/L (13-56); Cholesterol 212 mg/dL (200); High Density Lipoprotein 50 mg/dL; Triglycerides 157 mg/dL; Very Low Density Lipoprotein 31 mg/dL (5-40)
== END ==
PROVIDERS: Family Provider Nurse Practitioner; PCP Nurse Practitioner; Referring Provider Dermatology; Visit Provider Dermatology
DX: Z79.899 Other long term (current) drug therapy (principal); L70.0 Acne vulgaris; L71.8 Other rosacea; L71.1 Rhinophyma
CPT/HCPCS: 36415; 80061; 84450; 84460; 84703

== ENCOUNTER 2019-08-14 12:15 | Outpatient (RCR) | payer OTHER, SELFPAY ==
--- NOTE | 2018-10-17 12:56 | MASS.EVAL ---
Massage Therapy Evaluation: Initial Evaluation Date: 10/14/2018 SUBJECTIVE: Steffen is a 33 year old female who was referred to the [facility] facility for a massotherapy evaluation by Dr Socorro Hernandez with the diagnosis of muscle pain. Steffen presents today with the symptoms of tension and pain in her neck and shoulders. She states that she gets headaches from the neck and shoulder pain. OBJECTIVE: Upon observation and palpation I found Steffen to have high muscle tension with tenderness and myofascial restrictions in her sub occipitals, levator scapulae, trapezius, rhomboids, scalenes, and thoracic paraspinals. Her QL?s and lumbar paraspinals all were very tight with fascial restrictions, tender points and trigger points. The first treatment consisted of a one hour massage to her upper body with myofascial release, muscle stripping, trigger point compression techniques, and cervical manual traction. ASSESSMENT: I feel that Steffen is a good candidate for massotherapy at this time. She had a favorable response to the first treatment with reduction in her muscle aches, pain and tension. She also had improvement in her cervical flexibility and low back flexibility. PLAN: The plan of care was reviewed with the patient. The patient is to be seen on an as needed basis for a total of ten sessions with the recommendation of once every month for a one hour treatment.
--- NOTE | 2019-08-21 19:11 | MASS.DISCH ---
Massage Therapy Discharge Summary: Discharge Date: 08/21/2019 Steffen was seen for a massotherapy evaluation on 10/14/2018 with the diagnosis of muscle pain. She was treated with ten sessions of massage therapy consisting of moderate to deep pressure soft tissue techniques, myofascial release and trigger point compression to her cervical, thoracic, and lower back. Steffen responded well to the therapy by reporting decreased tension and pain throughout her head, neck, shoulders, and lower back. Her goals for therapy were met throughout the treatment sessions. At this time this patient is being discharged from our care at [facility] facility.
== END 2019-08-14 19:00 | disposition home or self-care (01) ==
LOC: MASS 12:15
PROVIDERS: Family Provider Nurse Practitioner; Referring Provider Nurse Practitioner; Visit Provider Nurse Practitioner
DX: M79.10 Myalgia, unspecified site (principal)
CPT/HCPCS: 97124

== ENCOUNTER → 2019-09-11 13:14 | Outpatient (CLI) | payer OTHER, SELFPAY ==
[2019-09-11 14:06] LABS: Internal QC Validated? YES +Cl - CLEAR BKGD; Pregnancy, Urine Negative Negative
== END ==
PROVIDERS: Family Provider Nurse Practitioner; Referring Provider Dermatology; Visit Provider Dermatology
DX: L70.0 Acne vulgaris (principal); L71.8 Other rosacea; L71.1 Rhinophyma; Z79.899 Other long term (current) drug therapy; L23.3 Allergic contact dermatitis due to drugs in contact with skin
CPT/HCPCS: 81025

== ENCOUNTER → 2019-10-12 10:46 | Outpatient (CLI) | payer OTHER, SELFPAY ==
[2018-03-28 10:59] VITALS: BMI 36.6
[2019-10-12 13:38] LABS: Internal QC Validated? YES +Cl - CLEAR BKGD; Pregnancy, Urine Negative Negative
== END ==
PROVIDERS: Referring Provider Dermatology; Visit Provider Dermatology
DX: Z79.899 Other long term (current) drug therapy (principal); L70.0 Acne vulgaris; L71.8 Other rosacea; L71.1 Rhinophyma; L23.3 Allergic contact dermatitis due to drugs in contact with skin
CPT/HCPCS: 81025

== ENCOUNTER → 2019-11-10 06:34 | Outpatient (CLI) | payer OTHER, SELFPAY ==
[2018-03-28 10:59] VITALS: BMI 36.6
[2019-11-10 07:54] LABS: AST(SGOT) 26 U/L (15-37); Alanine Aminotransfer ALT/SGPT 49 U/L (13-56); Albumin, Serum 3.8 g/dL (3.2-5.0); Alkaline Phosphatase 70 U/L (45-117); Anion Gap 3 (5-15); BUN 11 mg/dL (7-18); BUN/Creat Ratio 13.6 RATIO (10-20); Calcium,Total 9.4 mg/dL (8.5-10.1); Chloride 109 mmol/L (98-107); Cholesterol 199 mg/dL (200); Creatinine, Serum 0.81 mg/dL (0.55-1.02); EST Glomerular Filtration Rate 87 mL/min (>60); Est Glom Filt Rate - Afr Amer 105 mL/min (>60); Globulin 3.8 g/dL (2.2-4.2); Glucose 105 mg/dL (74-106); High Density Lipoprotein 36 mg/dL; Protein, Total 7.6 g/dL (6.4-8.2); Sodium Level 140 mmol/L (136-145); Triglycerides 352 mg/dL; Very Low Density Lipoprotein 70 mg/dL (5-40)
[2019-11-10 08:00] LABS: Internal QC Validated? YES +Cl - CLEAR BKGD; Pregnancy, Serum, hCG Quali. NEGATIVE Negative
== END ==
PROVIDERS: Referring Provider Dermatology; Visit Provider Dermatology
DX: E78.1 Pure hyperglyceridemia (principal); L70.0 Acne vulgaris; L71.8 Other rosacea; L71.1 Rhinophyma; L23.3 Allergic contact dermatitis due to drugs in contact with skin; Z79.899 Other long term (current) drug therapy
CPT/HCPCS: 36415; 80053; 80061; 84703

== ENCOUNTER → 2019-12-28 14:12 | Outpatient (CLI) | payer OTHER, SELFPAY ==
[2018-03-28 10:59] VITALS: BMI 36.6
[2019-12-28 14:49] LABS: Internal QC Validated? YES +Cl - CLEAR BKGD; Pregnancy, Urine Negative Negative
== END ==
PROVIDERS: Referring Provider Dermatology; Visit Provider Dermatology
DX: Z79.899 Other long term (current) drug therapy (principal); L70.0 Acne vulgaris; L71.8 Other rosacea; L71.1 Rhinophyma; L23.3 Allergic contact dermatitis due to drugs in contact with skin
CPT/HCPCS: 81025

== ENCOUNTER → 2020-02-15 12:08 | Outpatient (CLI) | payer OTHER, SELFPAY ==
[2018-03-28 10:59] VITALS: BMI 36.6
[2020-02-15 12:36] LABS: Internal QC Validated? YES +Cl - CLEAR BKGD; Pregnancy, Urine Negative Negative
== END ==
PROVIDERS: Visit Provider Dermatology
DX: Z79.899 Other long term (current) drug therapy (principal); L70.0 Acne vulgaris; L71.8 Other rosacea; L71.1 Rhinophyma; L23.3 Allergic contact dermatitis due to drugs in contact with skin
CPT/HCPCS: 81025

== ENCOUNTER → 2020-03-19 11:57 | Outpatient (CLI) | payer OTHER, SELFPAY ==
[2018-03-28 10:59] VITALS: BMI 36.6
[2020-03-19 12:44] LABS: Internal QC Validated? YES +Cl - CLEAR BKGD; Pregnancy, Urine Negative Negative
== END ==
PROVIDERS: Referring Provider Dermatology; Visit Provider Dermatology
DX: Z79.899 Other long term (current) drug therapy (principal); L70.0 Acne vulgaris; L71.8 Other rosacea; L71.1 Rhinophyma; L23.3 Allergic contact dermatitis due to drugs in contact with skin
CPT/HCPCS: 81025

== ENCOUNTER → 2020-04-25 10:11 | Outpatient (CLI) | payer OTHER, SELFPAY ==
[2020-04-25 11:11] LABS: Internal QC Validated? YES +Cl - CLEAR BKGD; Pregnancy, Urine Negative Negative
== END ==
PROVIDERS: Referring Provider Dermatology; Visit Provider Dermatology
DX: L70.0 Acne vulgaris (principal); L71.1 Rhinophyma; L71.8 Other rosacea; L23.3 Allergic contact dermatitis due to drugs in contact with skin; Z79.899 Other long term (current) drug therapy
CPT/HCPCS: 81025

== ENCOUNTER → 2020-05-02 | Outpatient (CLI) | payer OTHER, SELFPAY ==
[2018-03-28 10:59] VITALS: BMI 36.6
[2020-05-07 13:34] LABS: HPV Reflexed? NOT INDICATED
== END | disposition home or self-care (01) ==
LOC: LABSPEC 16:58
PROVIDERS: Referring Provider Obstetrics & Gynecology; Visit Provider Obstetrics & Gynecology
DX: Z12.4 Encounter for screening for malignant neoplasm of cervix (principal)
CPT/HCPCS: 88175; G0145

== ENCOUNTER → 2020-05-05 06:42 | Outpatient (CLI) | payer OTHER, SELFPAY ==
[2018-03-28 10:59] VITALS: BMI 36.6
[2020-05-05 07:41] LABS: AST(SGOT) 68 U/L (15-37); Alanine Aminotransfer ALT/SGPT 131 U/L (13-56); CPK Total, Creatine Kinase 135 U/L (26-192); GGTP 68 U/L (5-55)
[2020-05-05 14:53] LABS: Xtra Tube EP Lab EXTRA TUBE
[2020-05-06 08:28] LABS: Cholesterol 191 mg/dL (200); High Density Lipoprotein 35 mg/dL; Triglycerides 259 mg/dL; Very Low Density Lipoprotein 52 mg/dL (5-40)
[2020-05-06 14:37] LABS: Vitamin D,25 Hydroxy 61.1 ng/mL
== END ==
LOC: LAB.FUTURE 06:43 → LAB 05-07 09:54
PROVIDERS: Visit Provider Dermatology
DX: Z79.899 Other long term (current) drug therapy (principal); E78.5 Hyperlipidemia, unspecified; E55.9 Vitamin D deficiency, unspecified
CPT/HCPCS: 36415; 80061; 82306; 82550; 82652; 82977; 84450; 84460

== ENCOUNTER → 2020-05-25 10:02 | Outpatient (CLI) | payer OTHER, SELFPAY ==
[2018-03-28 10:59] VITALS: BMI 36.6
[2020-05-25 11:07] LABS: AST(SGOT) 50 U/L (15-37); Alanine Aminotransfer ALT/SGPT 116 U/L (13-56)
== END ==
PROVIDERS: Referring Provider Dermatology; Visit Provider Dermatology
DX: Z79.899 Other long term (current) drug therapy (principal)
CPT/HCPCS: 36415; 84450; 84460

== ENCOUNTER → 2020-06-01 09:01 | Outpatient (CLI) | payer OTHER, SELFPAY ==
[2018-03-28 10:59] VITALS: BMI 36.6
[2020-06-01 09:35] LABS: Internal QC Validated? YES +Cl - CLEAR BKGD; Pregnancy, Urine Negative Negative
== END ==
PROVIDERS: Referring Provider Dermatology; Visit Provider Dermatology
DX: Z79.899 Other long term (current) drug therapy (principal); L70.0 Acne vulgaris; L71.8 Other rosacea; L71.1 Rhinophyma; L23.3 Allergic contact dermatitis due to drugs in contact with skin
CPT/HCPCS: 81025

== ENCOUNTER → 2020-07-12 07:02 | Outpatient (CLI) | payer OTHER, SELFPAY | PROVIDERS: Visit Provider Nurse Practitioner | DX: R06.83 Snoring (principal) | CPT/HCPCS: 95806 ==

== ENCOUNTER → 2020-07-16 13:40 | Outpatient (CLI) | payer OTHER, SELFPAY ==
[2018-03-28 10:59] VITALS: BMI 36.6
[2020-07-16 14:59] LABS: Internal QC Validated? YES +Cl - CLEAR BKGD; Pregnancy, Urine Negative Negative
== END ==
PROVIDERS: PCP Nurse Practitioner; Visit Provider Dermatology
DX: Z79.899 Other long term (current) drug therapy (principal)
CPT/HCPCS: 36415; 81025

== ENCOUNTER → 2020-08-05 14:00 | Outpatient (CLI) | payer OTHER, SELFPAY ==
[2018-03-28 10:59] VITALS: BMI 36.6
[2020-08-05 17:42] LABS: AST(SGOT) 71 U/L (15-37); Alanine Aminotransfer ALT/SGPT 132 U/L (13-56)
[2020-08-05 17:46] LABS: hCG Titer Quant., Serum < 1 mIU/mL (1-3)
== END ==
PROVIDERS: PCP Nurse Practitioner; Visit Provider Dermatology
DX: Z79.899 Other long term (current) drug therapy (principal); L70.0 Acne vulgaris; L71.8 Other rosacea; L71.1 Rhinophyma; L23.3 Allergic contact dermatitis due to drugs in contact with skin; L74.511 Primary focal hyperhidrosis, face
CPT/HCPCS: 36415; 84450; 84460; 84702

== ENCOUNTER → 2020-08-13 20:00 | Outpatient (CLI) | payer OTHER, SELFPAY | PROVIDERS: PCP Nurse Practitioner; Referring Provider Internal Medicine Critical Care Medicine; Visit Provider Internal Medicine Critical Care Medicine | DX: R29.818 Other symptoms and signs involving the nervous system (principal) | CPT/HCPCS: 95810 ==

== ENCOUNTER → 2020-08-15 08:54 | Outpatient (CLI) | payer OTHER, SELFPAY ==
[2018-03-28 10:59] VITALS: BMI 36.6
--- NOTE | 2020-08-15 08:56 | US_ITS ---
STUDY: ABDOMINAL ULTRASOUND - RIGHT UPPER QUADRANT REASON FOR VISIT: Female, 35 years old elevated liver enzymes TECHNIQUE: Ultrasound evaluation of the right upper quadrant was performed with real-time and static abbott-scale imaging. TECHNICAL QUALITY: Adequate. COMPARISON: None. FINDINGS: Liver: The liver is slightly enlarged measures 18.6 cm. There is increased echogenicity consistent with fatty infiltration. The bile ducts are within normal limits. There is hepatic color flow. The direction of portal flow is hepatopetal. There is no demonstrated mass lesion. Gallbladder: Normal distended gallbladder. The gallbladder wall measures 1.8 mm. There is a negative sonographic Torres''s sign. There is no pericholecystic fluid. There is a solitary echogenic gallstone within the gallbladder. Ringdown artifact is seen arising from the gallbladder wall suggestive of adenomyomatosis. Common Bile Duct (C.B.D.): The common bile duct measures 4.4 mm. Pancreas: Normal size of the head, body and tail of the pancreas. There is normal echogenicity of the pancreas. There is no demonstrated pancreatic mass or cyst. Right Kidney: Normal size of the right kidney. The right kidney measures 13.9 cm x 5.5 cm x 5.9 cm. Normal renal cortex. The right cortex measures 1.7 cm. There is no demonstrated renal mass or cyst. There is no right hydronephrosis. US/Liver IMPRESSION: Solitary gallstone. Findings suggestive of adenomyomatosis of the gallbladder wall. Mild degree of hepatomegaly with the diffuse fatty infiltration. Electronically Signed: Nicho Diaz, at 12:28 EST , Service support ,
== END ==
PROVIDERS: PCP Nurse Practitioner; Referring Provider Nurse Practitioner; Visit Provider Nurse Practitioner
DX: R74.8 Abnormal levels of other serum enzymes (principal); K80.20 Calculus of gallbladder without cholecystitis without obstruction
CPT/HCPCS: 76705

== ENCOUNTER → 2020-08-21 06:41 | Outpatient (CLI) | payer OTHER, SELFPAY ==
[2018-03-28 10:59] VITALS: BMI 36.6
[2020-08-21 07:32] LABS: Absolute Lymphocyte Count 2.41 X10^3/uL (0.83-4.51); Absolute Neutrophil Count 5.5 X10^3/uL (2.0-7.7); Basophil# 0.04 X10^3/uL; Basophil% 0.5 % (0-1); Eosinophil# 0.26 X10^3/uL; Hematocrit 41.8 % (37-47); Hemoglobin 13.9 g/dL (12.0-15.0); Lymphocyte # 2.41 X10^3/ul (4.0); Lymphocyte % 27.5 % (19-41); Mean Corp Hgb Conc 33.3 g/dL (32-36); Mean Corpuscular Volume 90.3 fL (81-99); Mean Platelet Vol. 9.9 fl (6.2-12.0); Monocyte# 0.44 X10^3/uL; NRBC Flagged by Analyzer 0 % (0-5); Neutrophil # 5.54 X10^3/uL (2.7-7.7); Neutrophil % 63.3 % (47-70); Platelet Count 264 K/mm3 (150-450); RBC Distribution Width CV 13.5 % (11.6-14.6); RBC Distribution Width SD 44.7 fl (35.1-43.9); Red Blood Count 4.63 M/mm3 (4.2-5.4); White Blood Count 8.8 K/mm3 (4.4-11.0)
[2020-08-21 08:13] LABS: AST(SGOT) 49 U/L (15-37); Alanine Aminotransfer ALT/SGPT 106 U/L (13-56); Albumin, Serum 3.7 g/dL (3.2-5.0); Alkaline Phosphatase 84 U/L (45-117); Anion Gap 6 (5-15); BUN 11 mg/dL (7-18); BUN/Creat Ratio 14.6 RATIO (10-20); Bilirubin, Direct 0.12 mg/dL (0.00-0.30); Calcium,Total 9.3 mg/dL (8.5-10.1); Chloride 104 mmol/L (98-107); Cholesterol 179 mg/dL (200); Creatinine, Serum 0.75 mg/dL (0.55-1.02); EST Glomerular Filtration Rate 94 mL/min (>60); Est Glom Filt Rate - Afr Amer 114 mL/min (>60); Globulin 3.8 g/dL (2.2-4.2); Glucose 92 mg/dL (74-106); High Density Lipoprotein 48 mg/dL; Potassium 3.7 mmol/L (3.5-5.1); Protein, Total 7.5 g/dL (6.4-8.2); Sodium Level 137 mmol/L (136-145); Thyroid Stim Hormone (TSH) 1.82 uIU/mL (0.358-3.74); Triglycerides 151 mg/dL; Very Low Density Lipoprotein 30 mg/dL (5-40)
[2020-08-21 08:44] LABS: Vitamin D,25 Hydroxy 50.2 ng/mL
== END ==
PROVIDERS: PCP Nurse Practitioner; Referring Provider Nurse Practitioner; Visit Provider Nurse Practitioner
DX: Z13.220 Encounter for screening for lipoid disorders (principal); R94.5 Abnormal results of liver function studies; R53.83 Other fatigue; E55.9 Vitamin D deficiency, unspecified; K76.0 Fatty (change of) liver, not elsewhere classified
CPT/HCPCS: 36415; 80053; 80061; 82248; 82306; 84443; 85025

== ENCOUNTER 2020-08-30 12:15 | Outpatient (RCR) | payer OTHER, SELFPAY ==
--- NOTE | 2019-11-08 16:22 | MASS.EVAL ---
Massage Therapy Evaluation: Initial Evaluation Date: 11/08/2019 SUBJECTIVE: Steffen is a 34 year old female who was referred to the [facility] facility for a massotherapy evaluation by Vero Hernandez with the diagnosis of muscle aches and headaches. She presents today with the symptoms of pain, stiffness and tension in the neck, mid back and low back. Steffen reports having a past medical history of headaches and massage has helped in the past. She reports that she is on a new medication that she believes is contributing to her muscle tightness and joint pain. OBJECTIVE: Upon observation Steffen has some posture issues with her head and shoulders forward from the neutral position in sitting and standing. After examination and palpation, I found Steffen to have high muscle tension with tenderness and myofascial restrictions in her sub occipitals, levator scapulae, trapezius, rhomboids, scalenes, and thoracic paraspinals. Her left side is worse compared to the right side. Her QL?s, lumbar paraspinals, piriformis, glute medius and minimus all were very tight with fascial restrictions, tender points and trigger points. The first treatment consisted of a one hour massage to her upper body with myofascial release, muscle stripping, trigger point compression techniques, and cervical manual traction. ASSESSMENT: I feel that Steffen is a good candidate for massotherapy at this time. She had a favorable response to the first treatment with reduction in her muscle aches, pain and tension. She also had improvement in her cervical flexibility and low back flexibility. PLAN: The plan of care was reviewed with the patient. The patient is to be seen on an as needed basis for a total of ten sessions with the recommendation of once every month for a one hour treatment.
--- NOTE | 2020-08-31 09:51 | MASS.DISCH ---
Massage Therapy Discharge Summary: Discharge Date: 08/31/2020 Steffen was seen for a massotherapy evaluation on 11/08/2019 with the diagnosis of neck and back pain. She was treated with seven sessions of massage therapy consisting of deep pressure soft tissue techniques, myofascial release and trigger point compression to her cervical, thoracic, lower back and hips. Steffen responded well to the therapy by reporting decreased tension and pain throughout her neck, shoulders, lower back and hips. Her goals for therapy were met throughout the treatment sessions. At this time this patient is being discharged from our care at [facility] facility.
== END 2020-08-30 19:00 | disposition home or self-care (01) ==
LOC: MASS 12:15
DX: M79.10 Myalgia, unspecified site (principal); R51 Headache
CPT/HCPCS: 97124

== ENCOUNTER → 2020-09-26 10:02 | Outpatient (CLI) | payer OTHER, SELFPAY ==
[2020-08-23 13:53] VITALS: BMI 38.7
--- NOTE | 2020-09-26 10:04 | BI_ITS ---
MAMMOGRAPHY - BILATERAL SCREENING REASON FOR EXAM: Female, 35 years old. Routine annual screening examination. PERTINENT HISTORY: Mother with breast cancer. TECHNIQUE: Digital bilateral breast laina (3D mammographic acquisition) in the CC and MLO projections. 2-D mediolateral oblique (MLO) and craniocaudad (CC) views of both breasts were obtained. CAD: Full Field Digital Mammography with Computer Added Detection was performed. COMPARISON: Comparison is made with prior study dated 03/04/2017. FINDINGS: Breast Composition: There are scattered areas of fibroglandular density. There are no dominant masses or suspicious calcifications. No other significant abnormalities are identified. There has been no significant change since the prior study. BI/SCRN MAMM (CAD)W/LAINA BILAT IMPRESSION: Stable bilateral screening mammogram. Yearly follow-up mammogram recommended. (A) ASSESSMENT CATEGORY: BIRADS Category 1: Negative. A letter regarding these results will be sent to the patient by the facility within 30 days. Approximately 10% of breast cancers are not detected by mammography. A normal mammogram should not delay biopsy of a clinically suspicious abnormality. [id number] Electronically Signed: Nicho Diaz, at 11:35 EST , Service support ,
== END ==
PROVIDERS: PCP Nurse Practitioner; Referring Provider Nurse Practitioner; Visit Provider Nurse Practitioner
DX: Z12.31 Encounter for screening mammogram for malignant neoplasm of breast (principal); Z80.3 Family history of malignant neoplasm of breast
CPT/HCPCS: 77063; 77067

== ENCOUNTER → 2020-10-08 06:36 | Outpatient (CLI) | payer OTHER, SELFPAY ==
[2020-08-23 13:53] VITALS: BMI 38.7
== END ==
PROVIDERS: PCP Nurse Practitioner; Referring Provider Dermatology; Visit Provider Dermatology
DX: L70.0 Acne vulgaris (principal); L71.8 Other rosacea; L71.1 Rhinophyma; L74.511 Primary focal hyperhidrosis, face; E28.2 Polycystic ovarian syndrome; L83 Acanthosis nigricans; L66.9 Cicatricial alopecia, unspecified; L21.8 Other seborrheic dermatitis; D48.5 Neoplasm of uncertain behavior of skin; L91.8 Other hypertrophic disorders of the skin; R20.8 Other disturbances of skin sensation
CPT/HCPCS: 36415; 83525

== ENCOUNTER → 2021-02-21 06:34 | Outpatient (CLI) | payer OTHER, SELFPAY ==
[2020-08-23 13:53] VITALS: BMI 38.7
[2020-11-28 10:20] VITALS: BMI 37.1
[2021-02-21 08:52] LABS: ALB/GLOB Ratio 1.1 RATIO (0.9-2.4); AST(SGOT) 19 U/L (15-37); Alanine Aminotransfer ALT/SGPT 36 U/L (13-56); Albumin, Serum 3.9 g/dL (3.2-5.0); Alkaline Phosphatase 71 U/L (45-117); Anion Gap 6 (5-15); BUN 13 mg/dL (7-18); BUN/Creat Ratio 17.3 RATIO (10-20); Calcium,Total 9.6 mg/dL (8.5-10.1); Chloride 103 mmol/L (98-107); Cholesterol 193 mg/dL (200); Creatinine, Serum 0.75 mg/dL (0.55-1.02); EST Glomerular Filtration Rate 94 mL/min (>60); Est Glom Filt Rate - Afr Amer 114 mL/min (>60); Globulin 3.6 g/dL (2.2-4.2); Glucose 87 mg/dL (74-106); High Density Lipoprotein 49 mg/dL; Protein, Total 7.5 g/dL (6.4-8.2); Sodium Level 136 mmol/L (136-145); Triglycerides 261 mg/dL; Very Low Density Lipoprotein 52 mg/dL (5-40)
== END ==
PROVIDERS: PCP Nurse Practitioner; Referring Provider Nurse Practitioner; Visit Provider Nurse Practitioner
DX: R74.8 Abnormal levels of other serum enzymes (principal)
CPT/HCPCS: 36415; 80053; 80061

== ENCOUNTER 2021-03-09 03:50 | Observation (INO) | payer OTHER, SELFPAY ==
[2021-03-07 13:32] VITALS: BMI 37.1
[2021-03-09] VITALS (11 sets, daily range): BP systolic 111–164; BP diastolic 66–93; PULSE 66–83; RESP 16–18; TEMP 36–36.8; O2SAT 93–99; BMI 39.7
--- NOTE | 2021-03-09 04:00 | CT_ITS ---
EXAM: CT ABDOMEN AND PELVIS WITHOUT INTRAVENOUS CONTRAST : 1985 CLINICAL INDICATION: Kidney Stone TECHNIQUE: Helically acquired images were obtained of the abdomen and pelvis without intravenous contrast. This CT exam was performed using one or more of the following dose reduction techniques: automated exposure control, adjustment of the mA and/or kV according to patient size, and/or use of iterative reconstruction technique. This report was created using [employer] report generation technology. COMPARISON: 03/03/18 FINDINGS: LOWER THORAX: Unremarkable. Lung bases are clear. No cardiomegaly. No significant pericardial effusion. ABDOMEN: LIVER: Unremarkable. Homogeneous. GALLBLADDER AND BILE DUCTS: Small stone in the gallbladder. No gallbladder distention or wall edema. No intra- or extrahepatic biliary ductal dilation. PANCREAS: Unremarkable. No focal cystic mass. SPLEEN: Unremarkable. Normal size without focal cystic or solid mass. ADRENALS: Unremarkable. No nodules. KIDNEYS AND URETERS: 9 mm stone at the right ureteropelvic junction causing mild obstructive changes. Tiny nonobstructing stones in the kidneys bilaterally. STOMACH AND BOWEL: Unremarkable. No stomach or bowel distention. No focal inflammatory change. PELVIS: APPENDIX: The appendix is normal. BLADDER: Unremarkable. REPRODUCTIVE: 5.4 x 4.2 cm left adnexal cystic lesion. ABDOMEN and PELVIS: INTRAPERITONEAL SPACE: Unremarkable. No ascites or other fluid collection. No free air. BONES/JOINTS: Unremarkable. No suspicious lytic or blastic abnormality. SOFT TISSUES: Unremarkable. No discrete abdominal or pelvic wall hernia. VASCULATURE: Unremarkable. Abdominal aorta is non-dilated. LYMPH NODES: Unremarkable. No enlarged lymph nodes. CT/Abdomen/Pelvis without Cont IMPRESSION: 1. 9 mm stone at the right ureteropelvic junction causing mild obstructive changes. 2. 5.4 x 4.2 cm left adnexal cystic lesion. Follow-up pelvic ultrasound. 3. Cholelithiasis. Individualized dose optimization techniques were used for this CT. at 0530 Reported and signed by: Sarmad Mcneal MD Electronically Signed: Sarmad Mcneal MD at 5:29 EDT Tel , Service support ,
--- NOTE | 2021-03-09 04:01 | ED.VIS.GI ---
HPI HPI - GI History of Present Illness Chief Complaint: Flank Pain Informant: patient Abdominal Pain/Flank Pain Onset: Hours (2-3) Context: Sudden Onset (woke her up from sleep) Timing: Continuous and Waxes and wanes Quality: Aching Location: Right Flank Current Severity: Severe Maximum Severity: Severe Worsened by: Nothing Relieved by: Nothing Nausea/Vomiting/Emesis GI Symptom: Positive for Nausea; Negative for Vomiting Diarrhea/Melena/Hematochezia GI Symptom: Negative for Diarrhea, Melena and Hematochezia Associated Symptoms Associated Symptoms: Negative for Dysuria, Frequency and Hematuria Narrative Narrative: Sudden onset pain woke her up from sleep, feels like prior kidney stone. She has required lithotripsy in the past. Has had her tubes removed remotely. Prior similar symptoms: Yes PFSH [facility] Medical History (Updated 03/09/21 @ 05:[address] Ravin Duong MD) Amenorrhea Asthma Fatty liver History of kidney stones Hyperlipidemia Hypertriglyceridemia Mixed hyperlipidemia Obesity PCOS (polycystic ovarian syndrome) PCOS (polycystic ovarian syndrome) Home Medications rosuvastatin 5 mg PO DAILY 05/07/17 [History Last Taken Unknown] ascorbic acid (vitamin C) 1,000 mg tablet 1 g PO DAILY tab 08/23/20 [History Last Taken Unknown] cholecalciferol (vitamin D3) 125 mcg (5,000 unit) capsule 125 mcg PO DAILY 08/23/20 [History Last Taken Unknown] lorazepam 0.5 mg tablet 0.5 mg PO DAILY PRN 08/23/20 [History Last Taken Unknown] progesterone micronized 200 mg capsule 200 mg PO DAILY cap 08/23/20 [History Last Taken Unknown] sertraline 100 mg tablet 100 mg PO DAILY 08/23/20 [History Last Taken Unknown] icosapent ethyl 1 gram capsule 2 g PO BID 11/28/20 [History Last Taken Unknown] lactobacillus combination no.8 3 billion cell capsule 3,000 mmu cells PO DAILY 11/28/20 [History Last Taken Unknown] metformin 500 mg tablet 500 mg PO DAILY 11/28/20 [History Last Taken Unknown] omeprazole 20 mg capsule,delayed release 20 mg PO BID 11/28/20 [History Last Taken Unknown] spironolactone 100 mg tablet 100 mg PO DAILY 11/28/20 [History Last Taken Unknown] ondansetron 8 mg PO Q8H PRN PRN #20 tab 03/09/21 [Rx Last Taken Unknown] oxycodone-acetaminophen 1 tab PO Q6H PRN PRN 3 Days #12 tablet 03/09/21 [Rx Last Taken Unknown] Allergy/AdvReac Type Severity Reaction Status Date / Time ciprofloxacin [From Cipro] Allergy Hives Verified 03/09/21 03:55 ciprofloxacin HCl Allergy Hives Verified 03/09/21 03:55 [From Cipro] clarithromycin [From Biaxin] Allergy Hives Verified 03/09/21 03:55 meperidine HCl [From Demerol] Allergy Rash Verified 03/09/21 03:55 morphine Allergy Rash Verified 03/09/21 03:55 sulfamethoxazole Allergy Hives Verified 03/09/21 03:55 [From Bactrim] trimethoprim [From Bactrim] Allergy Hives Verified 03/09/21 03:55 Family History Father Thyroid disorder Mother Hypertension Osteoarthritis Surgical History (Updated 03/09/21 @ 04:[address] Ravin Duong MD) D&C H/O cystoscopy History of hysterectomy History of lithotripsy Social History Smoking Status: Never smoker alcohol intake: never ROS ROS ED Constitutional Constitutional ED: Denies chills or fever(s) Eyes Eyes: Denies change in vision or diplopia ENT ENT ED: Denies rhinorrhea or sore throat Cardiovascular Cardiovascular: Denies chest pain or palpitations Respiratory/Chest Respiratory/Chest: Denies cough or dyspnea Gastrointestinal Gastrointestinal: Reports abdominal pain and nausea; Denies diarrhea or vomiting Genitourinary Genitourinary ED: Reports flank pain; Denies dysuria or hematuria Musculoskeletal Musculoskeletal: Denies back pain or neck pain Integumentary Denies abscess or rash Neurologic Neurologic: Denies headache(s), paresthesias or weakness Psychiatric Psychiatric: Denies anxiety or suicidal thoughts EXAM Physical Exam Const Vital Signs: 03/09/21 03:51 Temperature 97.4 F L Temperature Source Oral Pulse Rate 83 Respiratory Rate 18 Blood Pressure 164/93 H Blood Pressure Mean 116 Pulse Ox 98 Oxygen Delivery Method Room Air Positive well nourished and well developed Constitutional Narrative: Mild painful distress, standing next to bed leaning over it General Appearance ED: well developed HEENT Reports moist mucous membranes normocephalic and atraumatic Eyes PERRL and EOMs intact bilaterally Neck full ROM and supple Resp normal respiratory effort and clear to auscultation bilaterally Cardio regular rate, regular rhythm and no murmurs GI non-distended GI Narrative: Mildly tender lateral right upper quadrant otherwise nontender Auscultation: normoactive bowel sounds Palpation: soft Back/Spine General Back: CVA tenderness right and other FROM Extremity normal to inspection General Extremety ED: Negative for edema, pulses abnormal or tenderness General Extremity: Negative for edema or pulses abnormal Neuro oriented x3, CN's II-XII intact bilaterally and no sensory deficits noted Sensorium / Orientation: awake and alert Motor Exam: strength 5/5 throughout Skin no rashes or lesions noted and no wounds MDM MDM MDM Narrative Medical decision making narrative: Patient symptoms were treated and improved but not resolved, she was given 2 doses of fentanyl. She declared allergy to morphine and Demerol. She is well-appearing and has a fairly large stone at 9 mm. No sign of infection in the urine. Follow-up with urology is advised as an outpatient, she can be discharged home with symptom control for now. We discussed reasons to return. Lab Data Attestation: I reviewed the patient's lab results. Labs: Laboratory Results - last 24 hr 03/09/21 03/09/21 03/09/21 03:58 03:58 03:58 WBC 12.8 H RBC 4.36 Hgb 12.4 Hct 38.5 MCV 88.3 MCH 28.4 MCHC 32.2 RDW Std Deviation 45.5 H RDW Coeff of Ricardo 14.1 Plt Count 284 MPV 9.7 Immature Gran % (Auto) 1.000 H Neut % (Auto) 64.1 Lymph % (Auto) 25.8 [place] % (Auto) 6.5 Eos % (Auto) 2.2 Baso % (Auto) 0.4 Absolute Neuts (auto) 8.2 H Absolute Lymphs (auto) 3.31 Nucleated RBC % 0 Sodium 138 Potassium 3.6 Chloride 103 Carbon Dioxide 29.0 Anion Gap 6 BUN 11 Creatinine 0.87 Estim Creat Clear Calc 86.10 Est GFR (MDRD) Af Amer 96 Est GFR (MDRD) Non-Af 79 BUN/Creatinine Ratio 12.6 Glucose 97 Calcium 9.6 Serum , Qual NEGATIVE Urine Color Urine Clarity Urine pH Ur Specific [place] Urine Protein Urine Glucose (UA) Urine Ketones Urine Occult Blood Urine Nitrite Urine Bilirubin Urine Urobilinogen Ur Leukocyte Esterase Urine RBC Urine WBC Ur Squamous Epith Cells Urine Bacteria Urine Mucus 03/09/21 04:12 WBC RBC Hgb Hct MCV MCH MCHC RDW Std Deviation RDW Coeff of Ricardo Plt Count MPV Immature Gran % (Auto) Neut % (Auto) Lymph % (Auto) [place] % (Auto) Eos % (Auto) Baso % (Auto) Absolute Neuts (auto) Absolute Lymphs (auto) Nucleated RBC % Sodium Potassium Chloride Carbon Dioxide Anion Gap BUN Creatinine Estim Creat Clear Calc Est GFR (MDRD) Af Amer Est GFR (MDRD) Non-Af BUN/Creatinine Ratio Glucose Calcium Serum , Qual Urine Color Yellow Urine Clarity Clear Urine pH 6.0 Ur Specific [place] 1.020 Urine Protein Negative Urine Glucose (UA) Normal Urine Ketones Negative Urine Occult Blood 50 H Urine Nitrite Negative Urine Bilirubin Negative Urine Urobilinogen Normal Ur Leukocyte Esterase 25 H Urine RBC 0-5 SEEN Urine WBC 0-5 SEEN Ur Squamous Epith Cells 0-5 SEEN Urine Bacteria 1+ Urine Mucus 0 SEEN Radiography Diagnostic Testing: Radiology Impression Abdomen/Pelvis CT 03/09/21 04:00 IMPRESSION: 1. 9 mm stone at the right ureteropelvic junction causing mild obstructive changes. 2. 5.4 x 4.2 cm left adnexal cystic lesion. Follow-up pelvic ultrasound. 3. Cholelithiasis. Individualized dose optimization techniques were used for this CT. at 0530 Reported and signed by: Sarmad Mcneal MD Electronically Signed: Sarmad Mcneal MD at 5:29 EDT Tel , Service support , Discharge Plan Triage Chief Complaint: Flank Pain ED Provider: Ravin Duong Dx/Rx/DC Orders Clinical Impression: Renal colic on right side, Ureterolithiasis Instructions: ED Kidney Stone w/ Colic Prescriptions: New oxycodone-acetaminophen [oxycodone-acetaminophen] 1 TABLET tablet 1 tab PO Q6H PRN PRN (Reason: Pain) 3 Days Qty: 12 RF: 0 ondansetron [ondansetron] 4 MG tablet 8 mg PO Q8H PRN PRN (Reason: Nausea) Qty: 20 RF: 0 No Action cholecalciferol (vitamin D3) 125 mcg (5,000 unit) capsule 125 mcg PO DAILY RF: 0 sertraline [Zoloft] 100 mg tablet 100 mg PO DAILY RF: 0 ascorbic acid (vitamin C) 1,000 mg tablet 1 g PO DAILY RF: 0 lorazepam [Ativan] 0.5 mg tablet 0.5 mg PO DAILY PRN (Reason: Anxiety) RF: 0 progesterone micronized [Prometrium] 200 mg capsule 200 mg PO DAILY RF: 0 metformin 500 mg tablet 500 mg PO DAILY RF: 0 spironolactone 100 mg tablet 100 mg PO DAILY RF: 0 icosapent ethyl [Vascepa] 1 gram capsule 2 g PO BID RF: 0 omeprazole 20 mg capsule,delayed release(DR/EC) 20 mg PO BID RF: 0 Adult Probiotic 3 billion cell capsule 3,000 mmu cells PO DAILY RF: 0 rosuvastatin 5 MG tablet 5 mg PO DAILY RF: 0 Primary Care Provider: Socorro Hernandez NP Referrals: Katy Mcclure MD [STAFF PHYSICIAN] - As soon as possible Socorro Hernandez NP, [employer] [Primary Care Provider] - Disposition Disposition: Home, Self Care
[2021-03-09] MEDS: Ondansetron 4 MG/2 ML Vial IV ×2 (04:06→14:06)
[2021-03-09] MEDS: fentaNYL 100 MCG/2 ML Ampul 50 MCG IV (04:09)
[2021-03-09] MEDS: Ketorolac 30 MG/ML Syringe IV (04:10)
[2021-03-09 04:14] LABS: Absolute Lymphocyte Count 3.31 X10^3/uL (0.83-4.51); Absolute Neutrophil Count 8.2 X10^3/uL (2.0-7.7); Basophil# 0.05 X10^3/uL; Basophil% 0.4 % (0-1); Eosinophil# 0.28 X10^3/uL; Eosinophils% 2.2 % (0-5); Hematocrit 38.5 % (37-47); Hemoglobin 12.4 g/dL (12.0-15.0); Lymphocyte # 3.31 X10^3/ul (0.83-4.51); Lymphocyte % 25.8 % (19-41); Mean Corp Hgb Conc 32.2 g/dL (32-36); Mean Corpuscular Hgb 28.4 pg (27.0-32.0); Mean Corpuscular Volume 88.3 fL (81-99); Mean Platelet Vol. 9.7 fl (6.2-12.0); Monocyte# 0.83 X10^3/uL; Monocyte% 6.5 % (0-10); NRBC Flagged by Analyzer 0 % (0-5); Neutrophil # 8.24 X10^3/uL (2.7-7.7); Neutrophil % 64.1 % (47-70); Platelet Count 284 K/mm3 (150-450); RBC Distribution Width CV 14.1 % (11.6-14.6); RBC Distribution Width SD 45.5 fl (35.1-43.9); Red Blood Count 4.36 M/mm3 (4.2-5.4); White Blood Count 12.8 K/mm3 (4.4-11.0)
[2021-03-09 04:17] LABS: Mucous, Urine 0 SEEN /hpf (<or=2+)
[2021-03-09 04:22] LABS: Color, Urine Yellow (Yellow); Glucose, Dipstick Normal (Normal); Ketone-Dipstick Negative (Negative); Leukocyte Esterase-Dipstick 25 /ul (Negative); Nitrite-Dipstick Negative (Negative); Occult Blood-Urine 50 /ul (Negative); Protein-Dipstick Negative (Negative); Urine Bilirubin Dipstick Negative (Negative); Urine Clarity Clear (Clear); Urine Urobilinogen Normal (Normal)
[2021-03-09 04:30] LABS: Anion Gap 6 (5-15); BUN 11 mg/dL (7-18); BUN/Creat Ratio 12.6 RATIO (10-20); Calcium,Total 9.6 mg/dL (8.5-10.1); Chloride 103 mmol/L (98-107); Creatinine, Serum 0.87 mg/dL (0.55-1.02); EST Glomerular Filtration Rate 79 mL/min (>60); Est Glom Filt Rate - Afr Amer 96 mL/min (>60); Glucose 97 mg/dL (74-106); Potassium 3.6 mmol/L (3.5-5.1); Sodium Level 138 mmol/L (136-145)
[2021-03-09 04:31] LABS: Internal QC Validated? YES +Cl - CLEAR BKGD; Pregnancy, Serum, hCG Quali. NEGATIVE Negative
[2021-03-09 04:40] LABS: Bacteria 1+ /hpf (None Seen); Red Blood Cells-Urine 0-5 SEEN /hpf (0-5); Squamous Epithelial Cells - UA 0-5 SEEN /hpf (5-10); White Blood Cells 0-5 SEEN /hpf (0-5)
[2021-03-09] MEDS: fentaNYL 100 MCG/2 ML Ampul 75 MCG IV (05:23)
[2021-03-09] MEDS: oxyCODONE 5 MG Tablet PO (06:30)
--- NOTE | 2021-03-09 06:45 | NURSING ---
paged dr patel
--- NOTE | 2021-03-09 07:43 | NURSING ---
SENT BY CONSULTANT TEACHER TO 'S PHONE. LEFT MESSAGE. HAD THEM TRY OFFICE, CAME BACK TO OUR CONSULTANT TEACHER
--- NOTE | 2021-03-09 07:46 | NURSING ---
DR FANNIE DIXON
--- NOTE | 2021-03-09 07:51 | NURSING ---
DR GRECO CALLED BACK
--- NOTE | 2021-03-09 07:56 | NURSING ---
[id number] MAC
--- NOTE | 2021-03-09 07:57 | NURSING ---
MED SURG FANNIE OBS PAIN CONTROL FOR KIDNEY STONES
--- NOTE | 2021-03-09 08:35 | PCM.HP.STD ---
HPI - General General Date of Admission: 03/09/21 HPI Narrative DARYN BYRD, is a 35 F who presents with a 9mm stone in the right UPJ admitted for pain control, plan for stent placement today. [facility] Medical History (Updated 03/09/21 @ 05:[address] Ravin Duong MD) Amenorrhea Asthma Fatty liver History of kidney stones Hyperlipidemia Hypertriglyceridemia Mixed hyperlipidemia Obesity PCOS (polycystic ovarian syndrome) PCOS (polycystic ovarian syndrome) Home Medications rosuvastatin 5 mg PO DAILY 05/07/17 [History Last Taken Unknown] ascorbic acid (vitamin C) 1,000 mg tablet 1 g PO DAILY tab 08/23/20 [History Last Taken Unknown] cholecalciferol (vitamin D3) 125 mcg (5,000 unit) capsule 125 mcg PO DAILY 08/23/20 [History Last Taken Unknown] lorazepam 0.5 mg tablet 0.5 mg PO DAILY PRN 08/23/20 [History Last Taken Unknown] progesterone micronized 200 mg capsule 200 mg PO DAILY cap 08/23/20 [History Last Taken Unknown] sertraline 100 mg tablet 100 mg PO DAILY 08/23/20 [History Last Taken Unknown] icosapent ethyl 1 gram capsule 2 g PO BID 11/28/20 [History Last Taken Unknown] lactobacillus combination no.8 3 billion cell capsule 3,000 mmu cells PO DAILY 11/28/20 [History Last Taken Unknown] metformin 500 mg tablet 500 mg PO DAILY 11/28/20 [History Last Taken Unknown] omeprazole 20 mg capsule,delayed release 20 mg PO BID 11/28/20 [History Last Taken Unknown] spironolactone 100 mg tablet 100 mg PO DAILY 11/28/20 [History Last Taken Unknown] ondansetron 8 mg PO Q8H PRN PRN #20 tab 03/09/21 [Rx Last Taken Unknown] oxycodone-acetaminophen 1 tab PO Q6H PRN PRN 3 Days #12 tablet 03/09/21 [Rx Last Taken Unknown] Allergy/AdvReac Type Severity Reaction Status Date / Time ciprofloxacin [From Cipro] Allergy Hives Verified 03/09/21 03:55 ciprofloxacin HCl Allergy Hives Verified 03/09/21 03:55 [From Cipro] clarithromycin [From Biaxin] Allergy Hives Verified 03/09/21 03:55 meperidine HCl [From Demerol] Allergy Rash Verified 03/09/21 03:55 morphine Allergy Rash Verified 03/09/21 03:55 sulfamethoxazole Allergy Hives Verified 03/09/21 03:55 [From Bactrim] trimethoprim [From Bactrim] Allergy Hives Verified 03/09/21 03:55 Family History Father Thyroid disorder Mother Hypertension Osteoarthritis Surgical History (Updated 03/09/21 @ 04:[address] Ravin Duong MD) D&C H/O cystoscopy History of hysterectomy History of lithotripsy Social History Smoking Status: Never smoker alcohol intake: never ROS Constitutional Constitutional: Denies chills, fever(s) or malaise Eyes Eyes: Denies blurry vision or change in vision ENT HEENT: Reports none Cardiovascular Cardiovascular: Denies chest pain or palpitations Respiratory/Chest Respiratory/Chest: Denies cough or shortness of breath with exertion Gastrointestinal Gastrointestinal: Denies abdominal pain, constipation or diarrhea Genitourinary Genitourinary: Reports systems reviewed and no addt'l complaints, except as documented Musculoskeletal Musculoskeletal: Denies back pain, joint stiffness or joint swelling Integumentary Integumentary: Denies dry skin, jaundice, lesions or rash Neurologic Neurologic: Denies confusion, syncope or weakness Psychiatric Psychiatric: Reports none; Denies anxiety or depression Endocrine Endocrinology: Denies excessive sweating, fatigue or flushing Hematologic/Lymphatic Hematologic/Lymphatic: Denies anemia, easy bleeding or easy bruising Vital Signs Vital Signs Vital Signs: 03/09/21 03:51 03/09/21 08:11 Temperature 97.4 F L 98.3 F Temperature Source Oral Temporal Pulse Rate 83 71 Respiratory Rate 18 18 Blood Pressure 164/93 H 121/75 H Blood Pressure Mean 116 90 Pulse Ox 98 99 Oxygen Delivery Method Room Air Room Air Weight Weight: 111.8 kg Body Mass Index (BMI) 39.7 Physical Exam Const alert and oriented x3 General Appearance: cooperative HEENT normocephalic, head/scalp atraumatic, EAC's normal and TM's normal bilaterally Eyes PERRL and EOMs intact bilaterally Pupil: sluggish Neck no lymphadenopathy, supple and no JVD General: trachea midline Lymph Lymphatic: no lymphadenopathy noted, lymphedema and lymphadenopathy Resp normal respiratory effort, normal air movement and clear to auscultation bilaterally Cardio regular rate, regular rhythm and peripheral pulses 2+ throughout GI soft to palpation, non-tender and non-distended Extremity normal capillary refill and no clubbing, cyanosis or edema General Extremity: no tenderness to palpation of joints or extremities Skin no rashes or lesions noted General Skin Exam: turgor normal Lesions: no lesions Rashes: no rashes Neuro CN's II-XII intact bilaterally Speech: speech normal Motor Exam: strength 5/5 throughout; Negative for general weakness Psych thought process normal, cooperative and affect normal Appearance: appropriate Results Lab / Micro Data Result Diagrams: 03/09/21 03:58 03/09/21 03:58 Labs: Laboratory Results - last 24 hr 03/09/21 03/09/21 03/09/21 03:58 03:58 03:58 WBC 12.8 H RBC 4.36 Hgb 12.4 Hct 38.5 MCV 88.3 MCH 28.4 MCHC 32.2 RDW Std Deviation 45.5 H RDW Coeff of Ricardo 14.1 Plt Count 284 MPV 9.7 Immature Gran % (Auto) 1.000 H Neut % (Auto) 64.1 Lymph % (Auto) 25.8 [place] % (Auto) 6.5 Eos % (Auto) 2.2 Baso % (Auto) 0.4 Absolute Neuts (auto) 8.2 H Absolute Lymphs (auto) 3.31 Nucleated RBC % 0 Sodium 138 Potassium 3.6 Chloride 103 Carbon Dioxide 29.0 Anion Gap 6 BUN 11 Creatinine 0.87 Estim Creat Clear Calc 86.10 Est GFR (MDRD) Af Amer 96 Est GFR (MDRD) Non-Af 79 BUN/Creatinine Ratio 12.6 Glucose 97 Calcium 9.6 Serum , Qual NEGATIVE Urine Color Urine Clarity Urine pH Ur Specific [place] Urine Protein Urine Glucose (UA) Urine Ketones Urine Occult Blood Urine Nitrite Urine Bilirubin Urine Urobilinogen Ur Leukocyte Esterase Urine RBC Urine WBC Ur Squamous Epith Cells Urine Bacteria Urine Mucus 03/09/21 04:12 WBC RBC Hgb Hct MCV MCH MCHC RDW Std Deviation RDW Coeff of Ricardo Plt Count MPV Immature Gran % (Auto) Neut % (Auto) Lymph % (Auto) [place] % (Auto) Eos % (Auto) Baso % (Auto) Absolute Neuts (auto) Absolute Lymphs (auto) Nucleated RBC % Sodium Potassium Chloride Carbon Dioxide Anion Gap BUN Creatinine Estim Creat Clear Calc Est GFR (MDRD) Af Amer Est GFR (MDRD) Non-Af BUN/Creatinine Ratio Glucose Calcium Serum , Qual Urine Color Yellow Urine Clarity Clear Urine pH 6.0 Ur Specific [place] 1.020 Urine Protein Negative Urine Glucose (UA) Normal Urine Ketones Negative Urine Occult Blood 50 H Urine Nitrite Negative Urine Bilirubin Negative Urine Urobilinogen Normal Ur Leukocyte Esterase 25 H Urine RBC 0-5 SEEN Urine WBC 0-5 SEEN Ur Squamous Epith Cells 0-5 SEEN Urine Bacteria 1+ Urine Mucus 0 SEEN Radiology Impression Abdomen/Pelvis CT 03/09/21 04:00 IMPRESSION: 1. 9 mm stone at the right ureteropelvic junction causing mild obstructive changes. 2. 5.4 x 4.2 cm left adnexal cystic lesion. Follow-up pelvic ultrasound. 3. Cholelithiasis. Individualized dose optimization techniques were used for this CT. at 0530 Reported and signed by: Sarmad Mcneal MD Electronically Signed: Sarmad Mcneal MD at 5:29 EDT Tel , Service support , Assessment & Plan Assessment/Plan (1) Renal colic on right side: (2) Ureterolithiasis: PLAN: npo this afternoon for cysto and stent placement on right side.
[2021-03-09] MEDS: 0.9% Normal Saline 1,000 ML 75 ML IV (10:34)
[2021-03-09] MEDS: 0.9% Saline Lock 10 ML Syringe IV ×2 (10:34→14:06)
[2021-03-09] MEDS: Cefazolin 1 GM/50 ML BAG IV ×2 (10:34→14:01)
[2021-03-09] MEDS: Acetaminophen 325 MG Tablet 650 MG PO (14:18)
[2021-03-09] MEDS: Lidocaine Jelly 2% 20 ML Syringe (URO-JET) 20 APPLIC (15:22)
--- NOTE | 2021-03-09 15:33 | OP.PCM_ITS ---
Report of Operation Date of Procedure: 03/09/21 Pre-Operative Diagnosis: Right obstructing ureteral calculi Post-Operative Diagnosis: Same Surgery/Procedure Performed:: Cystoscopy right retrograde pyelogram right stent placement Description of Surgical Findings:: Patient was taken back to the operating room after smooth induction of general anesthesia she was placed in dorsolithotomy position the urethra vaginal area were prepped and draped in usual sterile fashion went to the bladder with a 21 [place] rigid cystourethroscope once inside the bladder identified the right ureteral orifice advanced a wire up past the stone performed a retrograde pyelogram we can see contrast going up into the kidney delineating the kidney going past the stone and then put a wire back past the stone and then advance the stent up into the right kidney. Once the stent was in good position I pulled the wire the stent coiled in the kidney bladder good position I did not drain the bladder and the patient anesthetic was reversed taken back to PACU good good condition she will go home today and will bring her back for shockwave lithotripsy Type of Anesthesia: MAC Drains: stent right side Admit VTE Documentation VTE Present on Admission: No VTE Mechan Device Prophylaxis: SCD's
--- NOTE | 2021-03-09 15:33 | PCM.DC ---
Discharge Instructions Diet Discharge Diet: No restrictions Activity Discharge Activity: Return to Normal Activity and May Not Drive (while taking narcotic pain medications.) Dressing / Incision Call your doctor if you observe: Fever of 101 or Higher Follow Up Care Please Follow Up With: Nilay Singh MD When: Call [phone] for an appointment Test Results: Test results from this visit will be discussed in further detail at your follow-up appointment, if applicable. Discharge Plan Admission Admit Date/Time: 03/09/21 07:54 Primary Reason for Your Visit: kidney stone Attending Provider: Nilay Singh Primary Care Provider: Socorro Hernandez NP Instructions Patient Instructions: ED Kidney Stone w/ Colic Discharge Orders/Prescriptions Prescriptions: New oxycodone-acetaminophen [oxycodone-acetaminophen] 1 TABLET tablet 1 tab PO Q6H PRN PRN (Reason: Pain) 3 Days Qty: 12 RF: 0 ondansetron [ondansetron] 4 MG tablet 8 mg PO Q8H PRN PRN (Reason: Nausea) Qty: 20 RF: 0 oxycodone-acetaminophen 5-325 mg tablet 1 tab PO Q4H PRN (Reason: pain) 7 Days Qty: 14 RF: 0 oxycodone-acetaminophen 5-325 mg tablet 1 tab PO Q4H PRN (Reason: pain) 7 Days Qty: 14 RF: 0 Continued cholecalciferol (vitamin D3) 125 mcg (5,000 unit) capsule 125 mcg PO DAILY RF: 0 sertraline [Zoloft] 100 mg tablet 100 mg PO DAILY RF: 0 ascorbic acid (vitamin C) 1,000 mg tablet 1 g PO DAILY RF: 0 lorazepam [Ativan] 0.5 mg tablet 0.5 mg PO DAILY PRN (Reason: Anxiety) RF: 0 progesterone micronized [Prometrium] 200 mg capsule 200 mg PO DAILY RF: 0 metformin 500 mg tablet 500 mg PO DAILY RF: 0 spironolactone 100 mg tablet 100 mg PO DAILY RF: 0 icosapent ethyl [Vascepa] 1 gram capsule 2 g PO BID RF: 0 omeprazole 20 mg capsule,delayed release(DR/EC) 20 mg PO BID RF: 0 Adult Probiotic 3 billion cell capsule 3,000 mmu cells PO DAILY RF: 0 rosuvastatin 5 MG tablet 5 mg PO DAILY RF: 0 Referrals / Follow Up: Nilay Singh MD [STAFF PHYSICIAN] - Socorro Hernandez NP, [employer] [Primary Care Provider] - Disposition Discharge Orders: Discharge Patient (Routine); Ordered 03/09/21 Ordered By: Dr. Nilay Singh
== END 2021-03-09 17:52 | disposition home or self-care (01) ==
LOC: ED 05:10 → MS3 08:09
PROVIDERS: Admitting Provider Urology; Emergency Provider Emergency Medicine; PCP Nurse Practitioner; Visit Provider Urology
PROC: (CPT 52332; principal; 2021-03-09 15:30)
DX: N20.1 Calculus of ureter (principal); E78.2 Mixed hyperlipidemia; J45.909 Unspecified asthma, uncomplicated; K76.0 Fatty (change of) liver, not elsewhere classified; E28.2 Polycystic ovarian syndrome; E66.01 Morbid (severe) obesity due to excess calories; Z68.39 Body mass index [BMI] 39.0-39.9, adult; Z87.442 Personal history of urinary calculi; Z79.899 Other long term (current) drug therapy; Z79.84 Long term (current) use of oral hypoglycemic drugs
CPT/HCPCS: 52332; 74176; 76000; 80048; 81001; 84703; 85025; 87426; 96361; 96365; 96366; 96375; 96376; 99218; 99284; J7030; A4216; C1769; C2617; G0378; J2405

== ENCOUNTER 2021-03-12 07:56 | Day surgery (SDC) | payer OTHER, SELFPAY ==
[2021-03-09 14:52] VITALS: BMI 39.7
[2021-03-12] VITALS (8 sets, daily range): BP systolic 100–116; BP diastolic 63–80; PULSE 74–108; RESP 14–16; TEMP 36.1–36.7; O2SAT 85–100; BMI 39.0
[2021-03-12] MEDS: Lactated Ringers 1,000 ML 100 ML IV ×2 (08:29→11:00)
[2021-03-12] MEDS: Cefazolin 2 GM in 0.9% Normal Saline 100 ML IV (10:47)
[2021-03-12] MEDS: Ketorolac 15 MG/ML Vial IV (10:51)
--- NOTE | 2021-03-12 10:52 | PCM.HP.STD ---
HPI - General HPI Narrative DARYN BYRD, is a 35 F who presents with a stone causing obstruction in the proximal right ureter she underwent cystoscopy and stent placement now presents for shockwave lithotripsy possible stent removal. [facility] Medical History (Updated 03/10/21 @ 13:03 by Eileen Chang) Amenorrhea Anxiety Asthma Fatty liver Gastric reflux History of kidney stones Hyperlipidemia Hypertriglyceridemia Mixed hyperlipidemia Obesity PCOS (polycystic ovarian syndrome) PCOS (polycystic ovarian syndrome) Wears contact lenses Wears glasses Home Medications rosuvastatin [Crestor] 5 mg PO DAILY 05/07/17 [History Last Taken Unknown] ascorbic acid (vitamin C) 1,000 mg tablet 1 g PO DAILY tab 08/23/20 [History Last Taken Unknown] cholecalciferol (vitamin D3) 125 mcg (5,000 unit) capsule 125 mcg PO DAILY 08/23/20 [History Last Taken Unknown] lorazepam 0.5 mg tablet 0.5 mg PO DAILY PRN 08/23/20 [History Last Taken Unknown] progesterone micronized 200 mg capsule 200 mg PO DAILY cap 08/23/20 [History Last Taken Unknown] sertraline 100 mg tablet 100 mg PO DAILY 08/23/20 [History Last Taken Unknown] icosapent ethyl 1 gram capsule 2 g PO DAILY 11/28/20 [History Last Taken Unknown] lactobacillus combination no.8 3 billion cell capsule 3,000 mmu cells PO DAILY 11/28/20 [History Last Taken Unknown] metformin 500 mg tablet 500 mg PO DAILY 11/28/20 [History Last Taken Unknown] omeprazole 20 mg capsule,delayed release 20 mg PO DAILY 11/28/20 [History Last Taken Unknown] spironolactone 100 mg tablet 100 mg PO DAILY 11/28/20 [History Last Taken Unknown] ondansetron 8 mg PO Q8H PRN PRN #20 tab 03/09/21 [Rx Last Taken Unknown] oxycodone-acetaminophen 1 tab PO Q4H PRN 7 Days #14 tab 03/09/21 [Rx Last Taken Unknown] cephalexin 500 mg PO DAILY 03/10/21 [History Last Taken Unknown] hydrocodone-acetaminophen 1 tab PO Q4H PRN 03/12/21 [History Last Taken 03/12/21] phenazopyridine [Pyridium] 200 mg PO TID PRN 03/12/21 [History Last Taken 03/12/21] Allergy/AdvReac Type Severity Reaction Status Date / Time ciprofloxacin [From Cipro] Allergy Hives Verified 03/12/21 08:11 ciprofloxacin HCl Allergy Hives Verified 03/12/21 08:11 [From Cipro] clarithromycin [From Biaxin] Allergy Hives Verified 03/12/21 08:11 meperidine HCl [From Demerol] Allergy Rash Verified 03/12/21 08:11 morphine Allergy Rash Verified 03/12/21 08:11 sulfamethoxazole Allergy Hives Verified 03/12/21 08:11 [From Bactrim] trimethoprim [From Bactrim] Allergy Hives Verified 03/12/21 08:11 Family History Father Thyroid disorder Mother Hypertension Osteoarthritis Surgical History (Updated 03/10/21 @ 13:16 by Eileen Chang) D&C H/O cystoscopy History of lithotripsy History of salpingectomy Hx of oophorectomy Social History Smoking Status: Never smoker alcohol intake: never ROS Constitutional Constitutional: Denies chills, fever(s) or malaise Eyes Eyes: Denies blurry vision or change in vision ENT HEENT: Reports none Cardiovascular Cardiovascular: Denies chest pain or palpitations Respiratory/Chest Respiratory/Chest: Denies cough or shortness of breath with exertion Gastrointestinal Gastrointestinal: Denies abdominal pain, constipation or diarrhea Musculoskeletal Musculoskeletal: Denies back pain, joint stiffness or joint swelling Integumentary Integumentary: Denies dry skin, jaundice, lesions or rash Neurologic Neurologic: Denies confusion, syncope or weakness Psychiatric Psychiatric: Reports none; Denies anxiety or depression Endocrine Endocrinology: Denies excessive sweating, fatigue or flushing Hematologic/Lymphatic Hematologic/Lymphatic: Denies anemia, easy bleeding or easy bruising Vital Signs Vital Signs Vital Signs: 03/12/21 08:16 Temperature 97.4 F L Temperature Source Temporal Pulse Rate 74 Respiratory Rate 16 Respiratory Pattern Normal Blood Pressure 104/68 Blood Pressure Mean 80 Blood Pressure Source Monitor Blood Pressure Position Semi-Fowlers Blood Pressure Location Right Arm Pulse Ox 97 Oxygen Delivery Method Room Air Weight Weight: 109.8 kg Body Mass Index (BMI) 39.0 Physical Exam Const alert and oriented x3 General Appearance: cooperative HEENT normocephalic, head/scalp atraumatic, EAC's normal and TM's normal bilaterally Eyes PERRL and EOMs intact bilaterally Pupil: sluggish Neck no lymphadenopathy, supple and no JVD General: trachea midline Lymph Lymphatic: no lymphadenopathy noted, lymphedema and lymphadenopathy Resp normal respiratory effort, normal air movement and clear to auscultation bilaterally Cardio regular rate, regular rhythm and peripheral pulses 2+ throughout GI soft to palpation, non-tender and non-distended Extremity normal capillary refill and no clubbing, cyanosis or edema General Extremity: no tenderness to palpation of joints or extremities Skin no rashes or lesions noted General Skin Exam: turgor normal Lesions: no lesions Rashes: no rashes Neuro CN's II-XII intact bilaterally Speech: speech normal Motor Exam: strength 5/5 throughout; Negative for general weakness Psych thought process normal, cooperative and affect normal Appearance: appropriate Assessment & Plan Assessment/Plan (1) Renal colic on right side: PLAN: Plan to proceed with right ESWL and possible stent removal.
--- NOTE | 2021-03-12 10:54 | PCM.DC ---
Discharge Instructions Diet Discharge Diet: No restrictions Activity Discharge Activity: Return to Normal Activity and May Not Drive (while taking narcotic pain medications.) Dressing / Incision Call your doctor if your incision/area has: Continuous Slow Oozing, Increased Pain/ Swelling, Increased Redness and Foul Smelling Discharge Call your doctor if you observe: Fever of 101 or Higher, Numbness or Tingling, Shortness of breath, Dizziness, Calf discomfort and Uncontrolled pain Follow Up Care Please Follow Up With: Nilay Singh MD When: Call [phone] for an appointment Test Results: Test results from this visit will be discussed in further detail at your follow-up appointment, if applicable. Discharge Plan Admission Primary Reason for Your Visit: ESWL Attending Provider: Nilay Singh Primary Care Provider: Socorro Hernandez NP Discharge Orders/Prescriptions Prescriptions: Continued cholecalciferol (vitamin D3) 125 mcg (5,000 unit) capsule 125 mcg PO DAILY RF: 0 sertraline [Zoloft] 100 mg tablet 100 mg PO DAILY RF: 0 ascorbic acid (vitamin C) 1,000 mg tablet 1 g PO DAILY RF: 0 lorazepam [Ativan] 0.5 mg tablet 0.5 mg PO DAILY PRN (Reason: Anxiety) RF: 0 progesterone micronized [Prometrium] 200 mg capsule 200 mg PO DAILY RF: 0 metformin 500 mg tablet 500 mg PO DAILY RF: 0 spironolactone 100 mg tablet 100 mg PO DAILY RF: 0 icosapent ethyl [Vascepa] 1 gram capsule 2 g PO DAILY RF: 0 omeprazole 20 mg capsule,delayed release(DR/EC) 20 mg PO DAILY RF: 0 Adult Probiotic 3 billion cell capsule 3,000 mmu cells PO DAILY RF: 0 rosuvastatin [Crestor] 5 MG tablet 5 mg PO DAILY RF: 0 ondansetron 4 MG tablet 8 mg PO Q8H PRN PRN (Reason: Nausea) Qty: 20 RF: 0 oxycodone-acetaminophen 5-325 mg tablet 1 tab PO Q4H PRN (Reason: pain) 7 Days Qty: 14 RF: 0 cephalexin 500 mg capsule 500 mg PO DAILY RF: 0 hydrocodone-acetaminophen 5-325 mg Tablet 1 tab PO Q4H PRN (Reason: Pain) RF: 0 phenazopyridine [Pyridium] 200 mg Tablet 200 mg PO TID PRN (Reason: Pain) RF: 0 Referrals / Follow Up: Nilay Singh MD [STAFF PHYSICIAN] - Socorro Hernandez NP, [facility] [employer] [facility] [Primary Care Provider] - Disposition Disposition (needs filled in before D/C Order can be placed): Home, Self Care
--- NOTE | 2021-03-12 11:43 | OP.PCM_ITS ---
Report of Operation Date of Procedure: 03/12/21 Pre-Operative Diagnosis: Right kidney stone status post stent Post-Operative Diagnosis: Same Surgery/Procedure Performed:: Right ESWL and cystoscopy and stent removal Description of Surgical Findings:: Patient presents to the hospital for treatment of a kidney stone with shockwave lithotripsy. In the preoperative area and x-ray was done to confirm the location of the stone. The x-ray was reviewed and the stone location was reviewed. In the preoperative setting I spoke with the patient regarding the treatment of the stone how the treatment would be conducted and the expectations after surgery. The patient understands there is a risk of bleeding and infection. Also discussed the very rare risk of hematoma or damage to the kidney. We also discussed the risk that the shockwave machine will fail to break the stone adequately and that the patient may need other surgical procedures. We also discussed the possibility that the patient may need a stent after the procedure. After reviewing the procedure with the patient, the patient is signed the consent form all the patient's questions were addressed and was taken back to the operating room for treatment of a kidney stone. Patient was taken back to the operating room, patient was identified by the nursing staff, we identified the side of the treatment and the patient side of treatment had been marked by my initials. The patient underwent general anesthetic and was placed supine on the lithotripter table. We then used fluoroscopy to identify the stone on the right side. We then positioned the patient under the lithotripter and we used triangulation technique to identify the location of the stone and then we made sure that the stone was engaged in the F2 focal point of F2 Donier lithoprior machine. Once the patient was positioned appropriately and the stone was identified and placed in the F2 focal point of the lithotripter machine we then proceeded with shockwave lithotripsy. In the beginning the shockwave was delivered at a rate of 90 shocks per minute, we monitor the EKG for any ectopy. The power was slowly increased to 5 kV and subsequently at the 7 kV. We then proceeded with the treatment we move the therapy had around during the treatment to make sure the stone stayed in the F2 focal point during the entire treatment and after 3000 shockwaves were delivered to the stone under fluoroscopic guidance the treatment was completed. The patient was given instructions to call the office to make an a follow-up appointment with an xray to evaluate the success of the treatment, pateint understands that its possible the stones may need another procedure. The patient's urethra and genitals were prepped and draped in usual sterile fashion. I went into the bladder with a 21 [place] rigid cystourethroscope. I grabbed the stent emanating from the right ureteral orifice and then gently remove the stent from the bladder. I then drained the patient's bladder. At this point the patient's anesthetic was reversed patient was extubated and taken back to the PACU in stable condition. Surgeon: marissa Type of Anesthesia: General Drains: stent removed Admit VTE Documentation VTE Present on Admission: No VTE Mechan Device Prophylaxis: SCD's
== END 2021-03-12 14:08 | disposition home or self-care (01) ==
LOC: SDC 07:58 → AC 07:58
PROVIDERS: PCP Nurse Practitioner; Referring Provider Urology; Visit Provider Urology
PROC: (CPT 50590; principal; 2021-03-12 10:00)
DX: N20.0 Calculus of kidney (principal); F41.9 Anxiety disorder, unspecified; K76.0 Fatty (change of) liver, not elsewhere classified; K21.9 Gastro-esophageal reflux disease without esophagitis; E78.5 Hyperlipidemia, unspecified; E78.1 Pure hyperglyceridemia; E78.2 Mixed hyperlipidemia; E66.9 Obesity, unspecified; Z68.39 Body mass index [BMI] 39.0-39.9, adult; E28.2 Polycystic ovarian syndrome; J45.909 Unspecified asthma, uncomplicated; Z87.442 Personal history of urinary calculi; Z79.84 Long term (current) use of oral hypoglycemic drugs; Z79.899 Other long term (current) drug therapy
CPT/HCPCS: 50590; J7120; J2405

== ENCOUNTER → 2021-04-01 13:42 | Outpatient (CLI) | payer OTHER, SELFPAY ==
[2021-03-12 08:16] VITALS: BMI 39.0
--- NOTE | 2021-04-01 13:50 | RAD_ITS ---
STUDY: X-RAY - ABDOMEN/PELVIS REASON FOR EXAM: Female, 35 years old. CALCULUS OF KIDNEY TECHNIQUE: Single AP view of the abdomen / pelvis. COMPARISON: None. FINDINGS: Normal visualized lung bases. There is an abundance of fecal material throughout the colon. The visualized liver, spleen and kidneys are grossly normal in size and morphology. Normal soft tissue structures. Normal visualized osseous structures. RAD/Abdomen Single View IMPRESSION: Large amount of fecal material is seen in the colon. Electronically Signed: Nicho Diaz MD at 22:18 EDT , Service support ,
== END ==
PROVIDERS: PCP Nurse Practitioner; Referring Provider Urology; Visit Provider Urology
DX: N20.0 Calculus of kidney (principal)
CPT/HCPCS: 74018

== ENCOUNTER → 2021-04-07 06:48 | Outpatient (CLI) | payer OTHER, SELFPAY ==
[2021-03-12 08:16] VITALS: BMI 39.0
[2021-04-07 07:33] LABS: Estradiol 55.5 pg/mL; Luteinizing Hormone 5.2 mIU/mL
[2021-04-07 08:49] LABS: Insulin 58.1 mU/L (2.6-37.6); Vitamin D,25 Hydroxy 51.2 ng/mL
[2021-04-13 03:06] LABS: Testosterone, % Free 2.75 % (0.50-2.80); Testosterone, Total 18 ng/dL (8-60)
[2021-04-14 12:11] LABS: DHEA Sulfate 84.5 ug/dL (84.8-378.0)
== END ==
PROVIDERS: PCP Nurse Practitioner; Referring Provider Internal Medicine Endocrinology, Diabetes & Metabolism; Visit Provider Internal Medicine Endocrinology, Diabetes & Metabolism
DX: E28.2 Polycystic ovarian syndrome (principal); E56.9 Vitamin deficiency, unspecified
CPT/HCPCS: 36415; 82306; 82627; 82670; 83001; 83002; 83525; 84402; 84403; 82626

== ENCOUNTER → 2021-04-16 14:05 | Outpatient (CLI) | payer OTHER, SELFPAY ==
[2021-03-12 08:16] VITALS: BMI 39.0
--- NOTE | 2021-04-16 14:08 | US_ITS ---
STUDY: ULTRASOUND OF THE FEMALE PELVIS - COMPLETE REASON FOR EXAM: Female, [address] LMP: Unknown TECHNIQUE: Transabdominal and Transvaginal TECHNICAL QUALITY: Adequate. COMPARISON: CT 03/09/2021 FINDINGS: The uterus is retroflexed and is in a midline position. The uterus measures 9.5 x 4.7 x 3.8 cm. There is thickening of the central cervix along the endocervical canal with increased vascularity. The endometrium measures 3.7 mm in thickness, and is hyperechoic. There is no demonstrated endometrial mass. There is no demonstrated myometrial mass. I.U.D. - The patient does not have an I.U.D. The right ovary is non-visualized. There is no visualized right adnexal mass or complex lesion. The left ovary is visualized. The left ovary measures 5.9 x 4.7 x 3.2 cm. 4.2 x 3.1 x 2.4 cm anechoic cyst (with adjacent follicles). No septations or mural nodularity. There is no visualized left adnexal mass or complex lesion. There is normal arterial and normal venous vascularity. There is minimal fluid in the cul-de-sac. Visualized urinary bladder is unremarkable. US/Pelvic (Non ) IMPRESSION: 1. 4.2 cm anechoic cyst of the left ovary. SRU Consensus Conference guidelines (Byrd, et. al. Radiology 2019;293:359-371) suggest that this follicle or simple cyst is almost certainly benign and no follow-up of this cyst is necessary. 2. Heterogeneity and hypervascularity of the cervix along the endocervical canal. Could represent cervicitis although hyperplastic/neoplastic causes are possible. Correlation with physical exam recommended. 3. Right oophorectomy Electronically Signed: Sagar Araya MD ([place]) at 10:03 EDT , Service support ,
--- NOTE | 2021-04-16 14:08 | US_ITS ---
STUDY: ULTRASOUND OF THE FEMALE PELVIS - COMPLETE REASON FOR EXAM: Female, [address] LMP: Unknown TECHNIQUE: Transabdominal and Transvaginal TECHNICAL QUALITY: Adequate. COMPARISON: CT 03/09/2021 FINDINGS: The uterus is retroflexed and is in a midline position. The uterus measures 9.5 x 4.7 x 3.8 cm. There is thickening of the central cervix along the endocervical canal with increased vascularity. The endometrium measures 3.7 mm in thickness, and is hyperechoic. There is no demonstrated endometrial mass. There is no demonstrated myometrial mass. I.U.D. - The patient does not have an I.U.D. The right ovary is non-visualized. There is no visualized right adnexal mass or complex lesion. The left ovary is visualized. The left ovary measures 5.9 x 4.7 x 3.2 cm. 4.2 x 3.1 x 2.4 cm anechoic cyst (with adjacent follicles). No septations or mural nodularity. There is no visualized left adnexal mass or complex lesion. There is normal arterial and normal venous vascularity. There is minimal fluid in the cul-de-sac. Visualized urinary bladder is unremarkable. US/Transvaginal Non- IMPRESSION: 1. 4.2 cm anechoic cyst of the left ovary. SRU Consensus Conference guidelines (Byrd, et. al. Radiology 2019;293:359-371) suggest that this follicle or simple cyst is almost certainly benign and no follow-up of this cyst is necessary. 2. Heterogeneity and hypervascularity of the cervix along the endocervical canal. Could represent cervicitis although hyperplastic/neoplastic causes are possible. Correlation with physical exam recommended. 3. Right oophorectomy Electronically Signed: Sgaar Araya MD ([place]) at 10:03 EDT , Service support ,
== END ==
PROVIDERS: PCP Nurse Practitioner; Referring Provider Nurse Practitioner; Visit Provider Nurse Practitioner
DX: N83.292 Other ovarian cyst, left side (principal); Z90.721 Acquired absence of ovaries, unilateral
CPT/HCPCS: 76830; 76856

== ENCOUNTER → 2021-04-22 | Outpatient (CLI) | payer OTHER, SELFPAY ==
[2021-03-12 08:16] VITALS: BMI 39.0
--- NOTE | 2021-04-22 14:30 | ECC_PTH ---
PATIENT: DARYN BYRD LOC: [facility] U#:[id number] AGE/SX: 35/F ROOM: RE04/22/[address]: Dr. Jack Donohue MD : 1985 BED: DIS: 04/22/2021 SPEC #: [id number] RECD: 04/23/21 11:16 STATUS: ALYSSA REHenrique #: [id number] SUSAN: 04/22/21 14:[address]: Jack Donohue DEPT: SURGICAL PATHOLOGY RECD BY: Rani Agustin ENTERED: 04/23/21 11:17 SP TYPE: ECC OTHR DR: KALYN Griffiths Tissues: Endocervical Procedures: Surgery Specimen Level IV HEADER OPERATION: ECC PRE-OP DIAGNOSIS: Thickened endometrial canal on ultrasound TISSUE SUBMITTED: ECC MICROSCOPIC DIAGNOSIS ECC: Fragments of benign endocervical epithelium, blood and mucous. RAJ:yarelis 04/24/2021 MICROSCOPIC DESCRIPTION Slides are reviewed. GROSS DESCRIPTION Received in fixative is one container labeled with the patient's name and designated ECC. The specimen consists of multiple irregular fragments of light martinez soft tissue that in aggregate measure 2.2 x 1 x 0.1 cm. The specimen is totally submitted in one cassette. / AM:yarelis 04/23/21 TC:4 CPT: 34037
[2021-04-27 08:02] LABS: HPV Reflexed? NOT INDICATED
== END | disposition home or self-care (01) ==
LOC: LABSPEC 04-23 08:56
PROVIDERS: PCP Nurse Practitioner; Visit Provider Obstetrics & Gynecology
DX: Z12.4 Encounter for screening for malignant neoplasm of cervix (principal); N85.00 Endometrial hyperplasia, unspecified
CPT/HCPCS: 88175; 88305; G0145

== ENCOUNTER → 2021-09-01 06:35 | Outpatient (CLI) | payer OTHER, SELFPAY ==
[2021-09-01 07:40] LABS: Absolute Lymphocyte Count 2.52 X10^3/uL (0.83-4.51); Absolute Neutrophil Count 5.9 X10^3/uL (2.0-7.7); Basophil# 0.05 X10^3/uL; Basophil% 0.5 % (0-1); Eosinophils% 3.2 % (0-5); Hematocrit 37.3 % (37-47); Hemoglobin 11.5 g/dL (12.0-15.0); Lymphocyte # 2.52 X10^3/ul (0.83-4.51); Mean Corp Hgb Conc 30.8 g/dL (32-36); Mean Corpuscular Hgb 24.5 pg (27.0-32.0); Mean Corpuscular Volume 79.5 fL (81-99); Mean Platelet Vol. 10.1 fl (6.2-12.0); Monocyte# 0.52 X10^3/uL; Monocyte% 5.6 % (0-10); NRBC Flagged by Analyzer 0 % (0-5); Neutrophil % 63.3 % (47-70); Platelet Count 295 K/mm3 (150-450); RBC Distribution Width CV 16.1 % (11.6-14.6); RBC Distribution Width SD 46.1 fl (35.1-43.9); Red Blood Count 4.69 M/mm3 (4.2-5.4); White Blood Count 9.3 K/mm3 (4.4-11.0)
[2021-09-01 08:13] LABS: ALB/GLOB Ratio 0.8 RATIO (0.9-2.4); AST(SGOT) 18 U/L (15-37); Alanine Aminotransfer ALT/SGPT 33 U/L (13-56); Albumin, Serum 3.2 g/dL (3.2-5.0); Alkaline Phosphatase 76 U/L (45-117); Anion Gap 5 (5-15); BUN 9 mg/dL (7-18); BUN/Creat Ratio 13.5 RATIO (10-20); Calcium,Total 9.1 mg/dL (8.5-10.1); Chloride 106 mmol/L (98-107); Cholesterol 238 mg/dL (200); Creatinine, Serum 0.67 mg/dL (0.55-1.02); EST Glomerular Filtration Rate 107 mL/min (>60); Est Glom Filt Rate - Afr Amer 130 mL/min (>60); Globulin 3.9 g/dL (2.2-4.2); Glucose 100 mg/dL (74-106); High Density Lipoprotein 40 mg/dL; Potassium 3.5 mmol/L (3.5-5.1); Protein, Total 7.1 g/dL (6.4-8.2); Sodium Level 138 mmol/L (136-145); Triglycerides 271 mg/dL; Very Low Density Lipoprotein 54 mg/dL (5-40)
[2021-09-01 08:45] LABS: Vitamin D,25 Hydroxy 42.2 ng/mL
== END ==
PROVIDERS: PCP Nurse Practitioner; Referring Provider Nurse Practitioner; Visit Provider Nurse Practitioner
DX: E78.1 Pure hyperglyceridemia (principal); E55.9 Vitamin D deficiency, unspecified; R53.83 Other fatigue
CPT/HCPCS: 36415; 80053; 80061; 82306; 85025

== ENCOUNTER → 2021-09-05 06:18 | Outpatient (CLI) | payer OTHER, SELFPAY ==
[2021-09-05 08:31] LABS: Ferritin 9 ng/mL (8-252); Iron 35 ug/dL (50-170); Iron Binding Capacity,Total 378 ug/dL (250-450); PERCENT IRON SATURATION 9.3 % (15.0-55.0)
== END ==
PROVIDERS: PCP Nurse Practitioner; Referring Provider Nurse Practitioner; Visit Provider Nurse Practitioner
DX: R71.8 Other abnormality of red blood cells (principal)
CPT/HCPCS: 36415; 82728; 83021; 83540; 83550; 83655; 85660

== ENCOUNTER 2021-10-23 13:00 | Outpatient (CLI) | payer OTHER, SELFPAY ==
--- NOTE | 2021-10-23 13:20 | RAD_ITS ---
STUDY: X-RAY - ABDOMEN/PELVIS REASON FOR EXAM: Female, 36 years old. CALCULUS OF KIDNEY TECHNIQUE: Single AP view of the abdomen / pelvis. COMPARISON: None. FINDINGS: There is a moderate amount of colonic fecal material. There is a 4 mm nonobstructive calculus in the lower pole calyx of the left kidney. There is a 6.2 mm linear calcification in the right hemipelvis. This may represent a calculus in the distal portion of the right ureter. Normal soft tissue structures. Normal visualized osseous structures. RAD/Abdomen Single View IMPRESSION: 4 mm calculus in the lower pole calyx of the left kidney. 6.2 mm linear calcification in the right hemipelvis most likely representing a calculus in the distal portion of the right ureter. Electronically Signed: Nicho Diaz MD at 18:45 EST ,
== END 2021-10-23 23:59 | disposition home or self-care (01) ==
PROVIDERS: PCP Nurse Practitioner; Referring Provider Urology; Visit Provider Urology
DX: N20.0 Calculus of kidney (principal)
CPT/HCPCS: 74018

== ENCOUNTER 2021-10-29 05:57 | Day surgery (SDC) | payer OTHER, SELFPAY ==
[2021-10-29] VITALS (11 sets, daily range): BP systolic 117–146; BP diastolic 53–102; PULSE 70–100; RESP 12–18; TEMP 35.9–36.7; O2SAT 82–98; BMI 39.8
--- NOTE | 2021-10-29 06:00 | RAD_ITS ---
STUDY: X-RAY - ABDOMEN/PELVIS REASON FOR EXAM: Female, 36 years old. PRE-OP TECHNIQUE: Single AP view of the abdomen / pelvis. COMPARISON: None. FINDINGS: Normal visualized lung bases. There is an unremarkable bowel gas pattern. There is no demonstrated free abdominal air. There is a 5 mm stone in the mid left ureter. The visualized liver, spleen and kidneys are grossly normal in size and morphology. Normal soft tissue structures. Normal visualized osseous structures. RAD/Abdomen Single View IMPRESSION: There is a 5 mm stone in the mid left ureter. Electronically Signed: Zahida Gonzalez MD at 6:29 EST ,
[2021-10-29] MEDS: Lactated Ringers 1,000 ML 100 ML IV ×2 (06:35→09:30)
[2021-10-29 06:38] LABS: Internal QC Validated? YES +Cl - CLEAR BKGD; Pregnancy, Urine Negative Negative
[2021-10-29] MEDS: Cefazolin 2 GM in 0.9% Normal Saline 100 ML IV (07:33)
--- NOTE | 2021-10-29 07:39 | HP.PCM_ITS ---
HPI - General HPI Narrative DARYN BYRD, is a 36 F who presents for treatment of kidney stones she has a stone in the distal right ureter and KUB she also has a stone in the mid ureter on the left side on x-ray this morning so organ to go ahead and treat stones on both sides with ureteroscopy and laser lithotripsy possible stent p lacement. [facility] Medical History (Updated 10/27/21 @ 09:00 by Iman Pereyra) Amenorrhea Anemia Anxiety Asthma Fatty liver Gastric reflux History of kidney stones Hyperlipidemia Hypertriglyceridemia Mixed hyperlipidemia Obesity PCOS (polycystic ovarian syndrome) PCOS (polycystic ovarian syndrome) Wears contact lenses Wears glasses Home Medications rosuvastatin [Crestor] 5 mg PO DAILY 05/07/17 [History Last Taken Unknown] ascorbic acid (vitamin C) 1,000 mg tablet 1 g PO DAILY tab 08/23/20 [History Last Taken Unknown] cholecalciferol (vitamin D3) 125 mcg (5,000 unit) capsule 125 mcg PO DAILY 08/23/20 [History Last Taken Unknown] lorazepam 0.5 mg tablet 0.5 mg PO DAILY PRN 08/23/20 [History Last Taken Unknown] sertraline 100 mg tablet 100 mg PO DAILY 08/23/20 [History Last Taken Unknown] icosapent ethyl 1 gram capsule 2 g PO DAILY 11/28/20 [History Last Taken Unknown] lactobacillus combination no.8 3 billion cell capsule 3,000 mmu cells PO DAILY 11/28/20 [History Last Taken Unknown] omeprazole 20 mg capsule,delayed release 20 mg PO DAILY 11/28/20 [History Last Taken Unknown] spironolactone 100 mg tablet 100 mg PO DAILY 11/28/20 [History Last Taken Unknown] docusate sodium [Colace] 100 mg PO DAILY 10/27/21 [History Last Taken Unknown] ferrous sulfate 325 mg PO DAILY 10/27/21 [History Last Taken Unknown] cephalexin 500 mg PO BID #6 tab 10/29/21 [Rx Last Taken Unknown] oxycodone-acetaminophen 1 tab PO Q6H PRN 7 Days #14 tab 10/29/21 [Rx Last Taken Unknown] phenazopyridine [Pyridium] 100 mg PO TID PRN #10 tab 10/29/21 [Rx Last Taken Unknown] Allergy/AdvReac Type Severity Reaction Status Date / Time ciprofloxacin [From Cipro] Allergy Hives Verified 10/29/21 06:39 ciprofloxacin HCl Allergy Hives Verified 10/29/21 06:39 [From Cipro] clarithromycin [From Biaxin] Allergy Hives Verified 10/29/21 06:39 meperidine HCl [From Demerol] Allergy Rash Verified 10/29/21 06:39 morphine Allergy Rash Verified 10/29/21 06:39 sulfamethoxazole Allergy Hives Verified 10/29/21 06:39 [From Bactrim] trimethoprim [From Bactrim] Allergy Hives Verified 10/29/21 06:39 Family History Father Thyroid disorder Mother Hypertension Osteoarthritis Surgical History (Updated 10/27/21 @ 09:00 by Iman Pereyra) D&C H/O cystoscopy History of lithotripsy History of salpingectomy Hx of cystoscopy Hx of oophorectomy Social History Smoking Status: Never smoker alcohol intake: never ROS Constitutional Constitutional: Denies chills, fever(s) or malaise Eyes Eyes: Denies blurry vision or change in vision ENT HEENT: Reports none Cardiovascular Cardiovascular: Denies chest pain or palpitations Respiratory/Chest Respiratory/Chest: Denies cough or shortness of breath with exertion Gastrointestinal Gastrointestinal: Denies abdominal pain, constipation or diarrhea Musculoskeletal Musculoskeletal: Denies back pain, joint stiffness or joint swelling Integumentary Integumentary: Denies dry skin, jaundice, lesions or rash Neurologic Neurologic: Denies confusion, syncope or weakness Psychiatric Psychiatric: Reports none; Denies anxiety or depression Endocrine Endocrinology: Denies excessive sweating, fatigue or flushing Hematologic/Lymphatic Hematologic/Lymphatic: Denies anemia, easy bleeding or easy bruising Vital Signs Vital Signs Vital Signs: 10/29/21 06:35 Temperature 98.0 F Temperature Source Temporal Pulse Rate 85 Respiratory Rate 18 Respiratory Pattern Normal Blood Pressure 138/81 H Blood Pressure Mean 100 Blood Pressure Source Monitor Blood Pressure Position Sitting Blood Pressure Location Left Arm Pulse Ox 98 Oxygen Delivery Method Room Air Weight Weight: 112 kg Body Mass Index (BMI) 39.8 Physical Exam Const alert and oriented x3 General Appearance: cooperative HEENT normocephalic, head/scalp atraumatic, EAC's normal and TM's normal bilaterally Eyes PERRL and EOMs intact bilaterally Pupil: sluggish Neck no lymphadenopathy, supple and no JVD General: trachea midline Lymph Lymphatic: no lymphadenopathy noted, lymphedema and lymphadenopathy Resp normal respiratory effort, normal air movement and clear to auscultation bilaterally Cardio regular rate, regular rhythm and peripheral pulses 2+ throughout GI soft to palpation, non-tender and non-distended Extremity normal capillary refill and no clubbing, cyanosis or edema General Extremity: no tenderness to palpation of joints or extremities Skin no rashes or lesions noted General Skin Exam: turgor normal Lesions: no lesions Rashes: no rashes Neuro CN's II-XII intact bilaterally Speech: speech normal Motor Exam: strength 5/5 throughout; Negative for general weakness Psych thought process normal, cooperative and affect normal Appearance: appropriate Results Lab / Micro Data Labs: Laboratory Results - last 24 hr 10/29/21 06:25: Urine Test Negative Radiology Impression KUB X-Ray 10/29/21 06:00 IMPRESSION: There is a 5 mm stone in the mid left ureter. Electronically Signed: Zahida Gonzalez MD at 6:29 EST Reading Location ID and State: [facility] / [place] Tel , Service support , Assessment & Plan Assessment/Plan (1) Ureterolithiasis:
--- NOTE | 2021-10-29 07:40 | PCM.DC ---
Discharge Instructions Diet Discharge Diet: Light diet - advance as tolerated and Soft diet Activity Discharge Activity: May Not Drive (while taking narcotic pain medications.) Dressing / Incision Call your doctor if you observe: Fever of 101 or Higher Follow Up Care Please Follow Up With: Nilay Singh MD When: Call [phone] for an appointment Test Results: Test results from this visit will be discussed in further detail at your follow-up appointment, if applicable. Discharge Plan Admission Primary Reason for Your Visit: Ureteroscopy laser stone Attending Provider: Nilay Singh Primary Care Provider: Socorro Hernandez NP Discharge Orders/Prescriptions Prescriptions: New cephalexin 500 mg tablet 500 mg PO BID Qty: 6 RF: 0 oxycodone-acetaminophen 5-325 mg tablet 1 tab PO Q6H PRN (Reason: pain) 7 Days Qty: 14 RF: 0 phenazopyridine [Pyridium] 100 mg tablet 100 mg PO TID PRN (Reason: pain) Qty: 10 RF: 0 Continued cholecalciferol (vitamin D3) 125 mcg (5,000 unit) capsule 125 mcg PO DAILY RF: 0 sertraline [Zoloft] 100 mg tablet 100 mg PO DAILY RF: 0 ascorbic acid (vitamin C) 1,000 mg tablet 1 g PO DAILY RF: 0 lorazepam [Ativan] 0.5 mg tablet 0.5 mg PO DAILY PRN (Reason: Anxiety) RF: 0 spironolactone 100 mg tablet 100 mg PO DAILY RF: 0 icosapent ethyl [Vascepa] 1 gram capsule 2 g PO DAILY RF: 0 omeprazole 20 mg capsule,delayed release(DR/EC) 20 mg PO DAILY RF: 0 Adult Probiotic 3 billion cell capsule 3,000 mmu cells PO DAILY RF: 0 rosuvastatin [Crestor] 5 MG tablet 5 mg PO DAILY RF: 0 ferrous sulfate 325 mg (65 mg iron) Tablet 325 mg PO DAILY RF: 0 docusate sodium [Colace] 100 mg Capsule 100 mg PO DAILY RF: 0 Referrals / Follow Up: Nilay Singh MD [STAFF PHYSICIAN] - Socorro Hernandez NP, ADAM-C [Primary Care Provider] - Disposition Disposition (needs filled in before D/C Order can be placed): Home, Self Care
--- NOTE | 2021-10-29 08:20 | PCM.OPRPT ---
Report of Operation Date of Procedure: 10/29/21 Pre-Operative Diagnosis: Right ureteral obstructing calculi, and left ureteral obstructing calculi Post-Operative Diagnosis: same Surgery/Procedure Performed:: Right ureteroscopy laser lithotripsy of stone, retrograde pyelogram interpretation fluoroscopic images, no stent, Left ureteroscopy laser lithotripsy of stone and stent placement. Description of Surgical Findings:: This is a patient who presents to the hospital for treatment for an obstructing ureter calculi on both sides, right distal stone and left mid ureteral calculi. I discussed with the patient how the surgery would be performed and we reviewed the risks and benefits of the surgery. The risk and benefits include the risk of failure to remove the stone completely and that the patient may need multiple procedures. We discussed the risk of an infection, the risk of bleeding. We discussed the very rare risk of serious complicated injury to the ureter. The patient understands that if the stone is not able to be removed safely that we may abort the procedure and place a stent. After full discussion and all questions address with the patient the consent form was signed the side was marked appropriately and the patient was taken back to the operating room for the procedure. The patient was taken back to the operating room. After induction of anesthesia by the anesthesiology team the patient was placed in dorsolithotomy position. The genitals were prepped and draped in usual sterile fashion. I went into the bladder with a 21 Colombian rigid cystourethroscope through the urethra. Upon entering the bladder I inspected the trigone the left and right ureteral orifice and the bladder itself. I then cannulated the RIGHT ureteral orifice and advanced a 0.038 Glidewire up into the kidney. Then over the Glidewire I advanced a 5 Fr Ureteral catheter and performed a retrograde pyelogram with about 10cc of contrast, to delineate the anatomy and identify the stone location. Then a ureteral balloon dilator was advanced over the wire and the distal ureter was balloon dilated with a 12 Fr x 5cm balloon dilator. After 3 minutes of dilating the ureter the balloon was backloaded off the 0.038 glidewire then the safety wire was left in place. I then placed a second 0.038 Guidewire as a working wire and over the working 0.038 guidewire I went in with the ho rigide 7.5fr ureteroscope. I was able to go inside with the 7.5Fr ho rigid utereroscope and I pulled out the working guidewire and then through the 7.5 fr simirigid ureteroscope I engage the stone in the distal ureter with laser lithotripsy using a 270miron laser fiber with energy setting of 6 Hertz and 0.6 J until the stone was lasered into tiny little pieces that should pass on their own. A retrograde pyelogram was performed with 10cc of contrast and no extravasation of contrast or perforation was identified in the ureter there was some mild irritation of the ureter where the stone was located. I then removed the ureteroscope and not stent was placed on the RIGHT side. I then cannulated the LEFT ureteral orifice and advanced a 0.038 Glidewire up into the kidney. Then over the Glidewire I advanced a 5 Fr Ureteral catheter and performed a retrograde pyelogram with about 10cc of contrast, to delineate the anatomy and identify the stone location. Then a ureteral balloon dilator was advanced over the wire and the distal ureter was balloon dilated with a 12 Fr x 5cm balloon dilator. After 3 minutes of dilating the ureter the balloon was backloaded off the 0.038 glidewire then the safety wire was left in place. I then placed a second 0.038 Guidewire as a working wire and over the working 0.038 guidewire I went in with a Flexible 7.9fr ureteroscope. I was able to go inside with the 7.9Fr flexible utereroscope and I pulled out the working guidewire and then through the 7.9 fr flexible ureteroscope I ascended up the ureter with direct visualization until the stone was located, then I engaged the stone with laser lithotripsy using a 270miron laser fiber with energy setting of 6 Hertz and 0.6 J until the stone was lasered into tiny little pieces that should pass on their own. After successful laser lithotripsy of the stone and stone fragements, a retrograde pyelogram was performed with 10cc of contrast and no extravasation of contrast or perforation was identified in the ureter. I then backed out of the ureter left the wire in place and then over the 0.038 guidewire I placed a double coiled pigtail ureteral stent. The ureteral stent was advanced over the 0.038 guidewire under direct fluoroscopic guidance and direct cystoscopic visual guidance, once the stent was in good position on the LEFT side, I pulled the wire and the stent coiled in the kidney and bladder in good position. I then drained the patient's bladder and the cystoscope was removed and the patient was taken back to the recovery room in good position. The patient was given discharge instructions to call the office for instructions on when to come to the office to have the stent removed. Surgeon: marissa Type of Anesthesia: General Drains: left stent Admit VTE Documentation VTE Present on Admission: No VTE Mechan Device Prophylaxis: SCD's VTE Pharm Prophylaxis ordered?: No
[2021-10-29] MEDS: Phenazopyridine 95 MG Tablet PO (10:10)
[2021-10-29] MEDS: oxyCODONE 5 MG Tablet PO (11:42)
[2021-10-29] MEDS: Acetaminophen 325 MG Tablet PO (11:42)
== END 2021-10-29 23:59 | disposition home or self-care (01) ==
LOC: SDC 05:57 → AC 05:58
PROVIDERS: Anesthesiology; PCP Nurse Practitioner; Referring Provider Urology; Visit Provider Urology
PROC: 0TJ98ZZ Inspection of Ureter, Via Natural or Artificial Opening Endoscopic (ICD-10-PCS; CPT 52352; principal; 2021-10-29 07:20)
DX: N20.1 Calculus of ureter (principal); E78.2 Mixed hyperlipidemia; K21.9 Gastro-esophageal reflux disease without esophagitis; F41.9 Anxiety disorder, unspecified; E66.9 Obesity, unspecified; Z79.899 Other long term (current) drug therapy; Z87.442 Personal history of urinary calculi; Z68.39 Body mass index [BMI] 39.0-39.9, adult
CPT/HCPCS: 52353; 52356; 00918; 74018; 76000; 81025; J7120; C1769; C2617; J2405

== ENCOUNTER 2021-12-03 09:37 | Outpatient (CLI) | payer OTHER, SELFPAY ==
[2021-12-03 11:02] LABS: Ferritin 35 ng/mL (8-252); Iron 39 ug/dL (50-170); Iron Binding Capacity,Total 346 ug/dL (250-450); PERCENT IRON SATURATION 11.3 % (15.0-55.0)
[2021-12-04 12:56] LABS: Lead, Blood Adult 16+yrs < 1 ug/dL (0-4)
== END 2021-12-03 23:59 | disposition home or self-care (01) ==
PROVIDERS: PCP Nurse Practitioner; Visit Provider Nurse Practitioner
DX: R71.8 Other abnormality of red blood cells (principal)
CPT/HCPCS: 36415; 82728; 83540; 83550; 83655

== ENCOUNTER 2021-12-10 08:41 | Outpatient (CLI) | payer OTHER, SELFPAY ==
[2021-12-10 09:53] LABS: Anion Gap 2 (5-15); BUN 8 mg/dL (7-18); BUN/Creat Ratio 10.6 RATIO (10-20); Calcium,Total 9.4 mg/dL (8.5-10.1); Chloride 106 mmol/L (98-107); Cholesterol 193 mg/dL (200); Creatinine, Serum 0.75 mg/dL (0.55-1.02); EST Glomerular Filtration Rate 93 mL/min (>60); Est Glom Filt Rate - Afr Amer 113 mL/min (>60); Glucose 107 mg/dL (74-106); High Density Lipoprotein 43 mg/dL; Potassium 4.1 mmol/L (3.5-5.1); Sodium Level 138 mmol/L (136-145); Triglycerides 181 mg/dL; Very Low Density Lipoprotein 36 mg/dL (5-40)
[2021-12-10 09:59] LABS: PTHIN 102.2 pg/mL (18.4-80.1)
[2021-12-10 10:02] LABS: Insulin 87.2 mU/L (2.6-37.6)
[2021-12-10 13:49] LABS: Hemoglobin A1c 5.2 % (3.8-5.6)
== END 2021-12-10 23:59 | disposition home or self-care (01) ==
LOC: LAB 08:41
PROVIDERS: PCP Nurse Practitioner; Referring Provider Urology; Visit Provider Urology
DX: N20.1 Calculus of ureter (principal); E78.1 Pure hyperglyceridemia; E28.2 Polycystic ovarian syndrome; N20.0 Calculus of kidney
CPT/HCPCS: 36415; 80048; 80061; 83036; 83525; 83970

== ENCOUNTER → 2022-01-07 | Outpatient (CLI) | payer OTHER, SELFPAY ==
--- NOTE | 2022-01-07 09:56 | NM_ITS ---
Nuclear medicine parathyroid sestamibi study INDICATION: Hyperparathyroidism TECHNIQUE: 24.5 mCi of technetium 99 M labeled sestamibi injected intravenously with a standard 20 minute and 2 hour imaging of the neck and chest. COMPARISON: 11/03/2017 FINDINGS: Immediate 20 minute imaging demonstrates expected activity of the salivary glands and thyroid gland, the latter of which demonstrates normal bilobed appearance. There is washout of isotope activity of the thyroid gland on 2 hour images. No focal isotope accumulation in the region of the lower neck or in the chest. NM/Parathyroid Scan IMPRESSION: Normal exam. No evidence of parathyroid adenoma. Electronically Signed: Sagar Araya MD (Brooks) at 16:45 EDT ,
== END | disposition home or self-care (01) ==
LOC: NM 09:55
PROVIDERS: PCP Nurse Practitioner; Referring Provider Nurse Practitioner; Visit Provider Nurse Practitioner
DX: E21.3 Hyperparathyroidism, unspecified (principal)
CPT/HCPCS: 78070; A9500

== ENCOUNTER → 2022-04-21 | Outpatient (CLI) | payer OTHER, SELFPAY ==
--- NOTE | 2022-04-21 07:20 | US_ITS ---
EXAM: US ABDOMEN LIMITED, RIGHT UPPER QUADRANT CLINICAL INDICATION: GALLSTONE TECHNIQUE: Real-time ultrasound of the right upper quadrant with image documentation. This report was created using [employer] report generation technology. COMPARISON: None. FINDINGS: LIVER: The liver measures 16.8 cm in length. There is normal echotexture. No intrahepatic biliary ductal dilation. GALLBLADDER: There are echogenic foci within the gallbladder compatible with gallstones. The gallbladder wall measures 1 mm. No pericholecystic fluid. Negative sonographic Torres''s sign. COMMON BILE DUCT: Common bile duct measures 6 mm. The proximal common bile duct is within normal limits for the patient''s age. PANCREAS: Unremarkable as visualized. No focal abnormality is demonstrated in the pancreas. No pancreatic ductal dilatation. RIGHT KIDNEY: The right kidney measures 13.7 x 6.0 x 5.4 cm. There is no hydronephrosis. No shadowing calculus. No focal lesion or perinephric collection is demonstrated. US/Abdomen Limited IMPRESSION: Cholelithiasis with borderline dilatation of common bile duct. These are nonspecific findings but can be seen in cholecystitis. There is no fluid in the patient had a negative sonographic Torres sign. Electronically Signed: Dani Marion MD at 11:24 EDT ,
== END | disposition home or self-care (01) ==
LOC: US 07:19
PROVIDERS: PCP Nurse Practitioner Family; Referring Provider Nurse Practitioner Family; Visit Provider Nurse Practitioner Family
DX: K80.20 Calculus of gallbladder without cholecystitis without obstruction (principal)
CPT/HCPCS: 76705

== ENCOUNTER → 2022-05-08 | Outpatient (CLI) | payer OTHER, SELFPAY ==
[2022-05-08 08:06] LABS: Ferritin 55 ng/mL (8-252); Iron 69 ug/dL (50-170); Iron Binding Capacity,Total 324 ug/dL (250-450)
[2022-05-08 10:01] LABS: Vitamin D,25 Hydroxy 31.8 ng/mL
== END | disposition home or self-care (01) ==
LOC: LAB 06:41
PROVIDERS: PCP Nurse Practitioner Family; Referring Provider Nurse Practitioner Family; Visit Provider Nurse Practitioner Family
DX: E55.9 Vitamin D deficiency, unspecified (principal); E78.5 Hyperlipidemia, unspecified; D64.9 Anemia, unspecified
CPT/HCPCS: 36415; 82306; 82728; 83540; 83550

== ENCOUNTER 2022-05-21 09:23 | Day surgery (SDC) | payer OTHER, SELFPAY ==
--- NOTE | 2022-05-19 18:19 | EKG12_ITS ---
Test Reason : PRE OP Blood Pressure : / mmHG Vent. Rate : 074 BPM Atrial Rate : 074 BPM P-R Int : 136 ms QRS Dur : 094 ms QT Int : 392 ms P-R-T Axes : 007 007 013 degrees QTc Int : 435 ms Normal sinus rhythm Normal ECG Confirmed by KOLE OSULLIVAN MD ([id number]), editor dictionary TRELL PACE ([id number]) on 05/20/2022 10:16:13 AM Referred By: Chapito Ruth Confirmed By:KOLE OSULLIVAN MD
[2022-05-21] VITALS (15 sets, daily range): BP systolic 121–158; BP diastolic 74–110; PULSE 65–94; RESP 16–20; TEMP 36.3–37; O2SAT 92–98; BMI 40.1
--- NOTE | 2022-05-21 10:00 | RAD_ITS ---
STUDY: INTRAOPERATIVE CHOLANGIOGRAM. REASON FOR EXAM: Female, 37 years old. PAIN, lap tim with IOC FLUOROSCOPY TIME (if supplied): ( 15 seconds ) minutes/seconds. A cine loop of 103 images was submitted. TECHNIQUE: An intraoperative cholangiogram was performed to the surgeon. COMPARISON: None. FINDINGS: The visualized intrahepatic biliary ducts are not dilated. No intraluminal filling defect is seen. There is free flow of contrast into the duodenum. RAD/Cholangiogram/ O R,Initial IMPRESSION: Unremarkable intraoperative cholangiogram. Electronically Signed: Nicho Diaz MD at 15:03 EDT ,
[2022-05-21] MEDS: Lactated Ringers 1,000 ML 15 ML IV ×3 (10:13→14:24)
--- NOTE | 2022-05-21 10:29 | HP.PCM_ITS ---
History and Physical Date of Admission: 05/21/22 Intake Vital Signs ? 10/29/2205:35 05/04/2209:49 Height 5 ft 6 in 5 ft 6 in Weight: ? 249 lb 8 oz BMI ? 40.2 BP ? 138/83 H Blood Pressure Location ? Rt brachial Position ? Sitting Respiration ? 16 Pulse ? 75 Pulse Source ? Monitor Temp ? 97.9 F Temp Source ? Temporal Pulse Oximetry (%) ? 98 Oxygen Delivery Method ? room air Intake Visit Reasons:?GALLSTONES Chief Complaint: Gallstones Electronic Service Technician Required: No Is patient in pain?: No Allergies ciprofloxacin [From Cipro] Allergy (Verified 05/04/22 09:52) Hivesclarithromycin [From Biaxin] Allergy (Verified 05/04/22 09:52) Hivesmeperidine HCl [From Demerol] Allergy (Verified 05/04/22 09:52) Rashmorphine Allergy (Verified 05/04/22 09:52) Rashsulfamethoxazole [From Bactrim] Allergy (Verified 05/04/22 09:52) Hivestrimethoprim [From Bactrim] Allergy (Verified 05/04/22 09:52) Hives Medications rosuvastatin 5 mg tablet (Crestor) 5 mg PO DAILY 05/07/17 [History Confirmed 05/04/22] cholecalciferol (vitamin D3) 125 mcg (5,000 unit) capsule 125 mcg PO DAILY 08/23/20 [History Confirmed 05/04/22] lorazepam 0.5 mg tablet (Ativan) 0.5 mg PO DAILY PRN Anxiety 08/23/20 [History Confirmed 05/04/22] sertraline 100 mg tablet (Zoloft) 100 mg PO DAILY 08/23/20 [History Confirmed 05/04/22] icosapent ethyl 1 gram capsule (Vascepa) 2 g PO DAILY triglycerides 11/28/20 [History Confirmed 05/04/22] lactobacillus combination no.8 3 billion cell capsule (Adult Probiotic) 3,000 mmu cells PO DAILY 11/28/20 [History Confirmed 05/04/22] omeprazole 20 mg capsule,delayed release 20 mg PO DAILY 11/28/20 [History Confirmed 05/04/22] spironolactone 100 mg tablet 100 mg PO DAILY 11/28/20 [History Confirmed 05/04/22] ferrous sulfate 325 mg (65 mg iron) tablet 325 mg PO DAILY 10/27/21 [History Confirmed 05/04/22] docusate sodium 100 mg capsule (Colace) 100 mg PO DAILY PRN 05/04/22 [History Confirmed 05/04/22] PFSH Medical History? Amenorrhea Anemia Anxiety Asthma Fatty liver Gastric reflux History of kidney stones Hyperlipidemia Hypertriglyceridemia Mixed hyperlipidemia Obesity PCOS (polycystic ovarian syndrome) PCOS (polycystic ovarian syndrome) Wears contact lenses Wears glasses Surgical History? D&C H/O cystoscopy History of lithotripsy History of salpingectomy Hx of cystoscopy Hx of oophorectomy Family History?(Updated 05/04/22 @ 09:48 by Misti Wednesday) Father Thyroid disorder High cholesterolMother Hypertension Osteoarthritis Breast cancer High cholesterol Osteopenia Social History?(Updated 05/04/22 @ 09:48 by Misti Wednesday) Smoking Status:? Never smoker alcohol intake:? current details:? occasional substance use type:? does not use HPI HPI HPI: DARYN BYRD, is a 36 F who presents to the office today for right upper quadrant pain.? The patient says she has been having these attacks for years mostly at night.? She says that they would happen every few months but they are becoming more frequent and starting to radiate to the back.? She denies nausea or vomiting normally. ROS General General: Yes weight change; No appetite, fatigue, colon cancer, breast cancer or weakness HEENT HEENT: No difficulty swallowing, eye injury, eye surgery, swollen glands or hoarseness Endo Endocrine: No thyroid disease, diabetes mellitus, thyroid cancer, Hair loss, heat intolerance or cold intolerance Skin Skin: No rash or changing moles Musc Musculoskeletal: No back problems, arthritis, rheumatoid arthritis, gout or joint pain Cardio Cardiovascular: No murmur, pacemaker, heart disease, atrial fibrillation, high blood pressure, heart attack, heart stent, palpitations, shortness of breat with exertion or chest pain Psych Psychiatric: Yes anxiety; No depression or hearing voices Resp Respiratory: No shortness of breath, No sleep apnea, No cough, No COPD, No asthma, No emphysema and No wheezing Gastro Gastrointestinal: No abdominal pain, No nausea or vomiting, Yes diarrhea, Yes constipation, No blood in stool, Yes acid reflux, No hemorrhoids, No ulcers, Yes gallbladder problem and No black,tarry stools Vinod Hematologic: No blood thinners, No blood disorders, No bleeding, Yes anemia and No blood clots Additional Details: Iron deficient, is on iron replacement Neuro Neurologic: No system reviewed and no additional complaints, except as documented, No as per HPI, No abnormal gait, No abnormal hearing, No abnormal m ovements, No abnormal speech, No behavioral changes, No burning sensations, No confusion, No convulsions, No disequilibrium, No dizziness, No localized weakness, No frequent falls, No headache(s), No lack of coordination, No loss of vision, No memory loss, No numbness, No other visual disturbances, No radicular pain, No restless legs, No sensory deficit, No syncope, No tingling, No tremor(s), No weakness and No other Exam Const General: cooperative Orientation: alert and oriented x3 HENMT Head: normal to inspection Neck Neck: normal visual inspection and full ROM Chest Chest palpation & inspection: normal inspection of the chest Resp Effort & Inspection: normal respiratory effort Auscultation: clear to auscultation bilaterally Cardio Rate: regular rate Rhythm: regular rhythm GI Inspection: non-distended Palpation: soft and nontender Skin General: no rashes or lesions noted Neuro General: patient alert and patient oriented x3 Extrem General: full ROM Psych Appearance: grossly normal Mental Status: mental status grossly normal Assessment and Plan Assessment and Plan (1) Cholelithiasis: ?Status:?Acute ?Qualifiers: ?Cholelithiasis location:?gallbladder??Cholecystitis presence:?without cholecystitis??Biliary obstruction:?without biliary obstruction? Qualified Code(s):?K80.20 - Calculus of gallbladder without cholecystitis without obstruction ?Plan: The patient is having right upper quadrant pains and these are happening as attacks in the night.? Patient had an ultrasound that showed large gallstones in the gallbladder.? I did recommend laparoscopic cholecystectomy for the patient I discussed the procedure in detail with the patient.? I discussed the risks, benefits, and alternatives of the procedure.? I discussed the risks including but not limited to bleeding, infection, injury to surrounding organs such as the liver, bile duct, bowels.? I did discuss the possibility of having to convert to an open procedure as well as the possibility that if any injuries occurred this may necessitate further surgery at a tertiary care center. Chapito Ruth MD Pager: [facility] [address] [place] [address], [address] [place] [address] Office: I have re-examined the patient. There are no clinical changes since date of exam.
[2022-05-21] MEDS: Cefotetan 2 GM in 0.9% NS 100 ML IV (10:54)
--- NOTE | 2022-05-21 11:00 | GALL_PTH ---
PATIENT: DARYN BYRD LOC: [facility] [place] U#:[id number] AGE/SX: 37/F ROOM: RE05/21/[address]: Dr. Chapito Ruth MD : [id number] BED: DIS: 05/21/2022 SPEC #: [id number] RECD: 05/21/22 15:40 STATUS: ALYSSA MEDELLIN #: [id number] SUSAN: 05/21/22 11:[address]: Chapito Ruth DEPT: SURGICAL PATHOLOGY RECD BY: Pratima Madrid ENTERED: 05/22/22 08:09 SP TYPE: FRANK MOSES DR: Karley Mott NP-Anna Tissues: Gallbladder, NOS Procedures: Surgery Specimen Level III HEADER OPERATION: Laparoscopic cholecystectomy with IOC PRE-OP DIAGNOSIS: Cholelithiasis TISSUE SUBMITTED: Gallbladder MICROSCOPIC DIAGNOSIS Gallbladder, cholecystectomy: Chronic cholecystitis and cholelithiasis. SJ:yarelis 05/25/2022 MICROSCOPIC DESCRIPTION Slides are reviewed. GROSS DESCRIPTION Received is one container labeled with the patient's name and designated gallbladder. The specimen consists of a gallbladder measuring 9 cm in length and up to 3 cm in diameter. The external surface is pink-martinez, smooth and glistening for the most part. Focally it is granular, hemorrhagic and contains cautery artifact. The gallbladder contains a small amount of green-yellow mucoid bile and one ovoid brownish-black stone measuring 2 x 1.5 x 1.5 cm. The mucosa is bile-stained and without any mass lesions. The gallbladder wall measures up to 0.4 cm in thickness. Decision Support Analyst sections from the gallbladder and the cystic duct are submitted in one cassette. / SJ:rg 05/22/2022 TC:3 CPT: 90232
[2022-05-21] MEDS: Bupivacaine 0.25% 30 ML Vial (11:54)
--- NOTE | 2022-05-21 12:05 | PCM.OPRPT ---
Report of Operation Date of Procedure: 05/21/22 Pre-Operative Diagnosis: Biliary colic and cholelithiasis Post-Operative Diagnosis: Same Surgery/Procedure Performed:: Laparoscopic cholecystectomy with cholangiogram Specimen's removed: Gallbladder Description of Procedure: After obtaining informed consent patient was brought back to the operating room. General anesthesia was induced. The abdomen was prepped and draped in usual sterile fashion. A small midline incision was made superior to the umbilicus and deepened to the level of fascia. The fascia was elevated and incised. Next the peritoneum was elevated and incised in the same fashion. Finger sweep was performed and the Teague trocar was placed into the abdomen. The balloon was inflated. The abdomen was inflated to 15 mmHg. Next a camera was introduced into the abdomen and the abdomen was inspected. Next under direct visualization three 5-mm ports were placed one subxiphoid and 2 subcostal. Next the gallbladder was elevated and retracted toward the right shoulder. The peritoneum was stripped from the gallbladder. The infundibulum was located and retracted laterally. Next the triangle of Calot was dissected and the cystic duct and cystic artery were identified. Cholangiograms were performed. The Tai clamp was used to clamp across the infundibulum and the catheter needle was inserted into the gallbladder. Under fluoroscopy contrast was instilled into the gallbladder and the common duct, cystic duct as well as proximal hepatic ducts were identified. There was good filling of the duodenum. There were no filling defects noted in the common bile duct. The clamp was removed as well as the needle and the infundibulum was grasped once more. Three hemolock clips were placed across the cystic duct. The cystic duct was then divided leaving 2 clips on the stump. The cystic artery was clipped and divided in the same fashion. The hook cautery was then used to take the gallbladder off of the gallbladder bed. Hemostasis was obtained. Gallbladder fossa was irrigated and no active bleeding or bile leakage was noted. Next the camera was introduced in the subxiphoid port. An Endopouch bag was placed through the umbilical port and the gallbladder was placed into it. The gallbladder was then removed through the umbilical incision. The camera was then reinserted through the umbilical port. The gallbladder fossa was inspected once more and noted to be hemostatic with no leaking bile. The abdomen was suctioned dry. The 5 mm ports were removed under direct visualization. The umbilical port was then removed and the air was removed from the abdomen. Next using an 0 Vicryl suture the umbilical fascia was closed in a [id number] fashion. The umbilical port site was irrigated local anesthetic was administered to all the incisions. All the incisions were closed with interrupted subcuticular 4-0 Monocryl sutures followed by Steri-Strips and dressings. The patient was awoken and taken to PACU in stable condition. Admit VTE Documentation VTE Mechan Device Prophylaxis: SCD's
--- NOTE | 2022-05-21 12:17 | EX.PCM.DISCH ---
Discharge Instructions Procedure Gallbladder Diet Discharge Diet: Light diet - advance as tolerated Activity Discharge Activity: May Not Drive (for 2-3 days or while taking narcotic pain medications.) and - (Do not drive, work heavy equipment or sign legal documents for 24 hours.) May shower in (days): 1 Lifting Restrictions: 20 lbs for 2 weeks Additional Activity Instructions:: Pain medication may cause nausea. You should typically eat light foods as you take your pain medications. Pain medication may also cause constipation. If this is a problem for you, please discuss with your doctor. Dressing / Incision Call your doctor if your incision/area has: Continuous Slow Oozing, Sudden Increased Bleeding, Increased Pain/ Swelling, Increased Redness and Foul Smelling Discharge Call your doctor if you observe: Fever of 101 or Higher Suture Line Care: Avoid Pulling/Pushing and Avoid Pinching/Bending Remove Dressing in: 2 days Additional Dressing/Incision Instructions:: Leave operative bandaids on for 2 days. When you remove dressing, leave Steri-Strips on until your follow-up appointment, or until the Steri-Strips fall off on their own. Follow Up Care Please Follow Up With: Chapito Ruth MD When: Please call to schedule 2 week follow up appointment. [phone] Test Results: Test results from this visit will be discussed in further detail at your follow-up appointment, if applicable. Discharge Plan Admission Attending Provider: Chapito Ruth Primary Care Provider: Karley Mott Discharge Orders/Prescriptions Prescriptions: New oxycodone-acetaminophen [Percocet] 5-325 mg tablet 1 - 2 tab PO Q6H PRN (Reason: pain) 5 Days Qty: 30 0RF No Action cholecalciferol (vitamin D3) 125 mcg (5,000 unit) capsule 125 mcg PO DAILY sertraline [Zoloft] 100 mg tablet 100 mg PO DAILY lorazepam [Ativan] 0.5 mg tablet 0.5 mg PO DAILY PRN (Reason: Anxiety) spironolactone 100 mg tablet 100 mg PO DAILY omeprazole 20 mg capsule,delayed release(DR/EC) 20 mg PO QHS Adult Probiotic 3 billion cell capsule 3,000 mmu cells PO DAILY Rx Instructions: administer with a meal rosuvastatin [Crestor] 5 MG tablet 10 mg PO QHS ferrous sulfate 325 mg (65 mg iron) Tablet 325 mg PO DAILY docusate sodium [Colace] 100 mg capsule 100 mg PO DAILY PRN (Reason: Constipation) Other Ambulatory Orders: 12 Lead EKG (Routine) Location: None Selected Ordered By: Dr. Ramesh Andrews Referrals / Follow Up: Karley Mott, CAREER INFORMATION SPECIALIST-C [Primary Care Provider] - Disposition Disposition (needs filled in before D/C Order can be placed): Home, Self Care
[2022-05-21] MEDS: Ketorolac 30 MG/ML Syringe IV (14:50)
[2022-05-21] MEDS: oxyCODONE 5 MG Tablet PO (17:25)
[2022-05-21] MEDS: Acetaminophen 325 MG Tablet PO (17:25)
== END 2022-05-21 17:52 | disposition home or self-care (01) ==
LOC: SDC 09:24 → AC 09:25
PROVIDERS: PCP Nurse Practitioner Family; Referring Provider Surgery; Visit Provider Surgery
PROC: (CPT 47610; principal; 2022-05-21 10:40)
DX: K80.10 Calculus of gallbladder with chronic cholecystitis without obstruction (principal); K76.0 Fatty (change of) liver, not elsewhere classified; E28.2 Polycystic ovarian syndrome; F41.9 Anxiety disorder, unspecified; K21.9 Gastro-esophageal reflux disease without esophagitis; Z79.899 Other long term (current) drug therapy
CPT/HCPCS: 47563; 00790; 74300; 76000; 88304; 93005; J7120; J2405

== ENCOUNTER → 2022-06-25 | Outpatient (CLI) | payer OTHER, SELFPAY ==
--- NOTE | 2022-06-25 10:19 | RAD_ITS ---
STUDY: X-RAY - ABDOMEN/PELVIS REASON FOR EXAM: Female, 37 years old. Urinary calculi. TECHNIQUE: Single AP view of the abdomen / pelvis 2 6. COMPARISON: None. FINDINGS: Normal visualized lung bases. There is an unremarkable bowel gas pattern. There is no demonstrated free abdominal air. The visualized liver, spleen and kidneys are grossly normal in size and morphology. Normal soft tissue structures. Normal visualized osseous structures. RAD/Abdomen Single View IMPRESSION: The 5 mm in diameter calcification projected over the lower pole of the left kidney is no longer seen. Electronically Signed: Rene Alvarez, at 11:55 EDT ,
== END | disposition home or self-care (01) ==
LOC: RAD 10:18
PROVIDERS: PCP Nurse Practitioner Family; Referring Provider Registered Nurse; Visit Provider Registered Nurse
DX: N20.9 Urinary calculus, unspecified (principal)
CPT/HCPCS: 74018

== ENCOUNTER → 2022-09-14 | Outpatient (CLI) | payer OTHER, SELFPAY ==
[2022-09-14 10:45] LABS: AST(SGOT) 22 U/L (15-37); Alanine Aminotransfer ALT/SGPT 39 U/L (13-56); Albumin, Serum 3.6 g/dL (3.2-5.0); Alkaline Phosphatase 69 U/L (45-117); Anion Gap 5 (5-15); BUN 11 mg/dL (7-18); BUN/Creat Ratio 15.6 RATIO (10-20); Calcium,Total 9.2 mg/dL (8.5-10.1); Chloride 107 mmol/L (98-107); EST Glomerular Filtration Rate 100 mL/min (>60); Est Glom Filt Rate - Afr Amer 121 mL/min (>60); Globulin 3.6 g/dL (2.2-4.2); Glucose 114 mg/dL (74-106); Magnesium 1.9 mg/dL (1.6-2.6); Phosphorus 2.3 mg/dL (2.5-4.9); Potassium 4.2 mmol/L (3.5-5.1); Protein, Total 7.2 g/dL (6.4-8.2); Sodium Level 137 mmol/L (136-145)
[2022-09-15 08:42] LABS: PTHIN 77.5 pg/mL (18.4-80.1)
[2022-09-15 08:45] LABS: Vitamin D,25 Hydroxy 46.1 ng/mL
== END | disposition home or self-care (01) ==
PROVIDERS: PCP Nurse Practitioner Family
DX: E21.3 Hyperparathyroidism, unspecified (principal)
CPT/HCPCS: 36415; 80053; 82306; 82330; 83735; 83970; 84100

== ENCOUNTER → 2022-09-29 | Outpatient (CLI) | payer OTHER, SELFPAY ==
[2022-09-29 09:33] LABS: (24 HR) Urine Calcium 278.4 mg/24 HR (42.0-353.0); 24HR UR TOTAL VOLUME 3200 ml; Calcium Urine pH Range 2; Urine Calcium (Random) 8.7 (Not Estab.)
== END | disposition home or self-care (01) ==
LOC: LABSPEC 09:20
PROVIDERS: PCP Nurse Practitioner Family
DX: E21.3 Hyperparathyroidism, unspecified (principal)
CPT/HCPCS: 81050; 82340

== ENCOUNTER → 2022-10-26 | Outpatient (CLI) | payer OTHER, SELFPAY ==
[2022-10-26 09:13] LABS: 24Hr.Lytes Total Volume 2975 mL; Sodium 24 HR UR 274 mmol/24h (40-220); Urine Sodium 92 mmol/L (Not Establ.)
[2022-10-26 09:20] LABS: 24HR. Urine Creatinine 1.73 g/24 HR (0.70-1.90)
== END | disposition home or self-care (01) ==
LOC: LABSPEC 08:25
PROVIDERS: PCP Nurse Practitioner Family
DX: E21.3 Hyperparathyroidism, unspecified (principal)
CPT/HCPCS: 81050; 82570; 84300

== ENCOUNTER → 2022-12-29 | Outpatient (CLI) | payer OTHER, SELFPAY ==
[2022-12-29 12:48] LABS: T4 Free Direct 0.83 ng/dL (0.76-1.46); Thyroid Stim Hormone (TSH) 1.12 uIU/mL (0.358-3.74)
== END | disposition home or self-care (01) ==
PROVIDERS: PCP Nurse Practitioner Family
DX: E04.2 Nontoxic multinodular goiter (principal)
CPT/HCPCS: 36415; 84439; 84443

== ENCOUNTER 2023-02-01 08:28 | Emergency (ER) | payer OTHER, SELFPAY ==
[2023-02-01 08:29] VITALS: BP 133/98; PULSE 78; RESP 16; TEMP 37; O2SAT 99; BMI 40.3
--- NOTE | 2023-02-01 09:18 | CT_ITS ---
HISTORY: posterior THOMASON. TECHNIQUE: [place]/head and carotid CT angiogram protocol was performed after the intravenous administration of 100 mL Isovue 370. NASCET criteria using the distal ICAs for comparison were used for evaluation of stenoses. 3D reconstructions were reviewed. A radiation dose optimization technique was used for this scan. 2451 images. COMPARISON: CT head same day. FINDINGS: AORTIC ARCH AND BRANCHES: Patent. RIGHT CCA: No occlusion, significant stenosis or dissection. RIGHT ICA: No occlusion, significant stenosis or dissection. LEFT CCA: No occlusion, significant stenosis or dissection. LEFT ICA: No occlusion, significant stenosis or dissection. RIGHT VERTEBRAL ARTERY: No occlusion, significant stenosis or dissection. LEFT VERTEBRAL ARTERY: No occlusion, significant stenosis or dissection. ICAs: No significant stenosis at the intracranial/visualized segments. ACAs: No significant stenosis at the visualized segments. MCAs: No significant stenosis at the visualized segments. automobile accessories installer: No significant stenosis at the visualized segments. BASILAR ARTERY: No significant stenosis. VERTEBRAL ARTERIES: No significant stenosis at the intradural/visualized segments. No evidence of intracranial aneurysm or vascular malformation. IMPRESSION: No evidence for significant stenosis or occlusion in the carotid or vertebral arteries of the neck. No evidence for large vessel occlusion or other focal vascular abnormality in the [place] region. Electronically Signed: Bree Seaman MD at 10:22 EDT , HISTORY: posterior THOMASON. Right-sided headache x5 days, no injury. TECHNIQUE: Multiple axial images were obtained of the head without intravenous contrast. A radiation dose optimization technique was used for this scan. 2451 images. COMPARISON: None. FINDINGS: BRAIN PARENCHYMA: No significant attenuation abnormality. No acute intra-axial hemorrhage. CSF SPACES: Cerebral ventricles, cortical sulci, and other extra-axial CSF spaces within normal limits in size for age. No midline shift or other significant mass effect. No acute extra-axial hemorrhage. OTHER: Intact calvarium. Fluid in the right maxillary sinus. Unremarkable orbits. CT/CTA Head AND Neck W/ Contrast IMPRESSION: No acute intracranial process identified. Right maxillary sinusitis. Electronically Signed: Bree Seaman MD at 10:22 EDT ,
--- NOTE | 2023-02-01 09:23 | EX.ED.DYSGE1 ---
HPI History of Present Illness Chief Complaint: Headache Narrative Narrative: Patient is a 37-year-old female who is presenting to the ER with intermittent headache since . Patient does have a history of headaches and migraines, she has not had headaches like this. Patient's headache was not the worse headache of her life, not sudden onset, not thunderclap in nature. Patient states it is a sharp/jolt that will come to the right posterior aspect, occipital area, last for few seconds, and then go away. However, this has been there since and not going away. Patient had a 4-hour reprieve yesterday of no headache, but they continue to keep coming. Patient does have Relpax at home, she states outdated, but when she takes that it does make her sleepy. Patient did try that several nights ago with no relief. 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 Patient denies any type of trauma. Patient says that she is not , does not want a test. She states that she has no fallopian tubes, and does not believe that she is . Patient has no vision or hearing changes. Patient states that the pain comes, she does have mild nausea when the pain goes away the nausea improves. Patient does not believe she is ever had MRI of the brain. Patient thinks she might of had a CAT scan a long time ago, but cannot recall. No significant stress anxiety. No neck pain. No fever, chills. No chest pain or shortness of breath, no other acute complaint. [facility] Medical History (Updated 02/01/23 @ 11:[address] Rafat Schmitt DO) Amenorrhea Anemia Anxiety Asthma Fatty liver Gastric reflux Hyperlipidemia Hypertriglyceridemia Mixed hyperlipidemia Obesity PCOS (polycystic ovarian syndrome) PCOS (polycystic ovarian syndrome) Wears contact lenses Wears glasses Home Medications rosuvastatin 5 mg tablet (Crestor) 10 mg PO QHS 05/07/17 [History Last Taken Unknown] cholecalciferol (vitamin D3) 125 mcg (5,000 unit) capsule 125 mcg PO DAILY 08/23/20 [History Last Taken Unknown] lorazepam 0.5 mg tablet (Ativan) 0.5 mg PO DAILY PRN Anxiety 08/23/20 [History Last Taken 05/20/22] sertraline 100 mg tablet (Zoloft) 100 mg PO DAILY 08/23/20 [History Last Taken Unknown] lactobacillus combination no.8 3 billion cell capsule (Adult Probiotic) 3,000 mmu cells PO DAILY 11/28/20 [History Last Taken Unknown] omeprazole 20 mg capsule,delayed release 20 mg PO QHS 11/28/20 [History Last Taken Unknown] spironolactone 100 mg tablet 100 mg PO DAILY 11/28/20 [History Last Taken Unknown] ferrous sulfate 325 mg (65 mg iron) tablet 325 mg PO DAILY 10/27/21 [History Last Taken Unknown] docusate sodium 100 mg capsule (Colace) 100 mg PO DAILY PRN Constipation 05/04/22 [History Last Taken Unknown] jyppdobxio-fmftlscdxzgnx-ynicowvp 50 mg-300 mg-40 mg capsule (Fioricet) 1 cap PO Q8H PRN pain #7 caps 02/01/23 [Rx Last Taken Unknown] metoclopramide HCl 10 mg tablet (Reglan) 10 mg PO Q6H PRN nausea and vomiting #7 tabs 02/01/23 [Rx Last Taken Unknown] Allergy/AdvReac Type Severity Reaction Status Date / Time ciprofloxacin [From Cipro] Allergy Hives Verified 02/01/23 08:28 clarithromycin [From Biaxin] Allergy Hives Verified 02/01/23 08:28 meperidine HCl [From Demerol] Allergy Rash Verified 02/01/23 08:28 morphine Allergy Rash Verified 02/01/23 08:28 sulfamethoxazole Allergy Hives Verified 02/01/23 08:28 [From Bactrim] trimethoprim [From Bactrim] Allergy Hives Verified 02/01/23 08:28 Family History Father Thyroid disorder High cholesterol Mother Hypertension Osteoarthritis Breast cancer High cholesterol Osteopenia Surgical History (Updated 02/01/23 @ 08:33 by Traci Dove) D&C H/O cystoscopy History of cholecystectomy History of lithotripsy History of salpingectomy Hx of cystoscopy Hx of oophorectomy Social History Smoking Status: Never smoker alcohol intake: current details: occasional substance use type: does not use ROS ROS ED ROS Narrative REVIEW OF SYSTEMS: Unless otherwise stated in this report the patient's positive and negative responses for review of systems for constitutional, eyes, ENT, cardiovascular, respiratory, gastrointestinal, neurological, , musculoskeletal, and integument systems and related systems to the presenting problem are either stated in the history of present illness or were not pertinent or were negative for the symptoms and/or complaints related to the presenting medical problem. EXAM Physical Exam Narrative Exam Narrative: Vital signs reviewed and patient is not hypoxic. General: The patient appears well and in no apparent distress. Patient is resting comfortably on cart. Not toxic, lethargic, or listless. Skin: Warm, dry, no pallor noted. There is no rash noted. Right parietal/right occipital area. No signs of shingles. Patient has no rash noted to the scalp to the Right parietal/right occipital area. Head: Normocephalic, atraumatic; patient has no tenderness to palpation to midline or paracervical. Full range of motion of cervical spine no difficulty.Patient has no meningeal signs or symptoms. Patient has no reproducible tenderness to palpation to the right parietal/right occipital area. Patient is currently not having any sharp pain or shockwave pain. Eye: Normal conjunctiva, no drainage, EOMI. PERRL. Ears, Nose, Mouth, and Throat: oral mucosa is moist. Nares patent. Mouth without vesicles. Cardiovascular: Regular Rate and Rhythm, no murmurs, gallops, or rubs Respiratory: Patient is in no distress, no accessory muscle use, lungs are clear to auscultation, no wheezing, rales or rhonchi Back: non-tender, no CVA tenderness bilaterally to percussion. NO CTLS midline or paraspinal tenderness to palpation. GI: Soft, no tenderness to palpation, no masses appreciated. No rebound, guarding, or rigidity noted. Musculoskeletal: The patient has full range of motion of all extremities and joints with no difficulty. Patient has no motor, no sensory deficits. Neurological: A&O x4, normal speech, no focal neurological deficits. No strokelike signs or symptoms. Psychiatric: Cooperative Const Vital Signs: 02/01/23 08:29 02/01/23 11:14 Temperature 98.6 F Temperature Source Temporal Pulse Rate 78 75 Respiratory Rate 16 16 Blood Pressure 133/98 H 128/70 H Blood Pressure Mean 109 89 Pulse Ox 99 98 Oxygen Delivery Method Room Air Room Air MDM MDM Radiography Diagnostic Testing: Clinical Impression(s) from Imaging Studies Head/Neck CTA 02/01/23 09:18 IMPRESSION: No acute intracranial process identified. Right maxillary sinusitis. Electronically Signed: Bree Seaman MD at 10:22 EDT , Additional Tests and Interventions Additional Tests or Interventions: Patient does feel better after IV fluids, Toradol and Reglan. Patient was given work note. Patient understands to follow up with PCP and be referred to neurologist as needed. Patient has no signs or symptoms of shingles at this point, education on shingles was done at bedside. Patient is thankful for testing and care. CTA of the head and neck show no acute findings. Discharge Plan Triage Chief Complaint: Headache ED Provider: Rafat Schmitt Dx/Rx/DC Orders Clinical Impression: Headache Instructions: ED Pain, Acute, Uncertain Cause Prescriptions: New jxlzpczrcq-yjiwquxeqtqrr-jfcs [Fioricet] 50-300-40 mg capsule 1 cap PO Q8H PRN (Reason: pain) Qty: 7 0RF metoclopramide HCl [Reglan] 10 mg tablet 10 mg PO Q6H PRN (Reason: nausea and vomiting) Qty: 7 0RF No Action cholecalciferol (vitamin D3) 125 mcg (5,000 unit) capsule 125 mcg PO DAILY sertraline [Zoloft] 100 mg tablet 100 mg PO DAILY lorazepam [Ativan] 0.5 mg tablet 0.5 mg PO DAILY PRN (Reason: Anxiety) spironolactone 100 mg tablet 100 mg PO DAILY omeprazole 20 mg capsule,delayed release(DR/EC) 20 mg PO QHS Adult Probiotic 3 billion cell capsule 3,000 mmu cells PO DAILY Rx Instructions: administer with a meal rosuvastatin [Crestor] 5 MG tablet 10 mg PO QHS ferrous sulfate 325 mg (65 mg iron) Tablet 325 mg PO DAILY docusate sodium [Colace] 100 mg capsule 100 mg PO DAILY PRN (Reason: Constipation) Stand Alone Forms: ED Work / School Excuse Primary Care Provider: Karley Mott Referrals: Karley Mott, ADAM-C [Primary Care Provider] - Activity Restrictions/Additional Instructions: Use Reglan or Fioricet as needed to help with headache or nausea at home. Follow-up with PCP and be referred to neurology if needed Disposition Disposition: Home, Self Care Discharge Date/Time: 02/01/23 11:30
[2023-02-01] MEDS: Ketorolac 15 MG/ML Vial IV (09:32)
[2023-02-01] MEDS: Acetaminophen 325 MG Tablet 650 MG PO (09:32)
[2023-02-01] MEDS: 0.9% Normal Saline 1,000 ML 999 ML IV (09:32)
[2023-02-01] MEDS: Metoclopramide 10 MG/2 ML Vial IV (09:32)
[2023-02-01 11:14] VITALS: BP 128/70; PULSE 75; RESP 16; O2SAT 98
== END 2023-02-01 11:30 | disposition home or self-care (01) ==
PROVIDERS: Emergency Provider Emergency Medicine; PCP Nurse Practitioner Family; Visit Provider Emergency Medicine
DX: R51.9 Headache, unspecified (principal); E78.2 Mixed hyperlipidemia; F41.9 Anxiety disorder, unspecified; Z79.899 Other long term (current) drug therapy; K21.9 Gastro-esophageal reflux disease without esophagitis; Z90.49 Acquired absence of other specified parts of digestive tract
CPT/HCPCS: 70496; 70498; 96361; 96374; 96375; 99283; J7030; Q9967; A4216

== ENCOUNTER → 2023-06-08 | Outpatient (CLI) | payer OTHER, SELFPAY ==
[2023-06-08 09:23] LABS: Ferritin 143 ng/mL (8-252); Iron 61 ug/dL (50-170); Iron Binding Capacity,Total 292 ug/dL (250-450); PERCENT IRON SATURATION 20.9 % (15.0-55.0)
[2023-06-08 11:04] LABS: Vitamin D,25 Hydroxy 46.1 ng/mL
== END | disposition home or self-care (01) ==
LOC: LAB 08:10
PROVIDERS: PCP Nurse Practitioner Family; Referring Provider Nurse Practitioner Family; Visit Provider Nurse Practitioner Family
DX: E55.9 Vitamin D deficiency, unspecified (principal); D64.9 Anemia, unspecified
CPT/HCPCS: 36415; 82306; 82728; 83540; 83550

== ENCOUNTER → 2023-06-25 | Outpatient (CLI) | payer OTHER, SELFPAY ==
[2023-06-25 11:14] LABS: Glucose 101 mg/dL (74-106)
[2023-06-25 11:22] LABS: Insulin 69.7 mU/L (2.6-37.6)
== END | disposition home or self-care (01) ==
LOC: LAB 09:39
PROVIDERS: PCP Nurse Practitioner Family; Referring Provider Nurse Practitioner Family; Visit Provider Nurse Practitioner Family
DX: E28.2 Polycystic ovarian syndrome (principal); E66.01 Morbid (severe) obesity due to excess calories; R73.01 Impaired fasting glucose
CPT/HCPCS: 36415; 82947; 83525

== ENCOUNTER → 2023-07-13 | Outpatient (CLI) | payer OTHER, SELFPAY | END | disposition home or self-care (01) | LOC: SL 10:33 | PROVIDERS: PCP Nurse Practitioner Family; Visit Provider Nurse Practitioner Family | DX: R69 Illness, unspecified (principal) ==

== ENCOUNTER → 2023-07-23 | Outpatient (CLI) | payer OTHER, SELFPAY ==
[2023-07-23 15:50] LABS: Calcium,Total 9.5 mg/dL (8.5-10.1)
[2023-07-23 23:42] LABS: PTHIN 40.3 pg/mL (18.4-80.1)
== END | disposition home or self-care (01) ==
PROVIDERS: PCP Nurse Practitioner Family
DX: Z09 Encounter for follow-up examination after completed treatment for conditions other than malignant neoplasm (principal)
CPT/HCPCS: 36415; 82310; 83970

== ENCOUNTER 2023-08-12 08:00 | Outpatient (RCR) | payer OTHER, SELFPAY | END 2023-08-12 23:59 | LOC: NS 08:00 | PROVIDERS: PCP Nurse Practitioner Family; Referring Provider Nurse Practitioner Family; Visit Provider Nurse Practitioner Family | DX: Z71.3 Dietary counseling and surveillance (principal); E66.01 Morbid (severe) obesity due to excess calories; Z68.41 Body mass index [BMI] 40.0-44.9, adult; E28.2 Polycystic ovarian syndrome; R73.01 Impaired fasting glucose; K21.9 Gastro-esophageal reflux disease without esophagitis; E78.5 Hyperlipidemia, unspecified | CPT/HCPCS: 97802; 97803 ==

== ENCOUNTER 2023-09-23 08:08 | Outpatient (RCR) | payer OTHER, SELFPAY | END 2023-10-13 23:59 | LOC: NS 08:08 | PROVIDERS: PCP Nurse Practitioner Family; Referring Provider Nurse Practitioner Family; Visit Provider Nurse Practitioner Family | DX: Z71.3 Dietary counseling and surveillance (principal); E78.5 Hyperlipidemia, unspecified; E66.01 Morbid (severe) obesity due to excess calories; E28.2 Polycystic ovarian syndrome; R73.01 Impaired fasting glucose; K21.9 Gastro-esophageal reflux disease without esophagitis; Z68.41 Body mass index [BMI] 40.0-44.9, adult | CPT/HCPCS: 97803 ==

== ENCOUNTER 2023-10-28 08:03 | Outpatient (RCR) | payer OTHER, SELFPAY | END 2023-11-11 23:59 | LOC: NS 08:03 | PROVIDERS: PCP Nurse Practitioner Family; Referring Provider Nurse Practitioner Family; Visit Provider Nurse Practitioner Family | DX: Z71.3 Dietary counseling and surveillance (principal); E78.5 Hyperlipidemia, unspecified; E66.01 Morbid (severe) obesity due to excess calories; Z68.41 Body mass index [BMI] 40.0-44.9, adult; E28.2 Polycystic ovarian syndrome; R73.01 Impaired fasting glucose; K21.9 Gastro-esophageal reflux disease without esophagitis | CPT/HCPCS: 97803 ==

== ENCOUNTER 2023-11-25 08:06 | Outpatient (RCR) | payer OTHER, SELFPAY | END 2023-12-12 23:59 | LOC: NS 08:06 | PROVIDERS: PCP Nurse Practitioner Family; Referring Provider Nurse Practitioner Family; Visit Provider Nurse Practitioner Family | DX: Z71.3 Dietary counseling and surveillance (principal); E78.5 Hyperlipidemia, unspecified; E66.01 Morbid (severe) obesity due to excess calories; Z68.41 Body mass index [BMI] 40.0-44.9, adult; E28.2 Polycystic ovarian syndrome; R73.01 Impaired fasting glucose; K21.9 Gastro-esophageal reflux disease without esophagitis | CPT/HCPCS: 97803 ==

== ENCOUNTER 2023-12-23 08:02 | Outpatient (RCR) | payer OTHER, SELFPAY | END 2024-01-11 23:59 | LOC: NS 08:02 | PROVIDERS: PCP Nurse Practitioner Family; Referring Provider Nurse Practitioner Family; Visit Provider Nurse Practitioner Family | DX: Z71.3 Dietary counseling and surveillance (principal); E78.5 Hyperlipidemia, unspecified; E66.01 Morbid (severe) obesity due to excess calories; Z68.41 Body mass index [BMI] 40.0-44.9, adult; E28.2 Polycystic ovarian syndrome; R73.01 Impaired fasting glucose; K21.9 Gastro-esophageal reflux disease without esophagitis | CPT/HCPCS: 97803 ==

== ENCOUNTER 2024-02-24 08:09 | Outpatient (RCR) | payer OTHER, SELFPAY | END 2024-03-12 23:59 | LOC: NS 08:09 | PROVIDERS: PCP Nurse Practitioner Family; Referring Provider Nurse Practitioner Family; Visit Provider Nurse Practitioner Family | DX: Z71.3 Dietary counseling and surveillance (principal); E78.5 Hyperlipidemia, unspecified; E66.01 Morbid (severe) obesity due to excess calories; Z68.41 Body mass index [BMI] 40.0-44.9, adult; E28.2 Polycystic ovarian syndrome; R73.01 Impaired fasting glucose; K21.9 Gastro-esophageal reflux disease without esophagitis | CPT/HCPCS: 97803 ==

== ENCOUNTER 2024-03-30 08:03 | Outpatient (RCR) | payer OTHER, SELFPAY | END 2024-04-12 23:59 | LOC: NS 08:03 | PROVIDERS: PCP Nurse Practitioner Family; Referring Provider Nurse Practitioner Family; Visit Provider Nurse Practitioner Family | DX: Z71.3 Dietary counseling and surveillance (principal); E78.5 Hyperlipidemia, unspecified; E66.01 Morbid (severe) obesity due to excess calories; Z68.41 Body mass index [BMI] 40.0-44.9, adult; E28.2 Polycystic ovarian syndrome; R73.01 Impaired fasting glucose; K21.9 Gastro-esophageal reflux disease without esophagitis | CPT/HCPCS: 97803 ==

== ENCOUNTER 2024-06-08 09:10 | Outpatient (RCR) | payer OTHER, SELFPAY | END 2024-06-12 23:59 | LOC: NS 09:10 | PROVIDERS: PCP Nurse Practitioner Family; Referring Provider Nurse Practitioner Family; Visit Provider Nurse Practitioner Family | DX: Z71.3 Dietary counseling and surveillance (principal); E78.5 Hyperlipidemia, unspecified; E66.9 Obesity, unspecified; Z68.37 Body mass index [BMI] 37.0-37.9, adult | CPT/HCPCS: 97803 ==

== ENCOUNTER → 2024-06-19 | Outpatient (CLI) | payer OTHER, SELFPAY ==
[2024-06-19 11:16] LABS: Vitamin B12 520 pg/mL (211-911); Vitamin D,25 Hydroxy 46.6 ng/mL
[2024-06-19 12:22] LABS: ALB/GLOB Ratio 0.9 RATIO (0.9-2.4); AST(SGOT) 16 U/L (15-37); Alanine Aminotransfer ALT/SGPT 23 U/L (13-56); Albumin, Serum 3.6 g/dL (3.2-5.0); Alkaline Phosphatase 66 U/L (45-117); Anion Gap 9 (5-15); BUN 10 mg/dL (7-18); BUN/Creat Ratio 12.8 RATIO (10-20); Calcium,Total 10.4 mg/dL (8.5-10.1); Chloride 103 mmol/L (98-107); Creatinine, Serum 0.78 mg/dL (0.55-1.02); EST Glomerular Filtration Rate 88 mL/min (>60); Est Glom Filt Rate - Afr Amer 106 mL/min (>60); Ferritin 162 ng/mL (8-252); Globulin 4.2 g/dL (2.2-4.2); Glucose 82 mg/dL (74-106); Iron 67 ug/dL (50-170); Iron Binding Capacity,Total 351 ug/dL (250-450); PERCENT IRON SATURATION 19.1 % (15.0-55.0); Protein, Total 7.8 g/dL (6.4-8.2); Sodium Level 136 mmol/L (136-145); T4 Free Direct 0.85 ng/dL (0.76-1.46)
[2024-06-21 12:10] LABS: Vitamin D 1,25-Dihydroxy 40.5 pg/mL (24.8-81.5)
== END | disposition home or self-care (01) ==
LOC: LAB 09:47
PROVIDERS: PCP Nurse Practitioner Family; Referring Provider Nurse Practitioner Family
DX: E04.2 Nontoxic multinodular goiter (principal); E21.0 Primary hyperparathyroidism; D64.9 Anemia, unspecified; E55.9 Vitamin D deficiency, unspecified
CPT/HCPCS: 36415; 80053; 82306; 82607; 82652; 82728; 82746; 83540; 83550; 84439; 84443

== ENCOUNTER → 2024-07-14 | Outpatient (CLI) | payer OTHER, SELFPAY | END | disposition home or self-care (01) | LOC: LABSPEC 12:24 | PROVIDERS: PCP Nurse Practitioner Family; Referring Provider Physician Assistant Surgical; Visit Provider Physician Assistant Surgical | DX: N39.0 Urinary tract infection, site not specified (principal) | CPT/HCPCS: 87077; 87086; 87088 ==

== ENCOUNTER 2024-07-19 09:07 | Outpatient (RCR) | payer OTHER, SELFPAY | END 2024-08-12 23:59 | LOC: NS 09:07 | PROVIDERS: PCP Nurse Practitioner Family; Referring Provider Nurse Practitioner Family; Visit Provider Nurse Practitioner Family | DX: Z71.3 Dietary counseling and surveillance (principal); E78.5 Hyperlipidemia, unspecified; E66.01 Morbid (severe) obesity due to excess calories; Z68.41 Body mass index [BMI] 40.0-44.9, adult; E28.2 Polycystic ovarian syndrome; R73.01 Impaired fasting glucose; K21.9 Gastro-esophageal reflux disease without esophagitis | CPT/HCPCS: 97803 ==

== ENCOUNTER → 2024-08-30 | Outpatient (CLI) | payer OTHER, SELFPAY | END | disposition home or self-care (01) | LOC: LABSPEC 17:40 | PROVIDERS: PCP Nurse Practitioner Family; Referring Provider Physician Assistant; Visit Provider Physician Assistant | DX: R39.9 Unspecified symptoms and signs involving the genitourinary system (principal) | CPT/HCPCS: 87086 ==

== ENCOUNTER → 2024-10-12 | Outpatient (CLI) | payer OTHER, SELFPAY | END | disposition home or self-care (01) | LOC: LABSPEC 14:54 | PROVIDERS: PCP Nurse Practitioner Family; Referring Provider Physician Assistant; Visit Provider Physician Assistant | DX: K61.1 Rectal abscess (principal) | CPT/HCPCS: 87070; 87077; 87186; 87205 ==

== ENCOUNTER 2024-10-28 07:05 | Emergency (ER) | payer OTHER, SELFPAY ==
[2024-10-28 07:05] VITALS: BP 147/99; PULSE 91; RESP 14; TEMP 36.7; O2SAT 100
--- NOTE | 2024-10-28 07:14 | CT_ITS ---
PROCEDURE: CT of the abdomen/pelvis without IV contrast. REASON FOR EXAM: Right flank pain today. History of kidney stones. TECHNIQUE: Contiguous unenhanced axial CT images were obtained through the abdomen/pelvis. Sagittal and coronal reformats were created. COMPARISON: Abdominal radiographs 06/25/2022. No prior abdominal/pelvic CT available. FINDINGS: Lung bases: Clear mild elevation right hemidiaphragm. Heart is not enlarged. No sizable pericardial effusion. Lower breast tissue unremarkable. Liver: A few scattered tiny subcentimeter low-density lesions are too small to characterize, possible tiny cysts or hemangiomas. No dominant space-occupying liver lesion on the provided noncontrast images. Gallbladder: Unremarkable. Spleen: Unremarkable. Pancreas: Unremarkable. Adrenals: Unremarkable. Kidneys: There are tiny nonobstructing renal calculi. No dominant solid renal mass. No obstructive uropathy on the left. 1.5 cm intraparenchymal probable cyst posterior lateral mid left kidney image 68 of the axial data set. There is dilation of the right renal collecting system and right ureter down to a 4 mm short axis calculus distal right ureter, just above the right ureterovesical junction. No focal abnormality of the urinary bladder. Reproductive Organs: The uterus is present. No dominant right adnexal lesion. There is a 5.7 cm intermediate density left adnexal mass lesion. Bowel: Unremarkable. Appendix: Normal. Lymph nodes: No suspicious lymph node enlargement. Vasculature: Major vascular structures are unremarkable. Peritoneum / Retroperitoneum: No ascites. No free air. Bones: Unremarkable. CT/Abdomen/Pelvis without Cont IMPRESSION: Tiny bilateral nonobstructing renal calculi. There is a 4 mm short axis calcul us distal right ureter causing mild obstructive uropathy. 5.7 cm intermediate density left adnexal mass lesion. This could represent a h emorrhagic cyst. Recommend short-term follow-up pelvic ultrasound evaluation. 1.5 cm intraparenchymal probable cyst posterior lateral mid left kidney. Recom mend short-term follow-up renal ultrasound. There are a few scattered subcentimeter low-density lesions of the liver, too s mall to characterize, possible tiny cysts or hemangiomas. One or more dose reduction techniques were used (e.g., Automated exposure contr ol, adjustment of the mA and/or kV according to patient size, use of iterative reconstruction technique). Reading Location: [facility]
--- NOTE | 2024-10-28 07:15 | EX.ED.DYSGE1 ---
HPI History of Present Illness Chief Complaint: Flank Pain Informant: patient and spouse/S.O. Narrative Narrative: 39-year-old female presenting to the emergency room with a chief complaint of flank pain. Patient notes she has a history of kidney stones. She most recently has been on antibiotics for perirectal abscess. She states that around 0300 hrs. she developed pain in the right flank and the lower abdomen. She states the pain was significant. Around 0500 hrs. she took a Percocet. Pain continued so she decided to come to the emergency. Patient states on the way here she suddenly started to feel significant relief. She sees Dr. Singh for urology has had prior lithotripsy. [facility] Medical History GERD (gastroesophageal reflux disease) Hemorrhoids Rectal pain Anemia Wears glasses Wears contact lenses Gastric reflux Anxiety Obesity Mixed hyperlipidemia Hypertriglyceridemia PCOS (polycystic ovarian syndrome) Amenorrhea Fatty liver PCOS (polycystic ovarian syndrome) Hyperlipidemia Asthma Home Medications ?Medication ?Instructions ?Recorded ?Last Taken ?Type rosuvastatin 5 mg tablet (Crestor) 10 mg PO QHS 05/07/17 Unknown History cholecalciferol (vitamin D3) 125 125 mcg PO DAILY 08/23/20 Unknown History mcg (5,000 unit) capsule lorazepam 0.5 mg tablet (Ativan) 0.5 mg PO DAILY PRN Anxiety 08/23/20 05/20/22 History sertraline 100 mg tablet (Zoloft) 100 mg PO DAILY 08/23/20 Unknown History lactobacillus combination no.8 3 3,000 mmu cells PO DAILY 11/28/20 Unknown History billion cell capsule (Adult Probiotic) omeprazole 20 mg capsule,delayed 20 mg PO QHS 11/28/20 Unknown History release spironolactone 100 mg tablet 100 mg PO DAILY 11/28/20 Unknown History ferrous sulfate 325 mg (65 mg 325 mg PO DAILY 10/27/21 Unknown History iron) tablet docusate sodium 100 mg capsule 100 mg PO DAILY PRN Constipation 05/04/22 Unknown History (Colace) leqittqiho-kmfrfwonesvit-nbeysyvi 1 cap PO Q8H PRN pain #7 caps 02/01/23 Unknown Rx 50 mg-300 mg-40 mg capsule (Fioricet) phenazopyridine 200 mg tablet 200 mg PO TID PRN pain 6 doses #7 07/14/24 Unknown Rx (Pyridium) tabs ascorbic acid (vitamin C) 1,000 mg 1 g PO QDAY 10/12/24 Unknown History capsule bupropion HCl 150 mg tablet,12 hr 150 mg PO BID 10/12/24 Unknown History sustained-release metformin 1,000 mg tablet 1,000 mg PO BID 10/12/24 Unknown History norethindrone acetate 1 mg-ethinyl 1 tab PO DAILY 10/12/24 Unknown History estradiol 20 mcg tablet (Aurovela) omega 8-ena-gsv-fish oil 300 1 cap PO QDAY 10/12/24 Unknown History mg-1,000 mg capsule (Fish Oil) phentermine 37.5 mg tablet 37.5 mg PO QDAY 10/12/24 Unknown History ketorolac 10 mg tablet 10 mg PO Q8H PRN pain #15 tabs 10/28/24 Unknown Rx oxycodone-acetaminophen 5 mg-325 1 tab PO Q6H PRN PRN Pain 3 days 10/28/24 Unknown Rx mg tablet #12 TABLETS Allergy/AdvReac Type Severity Reaction Status Date / Time ciprofloxacin (From Cipro) Allergy Hives Verified 10/28/24 07:05 clarithromycin (From Biaxin) Allergy Hives Verified 10/28/24 07:05 meperidine HCl (From Demerol) Allergy Rash Verified 10/28/24 07:05 morphine Allergy Rash Verified 10/28/24 07:05 sulfamethoxazole (From Allergy Hives Verified 10/28/24 07:05 Bactrim) trimethoprim (From Bactrim) Allergy Hives Verified 10/28/24 07:05 Family History Father Thyroid disorder High cholesterol Mother Hypertension Osteoarthritis Breast cancer High cholesterol Osteopenia Grandmother Diabetes Heart disease Surgical History History of parathyroidectomy History of cholecystectomy Hx of cystoscopy Hx of oophorectomy History of salpingectomy History of lithotripsy D&C H/O cystoscopy Social History Smoking Status: Never smoker alcohol intake: current details: occasional substance use type: does not use ROS ROS ED Constitutional Constitutional ED: Denies chills, fever(s) or weight loss Eyes Eyes: Denies change in vision or diplopia ENT ENT ED: Denies ear pain, rhinorrhea or sore throat Cardiovascular Cardiovascular: Denies chest pain, orthopnea, palpitations or racing heartbeat Respiratory/Chest Respiratory/Chest: Denies cough, dyspnea or orthopnea Gastrointestinal Gastrointestinal: Reports abdominal pain, nausea and other Details: Right flank pain ; Denies diarrhea or vomiting Genitourinary Genitourinary ED: Denies dysuria, hematuria or urinary frequency Musculoskeletal Musculoskeletal: Reports back pain; Denies arthralgias or myalgias Integumentary Reports abscess; Denies rash Neurologic Neurologic: Denies headache(s) or weakness Psychiatric Psychiatric: Denies anxiety, depression, suicidal ideation or suicidal thoughts Endocrine Endocrinology: Denies polydipsia, polyphagia or polyuria Allergic/Immunologic Allergic/Immunologic ED: Denies mouth swelling, tongue swelling or urticaria EXAM Physical Exam Const Vital Signs: 10/28/24 07:05 10/28/24 08:38 Temperature 98.1 F 97.5 F L Temperature Source Temporal Pulse Rate 91 81 Respiratory Rate 14 15 Blood Pressure 147/99 H 124/76 H Blood Pressure Mean 115 92 Pulse Ox 100 98 Oxygen Delivery Method Room Air Positive well nourished and well developed General Appearance ED: well developed HEENT Reports normocephalic, head/scalp atraumatic and moist mucous membranes Eyes PERRL and EOMs intact bilaterally Neck no lymphadenopathy, supple and no JVD Resp normal respiratory effort and clear to auscultation bilaterally Cardio regular rate, regular rhythm and no murmurs GI normal to inspection, nondistended, normoactive bowel sounds and non-tender Palpation: soft Back/Spine no CVA tenderness and normal ROM Extremity normal to inspection General Extremety ED: Negative for edema General Extremity: Negative for edema Neuro oriented x3 and CN's II-XII intact bilaterally Sensorium / Orientation: alert Motor Exam: strength 5/5 throughout Psych mental status grossly normal Mood & Affect: Negative for depressed or tearful Skin no rashes or lesions noted and no wounds MDM MDM MDM Narrative Medical decision making narrative: Differential diagnosis includes but not limited to kidney stone appendicitis colitis acute cystitis pyelonephritis ovarian pathology such as ovarian cyst IV was established. Patient received Toradol. White count elevated 14.3 hemoglobin 13.4. test is negative. Normal creatinine. Urinalysis 5-10 red cells rare bacteria 0 white cells negative nitrates. CT ab pelvis was obtained. This was read by radiology reviewed by myself. Patient has a distal ureteral stone on the right which is most likely the cause of her abrupt symptoms. She is also noted to have most likely a renal and ovarian cyst. Please see radiologist read for full details. Patient is doing better. I spoke with her regarding the above results. 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 I we will write for Toradol and Percocet. She states she has Zofran. She understands return instructions and is comfortable with them. History & Record Review Discussion w/independent historian: Patient and Family Lab Data Attestation: I reviewed the patient's lab results. Labs: Laboratory Results - last 24 hr 10/28/24 10/28/24 07:21 07:26 WBC 14.3 H RBC 4.39 Hgb 13.4 Hct 39.6 MCV 90.2 MCH 30.5 MCHC 33.8 RDW Std Deviation 45.7 H RDW Coeff of Ricardo 14.1 Plt Count 270 MPV 9.9 Immature Gran % (Auto) 0.500 Neut % (Auto) 74.9 H Lymph % (Auto) 17.2 L Mcleod % (Auto) 4.7 Eos % (Auto) 2.4 Baso % (Auto) 0.3 Absolute Neuts (auto) 10.7 H Absolute Lymphs (auto) 2.46 Nucleated RBC % 0 Sodium 135 L Potassium 4.0 Chloride 105 Carbon Dioxide 23.0 Anion Gap 7 BUN 9 Creatinine 0.68 Est GFR (MDRD) Af Amer 124 Est GFR (MDRD) Non-Af 102 BUN/Creatinine Ratio 13.1 Glucose 100 Calcium 9.0 Serum , Qual NEGATIVE Urine Color Yellow Urine Clarity Clear Urine pH 6.5 Ur Specific [place] 1.010 Urine Protein 15 H Urine Glucose (UA) Normal Urine Ketones Negative Urine Occult Blood 50 H Urine Nitrite Negative Urine Bilirubin Negative Urine Urobilinogen Normal Ur Leukocyte Esterase 100 H Urine RBC 5-10 SEEN Urine WBC 0 SEEN Ur Squamous Epith Cells 0-5 SEEN Urine Bacteria RARE Urine Mucus 0 SEEN Urine Yeast 1+ Radiography Diagnostic Testing: Clinical Impression(s) from Imaging Studies Abdomen/Pelvis CT 10/28/24 07:14 IMPRESSION: Tiny bilateral nonobstructing renal calculi. There is a 4 mm short axis calculus distal right ureter causing mild obstructive uropathy. 5.7 cm intermediate density left adnexal mass lesion. This could represent a hemorrhagic cyst. Recommend short-term follow-up pelvic ultrasound evaluation. 1.5 cm intraparenchymal probable cyst posterior lateral mid left kidney. Recommend short-term follow-up renal ultrasound. There are a few scattered subcentimeter low-density lesions of the liver, too small to characterize, possible tiny cysts or hemangiomas. One or more dose reduction techniques were used (e.g., Automated exposure control, adjustment of the mA and/or kV according to patient size, use of iterative reconstruction technique). [facility] Dis[facility] Triage Chief Complaint: Flank Pain ED Provider: Meir Lopez Dx/Rx/DC Orders Clinical Impression: Kidney stone on right side, Abdominal pain Instructions: ED Kidney Stone with Pain Prescriptions: New ketorolac 10 mg tablet 10 mg PO Q8H PRN (Reason: pain) Qty: 15 0RF Rx Instructions: maximum total duration of 5 days from all oral, intranasal, or parenteral formulations oxycodone-acetaminophen 5-325 mg tablet 1 tab PO Q6H PRN PRN (Reason: Pain) 3 Days Qty: 12 0RF No Action cholecalciferol (vitamin D3) 125 mcg (5,000 unit) capsule 125 mcg PO DAILY sertraline [Zoloft] 100 mg tablet 100 mg PO DAILY lorazepam [Ativan] 0.5 mg tablet 0.5 mg PO DAILY PRN (Reason: Anxiety) spironolactone 100 mg tablet 100 mg PO DAILY omeprazole 20 mg capsule,delayed release(DR/EC) 20 mg PO QHS Adult Probiotic 3 billion cell capsule 3,000 mmu cells PO DAILY Rx Instructions: administer with a meal phenazopyridine [Pyridium] 200 mg tablet 200 mg PO TID PRN (Reason: pain) Qty: 7 0RF phentermine 37.5 mg tablet 37.5 mg PO QDAY Rx Instructions: must administer 30 minutes before or 1-2 hours after breakfast omega 2-cll-ntb-fish oil [Fish Oil] 300-1,000 mg capsule 1 cap PO QDAY ascorbic acid (vitamin C) 1,000 mg capsule 1 g PO QDAY norethindrone ac-eth estradiol [Aurovela 10/02 ()] 1-20 mg-mcg tablet 1 tab PO DAILY metformin 1,000 mg tablet 1,000 mg PO BID bupropion HCl 150 mg tablet sustained-release 12 hr 150 mg PO BID rosuvastatin [Crestor] 5 MG tablet 10 mg PO QHS ferrous sulfate 325 mg (65 mg iron) Tablet 325 mg PO DAILY docusate sodium [Colace] 100 mg capsule 100 mg PO DAILY PRN (Reason: Constipation) psjdasqxnd-syqkanjytozdb-dcmo [Fioricet] 50-300-40 mg capsule 1 cap PO Q8H PRN (Reason: pain) Qty: 7 0RF Primary Care Provider: Karley Mott Referrals: Karley Mott, UPTWISTER TENDER-C [Primary Care Provider] - Print Language: Polish Disposition Disposition: Home, Self Care Discharge Date/Time: 10/28/24 08:40
[2024-10-28] MEDS: Ketorolac 30 MG/ML Syringe IV (07:28)
[2024-10-28 07:29] LABS: Mucous, Urine 0 SEEN /hpf (<or=2+)
[2024-10-28 07:37] LABS: Absolute Lymphocyte Count 2.46 X10^3/uL (0.83-4.51); Absolute Neutrophil Count 10.7 X10^3/uL (2.0-7.7); Basophil# 0.05 X10^3/uL; Basophil% 0.3 % (0-1); Eosinophil# 0.35 X10^3/uL; Eosinophils% 2.4 % (0-5); Hematocrit 39.6 % (37-47); Hemoglobin 13.4 g/dL (12.0-15.0); Lymphocyte # 2.46 X10^3/ul (0.83-4.51); Lymphocyte % 17.2 % (19-41); Mean Corp Hgb Conc 33.8 g/dL (32-36); Mean Corpuscular Hgb 30.5 pg (27.0-32.0); Mean Corpuscular Volume 90.2 fL (81-99); Mean Platelet Vol. 9.9 fl (6.2-12.0); Monocyte# 0.67 X10^3/uL; Monocyte% 4.7 % (0-10); NRBC Flagged by Analyzer 0 % (0-5); Neutrophil # 10.72 X10^3/uL (2.7-7.7); Neutrophil % 74.9 % (47-70); Platelet Count 270 K/mm3 (150-450); RBC Distribution Width CV 14.1 % (11.6-14.6); RBC Distribution Width SD 45.7 fl (35.1-43.9); Red Blood Count 4.39 M/mm3 (4.2-5.4); White Blood Count 14.3 K/mm3 (4.4-11.0)
[2024-10-28 07:37] LABS: Color, Urine Yellow (Yellow); Glucose, Dipstick Normal (Normal); Ketone-Dipstick Negative (Negative); Leukocyte Esterase-Dipstick 100 /ul (Negative); Nitrite-Dipstick Negative (Negative); Occult Blood-Urine 50 /ul (Negative); Protein-Dipstick 15 mg/dl (Negative); Urine Bilirubin Dipstick Negative (Negative); Urine Clarity Clear (Clear); Urine Urobilinogen Normal (Normal); Urine pH 6.5 (5.0 - 8.0)
[2024-10-28 07:41] LABS: Internal QC Validated? YES +Cl - CLEAR BKGD; Pregnancy, Serum, hCG Quali. NEGATIVE Negative
[2024-10-28 07:44] LABS: Red Blood Cells-Urine 5-10 SEEN /hpf (0-5)
[2024-10-28 07:45] LABS: Bacteria RARE /hpf (None Seen); Squamous Epithelial Cells - UA 0-5 SEEN /hpf (5-10); Yeast-Urine 1+ /hpf (None Seen)
[2024-10-28 07:52] LABS: Anion Gap 7 (5-15); BUN 9 mg/dL (7-18); BUN/Creat Ratio 13.1 RATIO (10-20); Chloride 105 mmol/L (98-107); Creatinine, Serum 0.68 mg/dL (0.55-1.02); EST Glomerular Filtration Rate 102 mL/min (>60); Est Glom Filt Rate - Afr Amer 124 mL/min (>60); Glucose 100 mg/dL (74-106); Sodium Level 135 mmol/L (136-145)
[2024-10-28 08:38] VITALS: BP 124/76; PULSE 81; RESP 15; TEMP 36.4; O2SAT 98
[2024-10-28 09:45] LABS: Amorphous Sediment 1+; Fine Granular Cast- Urine 0-5 SEEN /lpf (0-5)
[2024-10-28 09:46] LABS: White Blood Cells 0-5 SEEN /hpf (0-5)
== END 2024-10-28 08:40 | disposition home or self-care (01) ==
PROVIDERS: Emergency Provider Emergency Medicine; PCP Nurse Practitioner Family; Visit Provider Emergency Medicine
DX: N20.2 Calculus of kidney with calculus of ureter (principal); K21.9 Gastro-esophageal reflux disease without esophagitis; F41.9 Anxiety disorder, unspecified; E78.5 Hyperlipidemia, unspecified; Z79.84 Long term (current) use of oral hypoglycemic drugs; Z79.899 Other long term (current) drug therapy
CPT/HCPCS: 74176; 80048; 81001; 84703; 85025; 96374; 99283; A4216

== ENCOUNTER → 2024-10-31 | Outpatient (CLI) | payer OTHER, SELFPAY ==
--- NOTE | 2024-10-31 08:30 | RAD_ITS ---
PROCEDURE: ABDOMEN SINGLE VIEW REASON FOR EXAM: 39-year-old female, right-sided urinary calculus. TECHNIQUE: 2 views of the abdomen. COMPARISON: CT abdomen pelvis 10/28/2024. FINDINGS: Bowel gas pattern is normal. No evidence of bowel obstruction. No free air. Punctate right lower pelvic calcifications. The bones are unremarkable. RAD/Abdomen Single View IMPRESSION: Punctate right lower pelvic calcifications, which may correlate with distal rig ht ureteral stone seen on recent CT. Reading Location: [id number]
== END | disposition home or self-care (01) ==
LOC: RAD 08:06
PROVIDERS: PCP Nurse Practitioner Family; Referring Provider Urology; Visit Provider Urology
DX: N20.9 Urinary calculus, unspecified (principal)
CPT/HCPCS: 74018

== ENCOUNTER 2024-11-10 05:23 | Day surgery (SDC) | payer OTHER, SELFPAY ==
[2024-11-10] VITALS (9 sets, daily range): BP systolic 123–169; BP diastolic 77–111; PULSE 90–110; RESP 16; TEMP 36.3–36.8; O2SAT 92–100; BMI 39.3
--- NOTE | 2024-11-10 05:28 | RAD_ITS ---
PROCEDURE: ABDOMEN SINGLE VIEW REASON FOR EXAM: Preop. TECHNIQUE: 2 frontal views of the abdomen. COMPARISON: CT of the abdomen/pelvis dated 10/28/2024. FINDINGS: Bowel gas pattern is normal. No evidence of bowel obstruction. Moderate colonic stool is present. No suspicious calcifications. The bones are unremarkable. RAD/Abdomen Single View IMPRESSION: Moderate colonic stool, otherwise unremarkable study. Reading Location: [id number]
[2024-11-10 06:23] LABS: Internal QC Validated? YES +Cl - CLEAR BKGD; Pregnancy, Urine Negative Negative
[2024-11-10] MEDS: 0.9% Normal Saline (1000mL) 1,000 ML 15 ML IV (06:29)
--- NOTE | 2024-11-10 06:31 | PCM.PRE.AN2 ---
ASA Classification* ASA Classification ASA Classification: 3 Assessment & Plan Anesthesia* Anesthesia Assessment Anesthesia Assessment: Discussed sedation and/or anesthesia options, risks, benefits, and alternatives with patient/parents/legal guardian/POA. Questions invited. The patient/parents/legal guardian/POA seems to understand and agrees to proceed with anesthesia plan. Reviewed the physical assessment, medical history, allergy history and patient home medications list prior to surgery/procedure/anesthetic and documented any changes. Performed airway and anesthesia risk assessments. Anesthesia Type Anesthesia Type: General History Source History Obtained from:: Patient and Chart Anesthesia Focused Assessment* Temperature: 97.3 F Pulse Rate: 96 Blood Pressure: 124/77 Respiratory Rate: 16 Pulse Ox: 98 Oxygen Delivery Method: Room Air Airway Assessment Mouth opens: 2 cm Mallampati Score: II Teeth Condition: Caps/Crowns (Right lower molar has a crown. It is tight.) Neck Range of motion (ROM): Full ROM Focused Labs Anesthesia Preop lab: CBC WBC 14.3 K/mm3 (4.4-11.0) H 10/28/24 07:26 10/28/24 RBC 4.39 M/mm3 (4.2-5.4) 10/28/24 07:26 10/28/24 Hgb 13.4 g/dL (12.0-15.0) 10/28/24 07:26 10/28/24 Hct 39.6 % (37-47) 10/28/24 07:26 10/28/24 Plt Count 270 K/mm3 (150-450) 10/28/24 07:26 10/28/24 CHEMISTRY Potassium 4.0 mmol/L (3.5-5.1) 10/28/24 07:26 10/28/24 Sodium 135 mmol/L (136-145) L 10/28/24 07:26 10/28/24 Magnesium 1.9 mg/dL (1.6-2.6) 09/14/22 09:07 09/14/22 Phosphorus 2.5 mg/dL (2.5-4.9) 04/13/24 08:50 04/13/24 BUN 9 mg/dL (7-18) 10/28/24 07:26 10/28/24 Creatinine 0.68 mg/dL (0.55-1.02) 10/28/24 07:26 10/28/24 Glucose 100 mg/dL (74-106) 10/28/24 07:26 10/28/24 TSH 2.620 uIU/mL (0.358-3.740) 06/19/24 09:54 06/19/24 COAG PT 13.4 SECONDS (11.7-14.9) 03/28/18 13:10 03/28/18 HCG, Quant < 1 mIU/mL (1-3) 08/05/20 14:09 08/05/20 Urine Test Negative Negative 11/10/24 06:00 11/10/24 Tst Clinic Negative 11/19/17 17:20 11/19/17 Pre-Assessment Diagnosis/Proposed Procedure Planned Operative Procedure(s): RIGHT ESWL Anesthesia History Anesthesia History - it infrastructure project manager: Anesthesia History - it infrastructure project manager Hx Hospitalization No 11/06/24 08:27 Any Problems With Anesthesia Yes: N&V 11/06/24 08:27 Cholinesterase deficiency No 11/06/24 08:27 You/Your Family Experience No 11/06/24 08:27 fever (hyperthermia) with Relationship Recent Exposure to Contagious No 11/10/24 05:57 Disease Does patient have nerve No 11/06/24 08:27 stimulator Patient instructed to have device shut off --Does patient have Pacemaker No 11/10/24 06:00 or ICD? When Was Last Pacemaker Check QUESTION #4 FULL TEXT: You/Your Family Experience fever (hyperthermia) with Anesthesia Last Oral Intake Last Oral intake: Last Oral Intake NPO since 23:00 11/10/24 06:00 Meds taken in AM with sips of No 11/10/24 06:00 water? Meds patient instructed to take am of surgery PONV PONV - it infrastructure project manager: PONV - it infrastructure project manager Female Yes 11/06/24 08:27 HX of Motion Sickness Yes 11/06/24 08:27 HX of N/V After Surgery Yes 11/06/24 08:27 Non-Smoker Yes 11/06/24 08:27 Duration of Surgery greater No 11/06/24 08:27 than 60 minutes Number of Risk Factors 4 11/06/24 08:27 PONV Score Severe Risk 11/06/24 08:27 Height & Weight Height & Weight: Anesthesia: Height & Weight Height 5 ft 6 in 11/10/24 06:00 Weight: 110.586 kg 11/10/24 06:00 Body Mass Index (BMI) 39.3 11/10/24 06:00 Respiratory Assessment Respiratory Assessment - it infrastructure project manager: Respiratory Tract Infection Hx - it infrastructure project manager Hx Respiratory Tract Infection No 11/06/24 08:27 STOP Sleep Apnea STOP Sleep Apnea - it infrastructure project manager: STOP Sleep Apnea - it infrastructure project manager Hx Hypertension No 11/06/24 08:27 Hx Sleep Apnea No 11/06/24 08:27 CPAP No 11/06/24 08:27 BIPAP No 11/06/24 08:27 Do you snore loudly (louder No 11/06/24 08:27 than talking or can be heard Do you often feel tired/ No 11/06/24 08:27 fatigued/ sleepy during daytime? Has anyone observed you stop No 11/06/24 08:27 breathing during sleep? STOP Results Negative 11/06/24 08:27 QUESTION #5 FULL TEXT : Do you snore loudly (louder than talking or can be heard through closed doors)? Tobacco Use History Tobacco Use History - it infrastructure project manager: Tobacco Use History - it infrastructure project manager Tobacco Use Smoking Status Never smoker 11/06/24 08:27 Hx Tobacco Use No 11/06/24 08:27 Years Smoking Packs Smoked per Day Smoking Cessation Date was within the last 15 years Hx Smoking Cessation Date Hx Smoking Cessation Counseling Hematologic Medial History Hematologic Hx - it infrastructure project manager: Hematologic Medical Hx - documentation improvement specialist Hx of Blood Transfusion No 11/06/24 08:27 Hx of Transfusion in last 3 No 11/06/24 08:27 Months Date of Last Transfusion (if within last 3 months) Ever experience any problems No 11/06/24 08:27 with transfusion(s)? Specify any problems Hx of Preganancy in last 3 No 11/06/24 08:27 Months Nurse Filling Out Transfusion VCHRISTIN 11/06/24 08:27 & Questions: Date: 11/06/24 11/06/24 08:27 Time: 08:28 11/06/24 08:27 Patient unable to answer at this time (ie. confused, unrespo /Reproduction History /Reproductive History - it infrastructure project manager: /Reproductive Hx- it infrastructure project manager Hx Now No 11/06/24 08:27 Gestational Age (in weeks): EDC: Hx Hx Para Hx Section SAB No 11/06/24 08:27 Active Medications Active Medications: Current Medications Generic Name Dose Route Start Last Admin Trade Name Freq PRN Reason Stop Dose Admin Cefazolin Sodium 2 gm/ N/A 20 mls @ 400 mls/hr 11/10/24 07:30 IV 11/10/24 07:32 PREOP ONE Sodium Chloride 1,000 mls @ 15 mls/hr 11/10/24 05:40 11/10/24 06:29 IV 11/15/24 18:59 15 mls/hr .Q48H IDALMIS Administration Protocol [facility] Medical History Thyroid disease Kidney stones Low iron Back pain Migraine headache CPAP (continuous positive airway pressure) dependence Sleep apnea History of echocardiogram GERD (gastroesophageal reflux disease) Hemorrhoids Rectal pain Anemia Wears glasses Wears contact lenses Gastric reflux Anxiety Obesity Mixed hyperlipidemia Hypertriglyceridemia PCOS (polycystic ovarian syndrome) Amenorrhea Fatty liver PCOS (polycystic ovarian syndrome) Hyperlipidemia Asthma Home Medications ?Medication ?Instructions ?Recorded ?Last Taken ?Type rosuvastatin 5 mg tablet (Crestor) 10 mg PO QHS 05/07/17 11/09/24 History cholecalciferol (vitamin D3) 125 125 mcg PO DAILY 08/23/20 11/09/24 History mcg (5,000 unit) capsule lorazepam 0.5 mg tablet (Ativan) 0.5 mg PO DAILY PRN Anxiety 08/23/20 05/20/22 History sertraline 100 mg tablet (Zoloft) 100 mg PO DAILY 08/23/20 11/09/24 History lactobacillus combination no.8 3 3,000 mmu cells PO DAILY 11/28/20 11/09/24 History billion cell capsule (Adult Probiotic) omeprazole 20 mg capsule,delayed 20 mg PO QHS 11/28/20 11/09/24 History release spironolactone 100 mg tablet 100 mg PO DAILY 11/28/20 11/09/24 History ferrous sulfate 325 mg (65 mg 325 mg PO DAILY 10/27/21 11/09/24 History iron) tablet bhqelbnitw-tkffzwfcxjmcq-frkfhtes 1 cap PO Q8H PRN pain #7 caps 02/01/23 Unknown Rx 50 mg-300 mg-40 mg capsule (Fioricet) ascorbic acid (vitamin C) 1,000 mg 1 g PO QDAY 10/12/24 11/09/24 History capsule bupropion HCl 150 mg tablet,12 hr 150 mg PO BID 10/12/24 11/09/24 History sustained-release metformin 1,000 mg tablet 1,000 mg PO BID 10/12/24 11/09/24 History norethindrone acetate 1 mg-ethinyl 1 tab PO DAILY 10/12/24 11/09/24 History estradiol 20 mcg tablet (Aurovela) omega 6-fxl-mja-fish oil 300 1 cap PO QDAY 10/12/24 11/09/24 History mg-1,000 mg capsule (Fish Oil) phentermine 37.5 mg tablet 37.5 mg PO QDAY 10/12/24 11/09/24 History ketorolac 10 mg tablet 10 mg PO Q8H PRN pain #15 tabs 10/28/24 10/27/24 Rx oxycodone-acetaminophen 5 mg-325 1 tab PO Q6H PRN PRN Pain 3 days 10/28/24 Unknown Rx mg tablet #12 TABLETS Allergy/AdvReac Type Severity Reaction Status Date / Time ciprofloxacin (From Cipro) Allergy Hives Verified 11/10/24 05:56 clarithromycin (From Biaxin) Allergy Hives Verified 11/10/24 05:56 meperidine HCl (From Demerol) Allergy Rash Verified 11/10/24 05:56 morphine Allergy Rash Verified 11/10/24 05:56 sulfamethoxazole (From Allergy Hives Verified 11/10/24 05:56 Bactrim) trimethoprim (From Bactrim) Allergy Hives Verified 11/10/24 05:56 Family History Father Thyroid disorder High cholesterol Mother Hypertension Osteoarthritis Breast cancer High cholesterol Osteopenia Grandmother Diabetes Heart disease Surgical History History of parathyroidectomy History of cholecystectomy Hx of cystoscopy Hx of oophorectomy History of salpingectomy History of lithotripsy D&C H/O cystoscopy Social History Smoking Status: Never smoker alcohol intake: current details: occasional substance use type: does not use Review of Systems (Anesthesia) ROS Narrative System reviewed and no additional complaints, except as documented.
--- NOTE | 2024-11-10 07:27 | PCM.HP.STD ---
HPI - General General Date of Service: 11/10/24 Chief Complaint: Right ureteral calculi HPI Narrative DARYN BYRD, is a 39 F who presents for treatment of a ureteral calculi distal right ureter that is failed to pass conservatively [facility] Medical History Thyroid disease Kidney stones Low iron Back pain Migraine headache CPAP (continuous positive airway pressure) dependence Sleep apnea History of echocardiogram GERD (gastroesophageal reflux disease) Hemorrhoids Rectal pain Anemia Wears glasses Wears contact lenses Gastric reflux Anxiety Obesity Mixed hyperlipidemia Hypertriglyceridemia PCOS (polycystic ovarian syndrome) Amenorrhea Fatty liver PCOS (polycystic ovarian syndrome) Hyperlipidemia Asthma Home Medications ?Medication ?Instructions ?Recorded ?Last Taken ?Type rosuvastatin 5 mg tablet (Crestor) 10 mg PO QHS 05/07/17 11/09/24 History cholecalciferol (vitamin D3) 125 125 mcg PO DAILY 08/23/20 11/09/24 History mcg (5,000 unit) capsule lorazepam 0.5 mg tablet (Ativan) 0.5 mg PO DAILY PRN Anxiety 08/23/20 05/20/22 History sertraline 100 mg tablet (Zoloft) 100 mg PO DAILY 08/23/20 11/09/24 History lactobacillus combination no.8 3 3,000 mmu cells PO DAILY 11/28/20 11/09/24 History billion cell capsule (Adult Probiotic) omeprazole 20 mg capsule,delayed 20 mg PO QHS 11/28/20 11/09/24 History release spironolactone 100 mg tablet 100 mg PO DAILY 11/28/20 11/09/24 History ferrous sulfate 325 mg (65 mg 325 mg PO DAILY 10/27/21 11/09/24 History iron) tablet hxyjmiqovw-dpgdvnmktzsth-hufjydyg 1 cap PO Q8H PRN pain #7 caps 02/01/23 Unknown Rx 50 mg-300 mg-40 mg capsule (Fioricet) ascorbic acid (vitamin C) 1,000 mg 1 g PO QDAY 10/12/24 11/09/24 History capsule bupropion HCl 150 mg tablet,12 hr 150 mg PO BID 10/12/24 11/09/24 History sustained-release metformin 1,000 mg tablet 1,000 mg PO BID 10/12/24 11/09/24 History norethindrone acetate 1 mg-ethinyl 1 tab PO DAILY 10/12/24 11/09/24 History estradiol 20 mcg tablet (Aurovela) omega 0-hsr-jcu-fish oil 300 1 cap PO QDAY 10/12/24 11/09/24 History mg-1,000 mg capsule (Fish Oil) phentermine 37.5 mg tablet 37.5 mg PO QDAY 10/12/24 11/09/24 History ketorolac 10 mg tablet 10 mg PO Q8H PRN pain #15 tabs 10/28/24 10/27/24 Rx oxycodone-acetaminophen 5 mg-325 1 tab PO Q6H PRN PRN Pain 3 days 10/28/24 Unknown Rx mg tablet #12 TABLETS Allergy/AdvReac Type Severity Reaction Status Date / Time ciprofloxacin (From Cipro) Allergy Hives Verified 11/10/24 05:56 clarithromycin (From Biaxin) Allergy Hives Verified 11/10/24 05:56 meperidine HCl (From Demerol) Allergy Rash Verified 11/10/24 05:56 morphine Allergy Rash Verified 11/10/24 05:56 sulfamethoxazole (From Allergy Hives Verified 11/10/24 05:56 Bactrim) trimethoprim (From Bactrim) Allergy Hives Verified 11/10/24 05:56 Family History Father Thyroid disorder High cholesterol Mother Hypertension Osteoarthritis Breast cancer High cholesterol Osteopenia Grandmother Diabetes Heart disease Surgical History History of parathyroidectomy History of cholecystectomy Hx of cystoscopy Hx of oophorectomy History of salpingectomy History of lithotripsy D&C H/O cystoscopy Social History Smoking Status: Never smoker alcohol intake: current details: occasional substance use type: does not use Vital Signs Vital Signs Vital Signs: 11/10/24 05:57 11/10/24 06:00 11/10/24 06:38 Temperature 97.3 F L 97.3 F L Temperature Source Temporal Pulse Rate 96 96 Respiratory Rate 16 16 Respiratory Pattern Normal Blood Pressure 124/77 H 124/77 H Blood Pressure Mean 92 Blood Pressure Source Monitor Blood Pressure Position Semi-Fowlers Blood Pressure Location Left Arm Pulse Ox 98 98 Oxygen Delivery Method Room Air Room Air Weight Weight: 110.586 kg Body Mass Index (BMI) 39.3 Results Lab / Micro Data Labs: Laboratory Results - last 24 hr 11/10/24 06:00: Urine Test Negative Imaging Radiology Impression KUB X-Ray 11/10/24 05:28 IMPRESSION: Moderate colonic stool, otherwise unremarkable study. Reading Location: [id number]
--- NOTE | 2024-11-10 07:27 | PCM.DC ---
Discharge Instructions Diet Discharge Diet: No restrictions DC O2, CPAP, BIPAP needs Home O2 Discharge instructions: No Dressing / Incision Discharge Activity: Return to Normal Activity and May Not Drive (while taking narcotic pain medications.) Dressing / Incision Call your doctor if you observe: Fever of 101 or Higher Follow Up Care Please Follow Up With: Nilay Singh MD When: Call [phone] for an appointment Test Results: Test results from this visit will be discussed in further detail at your follow-up appointment, if applicable. Discharge Plan Admission Primary Reason for Your Visit: Right ESWL Attending Provider: Nilay Singh Primary Care Provider: Karley Mott Instructions Print Language: Hungarian Discharge Orders/Prescriptions Prescriptions: No Action cholecalciferol (vitamin D3) 125 mcg (5,000 unit) capsule 125 mcg PO DAILY sertraline [Zoloft] 100 mg tablet 100 mg PO DAILY lorazepam [Ativan] 0.5 mg tablet 0.5 mg PO DAILY PRN (Reason: Anxiety) spironolactone 100 mg tablet 100 mg PO DAILY omeprazole 20 mg capsule,delayed release(DR/EC) 20 mg PO QHS Adult Probiotic 3 billion cell capsule 3,000 mmu cells PO DAILY Rx Instructions: administer with a meal phentermine 37.5 mg tablet 37.5 mg PO QDAY Rx Instructions: must administer 30 minutes before or 1-2 hours after breakfast omega 4-xyc-tvq-fish oil [Fish Oil] 300-1,000 mg capsule 1 cap PO QDAY ascorbic acid (vitamin C) 1,000 mg capsule 1 g PO QDAY norethindrone ac-eth estradiol [Aurovela 10/02 ()] 1-20 mg-mcg tablet 1 tab PO DAILY metformin 1,000 mg tablet 1,000 mg PO BID bupropion HCl 150 mg tablet sustained-release 12 hr 150 mg PO BID rosuvastatin [Crestor] 5 MG tablet 10 mg PO QHS ferrous sulfate 325 mg (65 mg iron) Tablet 325 mg PO DAILY qjksyjujvq-ezyogcdzrkhdi-baxz [Fioricet] 50-300-40 mg capsule 1 cap PO Q8H PRN (Reason: pain) Qty: 7 0RF ketorolac 10 mg tablet 10 mg PO Q8H PRN (Reason: pain) Qty: 15 0RF Rx Instructions: maximum total duration of 5 days from all oral, intranasal, or parenteral formulations oxycodone-acetaminophen 5-325 mg tablet 1 tab PO Q6H PRN PRN (Reason: Pain) 3 Days Qty: 12 0RF Other Ambulatory Orders: Abdomen Single View (Routine) Timeframe: 20241110 Facility: [facility] - Location: Radiology, [facility] Ordered By: Dr. Nilay Singh Referrals / Follow Up: Karley Mott, [facility] [Primary Care Provider] - Disposition Disposition (needs filled in before D/C Order can be placed): Home, Self Care
[2024-11-10] MEDS: Cefazolin 2 GM in Syringe IV (07:50)
--- NOTE | 2024-11-10 08:03 | PCM.OPRPT ---
Operative Report (Standard) Operative Information Date of Procedure: 11/10/24 Pre-Operative Diagnosis: Right ureteral calculi Post-Operative Diagnosis: The same Surgery/Procedure Performed: Right extracorporeal shockwave lithotripsy hook up driver: No Type of Anesthesia: General RN Documented Start/Stop Times: Operation Date: 11/10/24 07:30 Case Time Into Pre-Op 11/10/24 05:38 Procedure Start Time: 08:03 Procedure Stop Time: 08:38 Select all DRAINS/GRAFTS/IMPLANTS that apply: None Estimated Blood Loss: 0 Specimen collected: No Description of surgery: Patient presents to the hospital for treatment of a kidney stone with shockwave lithotripsy. In the preoperative area and x-ray was done to confirm the location of the stone. The x-ray was reviewed and the stone location was reviewed. In the preoperative setting I spoke with the patient regarding the treatment of the stone how the treatment would be conducted and the expectations after surgery. The patient understands there is a risk of bleeding and infection. Also discussed the very rare risk of hematoma or damage to the kidney. We also discussed the risk that the shockwave machine will fail to break the stone adequately and that the patient may need other surgical procedures. I also discussed the possibility that the patient may need a stent after the procedure. After reviewing the procedure with the patient, the patient is signed the consent form all the patient's questions were addressed and was taken back to the operating room for treatment of a kidney stone. Patient was taken back to the operating room, the patient was identified by the nursing staff, I identified the side of the treatment and the patient side of treatment had been marked by my initials. The patient underwent general anesthetic and was placed supine on the lithotripter table. I then used fluoroscopy to identify the stone on the right side distal ureter. I then positioned the patient under the lithotripter and I used triangulation technique to identify the location of the stone and then I made sure that the stone was engaged in the F2 focal point of F2 Donier lithoprior machine. Once the patient was positioned appropriately and the stone was identified and placed in the F2 focal point of the lithotripter machine I then proceeded with shockwave lithotripsy. In the beginning the shockwave was delivered at a rate of 90 shocks per minute, anesthesia monitored the EKG for any ectopy. The power was slowly increased to 5 kV and subsequently at the 7 kV. I then proceeded with the treatment with shock wave therapy and around during the treatment to make sure the stone stayed in the F2 focal point during the entire treatment and after 3000 shockwaves were delivered to the stone under fluoroscopic guidance the treatment was completed. The patient was given instructions to call the office to make an a follow-up appointment with an xray to evaluate the success of the treatment, patient understands that its possible the stones may need another procedure.At this point the patient's anesthetic was reversed patient was extubated and taken back to the PACU in stable condition. Surgical Findings: stone in distal right ureter treated with shochwave lithotripsy Complications Complications: No Admit VTE Documentation VTE Present on Admission: No VTE Mechan Device Prophylaxis: SCD's VTE Pharm Prophylaxis ordered?: No
[2024-11-10] MEDS: Ketorolac 15 MG/ML Vial IV (09:16)
--- NOTE | 2024-11-10 16:30 | POSTOPAN2_ITS ---
Anesthesia Postop Eval I Sum Postop Eval Completion status Anesthesia document: Postop Eval 1 completed: Yes Anesthesia Postop Eval I Summary Anesthesia Postop Eval I Summary: Anesthesia Postop Eval I: Assessment Summary Airway patent Yes 11/10/24 16:30 [email or web address] Spontaneous unlabored Yes 11/10/24 16:30 [email or web address] [email or web address] respirations Mental status nausea No 11/10/24 16:30 [email or web address] Vomiting No 11/10/24 16:30 [email or web address] [email or web address] Anesthesia Postop Eval I: Fluid Summary Crystalloid volume administer 500 11/10/24 16:30 [email or web address] (ml) Colloids volume administered ( ml) Blood Product volume administered (ml) Total IV fluid infused 500 11/10/24 16:30 [email or web address] Anesthesia Postop Eval I: Summary Notes Anesthesia Complication No 11/10/24 16:30 [email or web address] Anesthesia Complication Comment: Post-operative progress note Anesthesia: Postop Eval II Evaluation Mental status: Awake and Calm Pain Level: 1 nausea: No Vomiting: No Complications Anesthesia Complication: No
--- NOTE | 2024-11-10 16:30 | PCM.POST.ANE ---
Anesthesia: Postop Eval I Current Vital Signs Temperature: 98.3 F Pulse Rate: 93 Blood Pressure: 151/87 Respiratory Rate: 16 Pulse Ox: 97 Assessment Airway patent: Yes Spontaneous unlabored respirations: Yes nausea: No Vomiting: No Anesthesia Complication: No Fluid Hydration Crystalloid volume administer (ml): 500 Total IV fluid infused: 500 Progress Note Anesthesia document: Postop Eval 1 completed: Yes
--- NOTE | 2024-11-10 16:30 | PCM.POSTANE2 ---
Anesthesia Postop Eval I Sum Postop Eval Completion status Anesthesia document: Postop Eval 1 completed: Yes Anesthesia Postop Eval I Summary Anesthesia Postop Eval I Summary: Anesthesia Postop Eval I: Assessment Summary Airway patent Yes 11/10/24 16:30 FURRIER SHOP [email or web address] Spontaneous unlabored Yes 11/10/24 16:30 FURRIER SHOP [email or web address] respirations Mental status nausea No 11/10/24 16:30 FURRIER SHOP [email or web address] Vomiting No 11/10/24 16:30 FURRIER SHOP [email or web address] Anesthesia Postop Eval I: Fluid Summary Crystalloid volume administer 500 11/10/24 16:30 FURRIER SHOP [email or web address] (ml) Colloids volume administered ( ml) Blood Product volume administered (ml) Total IV fluid infused 500 11/10/24 16:30 FURRIER SHOP [email or web address] Anesthesia Postop Eval I: Summary Notes Anesthesia Complication No 11/10/24 16:30 FURRIER SHOP [email or web address] Anesthesia Complication Comment: Post-operative progress note Anesthesia: Postop Eval II Evaluation Mental status: Awake and Calm Pain Level: 1 nausea: No Vomiting: No Complications Anesthesia Complication: No
== END 2024-11-10 10:13 | disposition home or self-care (01) ==
LOC: SDC 05:23 → AC 05:24
PROVIDERS: Anesthesiology; PCP Nurse Practitioner Family; Referring Provider Urology; Visit Provider Urology
PROC: (CPT 50590; principal; 2024-11-10 07:20)
DX: N20.2 Calculus of kidney with calculus of ureter (principal); E78.2 Mixed hyperlipidemia; G47.30 Sleep apnea, unspecified; F41.9 Anxiety disorder, unspecified; Z79.899 Other long term (current) drug therapy; Z79.84 Long term (current) use of oral hypoglycemic drugs
CPT/HCPCS: 50590; 00873; 74018; 81025; A4216; J2405

== ENCOUNTER → 2024-11-20 | Outpatient (CLI) | payer OTHER, SELFPAY ==
--- NOTE | 2024-11-20 08:34 | RAD_ITS ---
EXAM: XR Abdomen, 1 View CLINICAL INDICATION: TECHNIQUE: Frontal supine view of the abdomen/pelvis. COMPARISON: No relevant prior studies available. FINDINGS: GASTROINTESTINAL TRACT: Fecal retention in the colon consistent with constipation. No dilation. BONES/JOINTS: Unremarkable. No acute fracture. RAD/Abdomen Single View IMPRESSION: Fecal retention in the colon consistent with constipation. Reading Location: [facility]
== END | disposition home or self-care (01) ==
LOC: RAD 08:34
PROVIDERS: PCP Nurse Practitioner Family; Referring Provider Urology; Visit Provider Urology
DX: N20.1 Calculus of ureter (principal)
CPT/HCPCS: 74018

== ENCOUNTER 2025-04-25 08:34 | Day surgery (SDC) | payer OTHER, SELFPAY ==
[2025-04-25] VITALS (7 sets, daily range): BP systolic 105–152; BP diastolic 71–102; PULSE 79–96; RESP 16; TEMP 36.4–36.9; O2SAT 95–99; BMI 40.1
[2025-04-25] MEDS: Lactated Ringers 1,000 ML 15 ML IV (09:02)
--- NOTE | 2025-04-25 09:21 | PCM.PRE.AN2 ---
ASA Classification* ASA Classification ASA Classification: 2 Assessment & Plan Anesthesia* Anesthesia Assessment Anesthesia Assessment: Discussed sedation and/or anesthesia options, risks, benefits, and alternatives with patient/parents/legal guardian/POA. Questions invited. The patient/parents/legal guardian/POA seems to understand and agrees to proceed with anesthesia plan. Reviewed the physical assessment, medical history, allergy history and patient home medications list prior to surgery/procedure/anesthetic and documented any changes. Performed airway and anesthesia risk assessments. Anesthesia Type Anesthesia Type: MAC History Source History Obtained from:: Patient and Chart Anesthesia Focused Assessment* Temperature: 98.5 F Pulse Rate: 85 Blood Pressure: 132/91 Respiratory Rate: 16 Pulse Ox: 99 Oxygen Delivery Method: Room Air Airway Assessment Mouth opens: >3 cm Mallampati Score: II Teeth Condition: Intact Neck Range of motion (ROM): Full ROM Labs Anesthesia Preop lab: CBC WBC 14.3 K/mm3 (4.4-11.0) H 10/28/24 07:10/28/24 RBC 4.39 M/mm3 (4.2-5.4) 10/28/24 07:26 10/28/24 Hgb 13.4 g/dL (12.0-15.0) 10/28/24 07:10/28/24 Hct 39.6 % (37-47) 10/28/24 07:26 10/28/24 Plt Count 270 K/mm3 (150-450) 10/28/24 07:26 10/28/24 CHEMISTRY Potassium 4.0 mmol/L (3.5-5.1) 10/28/24 07:26 10/28/24 Sodium 135 mmol/L (136-145) L 10/28/24 07:26 10/28/24 Magnesium 1.9 mg/dL (1.6-2.6) 09/14/22 09:07 09/14/22 Phosphorus 2.5 mg/dL (2.5-4.9) 04/13/24 08:50 04/13/24 BUN 9 mg/dL (7-18) 10/28/24 07:26 10/28/24 Creatinine 0.68 mg/dL (0.55-1.02) 10/28/24 07:26 10/28/24 Glucose 100 mg/dL (74-106) 10/28/24 07:26 10/28/24 TSH 2.620 uIU/mL (0.358-3.740) 06/19/24 09:54 06/19/24 COAG PT 13.4 SECONDS (11.7-14.9) 03/28/18 13:10 03/28/18 HCG, Quant < 1 mIU/mL (1-3) 08/05/20 14:09 08/05/20 Urine Test Negative Negative 11/10/24 06:00 11/10/24 Tst Clinic Negative 11/19/17 17:20 11/19/17 Pre-Assessment Diagnosis/Proposed Procedure Planned Operative Procedure(s): ) Colonoscopy Anesthesia History 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 When Was Last Pacemaker Check QUESTION #4 FULL TEXT: You/Your Family Experience fever (hyperthermia) with Anesthesia Last Oral Intake Last Oral intake: Last Oral Intake NPO since 21:00 04/25/25 08:59 Meds taken in AM with sips of water? 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 Female Yes 04/23/25 10:41 HX of Motion Sickness Yes 04/23/25 10:41 HX of N/V After Surgery Yes 04/23/25 10:41 Non-Smoker Yes 04/23/25 10:41 Duration of Surgery greater No 04/23/25 10:41 than 60 minutes Number of Risk Factors 4 04/23/25 10:41 PONV Score Severe Risk 04/23/25 10:41 Height & Weight Height & Weight: Anesthesia: Height & Weight Height 5 ft 6 in 04/25/25 08:59 Weight: 113 kg 04/25/25 08:59 Body Mass Index (BMI) 40.1 04/25/25 08:59 Respiratory Assessment Respiratory Assessment - 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 Has anyone observed you stop breathing during sleep? STOP Results Positive 04/23/25 10:41 QUESTION #5 FULL TEXT : Do you snore loudly (louder than talking or can be heard through closed doors)? 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 Specify any problems Hx of Preganancy in last 3 No 04/23/25 10:41 Months Nurse Filling Out Transfusion JZOLLJEFFERY 04/23/25 10:41 & Questions: Date: 04/23/25 04/23/25 10:41 Time: 10:42 04/23/25 10:41 Patient unable to answer at this time (ie. 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: /Reproductive Hx- furnace utility operator Hx Now No 04/23/25 10:41 Gestational Age (in weeks): EDC: Hx Hx Para Hx Section SAB No 04/23/25 10:41 Active Medications Active Medications: Current Medications Generic Name Dose Route Start Last Admin Trade Name Freq PRN Reason Stop Dose Admin Lactated Ringer's 1,000 mls @ 15 mls/hr 04/25/25 08:45 04/25/25 09:02 IV 15 mls/hr .Q48H IDALMIS Administration PFSH Medical History Dietary restriction Thyroid disease Kidney stones Low iron Back pain Migraine headache CPAP (continuous positive airway pressure) dependence Sleep apnea History of echocardiogram GERD (gastroesophageal reflux disease) Hemorrhoids Rectal pain Anemia Wears glasses Wears contact lenses Gastric reflux Anxiety Obesity Mixed hyperlipidemia Hypertriglyceridemia PCOS (polycystic ovarian syndrome) Amenorrhea Fatty liver PCOS (polycystic ovarian syndrome) Hyperlipidemia Asthma Home Medications ?Medication ?Instructions ?Recorded ?Last Taken ?Type rosuvastatin 5 mg tablet (Crestor) 10 mg PO QHS 05/07/17 11/09/24 History cholecalciferol (vitamin D3) 125 125 mcg PO DAILY 08/23/20 11/09/24 History mcg (5,000 unit) capsule lorazepam 0.5 mg tablet (Ativan) 0.5 mg PO DAILY PRN Anxiety 08/23/20 05/20/22 History sertraline 100 mg tablet (Zoloft) 100 mg PO DAILY 08/23/20 11/09/24 History lactobacillus combination no.8 3 3,000 mmu cells PO DAILY 11/28/20 11/09/24 History billion cell capsule (Adult Probiotic) omeprazole 20 mg capsule,delayed 20 mg PO QHS 11/28/20 11/09/24 History release spironolactone 100 mg tablet 100 mg PO DAILY 11/28/20 11/09/24 History ferrous sulfate 325 mg (65 mg 325 mg PO DAILY 10/27/21 11/09/24 History iron) tablet vkleersxkx-fytjtuqygsfwe-uxnlbofo 1 cap PO Q8H PRN pain #7 caps 02/01/23 Unknown Rx 50 mg-300 mg-40 mg capsule (Fioricet) ascorbic acid (vitamin C) 1,000 mg 1 g PO QDAY 10/12/24 11/09/24 History capsule bupropion HCl 150 mg tablet,12 hr 150 mg PO BID 10/12/24 11/09/24 History sustained-release metformin 1,000 mg tablet 1,000 mg PO BID 10/12/24 11/09/24 History norethindrone acetate 1 mg-ethinyl 1 tab PO DAILY 10/12/24 11/09/24 History estradiol 20 mcg tablet (Aurovela) omega 4-idb-iov-fish oil 300 1 cap PO QDAY 10/12/24 11/09/24 History mg-1,000 mg capsule (Fish Oil) phentermine 37.5 mg tablet 37.5 mg PO QDAY 10/12/24 11/09/24 History Allergy/AdvReac Type Severity Reaction Status Date / Time ciprofloxacin (From Cipro) Allergy Hives Verified 04/25/25 08:59 clarithromycin (From Biaxin) Allergy Hives Verified 04/25/25 08:59 meperidine HCl (From Demerol) Allergy Rash Verified 04/25/25 08:59 morphine Allergy Rash Verified 04/25/25 08:59 sulfamethoxazole (From Allergy Hives Verified 04/25/25 08:59 Bactrim) trimethoprim (From Bactrim) Allergy Hives Verified 04/25/25 08:59 Family History Father Thyroid disorder High cholesterol Mother Hypertension Osteoarthritis Breast cancer High cholesterol Osteopenia Grandmother Diabetes Heart disease Surgical History History of parathyroidectomy History of cholecystectomy Hx of cystoscopy Hx of oophorectomy History of salpingectomy History of lithotripsy D&C H/O cystoscopy Social History Smoking Status: Never smoker alcohol intake: current details: occasional substance use type: does not use Review of Systems (Anesthesia) ROS Narrative System reviewed and no additional complaints, except as documented.
--- NOTE | 2025-04-25 10:00 | COLBX_PTH ---
PATIENT: DARYN BYRD LOC: EN U#:[id number] AGE/SX: 39/F ROOM: RE04/25/[address]: Dr. Renetta Edge MD : [id number] BED: DIS: 04/25/2025 SPEC #: [id number] RECD: 04/25/25 12:12 STATUS: ALYSSA REQ #: [id number] SUSAN: 04/25/25 10:[address]: Renetta Edge DEPT: SURGICAL PATHOLOGY RECD BY: Cleveland Maddox ENTERED: 04/25/25 14:20 SP TYPE: COLON BX OTHR DR: Karley Mott, LOAF COUNTER-C Tissues: A - Descending colon Procedures: Surgery Specimen Level IV HEADER OPERATION: Colonoscopy with biopsy and polypectomy PRE-OP DIAGNOSIS: Perirectal abscess TISSUE SUBMITTED: A- Descending colon polyp and biopsy x2 MICROSCOPIC DIAGNOSIS A. Descending colon, polyp, biopsy: - Hyperplastic polyp. MICROSCOPIC DESCRIPTION Slides are reviewed. GROSS DESCRIPTION A. Received in fixative is one container labeled with the patient's name and designated Descending colon polyp and biopsy. The specimen consists of two irregular fragments of light martinez soft tissue, each measuring 0.4 cm. The specimen is totally submitted in one cassette. MI 04/25/2025 CPT:40062
--- NOTE | 2025-04-25 10:06 | PCM.HP.BLA ---
History and Physical Date of Admission: 04/25/25 Date of Service: 04/03/25 MR#: [id number] Acct: [id number] Name: DARYN BYRD Rep #: [id number] : 1985 Provider: Dr. Renetta Edge MD Age/Sex: 39/F Location: [facility] Status: Signed Intake Vital Signs 11/10/2505:00 04/03/2508:27 Height 5 ft 6 in 5 ft 6 in Weight: 256 lb 4 oz BMI 41.3 BP 131/87 H Blood Pressure Location Rt brachial Position Sitting Respiration 18 Pulse 72 Pulse Source Monitor Temp 97.5 F L Temp Source Temporal Pulse Oximetry (%) 99 Oxygen Delivery Method room air Intake Visit Reasons: COLONOSCOPY FOR ANAL FISTULA Chief Complaint: colonoscopy for anal fistula Is patient in pain?: No Allergies ciprofloxacin (From Cipro) Allergy (Verified 04/23/25 10:36) Hivesclarithromycin (From Biaxin) Allergy (Verified 04/23/25 10:36) Hivesmeperidine HCl (From Demerol) Allergy (Verified 04/23/25 10:36) Rashmorphine Allergy (Verified 04/23/25 10:36) Rashsulfamethoxazole (From Bactrim) Allergy (Verified 04/23/25 10:36) Hivestrimethoprim (From Bactrim) Allergy (Verified 04/23/25 10:36) Hives Medications ?Medication ?Instructions ?Recorded ?Confirmed ?Type rosuvastatin 5 mg tablet (Crestor) 10 mg PO QHS 05/07/17 04/23/25 History cholecalciferol (vitamin D3) 125 125 mcg PO DAILY 08/23/20 04/23/25 History mcg (5,000 unit) capsule lorazepam 0.5 mg tablet (Ativan) 0.5 mg PO DAILY PRN Anxiety 08/23/20 04/23/25 History sertraline 100 mg tablet (Zoloft) 100 mg PO DAILY 08/23/20 04/23/25 History lactobacillus combination no.8 3 3,000 mmu cells PO DAILY 11/28/20 04/23/25 History billion cell capsule (Adult Probiotic) omeprazole 20 mg capsule,delayed 20 mg PO QHS 11/28/20 04/23/25 History release spironolactone 100 mg tablet 100 mg PO DAILY 11/28/20 04/23/25 History ferrous sulfate 325 mg (65 mg 325 mg PO DAILY 10/27/21 04/23/25 History iron) tablet dzgobxpudl-ndpdvyudyndzy-lpqqxksx 1 cap PO Q8H PRN pain #7 caps 02/01/23 04/23/25 Rx 50 mg-300 mg-40 mg capsule (Fioricet) ascorbic acid (vitamin C) 1,000 mg 1 g PO QDAY 10/12/24 04/23/25 History capsule bupropion HCl 150 mg tablet,12 hr 150 mg PO BID 10/12/24 04/23/25 History sustained-release metformin 1,000 mg tablet 1,000 mg PO BID 10/12/24 04/23/25 History norethindrone acetate 1 mg-ethinyl 1 tab PO DAILY 10/12/24 04/23/25 History estradiol 20 mcg tablet (Aurovela) omega 0-fsz-wek-fish oil 300 1 cap PO QDAY 10/12/24 04/23/25 History mg-1,000 mg capsule (Fish Oil) phentermine 37.5 mg tablet 37.5 mg PO QDAY 10/12/24 04/23/25 History PFSH Medical History (Updated 04/23/25 @ 10:41 by Emilee Paniagua) Dietary restriction Thyroid disease Kidney stones Low iron Back pain Migraine headache CPAP (continuous positive airway pressure) dependence Sleep apnea History of echocardiogram GERD (gastroesophageal reflux disease) Hemorrhoids Rectal pain Anemia Wears glasses Wears contact lenses Gastric reflux Anxiety Obesity Mixed hyperlipidemia Hypertriglyceridemia PCOS (polycystic ovarian syndrome) Amenorrhea Fatty liver PCOS (polycystic ovarian syndrome) Hyperlipidemia Asthma Surgical History History of parathyroidectomy History of cholecystectomy Hx of cystoscopy Hx of oophorectomy History of salpingectomy History of lithotripsy D&C H/O cystoscopy Family History Father Thyroid disorder High cholesterolMother Hypertension Osteoarthritis Breast cancer High cholesterol OsteopeniaGrandmother Diabetes Heart disease Social History Smoking Status: Never smoker alcohol intake: current details: occasional substance use type: does not use HPI HPI HPI: 39-year-old female presents due to perirectal abscess. Patient did have it I&D seen in September 2024 and office visit in November 2024 with Beckie Patel. Patient states she does have occasional intermittent drainage denies any pain. Patient does have bowel movements daily denies any blood. Patient's family history maternal uncle in his 60s with colon cancer in paternal grandpa in his 50s no immediate relatives. Patient's never had colonoscopy. ROS General General: No weight change, appetite, fatigue, colon cancer, breast cancer or weakness HEENT HEENT: No difficulty swallowing, eye injury, eye surgery, swollen glands or hoarseness Endo Endocrine: No thyroid disease, diabetes mellitus, thyroid cancer, Hair loss, heat intolerance or cold intolerance Skin Skin: No rash or changing moles Breast Breast: No left breast lump, right breast lump, nipple discharge, breast pain, abnormal mammogram, abnormal US or breast enlargement Musc Musculoskeletal: No back problems, arthritis, rheumatoid arthritis, gout or joint pain Cardio Cardiovascular: No murmur, pacemaker, heart disease, atrial fibrillation, high blood pressure, heart attack, heart stent, palpitations, shortness of breath with exertion or chest pain Psych Psychiatric: Yes anxiety; No depression or hearing voices Resp Respiratory: No shortness of breath, Yes sleep apnea, No cough, No COPD, No asthma, No emphysema and No wheezing Gastro Gastrointestinal: No abdominal pain, No nausea or vomiting, No diarrhea, No constipation, No blood in stool, Yes acid reflux, Yes hemorrhoids, No ulcers, No gallbladder problem and No black,tarry stools Vinod Hematologic: No blood thinners, No blood disorders, No bleeding, No anemia and No blood clots Neuro Neurologic: No system reviewed and no additional complaints, except as documented, No as per HPI, No abnormal gait, No abnormal hearing, No abnormal movements, No abnormal speech, No behavioral changes, No burning sensations, No confusion, No convulsions, No disequilibrium, No dizziness, No localized weakness, No frequent falls, No headache(s), No lack of coordination, No loss of vision, No memory loss, No numbness, No other visual disturbances, No radicular pain, No restless legs, No sensory deficit, No syncope, No tingling, No tremor(s), No weakness and No other Exam Const General: cooperative, healthy appearing, comfortable and no acute distress HENMT Head: normocephalic and atraumatic Neck Neck: supple Resp Effort & Inspection: normal respiratory effort Cardio Rate: regular rate GI Inspection: non-distended Palpation: soft and nontender Other: Area of previous I&D well-healed no active drainage. No gross blood Skin General: no rashes or lesions noted Neuro General: CN's II-XI intact bilaterally Extrem General: normal to inspection Psych Mental Status: mental status grossly normal Attitude: cooperative Assessment and Plan Assessment and Plan (1) Perirectal abscess: Status: Acute Orders: Orders Colonoscopy 04/25/25 Plan I have discussed the above with the patient. I have offered the patient colonoscopy for evaluation. I have explained the risks/benefits of the procedure and described the procedure. I have discussed the risks with the patient, including but not limited to: infection, bleeding, perforation of the GI tract requiring emergency surgery, inability to complete the procedure, injury to any internal organs, complications of anesthesia, etc. - the patient understands and agrees to proceed. I have answered all the patient's questions to the patient's satisfaction and the patient has no further questions. The patient has been given instructions for the colon cleansing preparation. MiraLAX Dulcolax Renetta Edge M.D. Pager: [phone] [facility] [address] [place] [address], [address] [place] [address] Office: [phone] Coding Level of Care Code Off vis,est,level 3 Diagnoses Perirectal abscess K61.1 04/23/25 1212 <Electronically signed by Renetta Edge MD> Date Renetta Edge MD
--- NOTE | 2025-04-25 11:28 | OP.PROVAT_ITS ---
04/25/2025 Holli Mart Re : Colonoscopy procedure for Steffen Ulloa Dear Pantera This procedure was performed on Friday, April 25, 2025. My impressions and recommendations are as follows: Impressions : - One less than 5 mm polyp in the descending colon, removed with a cold biopsy forceps. Resected and retrieved. - One less than 5 mm polyp in the descending colon, removed with a hot snare. Resected and retrieved. - The examination was otherwise normal. Recommendations : - Discharge patient to home. - Resume previous diet. - Continue present medications. - Await pathology results. - Repeat colonoscopy in 5 years for surveillance based on pathology results. - Plan for EUA and fistulotomy in OR in future for anal fistula My findings are described in the full procedure note, which is enclosed. If I can be of further assistance, please feel free to contact me at Doctor phone number(s): , Work: . Sincerely, MD Renetta Craig MD 04/25/2025 11:27:58 AM This report has been signed electronically.
--- NOTE | 2025-04-25 11:28 | OP.COLON_ITS ---
Patient Name: Steffen Ulloa Procedure Date: 04/25/2025 10:48 AM Date of : 1985 Age: 39 Procedure: Colonoscopy Indications: Fistula in ano Providers: Renetta Edge MD Referring MD: Holli Mart Medicines: Monitored Anesthesia Care Patient Profile: This is a 39 year old female. Last Colonoscopy: none. The patient's first colonoscopy is today. Complications: No immediate complications. Procedure: Pre-Anesthesia Assessment: - Prior to the procedure, a History and Physical was performed, and patient medications and allergies were reviewed. The patient's tolerance of previous anesthesia was also reviewed. The risks and benefits of the procedure and the sedation options and risks were discussed with the patient. All questions were answered, and informed consent was obtained. Prior Anticoagulants: The patient has taken no anticoagulant or antiplatelet agents. ASA Grade Assessment: Per anesthesia. After reviewing the risks and benefits, the patient was deemed in satisfactory condition to undergo the procedure. After I obtained informed consent, the scope was passed under direct vision. Throughout the procedure, the patient's blood pressure, pulse, and oxygen saturations were monitored continuously. The colonoscope was introduced through the anus and advanced to the cecum, identified by appendiceal orifice and ileocecal valve. The colonoscopy was performed without difficulty. The patient tolerated the procedure well. The quality of the bowel preparation was good. Scope In: 10:58:48 AM Scope Withdrawal Time 0 hours 14 minutes 17 seconds Scope Out: 11:19:14 AM Total Procedure Duration Time 0 hours 20 minutes 26 seconds Findings: Anal fistula--at 6:00 just inside anus- small opening w minimal purulent material expressed A less than 5 mm polyp was found in the descending colon. The polyp was sessile. The polyp was removed with a cold biopsy forceps. Resection and retrieval were complete. A less than 5 mm polyp was found in the descending colon. The polyp was semi-sessile. The polyp was removed with a hot snare. Resection and retrieval were complete. The exam was otherwise without abnormality. Non-bleeding internal hemorrhoids were found. The hemorrhoids were Grade I (internal hemorrhoids that do not prolapse). Impression: - One less than 5 mm polyp in the descending colon, removed with a cold biopsy forceps. Resected and retrieved. - One less than 5 mm polyp in the descending colon, removed with a hot snare. Resected and retrieved. - The examination was otherwise normal. Recommendation: - Discharge patient to home. - Resume previous diet. - Continue present medications. - Await pathology results. - Repeat colonoscopy in 5 years for surveillance based on pathology results. - Plan for EUA and fistulotomy in OR in future for anal fistula Procedure Code(s): --- Professional --- 26478, Colonoscopy, flexible; with removal of tumor(s), polyp(s), or other lesion(s) by snare technique 03875, 59, Colonoscopy, flexible; with biopsy, single or multiple Diagnosis Code(s): --- Professional --- D12.4, Benign neoplasm of descending colon K60.3, Anal fistula CPT copyright 2021 [employer]. All rights reserved. The codes documented in this report are preliminary and upon industrial economics professor review may be revised to meet current compliance requirements. MD Renetta Craig MD 04/25/2025 11:27:58 AM This report has been signed electronically. Number of Addenda: 0 Note Initiated On: 04/25/2025 10:48 AM
--- NOTE | 2025-04-25 11:29 | PCM.POST.ANE ---
Anesthesia: Postop Eval I Current Vital Signs Temperature: 97.5 F Pulse Rate: 79 Blood Pressure: 105/93 Respiratory Rate: 16 Pulse Ox: 97 Oxygen Delivery Method: Room Air Assessment Airway patent: Yes Spontaneous unlabored respirations: Yes Mental status: Awake and Calm nausea: No Vomiting: No Anesthesia Complication: No Fluid Hydration Crystalloid volume administer (ml): 900 Total IV fluid infused: 900 Progress Note Anesthesia document: Postop Eval 1 completed: Yes
--- NOTE | 2025-04-25 16:30 | PCM.POSTANE2 ---
Anesthesia Postop Eval I Sum Postop Eval Completion status Anesthesia document: Postop Eval 1 completed: Yes Anesthesia Postop Eval I Summary Anesthesia Postop Eval I Summary: Anesthesia Postop Eval I: Assessment Summary Airway patent Yes 04/25/25 11:30 [email or web address] Spontaneous unlabored Yes 04/25/25 11:30 [email or web address] respirations Mental status Awake,Calm 04/25/25 11:30 [email or web address] nausea No 04/25/25 11:30 [email or web address] Vomiting No 04/25/25 11:30 [email or web address] Anesthesia Postop Eval I: Fluid Summary Crystalloid volume administer 900 04/25/25 11:30 [email or web address] (ml) Colloids volume administered ( ml) Blood Product volume administered (ml) Total IV fluid infused 900 04/25/25 11:30 [email or web address] Anesthesia Postop Eval I: Summary Notes Anesthesia Complication No 04/25/25 11:30 [email or web address] Anesthesia Complication Comment: Post-operative progress note Anesthesia: Postop Eval II Evaluation Mental status: Awake Pain Level: 0 nausea: No Vomiting: No
== END 2025-04-25 12:24 | disposition home or self-care (01) ==
LOC: EN 08:35 → AC 08:36
PROVIDERS: PCP Nurse Practitioner Family; Referring Provider Nurse Practitioner Family; Visit Provider Surgery
PROC: 0DJD8ZZ Inspection of Lower Intestinal Tract, Via Natural or Artificial Opening Endoscopic (ICD-10-PCS; CPT 45378; principal; 2025-04-25 09:55)
DX: K60.30 Anal fistula, unspecified (principal); Z68.41 Body mass index [BMI] 40.0-44.9, adult; K63.5 Polyp of colon; K64.0 First degree hemorrhoids; K21.9 Gastro-esophageal reflux disease without esophagitis; F41.9 Anxiety disorder, unspecified; E28.2 Polycystic ovarian syndrome; E66.9 Obesity, unspecified; E78.2 Mixed hyperlipidemia; D64.9 Anemia, unspecified; G47.30 Sleep apnea, unspecified; Z90.49 Acquired absence of other specified parts of digestive tract; Z79.84 Long term (current) use of oral hypoglycemic drugs; Z87.19 Personal history of other diseases of the digestive system; Z79.899 Other long term (current) drug therapy
CPT/HCPCS: 45385; 45380; 88305; J2405

== ENCOUNTER → 2025-05-28 | Outpatient (CLI) | payer OTHER, SELFPAY ==
[2025-05-28 10:55] LABS: Vitamin D,25 Hydroxy 37.5 ng/mL (30-100)
== END | disposition home or self-care (01) ==
LOC: LAB 08:54
PROVIDERS: PCP Nurse Practitioner Family
DX: E55.9 Vitamin D deficiency, unspecified (principal); E04.2 Nontoxic multinodular goiter
CPT/HCPCS: 36415; 82306; 84439; 84443

== ENCOUNTER 2025-06-29 09:26 | Day surgery (SDC) | payer OTHER, SELFPAY ==
[2025-06-29] VITALS (10 sets, daily range): BP systolic 128–149; BP diastolic 90–98; PULSE 84–96; RESP 16–20; TEMP 36.4–37.1; O2SAT 95–98; BMI 41.6
[2025-06-29] MEDS: Lactated Ringers 1,000 ML 15 ML IV (10:12)
--- NOTE | 2025-06-29 10:20 | PCM.HP.STD ---
HPI - General General Date of Service: 06/29/25 HPI Narrative DARYN BYRD, is a 40 F who presents for exam under anesthesia and possible fistulotomy. Patient's colonoscopy only had 1 small polyp and the fistula was seen. Previous office visit prior to colonoscopy. HPI HPI: 39-year-old female presents due to perirectal abscess. Patient did have it I&D seen in September 2024 and office visit in November 2024 with Beckie Patel. Patient states she does have occasional intermittent drainage denies any pain. Patient does have bowel movements daily denies any blood. Patient's family history maternal uncle in his 60s with colon cancer in paternal grandpa in his 50s no immediate relatives. Patient's never had colonoscopy. [facility] Medical History (Updated 06/15/25 @ 08:17 by Irma Patel) Blood disorder High cholesterol Non-smoker Dietary restriction Thyroid disease Kidney stones Low iron Back pain Migraine headache CPAP (continuous positive airway pressure) dependence Sleep apnea History of echocardiogram GERD (gastroesophageal reflux disease) Hemorrhoids Rectal pain Anemia Wears glasses Wears contact lenses Gastric reflux Anxiety Obesity Mixed hyperlipidemia Hypertriglyceridemia PCOS (polycystic ovarian syndrome) Amenorrhea Fatty liver PCOS (polycystic ovarian syndrome) Hyperlipidemia Asthma Home Medications ?Medication ?Instructions ?Recorded ?Last Taken ?Type cholecalciferol (vitamin D3) 125 125 mcg PO DAILY 08/23/20 11/09/24 History mcg (5,000 unit) capsule lorazepam 0.5 mg tablet (Ativan) 0.5 mg PO DAILY PRN Anxiety 08/23/20 05/20/22 History sertraline 100 mg tablet (Zoloft) 100 mg PO DAILY 08/23/20 11/09/24 History lactobacillus combination no.8 3 3,000 mmu cells PO DAILY 11/28/20 11/09/24 History billion cell capsule (Adult Probiotic) omeprazole 20 mg capsule,delayed 20 mg PO QHS 11/28/20 11/09/24 History release spironolactone 100 mg tablet 100 mg PO DAILY 11/28/20 11/09/24 History ferrous sulfate 325 mg (65 mg 325 mg PO DAILY 10/27/21 11/09/24 History iron) tablet nuzegullap-eiwywbtnipdep-gkiwnhoo 1 cap PO Q8H PRN pain #7 caps 02/01/23 Unknown Rx 50 mg-300 mg-40 mg capsule (Fioricet) ascorbic acid (vitamin C) 1,000 mg 1 g PO QDAY 10/12/24 11/09/24 History capsule bupropion HCl 150 mg tablet,12 hr 150 mg PO BID 10/12/24 11/09/24 History sustained-release metformin 1,000 mg tablet 1,000 mg PO BID 10/12/24 11/09/24 History norethindrone acetate 1 mg-ethinyl 1 tab PO DAILY 10/12/24 11/09/24 History estradiol 20 mcg tablet (Aurovela) omega 5-ntn-gza-fish oil 300 1 cap PO QDAY 10/12/24 11/09/24 History mg-1,000 mg capsule (Fish Oil) phentermine 37.5 mg tablet 37.5 mg PO QDAY 10/12/24 06/13/25 History rosuvastatin 20 mg tablet 20 mg PO QHS 06/15/25 Unknown History Allergy/AdvReac Type Severity Reaction Status Date / Time ciprofloxacin (From Cipro) Allergy Hives Verified 06/29/25 10:06 clarithromycin (From Biaxin) Allergy Hives Verified 06/29/25 10:06 meperidine HCl (From Demerol) Allergy Rash Verified 06/29/25 10:06 morphine Allergy Rash Verified 06/29/25 10:06 sulfamethoxazole (From Allergy Hives Verified 06/29/25 10:06 Bactrim) trimethoprim (From Bactrim) Allergy Hives Verified 06/29/25 10:06 Family History Father Thyroid disorder High cholesterol Mother Hypertension Osteoarthritis Breast cancer High cholesterol Osteopenia Grandmother Diabetes Heart disease Surgical History (Updated 06/15/25 @ 08:11 by Irma Patel) History of colonoscopy History of parathyroidectomy History of cholecystectomy Hx of cystoscopy Hx of oophorectomy History of salpingectomy History of lithotripsy D&C H/O cystoscopy Social History Smoking Status: Never smoker alcohol intake: current details: occasional substance use type: does not use Vital Signs Vital Signs Vital Signs: 06/29/25 10:08 06/29/25 10:08 Temperature 98.1 F Temperature Source Temporal Pulse Rate 94 Respiratory Rate 18 Respiratory Pattern Normal Blood Pressure 136/98 H Blood Pressure Mean 110 Blood Pressure Source Monitor Blood Pressure Position Sitting Blood Pressure Location Right Arm Pulse Ox 98 Oxygen Delivery Method Room Air Weight Weight: 257 lb 15.053 oz Body Mass Index (BMI) 41.6 Physical Exam Const alert, oriented x3 and no apparent distress HEENT normocephalic and head/scalp atraumatic Resp normal respiratory effort Cardio regular rate GI soft to palpation and non-tender; Negative for non-distended Palpation: Negative for guarding Extremity no clubbing, cyanosis or edema Skin no rashes or lesions noted Neuro CN's II-XII intact bilaterally Psych mental status grossly normal Assessment & Plan Assessment/Plan (1) Perirectal abscess: PLAN: Plan 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 Will plan for exam under anesthesia with possible fistulotomy. Patient is agreeable with plan. Discussed procedure and risks. Patient had no questions at this time. Renetta Edge M.D. Pager: [phone] [facility] [address] [place] [address], Outpatient [place], [address] [place] [id number] Office: [phone]
--- NOTE | 2025-06-29 10:29 | PRE.ANES_ITS ---
ASA Classification* ASA Classification ASA Classification: 3 Assessment & Plan Anesthesia* Anesthesia Assessment Anesthesia Assessment: Discussed sedation and/or anesthesia options, risks, benefits, and alternatives with patient/parents/legal guardian/POA. Questions invited. The patient/parents/legal guardian/POA seems to understand and agrees to proceed with anesthesia plan. Reviewed the physical assessment, medical history, allergy history and patient home medications list prior to surgery/procedure/anesthetic and documented any changes. Performed airway and anesthesia risk assessments. Anesthesia Type Anesthesia Type: General and MAC Anesthesia Focused Assessment* Temperature: 98.1 F Pulse Rate: 94 Blood Pressure: 136/98 Respiratory Rate: 18 Pulse Ox: 98 Airway Assessment Mouth opens: >3 cm Mallampati Score: II Labs Anesthesia Preop lab: CBC WBC, (4.4-11.0) 9.9 K/mm3 05/28/25, 08:58 RBC, (4.2-5.4) 4.58 M/mm3 05/28/25, 08:58 Hgb, (12.0-15.0) 13.8 g/dL 05/28/25, 08:58 Hct, (37-47) 40.4 % 05/28/25, 08:58 Plt Count, (150-450) 240 K/mm3 05/28/25, 08:58 CHEMISTRY Potassium, (3.3-5.1) 4.2 mmol/L 05/28/25, 08:58 Sodium, (133-145) 139 mmol/L 05/28/25, 08:58 Magnesium, (1.6-2.6) 1.9 mg/dL 09/14/22, 09:07 Phosphorus, (2.7-4.5) 2.8 mg/dL 05/28/25, 08:58 BUN, (4-19) 11 mg/dL 05/28/25, 08:58 Creatinine, (0.70-1.20) 0.73 mg/dL 05/28/25, 08:58 Glucose, (70-99) 90 mg/dL 05/28/25, 08:58 TSH, (0.300-4.200) 2.860 uIU/mL 05/28/25, 09:00 COAG PT, (11.7-14.9) 13.4 SECONDS 03/28/18, 13:10 HCG, Quant, (1-3) < 1 mIU/mL 08/05/20, 14:09 Urine Test Negative Negative 11/10/24, 06:00 Tst Clinic Negative 11/19/17, 17:20 Pre-Assessment Diagnosis/Proposed Procedure Planned Operative Procedure(s): Exam Under Anesthesia & poss fistulotomy Anesthesia History 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 When Was Last Pacemaker Check QUESTION #4 FULL TEXT: You/Your Family Experience fever (hyperthermia) with Anesthesia Last Oral Intake Last Oral intake: Last Oral Intake NPO since 00:00 06/29/25 10:08 Meds taken in AM with sips of No 06/29/25 10:08 water? Meds patient instructed to take am of surgery PONV PONV - post tensioning ironworker: PONV - post tensioning ironworker Female Yes 06/15/25 08:11 HX of Motion Sickness Yes 06/15/25 08:11 HX of N/V After Surgery No 06/15/25 08:11 Non-Smoker Yes 06/15/25 08:11 Duration of Surgery greater No 06/15/25 08:11 than 60 minutes Number of Risk Factors 3 06/15/25 08:11 PONV Score Moderate Risk 06/15/25 08:11 Height & Weight Height & Weight: Anesthesia: Height & Weight Height 5 ft 6 in 06/29/25 10:08 Weight: 117 kg 06/29/25 10:08 Body Mass Index (BMI) 41.6 06/29/25 10:08 Respiratory Assessment Respiratory Assessment - post tensioning ironworker: Respiratory Tract Infection Hx - post tensioning ironworker Hx Respiratory Tract Infection No 06/15/25 08:11 STOP Sleep Apnea STOP Sleep Apnea - post tensioning ironworker: STOP Sleep Apnea - post tensioning ironworker Hx Hypertension No 06/15/25 08:11 Hx Sleep Apnea Yes 06/15/25 08:11 CPAP Yes 06/15/25 08:11 BIPAP No 06/15/25 08:11 Do you snore loudly (louder than talking or can be heard Do you often feel tired/ fatigued/ sleepy during daytime? Has anyone observed you stop breathing during sleep? STOP Results Positive 06/15/25 08:11 QUESTION #5 FULL TEXT : Do you snore loudly (louder than talking or can be heard through closed doors)? Tobacco Use History Tobacco Use History - post tensioning ironworker: Tobacco Use History - post tensioning ironworker Tobacco Use Smoking Status Never smoker 06/15/25 08:11 Hx Tobacco Use No 06/15/25 08:11 Years Smoking Packs Smoked per Day Smoking Cessation Date was within the last 15 years Hx Smoking Cessation Date Hx Smoking Cessation Counseling Hematologic Medial History Hematologic Hx - post tensioning ironworker: Hematologic Medical Hx - patient safety officer Hx of Blood Transfusion No 06/15/25 08:11 Hx of Transfusion in last 3 No 06/15/25 08:11 Months Date of Last Transfusion (if within last 3 months) Ever experience any problems No 06/15/25 08:11 with transfusion(s)? Specify any problems Hx of Preganancy in last 3 No 06/15/25 08:11 Months Nurse Filling Out Transfusion MGRIFFITH 06/15/25 08:11 & Questions: Date: 06/15/25 06/15/25 08:11 Time: 08:13 06/15/25 08:11 Patient unable to answer at this time (ie. confused, unrespo /Reproduction History /Reproductive History - post tensioning ironworker: /Reproductive Hx- post tensioning ironworker Hx Now No 06/15/25 08:11 Gestational Age (in weeks): EDC: Hx Hx Para Hx Section SAB No 06/15/25 08:11 Active Medications Active Medications: Current Medications Generic Name Dose Route Start Last Admin Trade Name Freq PRN Reason Stop Dose Admin Lactated Ringer's 1,000 mls @ 15 mls/hr 06/29/25 09:45 06/29/25 10:12 IV 15 mls/hr .Q48H IDALMIS Administration PFSH Medical History Blood disorder High cholesterol Non-smoker Dietary restriction Thyroid disease Kidney stones Low iron Back pain Migraine headache CPAP (continuous positive airway pressure) dependence Sleep apnea History of echocardiogram GERD (gastroesophageal reflux disease) Hemorrhoids Rectal pain Anemia Wears glasses Wears contact lenses Gastric reflux Anxiety Obesity Mixed hyperlipidemia Hypertriglyceridemia PCOS (polycystic ovarian syndrome) Amenorrhea Fatty liver PCOS (polycystic ovarian syndrome) Hyperlipidemia Asthma Home Medications ?Medication ?Instructions ?Recorded ?Last Taken ?Type cholecalciferol (vitamin D3) 125 125 mcg PO DAILY 08/1311/09/24 History mcg (5,000 unit) capsule lorazepam 0.5 mg tablet (Ativan) 0.5 mg PO DAILY PRN A nxiety 08/23/20 05/20/22 History sertraline 100 mg tablet (Zoloft) 100 mg PO DAILY 08/1311/09/24 History lactobacillus combination no.8 3 3,000 mmu cells PO DA CHERY 11/28/20 11/09/24 History billion cell capsule (Adult Probiotic) omeprazole 20 mg capsule,delayed 20 mg PO QHS 11/28/20 11/09/24 History release spironolactone 100 mg tablet 100 mg PO DAILY 11/28/20 11/09/24 History ferrous sulfate 325 mg (65 mg 325 mg PO DAILY 10/27/21 11/09/24 History iron) tablet znwpfxesak-mdrebytyzmnlx-kyqwrwtg 1 cap PO Q8H PRN michele n #7 caps 02/01/23 Unknown Rx 50 mg-300 mg-40 mg capsule (Fioricet) ascorbic acid (vitamin C) 1,000 mg 1 g PO QDAY 5 11/09/24 History capsule bupropion HCl 150 mg tablet,12 hr 150 mg PO BID 11/09/24 History sustained-release metformin 1,000 mg tablet 1,000 mg PO BID 10/12/24 History norethindrone acetate 1 mg-ethinyl 1 tab PO DAILY 09/1511/09/24 History estradiol 20 mcg tablet (Aurovela) omega 7-iaw-ytc-fish oil 300 1 cap PO QDAY 10/12/24 History mg-1,000 mg capsule (Fish Oil) phentermine 37.5 mg tablet 37.5 mg PO QDAY 10/12/24 History rosuvastatin 20 mg tablet 20 mg PO QHS 06/15/25 Unknow n History Allergy/AdvReac Type Severity Reaction Status Date / Time ciprofloxacin (From Cipro) Allergy Hives Verified 06/29/25 10:06 clarithromycin (From Biaxin) Allergy Hives Verified 06/29/25 10:06 meperidine HCl (From Demerol) Allergy Rash Verified 06/29/25 10:06 morphine Allergy Rash Verified 06/29/25 10:06 sulfamethoxazole (From Allergy Hives Verified 06/29/25 10:06 Bactrim) trimethoprim (From Bactrim) Allergy Hives Verified 06/29/25 10:06 Family History Father Thyroid disorder High cholesterol Mother Hypertension Osteoarthritis Breast cancer High cholesterol Osteopenia Grandmother Diabetes Heart disease Surgical History (Updated 06/15/25 @ 08:11 by Irma Patel) History of colonoscopy History of parathyroidectomy History of cholecystectomy Hx of cystoscopy Hx of oophorectomy History of salpingectomy History of lithotripsy D&C H/O cystoscopy Social History Smoking Status: Never smoker alcohol intake: current details: occasional substance use type: does not use Review of Systems (Anesthesia) ROS Narrative System reviewed and no additional complaints, except as documented.
[2025-06-29] MEDS: Lactated Ringers 1,000 ML 1000 ML IV (10:49)
[2025-06-29] MEDS: Midazolam 2 MG/2 ML Syringe IV (10:49)
[2025-06-29] MEDS: fentaNYL 100 MCG/2 ML Ampul 50 MCG IV (10:49)
[2025-06-29] MEDS: BUPIVACAINE LIPOSOME/PF 20 ML VIAL OPERA.SITE (11:10)
[2025-06-29] MEDS: Ketorolac 30 MG/ML Syringe IV (11:28)
--- NOTE | 2025-06-29 11:30 | PCM.OPRPT ---
Operative Report (Standard) Operative Information Date of Procedure: 06/29/25 Pre-Operative Diagnosis: Anal fistula Post-Operative Diagnosis: Same Surgery/Procedure Performed: Exam under anesthesia and fistulotomy auditor medical claims: Yes Flyer Builder: Ashlie Khan Tasks completed by preschool assistant director: Opening and Retracting Type of Anesthesia: General/Supplemental RN Documented Start/Stop Times: Operation Date: 06/29/25 11:00 Case Time Into Pre-Op 06/29/25 09:40 Anesthesia Start 06/29/25 10:49 Into Room 06/29/25 10:49 Procedure Start 06/29/25 11:10 Procedure End 06/29/25 11:29 Anesthesia End 06/29/25 11:45 Out of Room 06/29/25 11:45 Into Recovery 06/29/25 11:49 Into Phase II Recovery 06/29/25 12:48 Out of Recovery 06/29/25 12:48 Procedure Start Time: 11:10 Procedure Stop Time: 11:29 Select all DRAINS/GRAFTS/IMPLANTS that apply: None Estimated Blood Loss: < 10 CC Specimen collected: No Description of surgery: The patient was brought into the operating room and general anesthesia was induced. She he was placed in prone jackknife lithotomy position. A timeout was completed verifying correct patient, procedure, site, position, and special equipment prior to beginning the procedure. The buttocks were taped apart. Perineum was prepared prepped and draped in standard sterile fashion. Local anesthesia was injected as a perianal nerve block-Exparel?total of 20 cc used throughout the case.. Anus carefully dilated. Noted to be a small anal fistula at 6:00 with an additional opening directly superior to it < 0.5 cm superior. The bridging tissue was divided with electrocautery this is also extended distally perianal tissue to help prevent repeat abscess. Tissue of the fistula was curetted. A large Surgifoam with dibucaine was placed in the anus. A gauze pad tucked between the gluteal folds. The patient tolerated procedure well and was extubated and taken to the postanesthesia care unit in stable condition. Surgical Findings: See operative report Complications Complications: No
[2025-06-29] MEDS: Albuterol IH (6.7 GM) 1 PUFF INHALER 4 PUFF INHALATION (11:33)
--- NOTE | 2025-06-29 11:33 | EX.PCM.DISCH ---
Discharge Instructions Procedure Rectal Surgery Diet Discharge Diet: No restrictions Activity Discharge Activity: Return to Normal Activity and May Not Drive (while you are taking narcotic pain medications. Do not drive, work with heavy equipment or sign legal documents for 24 hours after your surgery.) Additional Activity Instructions:: Be aware that pain medications may cause nausea. You should typically eat light foods as you take your pain medications. Pain medications may also cause constipation, okay to take Colace or MiraLAX as needed Dressing / Incision Call your doctor if your incision/area has: Sudden Increased Bleeding and Increased Pain/ Swelling Additional Dressing/Incision Instructions:: (SURGIFOAM) anesthetic plug was placed in the anal area, try not to expel for 24-[address] dibucaine ointment on the perianal area as needed. Sitz baths twice daily and after bowel movements. Follow Up Care Please Follow Up With: Renetta Edge MD When: Please call [phone] to schedule a follow up appointment to be seen 1-2 weeks after surgery. Test Results: Test results from this visit will be discussed in further detail at your follow-up appointment, if applicable. Discharge Plan Admission Attending Provider: Renetta Edge Primary Care Provider: Karley Mott Instructions Print Language: Icelandic Discharge Orders/Prescriptions Prescriptions: New oxycodone 5 mg capsule 5 mg PO Q6H PRN (Reason: pain) 3 Days Qty: 10 0RF Continued cholecalciferol (vitamin D3) 125 mcg (5,000 unit) capsule 125 mcg PO DAILY sertraline [Zoloft] 100 mg tablet 100 mg PO DAILY lorazepam [Ativan] 0.5 mg tablet 0.5 mg PO DAILY PRN (Reason: Anxiety) spironolactone 100 mg tablet 100 mg PO DAILY omeprazole 20 mg capsule,delayed release(DR/EC) 20 mg PO QHS Adult Probiotic 3 billion cell capsule 3,000 mmu cells PO DAILY Rx Instructions: administer with a meal phentermine 37.5 mg tablet 37.5 mg PO QDAY Rx Instructions: must administer 30 minutes before or 1-2 hours after breakfast omega 9-lot-rje-fish oil [Fish Oil] 300-1,000 mg capsule 1 cap PO QDAY ascorbic acid (vitamin C) 1,000 mg capsule 1 g PO QDAY norethindrone ac-eth estradiol [Aurovela 10/02 (21)] 1-20 mg-mcg tablet 1 tab PO DAILY metformin 1,000 mg tablet 1,000 mg PO BID bupropion HCl 150 mg tablet sustained-release 12 hr 150 mg PO BID ferrous sulfate 325 mg (65 mg iron) Tablet 325 mg PO DAILY uugufaxynu-obvemmikfwuuk-bdms [Fioricet] 50-300-40 mg capsule 1 cap PO Q8H PRN (Reason: pain) Qty: 7 0RF rosuvastatin 20 mg tablet 20 mg PO QHS Referrals / Follow Up: Karley Mott, COMPOSING MACHINE OPERATOR/TENDER-C [Primary Care Provider, Internal Medicine] Disposition Disposition (needs filled in before D/C Order can be placed): Home, Self Care
--- NOTE | 2025-06-29 11:51 | PCM.POST.ANE ---
Anesthesia: Postop Eval I Current Vital Signs Temperature: 98.7 F Pulse Rate: 96 Blood Pressure: 149/93 Respiratory Rate: 20 Pulse Ox: 98 (8L Nonrebreather, patient awake, follows commands. ) Assessment Airway patent: Yes Spontaneous unlabored respirations: Yes nausea: No Vomiting: No Anesthesia Complication: No Fluid Hydration Crystalloid volume administer (ml): 1,000 Total IV fluid infused: 1,000 Progress Note Anesthesia document: Postop Eval 1 completed: Yes
--- NOTE | 2025-06-29 11:58 | POSTOPAN2_ITS ---
Anesthesia Postop Eval I Sum Postop Eval Completion status Anesthesia document: Postop Eval 1 completed: Yes Anesthesia Postop Eval I Summary Anesthesia Postop Eval I Summary: Anesthesia Postop Eval I: Assessment Summary Airway patent Yes 06/29/25 11:51 IN HOME [email or web address] Spontaneous unlabored Yes 06/29/25 11:51 IN HOME [email or web address].CSIR respirations Mental status nausea No 06/29/25 11:51 IN HOME [email or web address].CSIR Vomiting No 06/29/25 11:51 IN HOME [email or web address] Anesthesia Postop Eval I: Fluid Summary Crystalloid volume administer 1,000 06/29/25 11:51 IN HOME [email or web address].CSIR (ml) Colloids volume administered ( ml) Blood Product volume administered (ml) Total IV fluid infused 1,000 06/29/25 11:51 IN HOME [email or web address] Anesthesia Postop Eval I: Summary Notes Anesthesia Complication No 06/29/25 11:51 IN HOME [email or web address].CSIR Anesthesia Complication Comment: Post-operative progress note Anesthesia: Postop Eval II Evaluation Mental status: Awake Pain Level: 0 nausea: No Vomiting: No
--- NOTE | 2025-06-29 11:58 | PCM.POSTANE2 ---
Anesthesia Postop Eval I Sum Postop Eval Completion status Anesthesia document: Postop Eval 1 completed: Yes Anesthesia Postop Eval I Summary Anesthesia Postop Eval I Summary: Anesthesia Postop Eval I: Assessment Summary Airway patent Yes 06/29/25 11:51 COLOR [email or web address] Spontaneous unlabored Yes 06/29/25 11:51 COLOR [email or web address] respirations Mental status nausea No 06/29/25 11:51 COLOR [email or web address].[email or web address] Vomiting No 06/29/25 11:51 COLOR [email or web address] Anesthesia Postop Eval I: Fluid Summary Crystalloid volume administer 1,000 06/29/25 11:51 COLOR [email or web address].CSIR (ml) Colloids volume administered ( ml) Blood Product volume administered (ml) Total IV fluid infused 1,000 06/29/25 11:51 COLOR [email or web address] Anesthesia Postop Eval I: Summary Notes Anesthesia Complication No 06/29/25 11:51 COLOR [email or web address].CSIR Anesthesia Complication Comment: Post-operative progress note Anesthesia: Postop Eval II Evaluation Mental status: Awake Pain Level: 0 nausea: No Vomiting: No
== END 2025-06-29 14:10 | disposition home or self-care (01) ==
LOC: SDC 09:27 → AC 09:28
PROVIDERS: PCP Nurse Practitioner Family; Referring Provider Surgery; Visit Provider Surgery
PROC: (CPT 46270; principal; 2025-06-29 10:45)
DX: K60.30 Anal fistula, unspecified (principal); E78.2 Mixed hyperlipidemia; K21.9 Gastro-esophageal reflux disease without esophagitis; J45.909 Unspecified asthma, uncomplicated
CPT/HCPCS: 46270; 00902; J0666; J2405